=== PATIENT | female | born 1945 | race Hispanic/Latino ===

== ENCOUNTER 2017-08-18 10:19 | Inpatient (IN) | payer MEDICARE, OTHER ==
[2017-08-18 10:19] VITALS: BMI 29.6
[2017-08-18] MEDS ORDERED: Magnesium Sulfate 1 gm in D5W 1 GM/100 ML BAG IVPB ONE (10:27)
[2017-08-18] MEDS ORDERED: Sodium Chloride 0.9% 1,000 ML IV ONE (10:31)
--- NOTE | 2017-08-18 10:31 | C.PDOC ---
History Of Present Illness LIMITED DUE TO CLIN EXAM PER EMS, HO COPD SOB [employer]. S/P CPAP AND NEB. 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 Time Seen by Provider: 08/18/17 10:26 History Per: EMS History/Exam Limitations: clinical condition Current Symptoms Are (Timing): Still Present Associated Symptoms: denies: Fever, Bloody Cough, Productive Cough Past Medical History Reviewed: Historical Data, Nursing Documentation, Vital Signs Vital Signs: Last Vital Signs Temp 98.4 F 08/18/17 10:22 Pulse 127 H 08/18/17 11:51 Resp 26 H 08/18/17 11:51 BP 148/86 08/18/17 11:51 Pulse Ox 95 08/18/17 11:51 - Medical History PMH: Arthritis, Atrial Fibrillation, CHF, COPD, HTN Surgical History: Cholecystectomy - [facility] Procedures DILATION OF R EXT ILIAC ART WITH INTRALUM DEV, PERC APPROACH (11/06/15) MEASURE OF CARDIAC SAMPL & PRESSURE, L HEART, PERC APPROACH (11/06/15) PLAIN RADIOGRAPHY OF L LOW EXTREM ART USING OTH CONTRAST (11/06/15) PLAIN RADIOGRAPHY OF MULT COR ART USING OTH CONTRAST (11/06/15) PLAIN RADIOGRAPHY OF R LOW EXTREM ART USING OTH CONTRAST (11/06/15) Family History: States: Unknown Family Hx - Social History Hx Alcohol Use: No Hx Substance Use: No - Immunization History Hx Tetanus Toxoid Vaccination: No Hx Influenza Vaccination: No Hx Pneumococcal Vaccination: No Review Of Systems Review Of Systems: ROS cannot be obtained secondary to pt's inabilty to answer questions. Physical Exam - Physical Exam Appears: Other (BIPAP IN PROGRESS, MODERATE DISTRESS. TACHYPNEIC, RETRACTING, UNABLE TO SPEAK SENTENCES. AWAKE, ALERT, APPROPRIATE INTERACTION, ABLE TO RESPOND Y/N.) Skin: Warm, Dry, No Diaphoretic Head: Atraumatic, Normacephalic Oral Mucosa: Moist Chest: Symmetrical Cardiovascular: Rhythm Irregular (TACHY) Respiratory: Decreased Breath Sounds (W/ BRONCHIAL SOUNDS), Accessory Muscle Use , No Rales, No Rhonchi, Other (TACHYPNEIC) Gastrointestinal/Abdominal: Soft, No Tenderness, No Guarding, No Rebound Back: Normal Inspection Extremity: Normal ROM, No Pedal Edema, Capillary Refill (< 2 SEC. ) Neurological/Psych: Oriented x3 ED Course And Treatment - Laboratory Results Result Diagrams: 08/18/17 10:39 08/18/17 10:39 - Radiology CXR: Interpreted by Me, Viewed By Me CXR Interpretation: Yes: Other (POSSIBLE CHF vs. INFILTRATES) Progress - Re-Evaluation Re-evaluation Note: 08/18/17 10:36 IMPROVE FROM PRIOR 95% ON BIPAP. 08/18/17 10:43 PT VOMITING, NOT TOLERATING. NOW SPEAKING 2-3 WORD SENTENCES. 08/18/17 11:08 APPEARS COMFORTABLE ON VAPOTHERM. SPEAKING 4-5 WORD SENTENCES 08/18/17 11:19 [facility] PRIOR PMD MAJCHRZAK CALLBACK DR WERNER PENDING CARDIO DR MA 08/18/17 12:[address] WERNER PENDING DR BARNES WILL EVAL FOR ICU PENDING CALLBACK DR MA 08/18/17 12:22 D/W DR WERNER STATES UNAVAIL THIS WEEK, ADMIT TO HOSP D/W DR Ellyn MATAMOROS WILL ADMIT 08/18/17 12:28 REPEAT EKG RAPID AFIB 129 NCP 08/18/17 12:31 D/W DR MA HO CAD. WILL REACH DR NEWBERRY TO EVAL PT IN HOSP - Data Reviewed Data Reviewed: Lab, Diagnostic imaging, EKG, Old records - Critical Care Citical Care: Excluding Proc Time Critical Care Time: 90 minutes Disposition Counseled Patient/Family Regarding: Studies Performed, Diagnosis - Disposition Disposition: HOSPITALIZED Disposition Time: 12:26 Condition: STABLE - POA Present On Arrival: Poor Glycemic Control - Clinical Impression Clinical Impression: CHF exacerbation, COPD with exacerbation, Elevated troponin, Rapid atrial fibrillation - Scribe Statement The provider has reviewed the documentation as recorded by the Scribe SM All medical record entries made by the Scribe were at my direction and personally dictated by me. I have reviewed the chart and agree that the record accurately reflects my personal performance of the history, physical exam, medical decision making, and the department course for this patient. I have also personally directed, reviewed, and agree with the discharge instructions and disposition. Decision To Admit - Pt Status Changed To: Hospital Disposition Of: Inpatient - Admit Certification Admit to Inpatient:: After my assessment, the patient will require hospitalization for at least two midnights. This is because of the severity of symptoms shown, intensity of services needed, and/or the medical risk in this patient being treated as an outpatient. - InPatient: Physician Admission Certification: I certify that this patient requires 2 or more midnights of care for the following reason:: SEE NOTE - . Bed Request Type: ICU Admitting Physician: Edward Matamoros Patient Diagnosis: CHF exacerbation, COPD with exacerbation, Elevated troponin, Rapid atrial fibrillation
[2017-08-18 10:43] LABS: BASO # 0.1 K/uL (0.0-0.2); BASO % 0.8 % (0.0-2.0); EOS # 0.1 K/uL (0.0-0.7); EOS % 0.4 % (0.0-4.0); LYMPH # 1.7 K/uL (1.0-4.3); LYMPH % 11.4 % (20.0-40.0); MEAN PLATELET VOLUME 7.4 fL (7.2-11.7); MONO # 0.7 K/uL (0.0-0.8); MONO % 4.9 % (0.0-10.0); NRBC % 0.1 % (0.0-2.0); RED CELL DISTRIBUTION WIDTH 15.4 % (11.5-14.5); WHITE BLOOD COUNT 14.6 K/uL (4.8-10.8)
[2017-08-18 10:44] LABS: VENOUS BLOOD GAS BASE EXCESS -1.4 mmol/L (0.0-2.0); VENOUS BLOOD GAS PCO2 56 mmHg (40-60); VENOUS BLOOD PH 7.28 (7.32-7.43)
[2017-08-18 10:56] LABS: CHLORIDE 95 mmol/L (98-107); SODIUM 134 mmol/L (132-148)
[2017-08-18 10:58] LABS: AST/SGOT 30 U/L (14-36); BILIRUBIN,TOTAL 0.6 mg/dL (0.2-1.3); CARBON DIOXIDE 25 mmol/L (22-30); GFR AFRICAN-AMERICAN > 60
[2017-08-18 10:59] LABS: ALKALINE PHOSPHATASE 103 U/L (38-126); ALT/SGPT 38 U/L (9-52); BLOOD UREA NITROGEN 12 mg/dL (7-17); CALCIUM 9.2 mg/dl (8.6-10.4); GLUCOSE,RANDOM 294 mg/dL (65-105); MAGNESIUM 1.3 mg/dL (1.6-2.3); TOTAL PROTEIN 7.9 g/dL (6.3-8.3)
[2017-08-18 11:50] LABS: ABG ALLEN TEST PO; DRAW SITE RR
[2017-08-18 12:19] LABS: RBC URINE < 1 /hpf (0-3); URINE BACTERIA RARE (<OCC); URINE BILIRUBIN NEGATIVE (NEGATIVE); URINE BLOOD 1+ (NEGATIVE); URINE COLOR Straw (YELLOW); URINE GLUCOSE (UA) NORMAL (Normal); URINE KETONE NEGATIVE (NEGATIVE); URINE LEUKOCYTE ESTERASE NEG Leu/uL (Negative); URINE PROTEIN 2+ mg/dL (NEGATIVE); URINE UROBILINOGEN NORMAL mg/dL (0.2-1.0); WBC URINE 1 /hpf (0-5)
[2017-08-18] MEDS ORDERED: cefTRIAXone IV 1 gm in Dextros 50 ML IV ONE (12:26)
[2017-08-18] MEDS ORDERED: Azithromycin 500 MG in Sodium Chloride 0.9% 250 ML IV STA (12:27)
[2017-08-18] MEDS ORDERED: cefTRIAXone IV 1 gm in Dextros 50 ML IVPB ONE (12:32)
--- NOTE | 2017-08-18 13:19 | RAD ---
PROCEDURE: CHEST RADIOGRAPH, 1 VIEW HISTORY: SOB COMPARISON: Chest radiographs 11/07/2015. FINDINGS: LUNGS: Fibrotic changes again seen the mid and inferior lung zones bilaterally with borderline airspace disease appreciate the right base. None is appreciate the left grossly. PLEURA: No definite acute pleural effusions identified although fibrotic changes or chronic effusion blunts the left costophrenic sulcus once again. None is seen the right. No pneumothorax bilaterally. CARDIOVASCULAR: Cardiomegaly appears stable. Mild pulmonary venous congestion is questioned. OSSEOUS STRUCTURES: No significant abnormalities. VISUALIZED UPPER ABDOMEN: Normal. OTHER FINDINGS: None. IMPRESSION: Mild pulmonary venous congestion is questioned as well as limited airspace disease right base. Pulmonary fibrosis is again seen bilaterally, concentrated at the mid to inferior lung zones, left greater than right.
[2017-08-18] MEDS ORDERED: Azithromycin 500 MG in Sodium Chloride 0.9% 250 ML IVPB SCH (14:30)
--- NOTE | 2017-08-18 15:25 | CP.PCM.HP ---
<Mitchel Valentino - Last Filed: 08/18/17 18:38> History of Present Illness - History of Present Illness History of Present Illness: CC: Dyspnea HPI ( Limited due to patient's clinical status): Patient is a 72 year old female with past medical history of CHF, HTN, atrial fibrillation, arthritis, COPD, who presents to the ED with complaints of shortness of breath that has worsened since this morning. Patient reports that she is unable to lay flat and sitting up mildly alleviates her symptoms. Patient does report episodes of bilateral leg swelling. Patient denies productive or non-productive cough, fever , chills, nausea, vomiting, dizziness but reports fatigue. Patient was placed on Bipap in the ED but patient refused, therefore, she was placed on Vapotherm with 100% FIO2. Patient was noted to have decreasing oxygen saturation as she was talking, therefore, the encounter was shortened and patient was eventually placed on Bipap. As per chart review: PMD: Dr. Mosquera. PMHx: CHF, HTN, atrial fibrillation, arthritis, COPD. Surgical Hx: Cholecystectomy, foot surgery, left shoulder surgery and surgery for bladder incontinence. Family Hx: mother passed from [place] at age 72. Brother passed from [place] at age 28. Allergies: NKDA. Social Hx: Lives alone. Former smoker for 20 years. Admits to ETOH socially and denies illicit drug use Present on Admission - Present on Admission Any Indicators Present on Admission: No Review of Systems - Constitutional Constitutional: absent: Chills, Fever, Headache - EENT Eyes: absent: Blurred Vision, Change in Vision - Cardiovascular Cardiovascular: Dyspnea, Dyspnea on Exertion, Orthopnea. absent: Chest Pain, Chest Pain at Rest, Diaphoresis, Lightheadedness, Palpitations, Syncope - Respiratory Respiratory: Dyspnea, Dyspnea on Exertion, Wheezing, Chest Congestion - Gastrointestinal Gastrointestinal: absent: Abdominal Pain, Nausea, Vomiting - Neurological Neurological: Weakness. absent: Dizziness, Headaches, Syncope - Endocrine Endocrine: Fatigue. absent: Palpitations Past Patient History - Past Medical History & Family History Past Medical History?: Yes - Past Social History Smoking Status: Former Smoker - CARDIAC Hx Atrial Fibrillation: Yes Hx Congestive Heart Failure: Yes Hx Hypertension: Yes - PULMONARY Hx Chronic Obstructive Pulmonary Disease (COPD): Yes - NEUROLOGICAL Hx Paralysis: No - HEENT Hx HEENT Problems: No - RENAL Hx Chronic Kidney Disease: No - ENDOCRINE/METABOLIC Hx Endocrine Disorders: No - HEMATOLOGICAL/ONCOLOGICAL Hx Blood Transfusions: No - INTEGUMENTARY Hx Dermatological Problems: No - MUSCULOSKELETAL/RHEUMATOLOGICAL Hx Arthritis: Yes - GASTROINTESTINAL Hx Gastrointestinal Disorders: No - GENITOURINARY/GYNECOLOGICAL Hx Genitourinary Disorders: No - PSYCHIATRIC Hx Substance Use: No - SURGICAL HISTORY Hx Cholecystectomy: Yes - ANESTHESIA Hx Anesthesia: No Hx Malignant Hyperthermia: No Meds Allergies/Adverse Reactions: Allergies Allergy/AdvReac Type Severity Reaction Status Date / Time No Known Allergies Allergy Verified 11/06/15 14:25 Physical Exam - Head Exam Head Exam: ATRAUMATIC - Eye Exam Eye Exam: EOMI - ENT Exam ENT Exam: Mucous Membranes Moist - Respiratory Exam Respiratory Exam: Accessory Muscle Use, Decreased Breath Sounds, Wheezes, Respiratory Distress - Cardiovascular Exam Cardiovascular Exam: Tachycardia, REGULAR RHYTHM, +S1, +S2 - GI/Abdominal Exam GI & Abdominal Exam: Normal Bowel Sounds, Soft. absent: Tenderness - Extremities Exam Extremities exam: Negative for: pedal edema - Neurological Exam Neurological exam: Alert, Oriented x3 - Psychiatric Exam Psychiatric exam: Anxious - Skin Skin Exam: Normal Color Results - Vital Signs Recent Vital Signs: Last Vital Signs Temp 98.3 F 08/18/17 13:29 Pulse 103 H 08/18/17 14:38 Resp 24 08/18/17 13:29 BP 162/96 H 08/18/17 13:29 Pulse Ox 93 L 08/18/17 13:29 - Labs Result Diagrams: 08/18/17 10:39 08/18/17 10:39 Labs: Laboratory Results - last 24 hr 08/18/17 08/18/17 08/18/17 10:30 10:39 10:39 WBC 14.6 H D RBC 4.31 Hgb 12.5 Hct 38.0 MCV 88.0 D MCH 29.0 MCHC 33.0 RDW 15.4 H Plt Count 416 H D MPV 7.4 Neut % (Auto) 82.5 H Lymph % (Auto) 11.4 L Florence % (Auto) 4.9 Eos % (Auto) 0.4 Baso % (Auto) 0.8 Neut # 12.1 H Lymph # 1.7 Florence # 0.7 Eos # 0.1 Baso # 0.1 PT 11.3 INR 1.0 APTT 33 Puncture Site pCO2 pO2 45 HCO3 ABG pH ABG Total CO2 ABG O2 Saturation ABG Base Excess Tigre Test ABG Potassium VBG pH 7.28 L VBG pCO2 56 VBG HCO3 23.2 VBG Total CO2 28.0 VBG O2 Sat (Calc) 79.5 H VBG Base Excess -1.4 L VBG Potassium 4.0 A-a O2 Difference Respiratory Index Sodium 136.0 Chloride 99.0 Glucose 326 H Lactate 4.4 H* Liter Flow FiO2 Crit Value Called To Dr basilia stanley Crit Value Called By Gordon garcia [facility] Crit Value Read Back Y Blood Gas Notified Time 1045 Potassium Carbon Dioxide Anion Gap BUN Creatinine Est GFR ( Amer) Est GFR (Non-Af Amer) POC Glucose (mg/dL) Random Glucose Calcium Magnesium Total Bilirubin AST ALT Alkaline Phosphatase Troponin I NT-Pro-B Natriuret Pep Total Protein Albumin Globulin Albumin/Globulin Ratio Arterial Blood Potassium Venous Blood Potassium 4.0 Urine Color Urine Clarity Urine pH Ur Specific Anthony Urine Protein Urine Glucose (UA) Urine Ketones Urine Blood Urine Nitrate Urine Bilirubin Urine Urobilinogen Ur Leukocyte Esterase Urine WBC (Auto) Urine RBC (Auto) Ur Squamous Epith Cells Urine Bacteria Hyaline Casts Digoxin Influenza Typ A,B (EIA) 08/18/17 08/18/17 08/18/17 10:39 10:39 11:08 WBC RBC Hgb Hct MCV MCH MCHC RDW Plt Count MPV Neut % (Auto) Lymph % (Auto) Florence % (Auto) Eos % (Auto) Baso % (Auto) Neut # Lymph # [place] # Eos # Baso # PT INR APTT Puncture Site pCO2 pO2 HCO3 ABG pH ABG Total CO2 ABG O2 Saturation ABG Base Excess Tigre Test ABG Potassium VBG pH VBG pCO2 VBG HCO3 VBG Total CO2 VBG O2 Sat (Calc) VBG Base Excess VBG Potassium A-a O2 Difference Respiratory Index Sodium 134 Chloride 95 L Glucose Lactate Liter Flow FiO2 Crit Value Called To Crit Value Called By Crit Value Read Back Blood Gas Notified Time Potassium 4.0 Carbon Dioxide 25 Anion Gap 18 BUN 12 Creatinine 0.6 L Est GFR ( Amer) > 60 Est GFR (Non-Af Amer) > 60 POC Glucose (mg/dL) Random Glucose 294 H Calcium 9.2 Magnesium 1.3 L Total Bilirubin 0.6 AST 30 ALT 38 Alkaline Phosphatase 103 Troponin I 0.1440 H* NT-Pro-B Natriuret Pep 3370 H Total Protein 7.9 Albumin 3.9 Globulin 4.0 H Albumin/Globulin Ratio 1.0 Arterial Blood Potassium Venous Blood Potassium Urine Color Urine Clarity Urine pH Ur Specific Anthony Urine Protein Urine Glucose (UA) Urine Ketones Urine Blood Urine Nitrate Urine Bilirubin Urine Urobilinogen Ur Leukocyte Esterase Urine WBC (Auto) Urine RBC (Auto) Ur Squamous Epith Cells Urine Bacteria Hyaline Casts Digoxin 1.1 Influenza Typ A,B (EIA) Negative for flu a/b 08/18/17 08/18/17 08/18/17 11:47 12:05 14:00 WBC RBC Hgb Hct MCV MCH MCHC RDW Plt Count MPV Neut % (Auto) Lymph % (Auto) Florence % (Auto) Eos % (Auto) Baso % (Auto) Neut # Lymph # Florence # Eos # Baso # PT INR APTT Puncture Site Rr pCO2 41 pO2 79 L HCO3 21.7 ABG pH 7.33 L ABG Total CO2 22.9 ABG O2 Saturation 97.4 ABG Base Excess -4.1 L Tigre Test Po ABG Potassium 3.3 L VBG pH VBG pCO2 VBG HCO3 VBG Total CO2 VBG O2 Sat (Calc) VBG Base Excess VBG Potassium A-a O2 Difference 583.0 Respiratory Index 7.4 Sodium 138.0 Chloride 103.0 Glucose 251 H Lactate 5.0 H* Liter Flow 20.0 FiO2 100.0 Crit Value Called To Dr. stanley Crit Value Called By Babak nesbitt Crit Value Read Back Y Blood Gas Notified Time 1149 Potassium Carbon Dioxide Anion Gap BUN Creatinine Est GFR ( Amer) Est GFR (Non-Af Amer) POC Glucose (mg/dL) 291 H Random Glucose Calcium Magnesium Total Bilirubin AST ALT Alkaline Phosphatase Troponin I NT-Pro-B Natriuret Pep Total Protein Albumin Globulin Albumin/Globulin Ratio Arterial Blood Potassium 3.3 L Venous Blood Potassium Urine Color Straw Urine Clarity Clear Urine pH 5.0 Ur Specific Anthony 1.006 Urine Protein 2+ H Urine Glucose (UA) Normal Urine Ketones Negative Urine Blood 1+ H Urine Nitrate Negative Urine Bilirubin Negative Urine Urobilinogen Normal Ur Leukocyte Esterase Neg Urine WBC (Auto) 1 Urine RBC (Auto) < 1 Ur Squamous Epith Cells 2 Urine Bacteria Rare Hyaline Casts 3-5 H Digoxin Influenza Typ A,B (EIA) Assessment & Plan - Assessment and Plan (Free Text) Assessment: Patient is a 72 year old female with past medical history of A.fibrillation, CHF , COPD, HTN and arthritis, who presents to the ED with complaints of shortness of breath that has worsened since this morning. Patient was found to be respiratory distress and was placed on vapotherm and subsequently, placed on Bipap in the ICU. Plan: Neuro: Alert, awake and oriented Cardio: Hx of A. Fibrillation, HTN, CHF Perl Developer, Dr. Drake---> help appreciated * Management as per recommendation Medication/Management: * Cardizem drip 125mg at 5mg/hr * Lovenox 70mg SC Q12H * Aspirin 81mg PO daily Pulm: Respiratory distress secondary to possible acute CHF Chest X-ray: Mild pulmonary venous congestion is questioned as well as limited airspace disease right base. Pulmonary fibrosis is again seen bilaterally, concentrated at the mid to inferior lung zones, left greater than right. Bilateral infiltrates Medication/Management: * Solumedrol 60mg IV Q8H * Duoneb 3ml INH RQ6 prn * Azithromycin 500mg IV Q24H * Rocephin 1gm IV 24 Q24H * Lasix 40mg IVP Q12H Prophylaxis: DVT: Lovenox 70mg sc Q12 GI:Pepcid 20mg IVP q12h <Solis Shirley H - Last Filed: 08/19/17 07:17> Results - Vital Signs Recent Vital Signs: Last Vital Signs Temp 98.7 F 08/19/17 04:00 Pulse 79 08/18/17 21:58 Resp 30 H 08/18/17 16:48 BP 136/97 H 08/19/17 01:30 Pulse Ox 93 L 08/19/17 04:00 - Labs Result Diagrams: 08/19/17 06:14 08/19/17 06:14 Labs: Laboratory Results - last 24 hr 08/18/17 08/18/17 08/18/17 10:30 10:39 10:39 WBC 14.6 H D RBC 4.31 Hgb 12.5 Hct 38.0 MCV 88.0 D MCH 29.0 MCHC 33.0 RDW 15.4 H Plt Count 416 H D MPV 7.4 Neut % (Auto) 82.5 H Lymph % (Auto) 11.4 L Florence % (Auto) 4.9 Eos % (Auto) 0.4 Baso % (Auto) 0.8 Neut # 12.1 H Lymph # 1.7 Florence # 0.7 Eos # 0.1 Baso # 0.1 PT 11.3 INR 1.0 APTT 33 Puncture Site pCO2 pO2 45 HCO3 ABG pH ABG Total CO2 ABG O2 Saturation ABG Base Excess ABG Hemoglobin ABG Carboxyhemoglobin POC ABG HHb (Measured) ABG Methemoglobin Tigre Test ABG Potassium VBG pH 7.28 L VBG pCO2 56 VBG HCO3 23.2 VBG Total CO2 28.0 VBG O2 Sat (Calc) 79.5 H VBG Base Excess -1.4 L VBG Potassium 4.0 A-a O2 Difference Respiratory Index Hgb O2 Saturation Sodium 136.0 Chloride 99.0 Glucose 326 H Lactate 4.4 H* Liter Flow FiO2 Crit Value Called To Dr basilia stanley Crit Value Called By Gordon garcia insole rounder Crit Value Read Back Y Blood Gas Notified Time 1045 Potassium Carbon Dioxide Anion Gap BUN Creatinine Est GFR ( Amer) Est GFR (Non-Af Amer) POC Glucose (mg/dL) Random Glucose Calcium Phosphorus Magnesium Total Bilirubin AST ALT Alkaline Phosphatase Total Creatine Kinase CK-MB (Mass) Troponin I Troponin I, Quant NT-Pro-B Natriuret Pep Total Protein Albumin Globulin Albumin/Globulin Ratio Arterial Blood Potassium Venous Blood Potassium 4.0 Urine Color Urine Clarity Urine pH Ur Specific Anthony Urine Protein Urine Glucose (UA) Urine Ketones Urine Blood Urine Nitrate Urine Bilirubin Urine Urobilinogen Ur Leukocyte Esterase Urine WBC (Auto) Urine RBC (Auto) Ur Squamous Epith Cells Urine Bacteria Hyaline Casts Digoxin Influenza Typ A,B (EIA) 08/18/17 08/18/17 08/18/17 10:39 10:39 11:08 WBC RBC Hgb Hct MCV MCH MCHC RDW Plt Count MPV Neut % (Auto) Lymph % (Auto) Florence % (Auto) Eos % (Auto) Baso % (Auto) Neut # Lymph # [place] # Eos # Baso # PT INR APTT Puncture Site pCO2 pO2 HCO3 ABG pH ABG Total CO2 ABG O2 Saturation ABG Base Excess ABG Hemoglobin ABG Carboxyhemoglobin POC ABG HHb (Measured) ABG Methemoglobin Tigre Test ABG Potassium VBG pH VBG pCO2 VBG HCO3 VBG Total CO2 VBG O2 Sat (Calc) VBG Base Excess VBG Potassium A-a O2 Difference Respiratory Index Hgb O2 Saturation Sodium 134 Chloride 95 L Glucose Lactate Liter Flow FiO2 Crit Value Called To Crit Value Called By Crit Value Read Back Blood Gas Notified Time Potassium 4.0 Carbon Dioxide 25 Anion Gap 18 BUN 12 Creatinine 0.6 L Est GFR ( Amer) > 60 Est GFR (Non-Af Amer) > 60 POC Glucose (mg/dL) Random Glucose 294 H Calcium 9.2 Phosphorus Magnesium 1.3 L Total Bilirubin 0.6 AST 30 ALT 38 Alkaline Phosphatase 103 Total Creatine Kinase CK-MB (Mass) Troponin I 0.1440 H* Troponin I, Quant NT-Pro-B Natriuret Pep 3370 H Total Protein 7.9 Albumin 3.9 Globulin 4.0 H Albumin/Globulin Ratio 1.0 Arterial Blood Potassium Venous Blood Potassium Urine Color Urine Clarity Urine pH Ur Specific Anthony Urine Protein Urine Glucose (UA) Urine Ketones Urine Blood Urine Nitrate Urine Bilirubin Urine Urobilinogen Ur Leukocyte Esterase Urine WBC (Auto) Urine RBC (Auto) Ur Squamous Epith Cells Urine Bacteria Hyaline Casts Digoxin 1.1 Influenza Typ A,B (EIA) Negative for flu a/b 08/18/17 08/18/17 08/18/17 11:47 12:05 14:00 WBC RBC Hgb Hct MCV MCH MCHC RDW Plt Count MPV Neut % (Auto) Lymph % (Auto) Florence % (Auto) Eos % (Auto) Baso % (Auto) Neut # Lymph # [place] # Eos # Baso # PT INR APTT Puncture Site Rr pCO2 41 pO2 79 L HCO3 21.7 ABG pH 7.33 L ABG Total CO2 22.9 ABG O2 Saturation 97.4 ABG Base Excess -4.1 L ABG Hemoglobin ABG Carboxyhemoglobin POC ABG HHb (Measured) ABG Methemoglobin Tigre Test Po ABG Potassium 3.3 L VBG pH VBG pCO2 VBG HCO3 VBG Total CO2 VBG O2 Sat (Calc) VBG Base Excess VBG Potassium A-a O2 Difference 583.0 Respiratory Index 7.4 Hgb O2 Saturation Sodium 138.0 Chloride 103.0 Glucose 251 H Lactate 5.0 H* Liter Flow 20.0 FiO2 100.0 Crit Value Called To Dr. stanley Crit Value Called By Babak nesbitt Crit Value Read Back Y Blood Gas Notified Time 1149 Potassium Carbon Dioxide Anion Gap BUN Creatinine Est GFR ( Amer) Est GFR (Non-Af Amer) POC Glucose (mg/dL) 291 H Random Glucose Calcium Phosphorus Magnesium Total Bilirubin AST ALT Alkaline Phosphatase Total Creatine Kinase CK-MB (Mass) Troponin I Troponin I, Quant NT-Pro-B Natriuret Pep Total Protein Albumin Globulin Albumin/Globulin Ratio Arterial Blood Potassium 3.3 L Venous Blood Potassium Urine Color Straw Urine Clarity Clear Urine pH 5.0 Ur Specific Anthony 1.006 Urine Protein 2+ H Urine Glucose (UA) Normal Urine Ketones Negative Urine Blood 1+ H Urine Nitrate Negative Urine Bilirubin Negative Urine Urobilinogen Normal Ur Leukocyte Esterase Neg Urine WBC (Auto) 1 Urine RBC (Auto) < 1 Ur Squamous Epith Cells 2 Urine Bacteria Rare Hyaline Casts 3-5 H Digoxin Influenza Typ A,B (EIA) 08/18/17 08/18/17 08/19/17 18:46 22:03 04:22 WBC RBC Hgb Hct MCV MCH MCHC RDW Plt Count MPV Neut % (Auto) Lymph % (Auto) [place] % (Auto) Eos % (Auto) Baso % (Auto) Neut # Lymph # [place] # Eos # Baso # PT INR APTT Puncture Site Lba pCO2 38 pO2 81 HCO3 17.1 L ABG pH 7.25 L ABG Total CO2 17.9 L ABG O2 Saturation 96.2 ABG Base Excess -9.8 L ABG Hemoglobin 18.7 H ABG Carboxyhemoglobin 1.8 H POC ABG HHb (Measured) 3.7 ABG Methemoglobin 0.9 Tigre Test Na ABG Potassium VBG pH VBG pCO2 VBG HCO3 VBG Total CO2 VBG O2 Sat (Calc) VBG Base Excess VBG Potassium A-a O2 Difference 264.0 Respiratory Index 3.3 Hgb O2 Saturation 93.7 L Sodium Chloride Glucose Lactate Liter Flow FiO2 55.0 Crit Value Called To Crit Value Called By Crit Value Read Back Blood Gas Notified Time Potassium Carbon Dioxide Anion Gap BUN Creatinine Est GFR ( Amer) Est GFR (Non-Af Amer) POC Glucose (mg/dL) 237 H Random Glucose Calcium Phosphorus Magnesium Total Bilirubin AST ALT Alkaline Phosphatase Total Creatine Kinase 136 H CK-MB (Mass) 9.31 H Troponin I Troponin I, Quant 1.5900 H* NT-Pro-B Natriuret Pep Total Protein Albumin Globulin Albumin/Globulin Ratio Arterial Blood Potassium Venous Blood Potassium Urine Color Urine Clarity Urine pH Ur Specific Anthony Urine Protein Urine Glucose (UA) Urine Ketones Urine Blood Urine Nitrate Urine Bilirubin Urine Urobilinogen Ur Leukocyte Esterase Urine WBC (Auto) Urine RBC (Auto) Ur Squamous Epith Cells Urine Bacteria Hyaline Casts Digoxin Influenza Typ A,B (EIA) 08/19/17 08/19/17 08/19/17 05:37 06:14 06:14 WBC 12.5 H RBC 4.28 Hgb 12.4 Hct 38.2 MCV 89.3 MCH 29.0 MCHC 32.5 L RDW 15.1 H Plt Count 379 MPV 8.3 Neut % (Auto) 94.3 H Lymph % (Auto) 3.0 L [place] % (Auto) 2.6 Eos % (Auto) 0.0 Baso % (Auto) 0.1 Neut # 11.8 H Lymph # 0.4 L [place] # 0.3 Eos # 0.0 Baso # 0.0 PT INR APTT Puncture Site pCO2 pO2 HCO3 ABG pH ABG Total CO2 ABG O2 Saturation ABG Base Excess ABG Hemoglobin ABG Carboxyhemoglobin POC ABG HHb (Measured) ABG Methemoglobin Tigre Test ABG Potassium VBG pH VBG pCO2 VBG HCO3 VBG Total CO2 VBG O2 Sat (Calc) VBG Base Excess VBG Potassium A-a O2 Difference Respiratory Index Hgb O2 Saturation Sodium 133 Chloride 93 L Glucose Lactate Liter Flow FiO2 Crit Value Called To Crit Value Called By Crit Value Read Back Blood Gas Notified Time Potassium 4.0 Carbon Dioxide 20 L Anion Gap 24 H BUN 19 H Creatinine 0.8 Est GFR ( Amer) > 60 Est GFR (Non-Af Amer) > 60 POC Glucose (mg/dL) 176 H Random Glucose 200 H Calcium 8.3 L Phosphorus 4.0 Magnesium 1.4 L Total Bilirubin 0.6 AST 297 H D ALT 242 H D Alkaline Phosphatase 105 Total Creatine Kinase CK-MB (Mass) Troponin I Troponin I, Quant NT-Pro-B Natriuret Pep Total Protein 7.7 Albumin 3.9 Globulin 3.8 Albumin/Globulin Ratio 1.0 Arterial Blood Potassium Venous Blood Potassium Urine Color Urine Clarity Urine pH Ur Specific Anthony Urine Protein Urine Glucose (UA) Urine Ketones Urine Blood Urine Nitrate Urine Bilirubin Urine Urobilinogen Ur Leukocyte Esterase Urine WBC (Auto) Urine RBC (Auto) Ur Squamous Epith Cells Urine Bacteria Hyaline Casts Digoxin Influenza Typ A,B (EIA) Attending/Attestation - Attestation I have personally seen and examined this patient.: Yes I have fully participated in the care of the patient.: Yes I have reviewed all pertinent clinical information: Yes Notes (Text): 08/19/17 07:16 Medical attending: Patient was seen and examined by me, agrees the above note by certified medical assistant. The patient was seen in the ER bed #4. At that time she was on the Vapotherm, as she refused to have the BiPAP on. Review of systems by me was rather limited on this was mostly due to the lack of translation available. This being said she was talking however not in full sentences, she did appear to be in respiratory distress at that time. Review of her chest x-ray shows that she has what appears to be bilateral pulmonary congestion and probably pleural effusions as well. She does have a history of CHF and has been evaluated by cardiology here [facility] in the past. There is also a history of atrial fibrillation, for which she has been hospitalized in the past for. When she came to the ER today she initially had a much faster heart rate this has since come down with the help of IV Cardizem drip. She has been given Lovenox subcutaneous twice a day for anticoagulation. There is also a borderline positive troponin as well. As noted before the patient does have rather extensive cardiac history. This borderline troponin is probably also related rapid A. fib as well as CHF. Cardiology has been consult There is also history of COPD as well, she has are been given IV Solu-Medrol. Her regular car unloader is currently unavailable told so at this moment the patient is being admitted to hospitalist service for the time being thank you Solis Shirley
[2017-08-18] MEDS: MethylPREDNISolone 40 mg Vial IV SCH ×2 (17:50→21:52)
[2017-08-18] MEDS: Albuterol-Ipratrop 3 mg / 0.5 (3 ml) UD INH SCH (19:24)
[2017-08-18] MEDS: Enoxaparin 80 mg Syringe SC SCH (20:54)
--- NOTE | 2017-08-18 21:11 | CP.PCM.CON ---
History of Present Illness - History of Present Illness History of Present Illness: CC: Dyspnea HPI ( Limited due to patient's clinical status): Patient is a 72 year old female with past medical history of CHF, HTN, atrial fibrillation, arthritis, COPD, who presents to the ED with complaints of shortness of breath that has worsened since this morning. Patient reports that she is unable to lay flat and sitting up mildly alleviates her symptoms. Patient does report episodes of bilateral leg swelling. Patient denies productive or non-productive cough, fever , chills, nausea, vomiting, dizziness but reports fatigue. Patient was placed on Bipap in the ED but patient refused, therefore, she was placed on Vapotherm with 100% FIO2. Patient was noted to have decreasing oxygen saturation as she was talking, therefore, the encounter was shortened and patient was eventually placed on Bipap. As per chart review: PMD: Dr. Mosquera. Medical Supervisor: Dr. Munoz PMHx: CHF, HTN, atrial fibrillation, arthritis, COPD. Surgical Hx: Cholecystectomy, foot surgery, left shoulder surgery and surgery for bladder incontinence. Family Hx: mother passed from [place] at age 72. Brother passed from [place] at age 28. Allergies: NKDA. Social Hx: Lives alone. Former smoker for 20 years. Admits to ETOH socially and denies illicit drug use Review of Systems - Constitutional Constitutional: absent: Chills, Fever, Headache - EENT Eyes: absent: Blurred Vision, Change in Vision - Cardiovascular Cardiovascular: Dyspnea, Dyspnea on Exertion, Orthopnea. absent: Chest Pain, Chest Pain at Rest, Diaphoresis, Lightheadedness, Palpitations, Syncope - Respiratory Respiratory: Dyspnea, Dyspnea on Exertion, Wheezing, Chest Congestion - Gastrointestinal Gastrointestinal: absent: Abdominal Pain, Nausea, Vomiting - Neurological Neurological: Weakness. absent: Dizziness, Headaches, Syncope - Endocrine Endocrine: Fatigue. absent: Palpitations Physical Exam - Head Exam Head Exam: ATRAUMATIC - Eye Exam Eye Exam: EOMI - ENT Exam ENT Exam: Mucous Membranes Moist - Respiratory Exam Respiratory Exam: Accessory Muscle Use, Decreased Breath Sounds, Wheezes, Respiratory Distress - Cardiovascular Exam Cardiovascular Exam: Tachycardia, REGULAR RHYTHM, +S1, +S2 - GI/Abdominal Exam GI & Abdominal Exam: Normal Bowel Sounds, Soft. absent: Tenderness - Extremities Exam Extremities exam: Negative for: pedal edema - Neurological Exam Neurological exam: Alert, Oriented x3 - Psychiatric Exam Psychiatric exam: Anxious - Skin Skin Exam: Normal Color Past Patient History - Past Medical History & Family History Past Medical History?: Yes - Past Social History Smoking Status: Former Smoker - CARDIAC Hx Atrial Fibrillation: Yes Hx Congestive Heart Failure: Yes Hx Hypertension: Yes - PULMONARY Hx Chronic Obstructive Pulmonary Disease (COPD): Yes - NEUROLOGICAL Hx Paralysis: No - HEENT Hx HEENT Problems: No - RENAL Hx Chronic Kidney Disease: No - ENDOCRINE/METABOLIC Hx Endocrine Disorders: No - HEMATOLOGICAL/ONCOLOGICAL Hx Blood Transfusions: No - INTEGUMENTARY Hx Dermatological Problems: No - MUSCULOSKELETAL/RHEUMATOLOGICAL Hx Arthritis: Yes - GASTROINTESTINAL Hx Gastrointestinal Disorders: No - GENITOURINARY/GYNECOLOGICAL Hx Genitourinary Disorders: No - PSYCHIATRIC Hx Substance Use: No - SURGICAL HISTORY Hx Cholecystectomy: Yes - ANESTHESIA Hx Anesthesia: No Hx Malignant Hyperthermia: No Meds Allergies/Adverse Reactions: Allergies Allergy/AdvReac Type Severity Reaction Status Date / Time No Known Allergies Allergy Verified 11/06/15 14:25 - Medications Medications: Current Medications Albuterol/Ipratropium (Duoneb 3 Mg/0.5 Mg (3 Ml) Ud) 3 ml INH RQ6 [facility] Last Admin: 08/18/17 19:24 Dose: 3 ml Aspirin (Aspirin Chewable) 81 mg PO DAILY [facility] Enoxaparin Sodium (Lovenox) 70 mg SC Q12H [facility] Last Admin: 08/18/17 20:54 Dose: 70 mg Famotidine (Pepcid) 20 mg IVP Q12 [facility] Furosemide (Lasix) 40 mg IVP Q12H [facility] Last Admin: 08/18/17 17:51 Dose: 40 mg Diltiazem HCl 125 mg/ Sodium (Chloride) 125 mls @ 5 mls/hr IV .Q24H [facility]; 5 MG/ HR PRN Reason: Protocol Last Admin: 08/18/17 13:03 Dose: 5 mls/hr Ceftriaxone Sodium 1 gm/ (Sodium Chloride) 100 mls @ 100 mls/hr IVPB Q24H [facility] Last Admin: 08/18/17 19:55 Dose: 100 mls/hr Azithromycin 500 mg/ Sodium (Chloride) 250 mls @ 250 mls/hr IVPB Q24H [facility] Last Admin: 08/18/17 17:50 Dose: 250 mls/hr Methylprednisolone (Solu-Medrol) 60 mg IV Q8H [facility] Last Admin: 08/18/17 17:50 Dose: 60 mg Results - Vital Signs Recent Vital Signs: Last Vital Signs Temp 98.7 F 08/18/17 20:00 Pulse 74 08/18/17 19:27 Resp 30 H 08/18/17 16:48 BP 138/71 08/18/17 17:51 Pulse Ox 95 08/18/17 16:48 - Labs Result Diagrams: 08/18/17 10:39 08/18/17 10:39 Labs: Laboratory Results - last 24 hr 08/18/17 08/18/17 08/18/17 10:30 10:39 10:39 WBC 14.6 H D RBC 4.31 Hgb 12.5 Hct 38.0 MCV 88.0 D MCH 29.0 MCHC 33.0 RDW 15.4 H Plt Count 416 H D MPV 7.4 Neut % (Auto) 82.5 H Lymph % (Auto) 11.4 L Mobile % (Auto) 4.9 Eos % (Auto) 0.4 Baso % (Auto) 0.8 Neut # 12.1 H Lymph # 1.7 Mobile # 0.7 Eos # 0.1 Baso # 0.1 PT 11.3 INR 1.0 APTT 33 Puncture Site pCO2 pO2 45 HCO3 ABG pH ABG Total CO2 ABG O2 Saturation ABG Base Excess Tigre Test ABG Potassium VBG pH 7.28 L VBG pCO2 56 VBG HCO3 23.2 VBG Total CO2 28.0 VBG O2 Sat (Calc) 79.5 H VBG Base Excess -1.4 L VBG Potassium 4.0 A-a O2 Difference Respiratory Index Sodium 136.0 Chloride 99.0 Glucose 326 H Lactate 4.4 H* Liter Flow FiO2 Crit Value Called To Dr basilia stanley Crit Value Called By Gordon garcia [facility] Crit Value Read Back Y Blood Gas Notified Time 1045 Potassium Carbon Dioxide Anion Gap BUN Creatinine Est GFR ( Amer) Est GFR (Non-Af Amer) POC Glucose (mg/dL) Random Glucose Calcium Magnesium Total Bilirubin AST ALT Alkaline Phosphatase Total Creatine Kinase CK-MB (Mass) Troponin I Troponin I, Quant NT-Pro-B Natriuret Pep Total Protein Albumin Globulin Albumin/Globulin Ratio Arterial Blood Potassium Venous Blood Potassium 4.0 Urine Color Urine Clarity Urine pH Ur Specific Aiken Urine Protein Urine Glucose (UA) Urine Ketones Urine Blood Urine Nitrate Urine Bilirubin Urine Urobilinogen Ur Leukocyte Esterase Urine WBC (Auto) Urine RBC (Auto) Ur Squamous Epith Cells Urine Bacteria Hyaline Casts Digoxin Influenza Typ A,B (EIA) 08/18/17 08/18/17 08/18/17 10:39 10:39 11:08 WBC RBC Hgb Hct MCV MCH MCHC RDW Plt Count MPV Neut % (Auto) Lymph % (Auto) Mobile % (Auto) Eos % (Auto) Baso % (Auto) Neut # Lymph # Mobile # Eos # Baso # PT INR APTT Puncture Site pCO2 pO2 HCO3 ABG pH ABG Total CO2 ABG O2 Saturation ABG Base Excess Tigre Test ABG Potassium VBG pH VBG pCO2 VBG HCO3 VBG Total CO2 VBG O2 Sat (Calc) VBG Base Excess VBG Potassium A-a O2 Difference Respiratory Index Sodium 134 Chloride 95 L Glucose Lactate Liter Flow FiO2 Crit Value Called To Crit Value Called By Crit Value Read Back Blood Gas Notified Time Potassium 4.0 Carbon Dioxide 25 Anion Gap 18 BUN 12 Creatinine 0.6 L Est GFR ( Amer) > 60 Est GFR (Non-Af Amer) > 60 POC Glucose (mg/dL) Random Glucose 294 H Calcium 9.2 Magnesium 1.3 L Total Bilirubin 0.6 AST 30 ALT 38 Alkaline Phosphatase 103 Total Creatine Kinase CK-MB (Mass) Troponin I 0.1440 H* Troponin I, Quant NT-Pro-B Natriuret Pep 3370 H Total Protein 7.9 Albumin 3.9 Globulin 4.0 H Albumin/Globulin Ratio 1.0 Arterial Blood Potassium Venous Blood Potassium Urine Color Urine Clarity Urine pH Ur Specific Aiken Urine Protein Urine Glucose (UA) Urine Ketones Urine Blood Urine Nitrate Urine Bilirubin Urine Urobilinogen Ur Leukocyte Esterase Urine WBC (Auto) Urine RBC (Auto) Ur Squamous Epith Cells Urine Bacteria Hyaline Casts Digoxin 1.1 Influenza Typ A,B (EIA) Negative for flu a/b 08/18/17 08/18/17 08/18/17 11:47 12:05 14:00 WBC RBC Hgb Hct MCV MCH MCHC RDW Plt Count MPV Neut % (Auto) Lymph % (Auto) Mobile % (Auto) Eos % (Auto) Baso % (Auto) Neut # Lymph # Mobile # Eos # Baso # PT INR APTT Puncture Site Rr pCO2 41 pO2 79 L HCO3 21.7 ABG pH 7.33 L ABG Total CO2 22.9 ABG O2 Saturation 97.4 ABG Base Excess -4.1 L Tigre Test Po ABG Potassium 3.3 L VBG pH VBG pCO2 VBG HCO3 VBG Total CO2 VBG O2 Sat (Calc) VBG Base Excess VBG Potassium A-a O2 Difference 583.0 Respiratory Index 7.4 Sodium 138.0 Chloride 103.0 Glucose 251 H Lactate 5.0 H* Liter Flow 20.0 FiO2 100.0 Crit Value Called To Dr. stanley Crit Value Called By Babak nesbitt Crit Value Read Back Y Blood Gas Notified Time 1149 Potassium Carbon Dioxide Anion Gap BUN Creatinine Est GFR ( Amer) Est GFR (Non-Af Amer) POC Glucose (mg/dL) 291 H Random Glucose Calcium Magnesium Total Bilirubin AST ALT Alkaline Phosphatase Total Creatine Kinase CK-MB (Mass) Troponin I Troponin I, Quant NT-Pro-B Natriuret Pep Total Protein Albumin Globulin Albumin/Globulin Ratio Arterial Blood Potassium 3.3 L Venous Blood Potassium Urine Color Straw Urine Clarity Clear Urine pH 5.0 Ur Specific Aiken 1.006 Urine Protein 2+ H Urine Glucose (UA) Normal Urine Ketones Negative Urine Blood 1+ H Urine Nitrate Negative Urine Bilirubin Negative Urine Urobilinogen Normal Ur Leukocyte Esterase Neg Urine WBC (Auto) 1 Urine RBC (Auto) < 1 Ur Squamous Epith Cells 2 Urine Bacteria Rare Hyaline Casts 3-5 H Digoxin Influenza Typ A,B (EIA) 08/18/17 18:46 WBC RBC Hgb Hct MCV MCH MCHC RDW Plt Count MPV Neut % (Auto) Lymph % (Auto) Mobile % (Auto) Eos % (Auto) Baso % (Auto) Neut # Lymph # Mobile # Eos # Baso # PT INR APTT Puncture Site pCO2 pO2 HCO3 ABG pH ABG Total CO2 ABG O2 Saturation ABG Base Excess Tigre Test ABG Potassium VBG pH VBG pCO2 VBG HCO3 VBG Total CO2 VBG O2 Sat (Calc) VBG Base Excess VBG Potassium A-a O2 Difference Respiratory Index Sodium Chloride Glucose Lactate Liter Flow FiO2 Crit Value Called To Crit Value Called By Crit Value Read Back Blood Gas Notified Time Potassium Carbon Dioxide Anion Gap BUN Creatinine Est GFR ( Amer) Est GFR (Non-Af Amer) POC Glucose (mg/dL) Random Glucose Calcium Magnesium Total Bilirubin AST ALT Alkaline Phosphatase Total Creatine Kinase 136 H CK-MB (Mass) 9.31 H Troponin I Troponin I, Quant 1.5900 H* NT-Pro-B Natriuret Pep Total Protein Albumin Globulin Albumin/Globulin Ratio Arterial Blood Potassium Venous Blood Potassium Urine Color Urine Clarity Urine pH Ur Specific Aiken Urine Protein Urine Glucose (UA) Urine Ketones Urine Blood Urine Nitrate Urine Bilirubin Urine Urobilinogen Ur Leukocyte Esterase Urine WBC (Auto) Urine RBC (Auto) Ur Squamous Epith Cells Urine Bacteria Hyaline Casts Digoxin Influenza Typ A,B (EIA) Assessment & Plan - Assessment and Plan (Free Text) Assessment: Patient is a 72 year old female with past medical history of A.fibrillation, CHF , COPD, HTN and arthritis, who presents to the ED with complaints of shortness of breath that has worsened since this morning. Patient was found to be respiratory distress and was placed on vapotherm and subsequently, placed on Bipap in the ICU. Plan: Neuro: Alert, awake and oriented Cardio: Hx of A. Fibrillation, HTN, CHF * Management as per recommendation Medication/Management: * Cardizem drip 125mg at 5mg/hr * Lovenox 70mg SC Q12H * Aspirin 81mg PO daily * Check ECHO Pulm: Respiratory distress secondary to possible acute CHF Chest X-ray: Mild pulmonary venous congestion is questioned as well as limited airspace disease right base. Pulmonary fibrosis is again seen bilaterally, concentrated at the mid to inferior lung zones, left greater than right. Bilateral infiltrates Medication/Management: * Solumedrol 60mg IV Q8H * Duoneb 3ml INH RQ6 prn * Azithromycin 500mg IV Q24H * Rocephin 1gm IV 24 Q24H * Lasix 40mg IVP Q12H Prophylaxis: DVT: Lovenox 70mg sc Q12 GI:Pepcid 20mg IVP q12h
[2017-08-19] MEDS: Albuterol-Ipratrop 3 mg / 0.5 (3 ml) UD INH SCH ×4 (01:29→19:08)
[2017-08-19 04:26] LABS: ARTERIAL BLOOD HGB O2 SAT 93.7 % (95.0-98.0); CARBOXYHEMOGLOBIN 1.8 % (0.5-1.5); DRAW SITE LBA; HHB 3.7 % (0.0-5.0); METHEMOGLOBIN 0.9 % (0.0-3.0)
[2017-08-19] MEDS: Enoxaparin 80 mg Syringe SC SCH ×2 (05:54→18:28)
[2017-08-19] MEDS: MethylPREDNISolone 40 mg Vial IV SCH ×2 (05:54→18:28)
[2017-08-19 06:24] LABS: BASO % 0.1 % (0.0-2.0); HEMATOCRIT 38.2 % (34.0-47.0); LYMPH # 0.4 K/uL (1.0-4.3); MEAN CELL VOLUME 89.3 fL (81.0-99.0); MEAN CORPUSCULAR HGB CONC 32.5 g/dL (33.0-37.0); MEAN PLATELET VOLUME 8.3 fL (7.2-11.7); MONO # 0.3 K/uL (0.0-0.8); MONO % 2.6 % (0.0-10.0); PLATELET COUNT 379 K/uL (130-400); RED CELL DISTRIBUTION WIDTH 15.1 % (11.5-14.5); WHITE BLOOD COUNT 12.5 K/uL (4.8-10.8)
[2017-08-19 06:42] LABS: CHLORIDE 93 mmol/L (98-107); SODIUM 133 mmol/L (132-148)
[2017-08-19 06:44] LABS: AST/SGOT 297 U/L (14-36); BILIRUBIN,TOTAL 0.6 mg/dL (0.2-1.3); CARBON DIOXIDE 20 mmol/L (22-30); GFR AFRICAN-AMERICAN > 60
[2017-08-19 06:45] LABS: ALKALINE PHOSPHATASE 105 U/L (38-126); ALT/SGPT 242 U/L (9-52); BLOOD UREA NITROGEN 19 mg/dL (7-17); CALCIUM 8.3 mg/dl (8.6-10.4); GLUCOSE,RANDOM 200 mg/dL (65-105); TOTAL PROTEIN 7.7 g/dL (6.3-8.3)
[2017-08-19 06:46] LABS: MAGNESIUM 1.4 mg/dL (1.6-2.3)
[2017-08-19 08:30] LABS: NEUTROPHIL 86 % (50-75); TOTAL CELLS COUNTED 100
[2017-08-19 09:11] LABS: VENOUS BLOOD GAS BASE EXCESS -5.4 mmol/L (0.0-2.0); VENOUS BLOOD GAS PCO2 38 mmHg (40-60); VENOUS BLOOD PH 7.33 (7.32-7.43)
--- NOTE | 2017-08-19 10:45 | CP.PCM.PN ---
<Katia Rodriguez - Last Filed: 08/19/17 17:39> Subjective - Date & Time of Evaluation Date of Evaluation: 08/19/17 Time of Evaluation: 10:30 - Subjective Subjective: PGY 2 Medicine Note- Dr. Drake's service Pt seen and examined in no acute distress. Patient was transferred to a chair bedside. Patient denied any pressing complaints such as chest pain or shortness of breath at this time. Objective - Vital Signs/Intake and Output Vital Signs (last 24 hours): Temp Pulse Resp BP Pulse Ox 97.4 F L 105 H 25 H 143/92 H 90 L 08/19/17 08:00 08/19/17 09:00 08/19/17 09:00 08/19/17 09:00 08/19/17 09:00 Intake and Output: 08/19/17 08/19/17 06:59 18:59 Intake Total 320 130 Output Total 340 170 Balance -20 -40 - Medications Medications: Current Medications Albuterol/Ipratropium (Duoneb 3 Mg/0.5 Mg (3 Ml) Ud) 3 ml INH RQ6 [facility] Last Admin: 08/19/17 07:33 Dose: 3 ml Aspirin (Aspirin Chewable) 81 mg PO DAILY [facility] Digoxin (Lanoxin) 0.25 mg PO DAILY@1800 [facility] Diltiazem HCl (Cardizem) 30 mg PO QID [facility] Donepezil HCl (Aricept) 10 mg PO DAILY [facility] Enoxaparin Sodium (Lovenox) 70 mg SC Q12H [facility] Last Admin: 08/19/17 05:54 Dose: 70 mg Escitalopram Oxalate (Lexapro) 10 mg PO DAILY [facility] Famotidine (Pepcid) 20 mg PO DAILY [facility] Furosemide (Lasix) 40 mg IVP Q12H [facility] Last Admin: 08/19/17 01:30 Dose: 40 mg Diltiazem HCl 125 mg/ Sodium (Chloride) 125 mls @ 5 mls/hr IV .Q24H [facility]; 5 MG/ HR PRN Reason: Protocol Last Titration: 08/19/17 00:20 Dose: 5 mg/hr, 5 mls/hr Cefepime HCl (Maxipime Iv 1 Gm Premix) 1 gm in 50 mls @ 100 mls/hr IVPB Q12H [facility] Methylprednisolone (Solu-Medrol) 60 mg IV Q8H [facility] Last Admin: 08/19/17 05:54 Dose: 60 mg - Labs Labs: 08/19/17 06:14 08/19/17 06:14 PT 11.3 SECONDS (9.7-12.2) 08/18/17 10:39 INR 1.0 08/18/17 10:39 APTT 33 SECONDS (21-34) 08/18/17 10:39 - Constitutional Appears: Non-toxic, No Acute Distress - Head Exam Head Exam: ATRAUMATIC, NORMAL INSPECTION - Eye Exam Eye Exam: EOMI, PERRL - ENT Exam ENT Exam: Mucous Membranes Moist - Respiratory Exam Respiratory Exam: NORMAL BREATHING PATTERN. absent: Clear to Ausculation Bilateral, Wheezes - Cardiovascular Exam Cardiovascular Exam: +S1, +S2 - GI/Abdominal Exam GI & Abdominal Exam: Soft. absent: Guarding, Rigid, Tenderness - Extremities Exam Extremities Exam: Full ROM, Pedal Edema (Right LE with pitting edema) - Back Exam Back Exam: Full ROM - Neurological Exam Neurological Exam: Alert, Awake, Oriented x3 - Psychiatric Exam Psychiatric exam: Normal Affect, Normal Mood - Skin Skin Exam: Dry, Intact, Normal Color, Warm Assessment and Plan (1) A-fib Assessment & Plan: Cardizem Drip, Cardizem On Digoxin, ASA Continue to monitor- Keep rate controlled Status: Chronic (2) Elevated troponin Assessment & Plan: NSTEMI Elevated Troponins- SHEILA 3 trending down Therapeutic Lovenox 70mg SC Q12 EKGs show Atrial fibrillation; ST depressions ad T wave inversions noted in anterolateral leads Cath in [facility] 2016: Moderate coronary artery disease. Mod to severe pulm HTN. Iliac artery disease. recommendations at the time for fractional flow reserv for RCA outpatient. Will need to assess whether patient followed up. Cont to monitor Status: Acute (3) Pneumonia Assessment & Plan: CXR shows signs of infiltrates Was on Ceftriaxone and Azithromycin however discontinued due to transaminitis. On Cefepime. Start Florastor. Status: Acute (4) Chronic congestive heart failure Assessment & Plan: Elevated ProBNP 3370 Echo Pending Echo from 11/2015: LVEF 52%, Normal LV functionality at that time Lasix IV Q12 Intake and Output Measure Daily weights Status: Chronic (5) Transaminitis Assessment & Plan: Elevated likely secondarily to antibiotic administration. Changed to Cefepime. Status: Acute (6) Hypertension Assessment & Plan: Stable. Continue to monitor at this time. Will not treat acute rise in blood pressure. Status: Chronic (7) Prophylactic measure Assessment & Plan: Lovenox SCDs Pepcid 20mg PO daily Status: Acute - Assessment and Plan (Free Text) Assessment: Discussed with attending. Management and Planning per Dr. Drake. <Mack Drake - Last Filed: 08/19/17 20:17> Objective - Vital Signs/Intake and Output Vital Signs (last 24 hours): Temp Pulse Resp BP Pulse Ox 97.9 F 103 H 19 91/65 L 91 L 08/19/17 16:00 08/19/17 19:39 08/19/17 19:05 08/19/17 19:05 08/19/17 19:05 Intake and Output: 08/19/17 08/20/17 18:59 06:59 Intake Total 355 Output Total 650 70 Balance -295 -70 - Medications Medications: Current Medications Albuterol/Ipratropium (Duoneb 3 Mg/0.5 Mg (3 Ml) Ud) 3 ml INH RQ6 [facility] Last Admin: 08/19/17 19:08 Dose: 3 ml Aspirin (Aspirin Chewable) 81 mg PO DAILY [facility] Last Admin: 08/19/17 10:45 Dose: 81 mg Digoxin (Lanoxin) 0.25 mg PO DAILY@1800 [facility] Last Admin: 08/19/17 18:28 Dose: 0.25 mg Diltiazem HCl (Cardizem) 30 mg PO Q12H [facility] Last Admin: 08/19/17 12:57 Dose: 30 mg Donepezil HCl (Aricept) 10 mg PO HS [facility] Enoxaparin Sodium (Lovenox) 70 mg SC Q12H [facility] Last Admin: 08/19/17 18:28 Dose: 70 mg Escitalopram Oxalate (Lexapro) 10 mg PO DAILY [facility] Last Admin: 08/19/17 10:45 Dose: 10 mg Famotidine (Pepcid) 20 mg PO DAILY [facility] Last Admin: 08/19/17 10:45 Dose: 20 mg Furosemide (Lasix) 40 mg IVP Q12H [facility] Last Admin: 08/19/17 16:14 Dose: 40 mg Cefepime HCl (Maxipime Iv 1 Gm Premix) 1 gm in 50 mls @ 100 mls/hr IVPB Q12H [facility] Last Admin: 08/19/17 11:51 Dose: 100 mls/hr Insulin Human Regular (Novolin R) 0 unit SC ACHS [facility] PRN Reason: Protocol Last Admin: 08/19/17 16:51 Dose: 10 unit Methylprednisolone (Solu-Medrol) 40 mg IV Q8H [facility] Last Admin: 08/19/17 18:28 Dose: 40 mg Saccharomyces Boulardii (Florastor) 250 mg PO BID [facility] Last Admin: 08/19/17 18:28 Dose: 250 mg - Labs Labs: 08/19/17 06:14 08/19/17 06:14 PT 11.3 SECONDS (9.7-12.2) 08/18/17 10:39 INR 1.0 08/18/17 10:39 APTT 33 SECONDS (21-34) 08/18/17 10:39 Assessment and Plan - Assessment and Plan (Free Text) Assessment: Patient seen and evaluated with the medical office secretary Plan of care as documented. Possible cardiac cath prior to discharge
--- NOTE | 2017-08-19 11:21 | RAD ---
HISTORY: respiratory distress COMPARISON: Portable chest 08/18/2017. FINDINGS: LUNGS: Chronic fibrotic change again seen diffusely with diminished airspace disease identified in the right base. PLEURA: Trace right pleural effusion is not excluded. None is seen the left. No pneumothorax bilaterally. CARDIOVASCULAR: Cardiomegaly appears stable. Diminishing pulmonary venous congestion noted. OSSEOUS STRUCTURES: No significant abnormalities. VISUALIZED UPPER ABDOMEN: Normal. OTHER FINDINGS: None. IMPRESSION: Interval reduction and mild pulmonary venous congestion is suggested the cardiomegaly is again prominent. Diminished right basilar airspace disease with none identified at the left. Chronic fibrosis again seen bilaterally diffusely.
[2017-08-19] MEDS: Cefepime IV 1 gm in Dextrose 1 GM/50 ML BAG IVPB SCH ×2 (11:51→21:24)
[2017-08-19] MEDS: Saccharomyces Boulardi 250 mg Cap PO SCH ×2 (12:47→18:28)
[2017-08-19] MEDS: Magnesium Sulfate 1 gm in D5W 1 GM/100 ML BAG IVPB SCH ×2 (12:47→14:00)
--- NOTE | 2017-08-19 13:23 | CP.PCM.PN ---
Subjective - Date & Time of Evaluation Date of Evaluation: 08/19/17 Time of Evaluation: 13:00 - Subjective Subjective: Patient was seen and examined by me, When I came into the ICU she was in ICU bed 15, she was out of bed in a chair she was wearing a Ventimask for supplemental oxygen. Per my discussion with the medical staff the patient is still on a Cardizem drip at this moment, she is also receiving Lovenox for anticoagulation of atrial fibrillation. She is pending: For a 2-D echo at bedside today The cardiac troponins jose carlos to 1.5. She reported she was not having any chest pain but continued to have difficulty breathing. At the chest x-ray this morning unfortunately looks the same she has bilateral pulmonary edema and congestion. She is receiving Lasix. the 24hr I and Os not yet available. Objective - Vital Signs/Intake and Output Vital Signs (last 24 hours): Temp Pulse Resp BP Pulse Ox 97.4 F L 105 H 25 H 143/92 H 90 L 08/19/17 08:00 08/19/17 09:00 08/19/17 09:00 08/19/17 09:00 08/19/17 09:00 Intake and Output: 08/19/17 08/19/17 06:59 18:59 Intake Total 320 130 Output Total 340 170 Balance -20 -40 - Medications Medications: Current Medications Albuterol/Ipratropium (Duoneb 3 Mg/0.5 Mg (3 Ml) Ud) 3 ml INH RQ6 [facility] Last Admin: 08/19/17 07:33 Dose: 3 ml Aspirin (Aspirin Chewable) 81 mg PO DAILY [facility] Last Admin: 08/19/17 10:45 Dose: 81 mg Digoxin (Lanoxin) 0.25 mg PO DAILY@1800 [facility] Diltiazem HCl (Cardizem) 30 mg PO Q12H [facility] Last Admin: 08/19/17 12:57 Dose: 30 mg Donepezil HCl (Aricept) 10 mg PO HS [facility] Enoxaparin Sodium (Lovenox) 70 mg SC Q12H [facility] Last Admin: 08/19/17 05:54 Dose: 70 mg Escitalopram Oxalate (Lexapro) 10 mg PO DAILY [facility] Last Admin: 08/19/17 10:45 Dose: 10 mg Famotidine (Pepcid) 20 mg PO DAILY [facility] Last Admin: 08/19/17 10:45 Dose: 20 mg Furosemide (Lasix) 40 mg IVP Q12H [facility] Last Admin: 08/19/17 01:30 Dose: 40 mg Diltiazem HCl 125 mg/ Sodium (Chloride) 125 mls @ 5 mls/hr IV .Q24H [facility]; 5 MG/ HR PRN Reason: Protocol Last Titration: 08/19/17 00:20 Dose: 5 mg/hr, 5 mls/hr Cefepime HCl (Maxipime Iv 1 Gm Premix) 1 gm in 50 mls @ 100 mls/hr IVPB Q12H [facility] Last Admin: 08/19/17 11:51 Dose: 100 mls/hr Methylprednisolone (Solu-Medrol) 60 mg IV Q8H [facility] Last Admin: 08/19/17 05:54 Dose: 60 mg Saccharomyces Boulardii (Florastor) 250 mg PO BID [facility] Last Admin: 08/19/17 12:47 Dose: 250 mg - Labs Labs: 08/19/17 06:14 08/19/17 06:14 PT 11.3 SECONDS (9.7-12.2) 08/18/17 10:39 INR 1.0 08/18/17 10:39 APTT 33 SECONDS (21-34) 08/18/17 10:39 - Constitutional Appears: Chronically Ill - Eye Exam Eye Exam: EOMI, Normal appearance - ENT Exam ENT Exam: Mucous Membranes Moist - Respiratory Exam Respiratory Exam: Decreased Breath Sounds, NORMAL BREATHING PATTERN - Cardiovascular Exam Cardiovascular Exam: Irregular Rhythm - Neurological Exam Neurological Exam: Alert, Awake, Oriented x3 Neuro motor strength exam: Left Upper Extremity: 5, Right Upper Extremity: 5, Left Lower Extremity: 5, Right Lower Extremity: 5 - Psychiatric Exam Psychiatric exam: Normal Affect, Normal Mood - Skin Skin Exam: Pallor, Warm Assessment and Plan - Assessment and Plan (Free Text) Assessment: Assessment: This is a 72 year old female with a history of Atrial fibrillation, CHF, COPD, HTN and arthritis. Atrial Fibrillation: Patient currently is still on the Cardizem drip the heart rate is substantially improved from before it's now in the 90s on the telemetry remains irregularly irregular also now the patient is on Lovenox twice a day. The patient does have a relatively high CHADS score. I'm being told that the plan is to transition patient off the Cardizem drip over to PO medication CHF: The patient is pending a 2-D echo at this moment. The chest x-ray this morning shows that she still has a lot of bilateral congestion and pulmonary edema. At some point the patient should be started on SOO inhibitor or an ARB. Currently checking I's and O's HTN: Most recent ones pressure systolic of 140. Patient is on by mouth Cardizem , hopefully this will improve as the patient gets additional IV Lasix Pneumonia: Patient's abx were changed over to cefepime IV. There is a high bandemia this morning. The cultures at this time are pending. Hx of COPD and possible pulmonary fibrosis The patient remains on solumedrol IV Q8hrs Prophylaxis: Lovenox 70mg sc Q12 Pepcid 20mg IVP q12h
--- NOTE | 2017-08-19 13:39 | CP.CCUPN ---
<Mitchel Valentino E - Last Filed: 08/19/17 14:06> CCU Subjective - Physician Review Subjective (Free Text): Patient was seen and examined at bedside. Patient was sitting up in bed, eating breakfast. Patient states that she is doing well with improved breathing. Patient denies chest pain, fever, chills, nausea, vomiting and productive cough. During the encounter, patient was noted with decreased oxygen saturation on 5L NC and was placed back on ventrimask after breakfast. CCU Objective - Vital Signs / Intake & Output Intake and Output (Last 8hrs): Intake & Output 08/18/17 08/19/17 08/19/17 22:59 06:59 14:59 Intake Total 115 205 130 Output Total 110 230 170 Balance 5 -25 -40 Weight 160 lb Intake: IV 0 Intake, IV Amount 15 35 10 Right Antecubital 15 35 10 Oral 100 170 120 Output: Urine 110 230 170 Urethral (Sanchez) 110 230 170 Other: Voiding Method Indwelling Catheter # Bowel Movements 0 0 - Physical Exam Head: Positive for: Atraumatic Extroacular Muscles: Positive for: EOMI Mouth: Positive for: Moist Mucous Membranes Respiratory/Chest: Positive for: Respiratory Distress, Decreased Breath Sounds, Other (Alternating between BiPAP and Ventrimask ) Cardiovascular: Positive for: Regular Rate and Rhythm, Normal S1, S2 Abdomen: Positive for: Normal Bowel Sounds. Negative for: Tenderness, Distention, Peritoneal Signs Upper Extremity: Positive for: Normal Inspection. Negative for: Edema Lower Extremity: Positive for: Normal Inspection. Negative for: Edema Neurological: Positive for: GCS=15, Speech Normal Skin: Positive for: Normal Color Psychiatric: Positive for: Alert, Oriented x 3 - Medications Active Medications: Active Medications Generic Name Dose Route Start Last Admin Trade Name Freq PRN Reason Stop Dose Admin Albuterol/Ipratropium 3 ml 08/18/17 20:00 08/19/17 07:33 Duoneb 3 Mg/0.5 Mg (3 Ml) Ud INH 3 ml RQ6 APRIL Administration Aspirin 81 mg 08/19/17 10:00 08/19/17 10:45 Aspirin Chewable PO 81 mg DAILY APRIL Administration Digoxin 0.25 mg 08/19/17 18:00 Lanoxin PO DAILY@1800 [facility] Diltiazem HCl 30 mg 08/19/17 12:00 08/19/17 12:57 Cardizem PO 30 mg Q12H APRIL Administration Donepezil HCl 10 mg 08/19/17 22:00 Aricept PO HS APRIL Enoxaparin Sodium 70 mg 08/18/17 18:00 08/19/17 05:54 Lovenox SC 70 mg Q12H APRIL Administration Escitalopram Oxalate 10 mg 08/19/17 10:00 08/19/17 10:45 Lexapro PO 10 mg DAILY APRIL Administration Famotidine 20 mg 08/19/17 10:00 08/19/17 10:45 Pepcid PO 20 mg DAILY APRIL Administration Furosemide 40 mg 08/18/17 14:30 08/19/17 01:30 Lasix IVP 40 mg Q12H APRIL Administration Diltiazem HCl 125 mg/ Sodium 125 mls @ 5 mls/hr 08/18/17 12:30 08/19/17 00:20 Chloride IV 5 mg/hr .Q24H APRIL 5 mls/hr Protocol Titration 5 MG/HR Cefepime HCl 1 gm in 50 mls @ 100 mls/hr 08/19/17 10:00 08/19/17 11:51 Maxipime Iv 1 Gm Premix IVPB 100 mls/hr Q12H APRIL Administration Methylprednisolone 60 mg 08/18/17 14:30 08/19/17 05:54 Solu-Medrol IV 60 mg Q8H APRIL Administration Saccharomyces Boulardii 250 mg 08/19/17 11:15 08/19/17 12:47 Florastor PO 250 mg BID APRIL Administration - Patient Studies Lab Studies: Microbiology Studies 08/18/17 14:57 MRSA Culture (Admit) - Final Naris MRSA NOT DETECTED Lab Studies 08/19/17 08/19/17 08/19/17 Range/Units 11:31 09:07 07:59 WBC (4.8-10.8) K/uL RBC (3.80-5.20) Mil/uL Hgb (11.0-16.0) g/dL Hct (34.0-47.0) % MCV (81.0-99.0) fL MCH (27.0-31.0) pg MCHC (33.0-37.0) g/dL RDW (11.5-14.5) % Plt Count (130-400) K/uL MPV (7.2-11.7) fL Neut % (Auto) (50.0-75.0) % Lymph % (Auto) (20.0-40.0) % [place] % (Auto) (0.0-10.0) % Eos % (Auto) (0.0-4.0) % Baso % (Auto) (0.0-2.0) % Neut # (1.8-7.0) K/uL Lymph # (1.0-4.3) K/uL [place] # (0.0-0.8) K/uL Eos # (0.0-0.7) K/uL Baso # (0.0-0.2) K/uL Neutrophils % (Manual) (50-75) % Band Neutrophils % (0-2) % Lymphocytes % (Manual) (20-40) % Monocytes % (Manual) (0-10) % Platelet Estimate (NORMAL) Anisocytosis (manual) Puncture Site pCO2 (35-45) mm/Hg pO2 63 H (80-100) mm/Hg HCO3 (21-28) mmol/L ABG pH (7.35-7.45) ABG Total CO2 (22-28) mmol/L ABG O2 Saturation (95-98) % ABG Base Excess (-2.0-3.0) mmol/L ABG Hemoglobin (11.7-17.4) g/dL ABG Carboxyhemoglobin (0.5-1.5) % POC ABG HHb (Measured) (0.0-5.0) % ABG Methemoglobin (0.0-3.0) % Tigre Test VBG pH 7.33 (7.32-7.43) VBG pCO2 38 L (40-60) mmHg VBG HCO3 20.5 mmol/L VBG Total CO2 21.2 L (22-28) mmol/L VBG O2 Sat (Calc) 94.0 H (40-65) % VBG Base Excess -5.4 L (0.0-2.0) mmol/L VBG Potassium 3.9 (3.6-5.2) mmol/L A-a O2 Difference mm/Hg Respiratory Index Hgb O2 Saturation (95.0-98.0) % Glucose 263 H (65-105) mg/dl Lactate 5.6 H* (0.7-2.1) mmol/L FiO2 % Crit Value Called To Dr maggie fuller Crit Value 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 Crit Value Read Back Y Blood Gas Notified Time 912 Sodium 133.0 (132-148) mmol/L Potassium (3.6-5.2) mmol/L Chloride 96.0 L (98-107) mmol/L Carbon Dioxide (22-30) mmol/L Anion Gap (10-20) BUN (7-17) mg/dL Creatinine (0.7-1.2) mg/dL Est GFR ( Amer) Est GFR (Non-Af Amer) POC Glucose (mg/dL) 295 H 228 H (65-110) mg/dL Random Glucose (65-105) mg/dL Calcium (8.6-10.4) mg/dl Phosphorus (2.5-4.5) mg/dL Magnesium (1.6-2.3) mg/dL Total Bilirubin (0.2-1.3) mg/dL AST (14-36) U/L ALT (9-52) U/L Alkaline Phosphatase (38-126) U/L Total Creatine Kinase (30-135) U/L CK-MB (Mass) (0.0-3.38) ng/mL Troponin I, Quant (0.00-0.120) ng/mL Total Protein (6.3-8.3) g/dL Albumin (3.5-5.0) g/dL Globulin (2.2-3.9) gm/dL Albumin/Globulin Ratio (1.0-2.1) Venous Blood Potassium 3.9 (3.6-5.2) mmol/L 08/19/17 08/19/17 08/19/17 Range/Units 06:14 06:14 05:37 WBC 12.5 H (4.8-10.8) K/uL RBC 4.28 (3.80-5.20) Mil/uL Hgb 12.4 (11.0-16.0) g/dL Hct 38.2 (34.0-47.0) % MCV 89.3 (81.0-99.0) fL MCH 29.0 (27.0-31.0) pg MCHC 32.5 L (33.0-37.0) g/dL RDW 15.1 H (11.5-14.5) % Plt Count 379 (130-400) K/uL MPV 8.3 (7.2-11.7) fL Neut % (Auto) 94.3 H (50.0-75.0) % Lymph % (Auto) 3.0 L (20.0-40.0) % [place] % (Auto) 2.6 (0.0-10.0) % Eos % (Auto) 0.0 (0.0-4.0) % Baso % (Auto) 0.1 (0.0-2.0) % Neut # 11.8 H (1.8-7.0) K/uL Lymph # 0.4 L (1.0-4.3) K/uL [place] # 0.3 (0.0-0.8) K/uL Eos # 0.0 (0.0-0.7) K/uL Baso # 0.0 (0.0-0.2) K/uL Neutrophils % (Manual) 86 H (50-75) % Band Neutrophils % 11 H* (0-2) % Lymphocytes % (Manual) 1 L (20-40) % Monocytes % (Manual) 2 (0-10) % Platelet Estimate Normal (NORMAL) Anisocytosis (manual) Slight Puncture Site pCO2 (35-45) mm/Hg pO2 (80-100) mm/Hg HCO3 (21-28) mmol/L ABG pH (7.35-7.45) ABG Total CO2 (22-28) mmol/L ABG O2 Saturation (95-98) % ABG Base Excess (-2.0-3.0) mmol/L ABG Hemoglobin (11.7-17.4) g/dL ABG Carboxyhemoglobin (0.5-1.5) % POC ABG HHb (Measured) (0.0-5.0) % ABG Methemoglobin (0.0-3.0) % Tigre Test VBG pH (7.32-7.43) VBG pCO2 (40-60) mmHg VBG HCO3 mmol/L VBG Total CO2 (22-28) mmol/L VBG O2 Sat (Calc) (40-65) % VBG Base Excess (0.0-2.0) mmol/L VBG Potassium (3.6-5.2) mmol/L A-a O2 Difference mm/Hg Respiratory Index Hgb O2 Saturation (95.0-98.0) % Glucose (65-105) mg/dl Lactate (0.7-2.1) mmol/L FiO2 % Crit Value Called To Crit Value Called By Crit Value Read Back Blood Gas Notified Time Sodium 133 (132-148) mmol/L Potassium 4.0 (3.6-5.2) mmol/L Chloride 93 L (98-107) mmol/L Carbon Dioxide 20 L (22-30) mmol/L Anion Gap 24 H (10-20) BUN 19 H (7-17) mg/dL Creatinine 0.8 (0.7-1.2) mg/dL Est GFR ( Amer) > 60 Est GFR (Non-Af Amer) > 60 POC Glucose (mg/dL) 176 H (65-110) mg/dL Random Glucose 200 H (65-105) mg/dL Calcium 8.3 L (8.6-10.4) mg/dl Phosphorus 4.0 (2.5-4.5) mg/dL Magnesium 1.4 L (1.6-2.3) mg/dL Total Bilirubin 0.6 (0.2-1.3) mg/dL AST 297 H D (14-36) U/L ALT 242 H D (9-52) U/L Alkaline Phosphatase 105 (38-126) U/L Total Creatine Kinase 211 H (30-135) U/L CK-MB (Mass) 15.1 H (0.0-3.38) ng/mL Troponin I, Quant 1.1800 H* (0.00-0.120) ng/mL Total Protein 7.7 (6.3-8.3) g/dL Albumin 3.9 (3.5-5.0) g/dL Globulin 3.8 (2.2-3.9) gm/dL Albumin/Globulin Ratio 1.0 (1.0-2.1) Venous Blood Potassium (3.6-5.2) mmol/L 08/19/17 08/18/17 08/18/17 Range/Units 04:22 22:03 18:46 WBC (4.8-10.8) K/uL RBC (3.80-5.20) Mil/uL Hgb (11.0-16.0) g/dL Hct (34.0-47.0) % MCV (81.0-99.0) fL MCH (27.0-31.0) pg MCHC (33.0-37.0) g/dL RDW (11.5-14.5) % Plt Count (130-400) K/uL MPV (7.2-11.7) fL Neut % (Auto) (50.0-75.0) % Lymph % (Auto) (20.0-40.0) % [place] % (Auto) (0.0-10.0) % Eos % (Auto) (0.0-4.0) % Baso % (Auto) (0.0-2.0) % Neut # (1.8-7.0) K/uL Lymph # (1.0-4.3) K/uL [place] # (0.0-0.8) K/uL Eos # (0.0-0.7) K/uL Baso # (0.0-0.2) K/uL Neutrophils % (Manual) (50-75) % Band Neutrophils % (0-2) % Lymphocytes % (Manual) (20-40) % Monocytes % (Manual) (0-10) % Platelet Estimate (NORMAL) Anisocytosis (manual) Puncture Site Lba pCO2 38 (35-45) mm/Hg pO2 81 (80-100) mm/Hg HCO3 17.1 L (21-28) mmol/L ABG pH 7.25 L (7.35-7.45) ABG Total CO2 17.9 L (22-28) mmol/L ABG O2 Saturation 96.2 (95-98) % ABG Base Excess -9.8 L (-2.0-3.0) mmol/L ABG Hemoglobin 18.7 H (11.7-17.4) g/dL ABG Carboxyhemoglobin 1.8 H (0.5-1.5) % POC ABG HHb (Measured) 3.7 (0.0-5.0) % ABG Methemoglobin 0.9 (0.0-3.0) % Tigre Test Na VBG pH (7.32-7.43) VBG pCO2 (40-60) mmHg VBG HCO3 mmol/L VBG Total CO2 (22-28) mmol/L VBG O2 Sat (Calc) (40-65) % VBG Base Excess (0.0-2.0) mmol/L VBG Potassium (3.6-5.2) mmol/L A-a O2 Difference 264.0 mm/Hg Respiratory Index 3.3 Hgb O2 Saturation 93.7 L (95.0-98.0) % Glucose (65-105) mg/dl Lactate (0.7-2.1) mmol/L FiO2 55.0 % Crit Value Called To Crit Value Called By Crit Value Read Back Blood Gas Notified Time Sodium (132-148) mmol/L Potassium (3.6-5.2) mmol/L Chloride (98-107) mmol/L Carbon Dioxide (22-30) mmol/L Anion Gap (10-20) BUN (7-17) mg/dL Creatinine (0.7-1.2) mg/dL Est GFR ( Amer) Est GFR (Non-Af Amer) POC Glucose (mg/dL) 237 H (65-110) mg/dL Random Glucose (65-105) mg/dL Calcium (8.6-10.4) mg/dl Phosphorus (2.5-4.5) mg/dL Magnesium (1.6-2.3) mg/dL Total Bilirubin (0.2-1.3) mg/dL AST (14-36) U/L ALT (9-52) U/L Alkaline Phosphatase (38-126) U/L Total Creatine Kinase 136 H (30-135) U/L CK-MB (Mass) 9.31 H (0.0-3.38) ng/mL Troponin I, Quant 1.5900 H* (0.00-0.120) ng/mL Total Protein (6.3-8.3) g/dL Albumin (3.5-5.0) g/dL Globulin (2.2-3.9) gm/dL Albumin/Globulin Ratio (1.0-2.1) Venous Blood Potassium (3.6-5.2) mmol/L 08/18/17 Range/Units 14:00 WBC (4.8-10.8) K/uL RBC (3.80-5.20) Mil/uL Hgb (11.0-16.0) g/dL Hct (34.0-47.0) % MCV (81.0-99.0) fL MCH (27.0-31.0) pg MCHC (33.0-37.0) g/dL RDW (11.5-14.5) % Plt Count (130-400) K/uL MPV (7.2-11.7) fL Neut % (Auto) (50.0-75.0) % Lymph % (Auto) (20.0-40.0) % [place] % (Auto) (0.0-10.0) % Eos % (Auto) (0.0-4.0) % Baso % (Auto) (0.0-2.0) % Neut # (1.8-7.0) K/uL Lymph # (1.0-4.3) K/uL [place] # (0.0-0.8) K/uL Eos # (0.0-0.7) K/uL Baso # (0.0-0.2) K/uL Neutrophils % (Manual) (50-75) % Band Neutrophils % (0-2) % Lymphocytes % (Manual) (20-40) % Monocytes % (Manual) (0-10) % Platelet Estimate (NORMAL) Anisocytosis (manual) Puncture Site pCO2 (35-45) mm/Hg pO2 (80-100) mm/Hg HCO3 (21-28) mmol/L ABG pH (7.35-7.45) ABG Total CO2 (22-28) mmol/L ABG O2 Saturation (95-98) % ABG Base Excess (-2.0-3.0) mmol/L ABG Hemoglobin (11.7-17.4) g/dL ABG Carboxyhemoglobin (0.5-1.5) % POC ABG HHb (Measured) (0.0-5.0) % ABG Methemoglobin (0.0-3.0) % Tigre Test VBG pH (7.32-7.43) VBG pCO2 (40-60) mmHg VBG HCO3 mmol/L VBG Total CO2 (22-28) mmol/L VBG O2 Sat (Calc) (40-65) % VBG Base Excess (0.0-2.0) mmol/L VBG Potassium (3.6-5.2) mmol/L A-a O2 Difference mm/Hg Respiratory Index Hgb O2 Saturation (95.0-98.0) % Glucose (65-105) mg/dl Lactate (0.7-2.1) mmol/L FiO2 % Crit Value Called To Crit Value Called By Crit Value Read Back Blood Gas Notified Time Sodium (132-148) mmol/L Potassium (3.6-5.2) mmol/L Chloride (98-107) mmol/L Carbon Dioxide (22-30) mmol/L Anion Gap (10-20) BUN (7-17) mg/dL Creatinine (0.7-1.2) mg/dL Est GFR ( Amer) Est GFR (Non-Af Amer) POC Glucose (mg/dL) 291 H (65-110) mg/dL Random Glucose (65-105) mg/dL Calcium (8.6-10.4) mg/dl Phosphorus (2.5-4.5) mg/dL Magnesium (1.6-2.3) mg/dL Total Bilirubin (0.2-1.3) mg/dL AST (14-36) U/L ALT (9-52) U/L Alkaline Phosphatase (38-126) U/L Total Creatine Kinase (30-135) U/L CK-MB (Mass) (0.0-3.38) ng/mL Troponin I, Quant (0.00-0.120) ng/mL Total Protein (6.3-8.3) g/dL Albumin (3.5-5.0) g/dL Globulin (2.2-3.9) gm/dL Albumin/Globulin Ratio (1.0-2.1) Venous Blood Potassium (3.6-5.2) mmol/L Laboratory Results - last 24 hr 08/18/17 08/18/17 08/18/17 14:00 18:46 22:03 WBC RBC Hgb Hct MCV MCH MCHC RDW Plt Count MPV Neut % (Auto) Lymph % (Auto) [place] % (Auto) Eos % (Auto) Baso % (Auto) Neut # Lymph # [place] # Eos # Baso # Neutrophils % (Manual) Band Neutrophils % Lymphocytes % (Manual) Monocytes % (Manual) Platelet Estimate Anisocytosis (manual) Puncture Site pCO2 pO2 HCO3 ABG pH ABG Total CO2 ABG O2 Saturation ABG Base Excess ABG Hemoglobin ABG Carboxyhemoglobin POC ABG HHb (Measured) ABG Methemoglobin Tigre Test VBG pH VBG pCO2 VBG HCO3 VBG Total CO2 VBG O2 Sat (Calc) VBG Base Excess VBG Potassium A-a O2 Difference Respiratory Index Hgb O2 Saturation Glucose Lactate FiO2 Crit Value Called To Crit Value Called By Crit Value Read Back Blood Gas Notified Time Sodium Potassium Chloride Carbon Dioxide Anion Gap BUN Creatinine Est GFR ( Amer) Est GFR (Non-Af Amer) POC Glucose (mg/dL) 291 H 237 H Random Glucose Calcium Phosphorus Magnesium Total Bilirubin AST ALT Alkaline Phosphatase Total Creatine Kinase 136 H CK-MB (Mass) 9.31 H Troponin I, Quant 1.5900 H* Total Protein Albumin Globulin Albumin/Globulin Ratio Venous Blood Potassium 08/19/17 08/19/17 08/19/17 04:22 05:37 06:14 WBC 12.5 H RBC 4.28 Hgb 12.4 Hct 38.2 MCV 89.3 MCH 29.0 MCHC 32.5 L RDW 15.1 H Plt Count 379 MPV 8.3 Neut % (Auto) 94.3 H Lymph % (Auto) 3.0 L [place] % (Auto) 2.6 Eos % (Auto) 0.0 Baso % (Auto) 0.1 Neut # 11.8 H Lymph # 0.4 L [place] # 0.3 Eos # 0.0 Baso # 0.0 Neutrophils % (Manual) 86 H Band Neutrophils % 11 H* Lymphocytes % (Manual) 1 L Monocytes % (Manual) 2 Platelet Estimate Normal Anisocytosis (manual) Slight Puncture Site Lba pCO2 38 pO2 81 HCO3 17.1 L ABG pH 7.25 L ABG Total CO2 17.9 L ABG O2 Saturation 96.2 ABG Base Excess -9.8 L ABG Hemoglobin 18.7 H ABG Carboxyhemoglobin 1.8 H POC ABG HHb (Measured) 3.7 ABG Methemoglobin 0.9 Tigre Test Na VBG pH VBG pCO2 VBG HCO3 VBG Total CO2 VBG O2 Sat (Calc) VBG Base Excess VBG Potassium A-a O2 Difference 264.0 Respiratory Index 3.3 Hgb O2 Saturation 93.7 L Glucose Lactate FiO2 55.0 Crit Value Called To Crit Value Called By Crit Value Read Back Blood Gas Notified Time Sodium Potassium Chloride Carbon Dioxide Anion Gap BUN Creatinine Est GFR ( Amer) Est GFR (Non-Af Amer) POC Glucose (mg/dL) 176 H Random Glucose Calcium Phosphorus Magnesium Total Bilirubin AST ALT Alkaline Phosphatase Total Creatine Kinase CK-MB (Mass) Troponin I, Quant Total Protein Albumin Globulin Albumin/Globulin Ratio Venous Blood Potassium 08/19/17 08/19/17 08/19/17 06:14 07:59 09:07 WBC RBC Hgb Hct MCV MCH MCHC RDW Plt Count MPV Neut % (Auto) Lymph % (Auto) [place] % (Auto) Eos % (Auto) Baso % (Auto) Neut # Lymph # [place] # Eos # Baso # Neutrophils % (Manual) Band Neutrophils % Lymphocytes % (Manual) Monocytes % (Manual) Platelet Estimate Anisocytosis (manual) Puncture Site pCO2 pO2 63 H HCO3 ABG pH ABG Total CO2 ABG O2 Saturation ABG Base Excess ABG Hemoglobin ABG Carboxyhemoglobin POC ABG HHb (Measured) ABG Methemoglobin Tigre Test VBG pH 7.33 VBG pCO2 38 L VBG HCO3 20.5 VBG Total CO2 21.2 L VBG O2 Sat (Calc) 94.0 H VBG Base Excess -5.4 L VBG Potassium 3.9 A-a O2 Difference Respiratory Index Hgb O2 Saturation Glucose 263 H Lactate 5.6 H* FiO2 Crit Value Called To Dr maggie fuller Crit Value 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 Crit Value Read Back Y Blood Gas Notified Time 912 Sodium 133 133.0 Potassium 4.0 Chloride 93 L 96.0 L Carbon Dioxide 20 L Anion Gap 24 H BUN 19 H Creatinine 0.8 Est GFR ( Amer) > 60 Est GFR (Non-Af Amer) > 60 POC Glucose (mg/dL) 228 H Random Glucose 200 H Calcium 8.3 L Phosphorus 4.0 Magnesium 1.4 L Total Bilirubin 0.6 AST 297 H D ALT 242 H D Alkaline Phosphatase 105 Total Creatine Kinase 211 H CK-MB (Mass) 15.1 H Troponin I, Quant 1.1800 H* Total Protein 7.7 Albumin 3.9 Globulin 3.8 Albumin/Globulin Ratio 1.0 Venous Blood Potassium 3.9 08/19/17 11:31 WBC RBC Hgb Hct MCV MCH MCHC RDW Plt Count MPV Neut % (Auto) Lymph % (Auto) [place] % (Auto) Eos % (Auto) Baso % (Auto) Neut # Lymph # [place] # Eos # Baso # Neutrophils % (Manual) Band Neutrophils % Lymphocytes % (Manual) Monocytes % (Manual) Platelet Estimate Anisocytosis (manual) Puncture Site pCO2 pO2 HCO3 ABG pH ABG Total CO2 ABG O2 Saturation ABG Base Excess ABG Hemoglobin ABG Carboxyhemoglobin POC ABG HHb (Measured) ABG Methemoglobin Tigre Test VBG pH VBG pCO2 VBG HCO3 VBG Total CO2 VBG O2 Sat (Calc) VBG Base Excess VBG Potassium A-a O2 Difference Respiratory Index Hgb O2 Saturation Glucose Lactate FiO2 Crit Value Called To Crit Value Called By Crit Value Read Back Blood Gas Notified Time Sodium Potassium Chloride Carbon Dioxide Anion Gap BUN Creatinine Est GFR ( Amer) Est GFR (Non-Af Amer) POC Glucose (mg/dL) 295 H Random Glucose Calcium Phosphorus Magnesium Total Bilirubin AST ALT Alkaline Phosphatase Total Creatine Kinase CK-MB (Mass) Troponin I, Quant Total Protein Albumin Globulin Albumin/Globulin Ratio Venous Blood Potassium EKG/Cardiology Studies: Cardiology / EKG Studies 08/19/17 08:05 EKG [ELECTROCARDIOGRAM] Stat Comment: Mode Of Transportation: Reason For Exam: elevated troponin, rule out [place] Review of Systems - Constitutional Constitutional: Weakness. absent: Fever, Chills - EENT Eyes: absent: Blurred Vision, Change in Vision Ears: absent: Dizziness - Cardiovascular Cardiovascular: Dyspnea. absent: Chest Pain, Diaphoresis, Edema, Lightheadedness, Palpitations - Respiratory Respiratory: Dyspnea, Dyspnea on Exertion - Gastrointestinal Gastrointestinal: absent: Abdominal Pain, Cramping, Nausea, Vomiting - Neurological Neurological: Weakness. absent: Dizziness, Numbness, Headaches, Syncope, Tingling - Psychiatric Psychiatric: Anxiety - Endocrine Endocrine: Fatigue. absent: Palpitations Critical Care Progress Note - Ventilator Checklist Head of Bed 30 Degrees: No Daily Sedation Vacation: No Daily Assessment of Readiness to Wean: No Daily Spontaneous Breathing Trial: No PUD Prophalyxis: Yes DVT Prophylaxis: Yes - Nutrition Nutrition: Nutrition Category Date Time Status Heart Healthy Diet [DIET] Diets 08/18/17 Breakfast Active Assessment/Plan - Assessment and Plan (Free Text) Assessment: Patient is a 72 year old female with past medical history of A.fibrillation, CHF , COPD, HTN and arthritis, who presents to the ED with complaints of shortness of breath that has worsened since this morning. Patient was found to be respiratory distress and was placed on vapotherm and subsequently, placed on Bipap in the ICU. Today: Plan: Taper off Cardizem drip and starts on Cardizem PO * Discontinue Azithromycin and Rocephin due to elevated LFTs Plan: Neuro: Alert, awake and oriented Started home medication: * Aricept Cardio: Hx of A. Fibrillation, HTN, CHF Meat Puller, Dr. Drake---> help appreciated * Management as per recommendation Medication/Management: * Cardizem drip 125mg at 5mg/hr, Taper off and switch to cardizem 30mg PO Q12H * Digoxin 0.25mg PO daily * Lovenox 70mg SC Q12H * Aspirin 81mg PO daily Pulm: Respiratory distress secondary to possible acute CHF Chest X-ray (08/18/17): Mild pulmonary venous congestion is questioned as well as limited airspace disease right base. Pulmonary fibrosis is again seen bilaterally, concentrated at the mid to inferior lung zones, left greater than right. Bilateral infiltrates Medication/Management: * Solumedrol 60mg IV Q8H * Duoneb 3ml INH RQ6 prn * Azithromycin 500mg IV Q24H ( Discontinued 08/19/17) * Rocephin 1gm IV 24 Q24H ( Discontinued 08/19/17) * Cefepime 1gm IVPB Q12H ( Started 08/19/17) * Lasix 40mg IVP Q12H GI: Acute Elevated LFTs possible to antibiotics treatment for pneumonia Medication/Management: * Azithromycin 500mg IV Q24H ( Discontinued 08/19/17) * Rocephin 1gm IV 24 Q24H ( Discontinued 08/19/17) * Cefepime 1gm IVPB Q12H ( Started 08/19/17) * Continue to monitor with AM labs Endo: No acute issues Renal: no acute issues ID: Pneumonia Chest X-ray (08/18/17): Mild pulmonary venous congestion is questioned as well as limited airspace disease right base. Pulmonary fibrosis is again seen bilaterally, concentrated at the mid to inferior lung zones, left greater than right. Bilateral infiltrates Psych: Hx of Anxiety and depression Medication/Management: * Lexapro 10mg PO daily Prophylaxis: DVT: Lovenox 70mg SC Q12H GI:Pepcid 20mg PO daily Florastor 250mg PO BID <Marcell Fuller S - Last Filed: 08/19/17 16:16> CCU Objective - Vital Signs / Intake & Output Intake and Output (Last 8hrs): Intake & Output 08/19/17 08/19/17 08/19/17 06:59 14:59 22:59 Intake Total 205 130 Output Total 230 170 Balance -25 -40 Weight 160 lb Intake: IV 0 Intake, IV Amount 35 10 Right Antecubital 35 10 Oral 170 120 Output: Urine 230 170 Urethral (Sanchez) 230 170 Other: # Bowel Movements 0 - Medications Active Medications: Active Medications Generic Name Dose Route Start Last Admin Trade Name Freq PRN Reason Stop Dose Admin Albuterol/Ipratropium 3 ml 08/18/17 20:00 08/19/17 14:00 Duoneb 3 Mg/0.5 Mg (3 Ml) Ud INH 3 ml RQ6 APRIL Administration Aspirin 81 mg 08/19/17 10:00 08/19/17 10:45 Aspirin Chewable PO 81 mg DAILY APRIL Administration Digoxin 0.25 mg 08/19/17 18:00 Lanoxin PO DAILY@1800 APRIL Diltiazem HCl 30 mg 08/19/17 12:00 08/19/17 12:57 Cardizem PO 30 mg Q12H APRIL Administration Donepezil HCl 10 mg 08/19/17 22:00 Aricept PO HS APRIL Enoxaparin Sodium 70 mg 08/18/17 18:00 08/19/17 05:54 Lovenox SC 70 mg Q12H APRLI Administration Escitalopram Oxalate 10 mg 08/19/17 10:00 08/19/17 10:45 Lexapro PO 10 mg DAILY APRIL Administration Famotidine 20 mg 08/19/17 10:00 08/19/17 10:45 Pepcid PO 20 mg DAILY APRIL Administration Furosemide 40 mg 08/18/17 14:30 08/19/17 01:30 Lasix IVP 40 mg Q12H APRIL Administration Diltiazem HCl 125 mg/ Sodium 125 mls @ 5 mls/hr 08/18/17 12:30 08/19/17 00:20 Chloride IV 5 mg/hr .Q24H APRIL 5 mls/hr Protocol Titration 5 MG/HR Cefepime HCl 1 gm in 50 mls @ 100 mls/hr 08/19/17 10:00 08/19/17 11:51 Maxipime Iv 1 Gm Premix IVPB 100 mls/hr Q12H APRIL Administration Insulin Human Regular 0 unit 08/19/17 16:30 Novolin R SC ACHS APRIL Protocol Methylprednisolone 40 mg 08/19/17 16:14 Solu-Medrol IV Q8H APRIL Saccharomyces Boulardii 250 mg 08/19/17 11:15 08/19/17 12:47 Florastor PO 250 mg BID APRIL Administration - Patient Studies Lab Studies: Microbiology Studies 08/18/17 14:57 MRSA Culture (Admit) - Final Naris MRSA NOT DETECTED Lab Studies 08/19/17 08/19/17 08/19/17 Range/Units 16:06 11:31 09:07 WBC (4.8-10.8) K/uL RBC (3.80-5.20) Mil/uL Hgb (11.0-16.0) g/dL Hct (34.0-47.0) % MCV (81.0-99.0) fL MCH (27.0-31.0) pg MCHC (33.0-37.0) g/dL RDW (11.5-14.5) % Plt Count (130-400) K/uL MPV (7.2-11.7) fL Neut % (Auto) (50.0-75.0) % Lymph % (Auto) (20.0-40.0) % [place] % (Auto) (0.0-10.0) % Eos % (Auto) (0.0-4.0) % Baso % (Auto) (0.0-2.0) % Neut # (1.8-7.0) K/uL Lymph # (1.0-4.3) K/uL [place] # (0.0-0.8) K/uL Eos # (0.0-0.7) K/uL Baso # (0.0-0.2) K/uL Neutrophils % (Manual) (50-75) % Band Neutrophils % (0-2) % Lymphocytes % (Manual) (20-40) % Monocytes % (Manual) (0-10) % Platelet Estimate (NORMAL) Anisocytosis (manual) Puncture Site pCO2 (35-45) mm/Hg pO2 63 H (80-100) mm/Hg HCO3 (21-28) mmol/L ABG pH (7.35-7.45) ABG Total CO2 (22-28) mmol/L ABG O2 Saturation (95-98) % ABG Base Excess (-2.0-3.0) mmol/L ABG Hemoglobin (11.7-17.4) g/dL ABG Carboxyhemoglobin (0.5-1.5) % POC ABG HHb (Measured) (0.0-5.0) % ABG Methemoglobin (0.0-3.0) % Tigre Test VBG pH 7.33 (7.32-7.43) VBG pCO2 38 L (40-60) mmHg VBG HCO3 20.5 mmol/L VBG Total CO2 21.2 L (22-28) mmol/L VBG O2 Sat (Calc) 94.0 H (40-65) % VBG Base Excess -5.4 L (0.0-2.0) mmol/L VBG Potassium 3.9 (3.6-5.2) mmol/L A-a O2 Difference mm/Hg Respiratory Index Hgb O2 Saturation (95.0-98.0) % Glucose 263 H (65-105) mg/dl Lactate 5.6 H* (0.7-2.1) mmol/L FiO2 % Crit Value Called To Dr maggie fuller Crit Value 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 Crit Value Read Back Y Blood Gas Notified Time 912 Sodium 133.0 (132-148) mmol/L Potassium (3.6-5.2) mmol/L Chloride 96.0 L (98-107) mmol/L Carbon Dioxide (22-30) mmol/L Anion Gap (10-20) BUN (7-17) mg/dL Creatinine (0.7-1.2) mg/dL Est GFR ( Amer) Est GFR (Non-Af Amer) POC Glucose (mg/dL) 452 H* 295 H (65-110) mg/dL Random Glucose (65-105) mg/dL Calcium (8.6-10.4) mg/dl Phosphorus (2.5-4.5) mg/dL Magnesium (1.6-2.3) mg/dL Total Bilirubin (0.2-1.3) mg/dL AST (14-36) U/L ALT (9-52) U/L Alkaline Phosphatase (38-126) U/L Total Creatine Kinase (30-135) U/L CK-MB (Mass) (0.0-3.38) ng/mL Troponin I, Quant (0.00-0.120) ng/mL Total Protein (6.3-8.3) g/dL Albumin (3.5-5.0) g/dL Globulin (2.2-3.9) gm/dL Albumin/Globulin Ratio (1.0-2.1) Venous Blood Potassium 3.9 (3.6-5.2) mmol/L 08/19/17 08/19/17 08/19/17 Range/Units 07:59 06:14 06:14 WBC 12.5 H (4.8-10.8) K/uL RBC 4.28 (3.80-5.20) Mil/uL Hgb 12.4 (11.0-16.0) g/dL Hct 38.2 (34.0-47.0) % MCV 89.3 (81.0-99.0) fL MCH 29.0 (27.0-31.0) pg MCHC 32.5 L (33.0-37.0) g/dL RDW 15.1 H (11.5-14.5) % Plt Count 379 (130-400) K/uL MPV 8.3 (7.2-11.7) fL Neut % (Auto) 94.3 H (50.0-75.0) % Lymph % (Auto) 3.0 L (20.0-40.0) % [place] % (Auto) 2.6 (0.0-10.0) % Eos % (Auto) 0.0 (0.0-4.0) % Baso % (Auto) 0.1 (0.0-2.0) % Neut # 11.8 H (1.8-7.0) K/uL Lymph # 0.4 L (1.0-4.3) K/uL [place] # 0.3 (0.0-0.8) K/uL Eos # 0.0 (0.0-0.7) K/uL Baso # 0.0 (0.0-0.2) K/uL Neutrophils % (Manual) 86 H (50-75) % Band Neutrophils % 11 H* (0-2) % Lymphocytes % (Manual) 1 L (20-40) % Monocytes % (Manual) 2 (0-10) % Platelet Estimate Normal (NORMAL) Anisocytosis (manual) Slight Puncture Site pCO2 (35-45) mm/Hg pO2 (80-100) mm/Hg HCO3 (21-28) mmol/L ABG pH (7.35-7.45) ABG Total CO2 (22-28) mmol/L ABG O2 Saturation (95-98) % ABG Base Excess (-2.0-3.0) mmol/L ABG Hemoglobin (11.7-17.4) g/dL ABG Carboxyhemoglobin (0.5-1.5) % POC ABG HHb (Measured) (0.0-5.0) % ABG Methemoglobin (0.0-3.0) % Tigre Test VBG pH (7.32-7.43) VBG pCO2 (40-60) mmHg VBG HCO3 mmol/L VBG Total CO2 (22-28) mmol/L VBG O2 Sat (Calc) (40-65) % VBG Base Excess (0.0-2.0) mmol/L VBG Potassium (3.6-5.2) mmol/L A-a O2 Difference mm/Hg Respiratory Index Hgb O2 Saturation (95.0-98.0) % Glucose (65-105) mg/dl Lactate (0.7-2.1) mmol/L FiO2 % Crit Value Called To Crit Value Called By Crit Value Read Back Blood Gas Notified Time Sodium 133 (132-148) mmol/L Potassium 4.0 (3.6-5.2) mmol/L Chloride 93 L (98-107) mmol/L Carbon Dioxide 20 L (22-30) mmol/L Anion Gap 24 H (10-20) BUN 19 H (7-17) mg/dL Creatinine 0.8 (0.7-1.2) mg/dL Est GFR ( Amer) > 60 Est GFR (Non-Af Amer) > 60 POC Glucose (mg/dL) 228 H (65-110) mg/dL Random Glucose 200 H (65-105) mg/dL Calcium 8.3 L (8.6-10.4) mg/dl Phosphorus 4.0 (2.5-4.5) mg/dL Magnesium 1.4 L (1.6-2.3) mg/dL Total Bilirubin 0.6 (0.2-1.3) mg/dL AST 297 H D (14-36) U/L ALT 242 H D (9-52) U/L Alkaline Phosphatase 105 (38-126) U/L Total Creatine Kinase 211 H (30-135) U/L CK-MB (Mass) 15.1 H (0.0-3.38) ng/mL Troponin I, Quant 1.1800 H* (0.00-0.120) ng/mL Total Protein 7.7 (6.3-8.3) g/dL Albumin 3.9 (3.5-5.0) g/dL Globulin 3.8 (2.2-3.9) gm/dL Albumin/Globulin Ratio 1.0 (1.0-2.1) Venous Blood Potassium (3.6-5.2) mmol/L 08/19/17 08/19/17 08/18/17 Range/Units 05:37 04:22 22:03 WBC (4.8-10.8) K/uL RBC (3.80-5.20) Mil/uL Hgb (11.0-16.0) g/dL Hct (34.0-47.0) % MCV (81.0-99.0) fL MCH (27.0-31.0) pg MCHC (33.0-37.0) g/dL RDW (11.5-14.5) % Plt Count (130-400) K/uL MPV (7.2-11.7) fL Neut % (Auto) (50.0-75.0) % Lymph % (Auto) (20.0-40.0) % [place] % (Auto) (0.0-10.0) % Eos % (Auto) (0.0-4.0) % Baso % (Auto) (0.0-2.0) % Neut # (1.8-7.0) K/uL Lymph # (1.0-4.3) K/uL [place] # (0.0-0.8) K/uL Eos # (0.0-0.7) K/uL Baso # (0.0-0.2) K/uL Neutrophils % (Manual) (50-75) % Band Neutrophils % (0-2) % Lymphocytes % (Manual) (20-40) % Monocytes % (Manual) (0-10) % Platelet Estimate (NORMAL) Anisocytosis (manual) Puncture Site Lba pCO2 38 (35-45) mm/Hg pO2 81 (80-100) mm/Hg HCO3 17.1 L (21-28) mmol/L ABG pH 7.25 L (7.35-7.45) ABG Total CO2 17.9 L (22-28) mmol/L ABG O2 Saturation 96.2 (95-98) % ABG Base Excess -9.8 L (-2.0-3.0) mmol/L ABG Hemoglobin 18.7 H (11.7-17.4) g/dL ABG Carboxyhemoglobin 1.8 H (0.5-1.5) % POC ABG HHb (Measured) 3.7 (0.0-5.0) % ABG Methemoglobin 0.9 (0.0-3.0) % Tigre Test Na VBG pH (7.32-7.43) VBG pCO2 (40-60) mmHg VBG HCO3 mmol/L VBG Total CO2 (22-28) mmol/L VBG O2 Sat (Calc) (40-65) % VBG Base Excess (0.0-2.0) mmol/L VBG Potassium (3.6-5.2) mmol/L A-a O2 Difference 264.0 mm/Hg Respiratory Index 3.3 Hgb O2 Saturation 93.7 L (95.0-98.0) % Glucose (65-105) mg/dl Lactate (0.7-2.1) mmol/L FiO2 55.0 % Crit Value Called To Crit Value Called By Crit Value Read Back Blood Gas Notified Time Sodium (132-148) mmol/L Potassium (3.6-5.2) mmol/L Chloride (98-107) mmol/L Carbon Dioxide (22-30) mmol/L Anion Gap (10-20) BUN (7-17) mg/dL Creatinine (0.7-1.2) mg/dL Est GFR ( Amer) Est GFR (Non-Af Amer) POC Glucose (mg/dL) 176 H 237 H (65-110) mg/dL Random Glucose (65-105) mg/dL Calcium (8.6-10.4) mg/dl Phosphorus (2.5-4.5) mg/dL Magnesium (1.6-2.3) mg/dL Total Bilirubin (0.2-1.3) mg/dL AST (14-36) U/L ALT (9-52) U/L Alkaline Phosphatase (38-126) U/L Total Creatine Kinase (30-135) U/L CK-MB (Mass) (0.0-3.38) ng/mL Troponin I, Quant (0.00-0.120) ng/mL Total Protein (6.3-8.3) g/dL Albumin (3.5-5.0) g/dL Globulin (2.2-3.9) gm/dL Albumin/Globulin Ratio (1.0-2.1) Venous Blood Potassium (3.6-5.2) mmol/L 08/18/17 Range/Units 18:46 WBC (4.8-10.8) K/uL RBC (3.80-5.20) Mil/uL Hgb (11.0-16.0) g/dL Hct (34.0-47.0) % MCV (81.0-99.0) fL MCH (27.0-31.0) pg MCHC (33.0-37.0) g/dL RDW (11.5-14.5) % Plt Count (130-400) K/uL MPV (7.2-11.7) fL Neut % (Auto) (50.0-75.0) % Lymph % (Auto) (20.0-40.0) % [place] % (Auto) (0.0-10.0) % Eos % (Auto) (0.0-4.0) % Baso % (Auto) (0.0-2.0) % Neut # (1.8-7.0) K/uL Lymph # (1.0-4.3) K/uL [place] # (0.0-0.8) K/uL Eos # (0.0-0.7) K/uL Baso # (0.0-0.2) K/uL Neutrophils % (Manual) (50-75) % Band Neutrophils % (0-2) % Lymphocytes % (Manual) (20-40) % Monocytes % (Manual) (0-10) % Platelet Estimate (NORMAL) Anisocytosis (manual) Puncture Site pCO2 (35-45) mm/Hg pO2 (80-100) mm/Hg HCO3 (21-28) mmol/L ABG pH (7.35-7.45) ABG Total CO2 (22-28) mmol/L ABG O2 Saturation (95-98) % ABG Base Excess (-2.0-3.0) mmol/L ABG Hemoglobin (11.7-17.4) g/dL ABG Carboxyhemoglobin (0.5-1.5) % POC ABG HHb (Measured) (0.0-5.0) % ABG Methemoglobin (0.0-3.0) % Tigre Test VBG pH (7.32-7.43) VBG pCO2 (40-60) mmHg VBG HCO3 mmol/L VBG Total CO2 (22-28) mmol/L VBG O2 Sat (Calc) (40-65) % VBG Base Excess (0.0-2.0) mmol/L VBG Potassium (3.6-5.2) mmol/L A-a O2 Difference mm/Hg Respiratory Index Hgb O2 Saturation (95.0-98.0) % Glucose (65-105) mg/dl Lactate (0.7-2.1) mmol/L FiO2 % Crit Value Called To Crit Value Called By Crit Value Read Back Blood Gas Notified Time Sodium (132-148) mmol/L Potassium (3.6-5.2) mmol/L Chloride (98-107) mmol/L Carbon Dioxide (22-30) mmol/L Anion Gap (10-20) BUN (7-17) mg/dL Creatinine (0.7-1.2) mg/dL Est GFR ( Amer) Est GFR (Non-Af Amer) POC Glucose (mg/dL) (65-110) mg/dL Random Glucose (65-105) mg/dL Calcium (8.6-10.4) mg/dl Phosphorus (2.5-4.5) mg/dL Magnesium (1.6-2.3) mg/dL Total Bilirubin (0.2-1.3) mg/dL AST (14-36) U/L ALT (9-52) U/L Alkaline Phosphatase (38-126) U/L Total Creatine Kinase 136 H (30-135) U/L CK-MB (Mass) 9.31 H (0.0-3.38) ng/mL Troponin I, Quant 1.5900 H* (0.00-0.120) ng/mL Total Protein (6.3-8.3) g/dL Albumin (3.5-5.0) g/dL Globulin (2.2-3.9) gm/dL Albumin/Globulin Ratio (1.0-2.1) Venous Blood Potassium (3.6-5.2) mmol/L Laboratory Results - last 24 hr 08/18/17 08/18/17 08/19/17 18:46 22:03 04:22 WBC RBC Hgb Hct MCV MCH MCHC RDW Plt Count MPV Neut % (Auto) Lymph % (Auto) [place] % (Auto) Eos % (Auto) Baso % (Auto) Neut # Lymph # [place] # Eos # Baso # Neutrophils % (Manual) Band Neutrophils % Lymphocytes % (Manual) Monocytes % (Manual) Platelet Estimate Anisocytosis (manual) Puncture Site Lba pCO2 38 pO2 81 HCO3 17.1 L ABG pH 7.25 L ABG Total CO2 17.9 L ABG O2 Saturation 96.2 ABG Base Excess -9.8 L ABG Hemoglobin 18.7 H ABG Carboxyhemoglobin 1.8 H POC ABG HHb (Measured) 3.7 ABG Methemoglobin 0.9 Tigre Test Na VBG pH VBG pCO2 VBG HCO3 VBG Total CO2 VBG O2 Sat (Calc) VBG Base Excess VBG Potassium A-a O2 Difference 264.0 Respiratory Index 3.3 Hgb O2 Saturation 93.7 L Glucose Lactate FiO2 55.0 Crit Value Called To Crit Value Called By Crit Value Read Back Blood Gas Notified Time Sodium Potassium Chloride Carbon Dioxide Anion Gap BUN Creatinine Est GFR ( Amer) Est GFR (Non-Af Amer) POC Glucose (mg/dL) 237 H Random Glucose Calcium Phosphorus Magnesium Total Bilirubin AST ALT Alkaline Phosphatase Total Creatine Kinase 136 H CK-MB (Mass) 9.31 H Troponin I, Quant 1.5900 H* Total Protein Albumin Globulin Albumin/Globulin Ratio Venous Blood Potassium 08/19/17 08/19/17 08/19/17 05:37 06:14 06:14 WBC 12.5 H RBC 4.28 Hgb 12.4 Hct 38.2 MCV 89.3 MCH 29.0 MCHC 32.5 L RDW 15.1 H Plt Count 379 MPV 8.3 Neut % (Auto) 94.3 H Lymph % (Auto) 3.0 L [place] % (Auto) 2.6 Eos % (Auto) 0.0 Baso % (Auto) 0.1 Neut # 11.8 H Lymph # 0.4 L [place] # 0.3 Eos # 0.0 Baso # 0.0 Neutrophils % (Manual) 86 H Band Neutrophils % 11 H* Lymphocytes % (Manual) 1 L Monocytes % (Manual) 2 Platelet Estimate Normal Anisocytosis (manual) Slight Puncture Site pCO2 pO2 HCO3 ABG pH ABG Total CO2 ABG O2 Saturation ABG Base Excess ABG Hemoglobin ABG Carboxyhemoglobin POC ABG HHb (Measured) ABG Methemoglobin Tigre Test VBG pH VBG pCO2 VBG HCO3 VBG Total CO2 VBG O2 Sat (Calc) VBG Base Excess VBG Potassium A-a O2 Difference Respiratory Index Hgb O2 Saturation Glucose Lactate FiO2 Crit Value Called To Crit Value Called By Crit Value Read Back Blood Gas Notified Time Sodium 133 Potassium 4.0 Chloride 93 L Carbon Dioxide 20 L Anion Gap 24 H BUN 19 H Creatinine 0.8 Est GFR ( Amer) > 60 Est GFR (Non-Af Amer) > 60 POC Glucose (mg/dL) 176 H Random Glucose 200 H Calcium 8.3 L Phosphorus 4.0 Magnesium 1.4 L Total Bilirubin 0.6 AST 297 H D ALT 242 H D Alkaline Phosphatase 105 Total Creatine Kinase 211 H CK-MB (Mass) 15.1 H Troponin I, Quant 1.1800 H* Total Protein 7.7 Albumin 3.9 Globulin 3.8 Albumin/Globulin Ratio 1.0 Venous Blood Potassium 08/19/17 08/19/17 08/19/17 07:59 09:07 11:31 WBC RBC Hgb Hct MCV MCH MCHC RDW Plt Count MPV Neut % (Auto) Lymph % (Auto) [place] % (Auto) Eos % (Auto) Baso % (Auto) Neut # Lymph # [place] # Eos # Baso # Neutrophils % (Manual) Band Neutrophils % Lymphocytes % (Manual) Monocytes % (Manual) Platelet Estimate Anisocytosis (manual) Puncture Site pCO2 pO2 63 H HCO3 ABG pH ABG Total CO2 ABG O2 Saturation ABG Base Excess ABG Hemoglobin ABG Carboxyhemoglobin POC ABG HHb (Measured) ABG Methemoglobin Tigre Test VBG pH 7.33 VBG pCO2 38 L VBG HCO3 20.5 VBG Total CO2 21.2 L VBG O2 Sat (Calc) 94.0 H VBG Base Excess -5.4 L VBG Potassium 3.9 A-a O2 Difference Respiratory Index Hgb O2 Saturation Glucose 263 H Lactate 5.6 H* FiO2 Crit Value Called To Dr maggie fuller Crit Value 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 Crit Value Read Back Y Blood Gas Notified Time 912 Sodium 133.0 Potassium Chloride 96.0 L Carbon Dioxide Anion Gap BUN Creatinine Est GFR ( Amer) Est GFR (Non-Af Amer) POC Glucose (mg/dL) 228 H 295 H Random Glucose Calcium Phosphorus Magnesium Total Bilirubin AST ALT Alkaline Phosphatase Total Creatine Kinase CK-MB (Mass) Troponin I, Quant Total Protein Albumin Globulin Albumin/Globulin Ratio Venous Blood Potassium 3.9 08/19/17 16:06 WBC RBC Hgb Hct MCV MCH MCHC RDW Plt Count MPV Neut % (Auto) Lymph % (Auto) [place] % (Auto) Eos % (Auto) Baso % (Auto) Neut # Lymph # [place] # Eos # Baso # Neutrophils % (Manual) Band Neutrophils % Lymphocytes % (Manual) Monocytes % (Manual) Platelet Estimate Anisocytosis (manual) Puncture Site pCO2 pO2 HCO3 ABG pH ABG Total CO2 ABG O2 Saturation ABG Base Excess ABG Hemoglobin ABG Carboxyhemoglobin POC ABG HHb (Measured) ABG Methemoglobin Tigre Test VBG pH VBG pCO2 VBG HCO3 VBG Total CO2 VBG O2 Sat (Calc) VBG Base Excess VBG Potassium A-a O2 Difference Respiratory Index Hgb O2 Saturation Glucose Lactate FiO2 Crit Value Called To Crit Value Called By Crit Value Read Back Blood Gas Notified Time Sodium Potassium Chloride Carbon Dioxide Anion Gap BUN Creatinine Est GFR ( Amer) Est GFR (Non-Af Amer) POC Glucose (mg/dL) 452 H* Random Glucose Calcium Phosphorus Magnesium Total Bilirubin AST ALT Alkaline Phosphatase Total Creatine Kinase CK-MB (Mass) Troponin I, Quant Total Protein Albumin Globulin Albumin/Globulin Ratio Venous Blood Potassium EKG/Cardiology Studies: Cardiology / EKG Studies 08/19/17 08:05 EKG [ELECTROCARDIOGRAM] Stat Comment: Mode Of Transportation: Reason For Exam: elevated troponin, rule out [place] Critical Care Progress Note - Nutrition Nutrition: Nutrition Category Date Time Status Heart Healthy Diet [DIET] Diets 08/18/17 Breakfast Active Attending/Attestation - Attestation I have personally seen and examined this patient.: Yes I have fully participated in the care of the patient.: Yes I have reviewed all pertinent clinical information: Yes Notes (Text): 08/19/17 16:15 Patient seen and examined in the intensive care unit. Case discussed with the staff in the morning. Off BiPAP and breathing better Being treated for CHF and pneumonia/COPD exacerbation Continue antibiotics, diuretics Continue Lovenox, digoxin and Cardizem for A. fib taper off IV Cardizem Decrease IV Solu-Medrol Glycemic control BiPAP as needed
--- NOTE | 2017-08-19 13:42 | CARD ---
APPROVED REPORT EKG Measurement Heart [id number] <Conclusion> Atrial fibrillation with rapid ventricular response Rightward axis Septal infarct, age undetermined Abnormal ECG
--- NOTE | 2017-08-19 13:43 | CARD ---
APPROVED REPORT EKG Measurement Heart [id number] <Conclusion> Atrial fibrillation with rapid ventricular response Anteroseptal infarct, age undetermined Abnormal ECG
--- NOTE | 2017-08-19 14:35 | CARD ---
APPROVED REPORT EXAM: Two-dimensional and M-mode echocardiogram with Doppler and color Doppler. Other Information Quality : GoodRhythm : NSR INDICATION Dyspnea Atrial Fibrillation Congestive Heart Failure COPD M-Mode DIMENSIONS RVDd1.72 (2.1-3.2cm)Left Atrium (MM)5.47 (2.5-4.0cm) IVSd0.74 (0.7-1.1cm)Aortic Root2.82 (2.2-3.7cm) LVDd5.12 (4.0-5.6cm)Aortic Cusp Exc.1.69 (1.5-2.0cm) PWd1.05 (0.7-1.1cm)FS (%) 45 % LVDs2.81 (2.0-3.8cm)LVEF (%)76 (>50%) Mitral Valve MV E [id number]/sMV A Agiaszlz25.9cm/sE/A ratio4.0 TDI E/Lateral E'0.0E/Medial E'0.0 Tricuspid Valve TR Peak [id number]/sTR Peak [id number] LEFT VENTRICLE The left ventricle is normal size. There is normal left ventricular wall thickness. Left ventricle systolic function is moderately to severely impaired. The Ejection Fraction is <25%. Segmental wall motion abnormality. septum appears almost akinetic No left ventricle thrombus noted on this study. There is no ventricular septal defect visualized. There is no left ventricular aneurysm. There is no mass noted in the left ventricle. RIGHT VENTRICLE The right ventricle is normal size. There is normal right ventricular wall thickness. The right ventricular systolic function is normal. ATRIA The left atrium is moderately dilated. The right atrium size is normal. The interatrial septum is intact with no evidence for an atrial septal defect. AORTIC VALVE The aortic valve is normal in structure and function. No aortic regurgitation is present. There is no aortic valvular stenosis. There is no aortic valvular vegetation. MITRAL VALVE The mitral valve is normal in structure and function. There is no evidence of mitral valve prolapse. There is no mitral valve stenosis. Mitral regurgitation is mild. TRICUSPID VALVE The tricuspid valve is normal in structure and function. There is mild tricuspid regurgitation. Right ventricular systolic pressure is estimated at 40-50 mmHg. There is no tricuspid valve prolapse or vegetation. There is no tricuspid valve stenosis. PULMONIC VALVE The pulmonary valve is normal in structure and function. There is no pulmonic valvular regurgitation. There is no pulmonic valvular stenosis. GREAT VESSELS The aortic root is normal in size. The ascending aorta is normal in size. The pulmonary artery is normal. The IVC is dilated. PERICARDIAL EFFUSION The pericardium appears normal. There is no pleural effusion. <Conclusion> Left ventricle systolic function is moderately to severely impaired. The Ejection Fraction is <25%. The left atrium is moderately dilated. Mitral regurgitation is mild. There is mild tricuspid regurgitation. Right ventricular systolic pressure is estimated at 40-50 mmHg.
[2017-08-19] MEDS: (Novolin R) Insulin Human Regular 100 units/ml vial SC SCH ×2 (16:51→21:18)
[2017-08-19] MEDS: Digoxin 250 mcg (0.25 mg) Tab PO SCH (18:28)
[2017-08-20] MEDS: Albuterol-Ipratrop 3 mg / 0.5 (3 ml) UD INH SCH ×4 (01:43→19:02)
[2017-08-20] MEDS: MethylPREDNISolone 40 mg Vial IV SCH ×2 (02:05→09:16)
[2017-08-20] MEDS: Enoxaparin 80 mg Syringe SC SCH ×2 (05:32→17:42)
[2017-08-20 05:40] LABS: BASO % 0.1 % (0.0-2.0); EOS % 0.1 % (0.0-4.0); LYMPH # 0.4 K/uL (1.0-4.3); LYMPH % 4.2 % (20.0-40.0); MEAN CELL VOLUME 87.2 fL (81.0-99.0); MEAN CORPUSCULAR HEMOGLOBIN 29.5 pg (27.0-31.0); MEAN CORPUSCULAR HGB CONC 33.8 g/dL (33.0-37.0); MEAN PLATELET VOLUME 8.2 fL (7.2-11.7); MONO # 0.3 K/uL (0.0-0.8); MONO % 2.9 % (0.0-10.0); NRBC % 0.3 % (0.0-2.0); PLATELET COUNT 285 K/uL (130-400); RED CELL DISTRIBUTION WIDTH 15.1 % (11.5-14.5); WHITE BLOOD COUNT 9.7 K/uL (4.8-10.8)
[2017-08-20 05:40] LABS: ABG ALLEN TEST POS; ARTERIAL BLOOD GAS MODE BiPAP; CARBOXYHEMOGLOBIN 1.8 % (0.5-1.5); DRAW SITE R RAD; HHB 1.2 % (0.0-5.0)
[2017-08-20 05:50] LABS: CHLORIDE 91 mmol/L (98-107); SODIUM 129 mmol/L (132-148)
[2017-08-20 05:51] LABS: POTASSIUM 4.4 mmol/L (3.6-5.2)
[2017-08-20 05:52] LABS: GFR AFRICAN-AMERICAN > 60
[2017-08-20 05:53] LABS: ALKALINE PHOSPHATASE 98 U/L (38-126); ALT/SGPT 588 U/L (9-52); AST/SGOT 579 U/L (14-36); BILIRUBIN,TOTAL 0.8 mg/dL (0.2-1.3); BLOOD UREA NITROGEN 22 mg/dL (7-17); CARBON DIOXIDE 27 mmol/L (22-30); GLUCOSE,RANDOM 177 mg/dL (65-105); PHOSPHOROUS 3.8 mg/dL (2.5-4.5); TOTAL PROTEIN 7.4 g/dL (6.3-8.3)
[2017-08-20 05:54] LABS: MAGNESIUM 1.9 mg/dL (1.6-2.3)
[2017-08-20 06:29] LABS: NEUTROPHIL 94 % (50-75); TOTAL CELLS COUNTED 100
[2017-08-20] MEDS: (Novolin R) Insulin Human Regular 100 units/ml vial SC SCH ×4 (07:38→21:43)
[2017-08-20] MEDS: Saccharomyces Boulardi 250 mg Cap PO SCH ×2 (09:15→17:42)
--- NOTE | 2017-08-20 09:17 | CP.CCUPN ---
CCU Subjective - Physician Review Subjective (Free Text): Patient was seen and examined at bedside. Patient states that she is doing well with improved breathing. Patient denies chest pain, fever, chills, nausea, vomiting and productive cough. CCU Objective - Vital Signs / Intake & Output Vital Signs (Last 4 hours): Vital Signs Temp Pulse Resp BP Pulse Ox 08/20/17 08:00 97.6 F 103 H 26 H 87 L 08/20/17 07:48 92 H 25 H 145/107 H 08/20/17 07:08 97 H 27 H 152/103 H 93 L 08/20/17 07:00 92 H 21 97 08/20/17 06:08 92 H 19 137/69 96 08/20/17 06:03 87 08/20/17 06:00 86 21 97 Intake and Output (Last 8hrs): Intake & Output 08/19/17 08/20/17 08/20/17 22:59 06:59 14:59 Intake Total 150 250 150 Output Total 510 705 55 Balance -360 -455 95 Intake: Intake, IV Amount 50 Left Forearm 50 Oral 100 250 150 Output: Urine 510 705 55 Urethral (Sanchez) 510 705 55 Other: # Bowel Movements 0 0 - Physical Exam Head: Positive for: Atraumatic Extroacular Muscles: Positive for: EOMI Mouth: Positive for: Moist Mucous Membranes Respiratory/Chest: Positive for: Respiratory Distress, Decreased Breath Sounds, Other (Alternating between BiPAP and Ventrimask ) Cardiovascular: Positive for: Regular Rate and Rhythm, Normal S1, S2 Abdomen: Positive for: Normal Bowel Sounds. Negative for: Tenderness, Distention, Peritoneal Signs Upper Extremity: Positive for: Normal Inspection. Negative for: Edema Lower Extremity: Positive for: Normal Inspection. Negative for: Edema Neurological: Positive for: GCS=15, Speech Normal Skin: Positive for: Normal Color Psychiatric: Positive for: Alert, Oriented x 3 - Medications Active Medications: Active Medications Generic Name Dose Route Start Last Admin Trade Name Freq PRN Reason Stop Dose Admin Albuterol/Ipratropium 3 ml 08/18/17 20:00 08/20/17 08:26 Duoneb 3 Mg/0.5 Mg (3 Ml) Ud INH 3 ml RQ6 APRIL Administration Aspirin 81 mg 08/19/17 10:00 08/19/17 10:45 Aspirin Chewable PO 81 mg DAILY APRIL Administration Digoxin 0.25 mg 08/19/17 18:00 08/19/17 18:28 Lanoxin PO 0.25 mg DAILY@1800 APRIL Administration Diltiazem HCl 30 mg 08/19/17 12:00 08/20/17 00:39 Cardizem PO 30 mg Q12H APRIL Administration Donepezil HCl 10 mg 08/19/17 22:00 08/19/17 21:24 Aricept PO 10 mg HS APRIL Administration Enoxaparin Sodium 70 mg 08/18/17 18:00 08/20/17 05:32 Lovenox SC 70 mg Q12H APRIL Administration Escitalopram Oxalate 10 mg 08/19/17 10:00 08/19/17 10:45 Lexapro PO 10 mg DAILY APRIL Administration Famotidine 20 mg 08/19/17 10:00 08/19/17 10:45 Pepcid PO 20 mg DAILY APRIL Administration Furosemide 40 mg 08/18/17 14:30 08/20/17 03:04 Lasix IVP 40 mg Q12H APRIL Administration Cefepime HCl 1 gm in 50 mls @ 100 mls/hr 08/19/17 10:00 08/19/17 21:24 Maxipime Iv 1 Gm Premix IVPB 100 mls/hr Q12H APRIL Administration Insulin Human Regular 0 unit 08/19/17 16:30 08/20/17 07:38 Novolin R SC 3 unit ACHS APRIL Administration Protocol Methylprednisolone 40 mg 08/19/17 18:00 08/20/17 02:05 Solu-Medrol IV 40 mg Q8H APRIL Administration Saccharomyces Boulardii 250 mg 08/19/17 11:15 08/19/17 18:28 Florastor PO 250 mg BID APRIL Administration - Patient Studies Lab Studies: Microbiology Studies 08/18/17 10:30 Blood Culture - Preliminary Blood NO GROWTH AFTER 24 HOURS 08/18/17 11:25 Blood Culture - Preliminary Blood NO GROWTH AFTER 24 HOURS 08/18/17 14:57 MRSA Culture (Admit) - Final Naris MRSA NOT DETECTED Lab Studies 08/20/17 08/20/17 08/20/17 Range/Units 07:14 05:36 05:36 WBC (4.8-10.8) K/uL RBC (3.80-5.20) Mil/uL Hgb (11.0-16.0) g/dL Hct (34.0-47.0) % MCV (81.0-99.0) fL MCH (27.0-31.0) pg MCHC (33.0-37.0) g/dL RDW (11.5-14.5) % Plt Count (130-400) K/uL MPV (7.2-11.7) fL Neut % (Auto) (50.0-75.0) % Lymph % (Auto) (20.0-40.0) % [place] % (Auto) (0.0-10.0) % Eos % (Auto) (0.0-4.0) % Baso % (Auto) (0.0-2.0) % Neut # (1.8-7.0) K/uL Lymph # (1.0-4.3) K/uL [place] # (0.0-0.8) K/uL Eos # (0.0-0.7) K/uL Baso # (0.0-0.2) K/uL Neutrophils % (Manual) (50-75) % Band Neutrophils % (0-2) % Lymphocytes % (Manual) (20-40) % Monocytes % (Manual) (0-10) % Platelet Estimate (NORMAL) Puncture Site pCO2 (35-45) mm/Hg pO2 (80-100) mm/Hg HCO3 (21-28) mmol/L ABG pH (7.35-7.45) ABG Total CO2 (22-28) mmol/L ABG O2 Saturation (95-98) % ABG Base Excess (-2.0-3.0) mmol/L ABG Hemoglobin (11.7-17.4) g/dL ABG Carboxyhemoglobin (0.5-1.5) % POC ABG HHb (Measured) (0.0-5.0) % ABG Methemoglobin (0.0-3.0) % Tigre Test A-a O2 Difference mm/Hg Respiratory Index Hgb O2 Saturation (95.0-98.0) % Vent Mode FiO2 % Inspiratory BiPAP Expiratory BiPAP Sodium 129 L (132-148) mmol/L Potassium 4.4 (3.6-5.2) mmol/L Chloride 91 L (98-107) mmol/L Carbon Dioxide 27 (22-30) mmol/L Anion Gap 15 (10-20) BUN 22 H (7-17) mg/dL Creatinine 0.6 L (0.7-1.2) mg/dL Est GFR ( Amer) > 60 Est GFR (Non-Af Amer) > 60 POC Glucose (mg/dL) 209 H (65-110) mg/dL Random Glucose 177 H (65-105) mg/dL Lactic Acid 1.9 (0.7-2.1) mmol/L Calcium 8.0 L (8.6-10.4) mg/dl Phosphorus 3.8 (2.5-4.5) mg/dL Magnesium 1.9 (1.6-2.3) mg/dL Total Bilirubin 0.8 (0.2-1.3) mg/dL AST 579 H D (14-36) U/L ALT 588 H D (9-52) U/L Alkaline Phosphatase 98 (38-126) U/L Total Protein 7.4 (6.3-8.3) g/dL Albumin 3.6 (3.5-5.0) g/dL Globulin 3.8 (2.2-3.9) gm/dL Albumin/Globulin Ratio 1.0 (1.0-2.1) Procalcitonin (0.19-0.49) NG/ML 08/20/17 08/20/17 08/19/17 Range/Units 05:36 05:16 21:06 WBC 9.7 (4.8-10.8) K/uL RBC 3.90 (3.80-5.20) Mil/uL Hgb 11.5 (11.0-16.0) g/dL Hct 34.0 (34.0-47.0) % MCV 87.2 D (81.0-99.0) fL MCH 29.5 (27.0-31.0) pg MCHC 33.8 (33.0-37.0) g/dL RDW 15.1 H (11.5-14.5) % Plt Count 285 (130-400) K/uL MPV 8.2 (7.2-11.7) fL Neut % (Auto) 92.7 H (50.0-75.0) % Lymph % (Auto) 4.2 L (20.0-40.0) % [place] % (Auto) 2.9 (0.0-10.0) % Eos % (Auto) 0.1 (0.0-4.0) % Baso % (Auto) 0.1 (0.0-2.0) % Neut # 9.0 H (1.8-7.0) K/uL Lymph # 0.4 L (1.0-4.3) K/uL [place] # 0.3 (0.0-0.8) K/uL Eos # 0.0 (0.0-0.7) K/uL Baso # 0.0 (0.0-0.2) K/uL Neutrophils % (Manual) 94 H (50-75) % Band Neutrophils % 1 (0-2) % Lymphocytes % (Manual) 3 L (20-40) % Monocytes % (Manual) 2 (0-10) % Platelet Estimate Normal (NORMAL) Puncture Site R rad pCO2 46 H (35-45) mm/Hg pO2 97 (80-100) mm/Hg HCO3 29.0 H (21-28) mmol/L ABG pH 7.43 (7.35-7.45) ABG Total CO2 31.9 H (22-28) mmol/L ABG O2 Saturation 98.8 H (95-98) % ABG Base Excess 5.3 H (-2.0-3.0) mmol/L ABG Hemoglobin 12.5 (11.7-17.4) g/dL ABG Carboxyhemoglobin 1.8 H (0.5-1.5) % POC ABG HHb (Measured) 1.2 (0.0-5.0) % ABG Methemoglobin 1.0 (0.0-3.0) % Tigre Test Pos A-a O2 Difference 273.0 mm/Hg Respiratory Index 2.8 Hgb O2 Saturation 96.0 (95.0-98.0) % Vent Mode Bipap FiO2 60.0 % Inspiratory BiPAP 16 Expiratory BiPAP 8 Sodium (132-148) mmol/L Potassium (3.6-5.2) mmol/L Chloride (98-107) mmol/L Carbon Dioxide (22-30) mmol/L Anion Gap (10-20) BUN (7-17) mg/dL Creatinine (0.7-1.2) mg/dL Est GFR ( Amer) Est GFR (Non-Af Amer) POC Glucose (mg/dL) 188 H (65-110) mg/dL Random Glucose (65-105) mg/dL Lactic Acid (0.7-2.1) mmol/L Calcium (8.6-10.4) mg/dl Phosphorus (2.5-4.5) mg/dL Magnesium (1.6-2.3) mg/dL Total Bilirubin (0.2-1.3) mg/dL AST (14-36) U/L ALT (9-52) U/L Alkaline Phosphatase (38-126) U/L Total Protein (6.3-8.3) g/dL Albumin (3.5-5.0) g/dL Globulin (2.2-3.9) gm/dL Albumin/Globulin Ratio (1.0-2.1) Procalcitonin (0.19-0.49) NG/ML 08/19/17 08/19/17 08/19/17 Range/Units 16:06 12:46 11:31 WBC (4.8-10.8) K/uL RBC (3.80-5.20) Mil/uL Hgb (11.0-16.0) g/dL Hct (34.0-47.0) % MCV (81.0-99.0) fL MCH (27.0-31.0) pg MCHC (33.0-37.0) g/dL RDW (11.5-14.5) % Plt Count (130-400) K/uL MPV (7.2-11.7) fL Neut % (Auto) (50.0-75.0) % Lymph % (Auto) (20.0-40.0) % [place] % (Auto) (0.0-10.0) % Eos % (Auto) (0.0-4.0) % Baso % (Auto) (0.0-2.0) % Neut # (1.8-7.0) K/uL Lymph # (1.0-4.3) K/uL [place] # (0.0-0.8) K/uL Eos # (0.0-0.7) K/uL Baso # (0.0-0.2) K/uL Neutrophils % (Manual) (50-75) % Band Neutrophils % (0-2) % Lymphocytes % (Manual) (20-40) % Monocytes % (Manual) (0-10) % Platelet Estimate (NORMAL) Puncture Site pCO2 (35-45) mm/Hg pO2 (80-100) mm/Hg HCO3 (21-28) mmol/L ABG pH (7.35-7.45) ABG Total CO2 (22-28) mmol/L ABG O2 Saturation (95-98) % ABG Base Excess (-2.0-3.0) mmol/L ABG Hemoglobin (11.7-17.4) g/dL ABG Carboxyhemoglobin (0.5-1.5) % POC ABG HHb (Measured) (0.0-5.0) % ABG Methemoglobin (0.0-3.0) % Tigre Test A-a O2 Difference mm/Hg Respiratory Index Hgb O2 Saturation (95.0-98.0) % Vent Mode FiO2 % Inspiratory BiPAP Expiratory BiPAP Sodium (132-148) mmol/L Potassium (3.6-5.2) mmol/L Chloride (98-107) mmol/L Carbon Dioxide (22-30) mmol/L Anion Gap (10-20) BUN (7-17) mg/dL Creatinine (0.7-1.2) mg/dL Est GFR ( Amer) Est GFR (Non-Af Amer) POC Glucose (mg/dL) 452 H* 295 H (65-110) mg/dL Random Glucose (65-105) mg/dL Lactic Acid (0.7-2.1) mmol/L Calcium (8.6-10.4) mg/dl Phosphorus (2.5-4.5) mg/dL Magnesium (1.6-2.3) mg/dL Total Bilirubin (0.2-1.3) mg/dL AST (14-36) U/L ALT (9-52) U/L Alkaline Phosphatase (38-126) U/L Total Protein (6.3-8.3) g/dL Albumin (3.5-5.0) g/dL Globulin (2.2-3.9) gm/dL Albumin/Globulin Ratio (1.0-2.1) Procalcitonin 0.74 H (0.19-0.49) NG/ML 08/19/17 Range/Units 07:59 WBC (4.8-10.8) K/uL RBC (3.80-5.20) Mil/uL Hgb (11.0-16.0) g/dL Hct (34.0-47.0) % MCV (81.0-99.0) fL MCH (27.0-31.0) pg MCHC (33.0-37.0) g/dL RDW (11.5-14.5) % Plt Count (130-400) K/uL MPV (7.2-11.7) fL Neut % (Auto) (50.0-75.0) % Lymph % (Auto) (20.0-40.0) % [place] % (Auto) (0.0-10.0) % Eos % (Auto) (0.0-4.0) % Baso % (Auto) (0.0-2.0) % Neut # (1.8-7.0) K/uL Lymph # (1.0-4.3) K/uL [place] # (0.0-0.8) K/uL Eos # (0.0-0.7) K/uL Baso # (0.0-0.2) K/uL Neutrophils % (Manual) (50-75) % Band Neutrophils % (0-2) % Lymphocytes % (Manual) (20-40) % Monocytes % (Manual) (0-10) % Platelet Estimate (NORMAL) Puncture Site pCO2 (35-45) mm/Hg pO2 (80-100) mm/Hg HCO3 (21-28) mmol/L ABG pH (7.35-7.45) ABG Total CO2 (22-28) mmol/L ABG O2 Saturation (95-98) % ABG Base Excess (-2.0-3.0) mmol/L ABG Hemoglobin (11.7-17.4) g/dL ABG Carboxyhemoglobin (0.5-1.5) % POC ABG HHb (Measured) (0.0-5.0) % ABG Methemoglobin (0.0-3.0) % Tigre Test A-a O2 Difference mm/Hg Respiratory Index Hgb O2 Saturation (95.0-98.0) % Vent Mode FiO2 % Inspiratory BiPAP Expiratory BiPAP Sodium (132-148) mmol/L Potassium (3.6-5.2) mmol/L Chloride (98-107) mmol/L Carbon Dioxide (22-30) mmol/L Anion Gap (10-20) BUN (7-17) mg/dL Creatinine (0.7-1.2) mg/dL Est GFR ( Amer) Est GFR (Non-Af Amer) POC Glucose (mg/dL) 228 H (65-110) mg/dL Random Glucose (65-105) mg/dL Lactic Acid (0.7-2.1) mmol/L Calcium (8.6-10.4) mg/dl Phosphorus (2.5-4.5) mg/dL Magnesium (1.6-2.3) mg/dL Total Bilirubin (0.2-1.3) mg/dL AST (14-36) U/L ALT (9-52) U/L Alkaline Phosphatase (38-126) U/L Total Protein (6.3-8.3) g/dL Albumin (3.5-5.0) g/dL Globulin (2.2-3.9) gm/dL Albumin/Globulin Ratio (1.0-2.1) Procalcitonin (0.19-0.49) NG/ML Laboratory Results - last 24 hr 08/19/17 08/19/17 08/19/17 07:59 11:31 12:46 WBC RBC Hgb Hct MCV MCH MCHC RDW Plt Count MPV Neut % (Auto) Lymph % (Auto) [place] % (Auto) Eos % (Auto) Baso % (Auto) Neut # Lymph # [place] # Eos # Baso # Neutrophils % (Manual) Band Neutrophils % Lymphocytes % (Manual) Monocytes % (Manual) Platelet Estimate Puncture Site pCO2 pO2 HCO3 ABG pH ABG Total CO2 ABG O2 Saturation ABG Base Excess ABG Hemoglobin ABG Carboxyhemoglobin POC ABG HHb (Measured) ABG Methemoglobin Tigre Test A-a O2 Difference Respiratory Index Hgb O2 Saturation Vent Mode FiO2 Inspiratory BiPAP Expiratory BiPAP Sodium Potassium Chloride Carbon Dioxide Anion Gap BUN Creatinine Est GFR ( Amer) Est GFR (Non-Af Amer) POC Glucose (mg/dL) 228 H 295 H Random Glucose Lactic Acid Calcium Phosphorus Magnesium Total Bilirubin AST ALT Alkaline Phosphatase Total Protein Albumin Globulin Albumin/Globulin Ratio Procalcitonin 0.74 H 08/19/17 08/19/17 08/20/17 16:06 21:06 05:16 WBC RBC Hgb Hct MCV MCH MCHC RDW Plt Count MPV Neut % (Auto) Lymph % (Auto) [place] % (Auto) Eos % (Auto) Baso % (Auto) Neut # Lymph # [place] # Eos # Baso # Neutrophils % (Manual) Band Neutrophils % Lymphocytes % (Manual) Monocytes % (Manual) Platelet Estimate Puncture Site R rad pCO2 46 H pO2 97 HCO3 29.0 H ABG pH 7.43 ABG Total CO2 31.9 H ABG O2 Saturation 98.8 H ABG Base Excess 5.3 H ABG Hemoglobin 12.5 ABG Carboxyhemoglobin 1.8 H POC ABG HHb (Measured) 1.2 ABG Methemoglobin 1.0 Tigre Test Pos A-a O2 Difference 273.0 Respiratory Index 2.8 Hgb O2 Saturation 96.0 Vent Mode Bipap FiO2 60.0 Inspiratory BiPAP 16 Expiratory BiPAP 8 Sodium Potassium Chloride Carbon Dioxide Anion Gap BUN Creatinine Est GFR ( Amer) Est GFR (Non-Af Amer) POC Glucose (mg/dL) 452 H* 188 H Random Glucose Lactic Acid Calcium Phosphorus Magnesium Total Bilirubin AST ALT Alkaline Phosphatase Total Protein Albumin Globulin Albumin/Globulin Ratio Procalcitonin 08/20/17 08/20/17 08/20/17 05:36 05:36 05:36 WBC 9.7 RBC 3.90 Hgb 11.5 Hct 34.0 MCV 87.2 D MCH 29.5 MCHC 33.8 RDW 15.1 H Plt Count 285 MPV 8.2 Neut % (Auto) 92.7 H Lymph % (Auto) 4.2 L [place] % (Auto) 2.9 Eos % (Auto) 0.1 Baso % (Auto) 0.1 Neut # 9.0 H Lymph # 0.4 L [place] # 0.3 Eos # 0.0 Baso # 0.0 Neutrophils % (Manual) 94 H Band Neutrophils % 1 Lymphocytes % (Manual) 3 L Monocytes % (Manual) 2 Platelet Estimate Normal Puncture Site pCO2 pO2 HCO3 ABG pH ABG Total CO2 ABG O2 Saturation ABG Base Excess ABG Hemoglobin ABG Carboxyhemoglobin POC ABG HHb (Measured) ABG Methemoglobin Tigre Test A-a O2 Difference Respiratory Index Hgb O2 Saturation Vent Mode FiO2 Inspiratory BiPAP Expiratory BiPAP Sodium 129 L Potassium 4.4 Chloride 91 L Carbon Dioxide 27 Anion Gap 15 BUN 22 H Creatinine 0.6 L Est GFR ( Amer) > 60 Est GFR (Non-Af Amer) > 60 POC Glucose (mg/dL) Random Glucose 177 H Lactic Acid 1.9 Calcium 8.0 L Phosphorus 3.8 Magnesium 1.9 Total Bilirubin 0.8 AST 579 H D ALT 588 H D Alkaline Phosphatase 98 Total Protein 7.4 Albumin 3.6 Globulin 3.8 Albumin/Globulin Ratio 1.0 Procalcitonin 08/20/17 07:14 WBC RBC Hgb Hct MCV MCH MCHC RDW Plt Count MPV Neut % (Auto) Lymph % (Auto) [place] % (Auto) Eos % (Auto) Baso % (Auto) Neut # Lymph # [place] # Eos # Baso # Neutrophils % (Manual) Band Neutrophils % Lymphocytes % (Manual) Monocytes % (Manual) Platelet Estimate Puncture Site pCO2 pO2 HCO3 ABG pH ABG Total CO2 ABG O2 Saturation ABG Base Excess ABG Hemoglobin ABG Carboxyhemoglobin POC ABG HHb (Measured) ABG Methemoglobin Tigre Test A-a O2 Difference Respiratory Index Hgb O2 Saturation Vent Mode FiO2 Inspiratory BiPAP Expiratory BiPAP Sodium Potassium Chloride Carbon Dioxide Anion Gap BUN Creatinine Est GFR ( Amer) Est GFR (Non-Af Amer) POC Glucose (mg/dL) 209 H Random Glucose Lactic Acid Calcium Phosphorus Magnesium Total Bilirubin AST ALT Alkaline Phosphatase Total Protein Albumin Globulin Albumin/Globulin Ratio Procalcitonin Fingerstick Blood Sugar Results: 209 Review of Systems - Constitutional Constitutional: absent: Fever, Chills, Weakness - EENT Eyes: absent: Blurred Vision, Change in Vision Ears: absent: Dizziness - Cardiovascular Cardiovascular: Dyspnea. absent: Chest Pain, Diaphoresis, Lightheadedness, Palpitations - Respiratory Respiratory: Dyspnea. absent: Cough, Wheezing - Gastrointestinal Gastrointestinal: absent: Abdominal Pain, Nausea, Vomiting - Endocrine Endocrine: absent: Fatigue, Palpitations Critical Care Progress Note - Ventilator Checklist Head of Bed 30 Degrees: No Daily Sedation Vacation: No Daily Assessment of Readiness to Wean: No Daily Spontaneous Breathing Trial: No PUD Prophalyxis: No DVT Prophylaxis: No - Nutrition Nutrition: Nutrition Category Date Time Status Heart Healthy Diet [DIET] Diets 08/18/17 Breakfast Active Assessment/Plan - Assessment and Plan (Free Text) Assessment: Patient is a 72 year old female with past medical history of A.fibrillation, CHF , COPD, HTN and arthritis, who presents to the ED with complaints of shortness of breath that has worsened since this morning. Patient was found to be respiratory distress and was placed on vapotherm and subsequently, placed on Bipap in the ICU. Today: Plan: Transfer to telemetry Plan: Neuro: Alert, awake and oriented Started home medication: * Aricept Cardio: Hx of A. Fibrillation, HTN, CHF [employer]inder, Dr. Drake---> help appreciated * Management as per recommendation Medication/Management: * Cardizem 30mg PO Q12H * Digoxin 0.25mg PO daily * Lovenox 70mg SC Q12H * Aspirin 81mg PO daily Pulm: Respiratory distress secondary to possible acute CHF Chest X-ray (08/18/17): Mild pulmonary venous congestion is questioned as well as limited airspace disease right base. Pulmonary fibrosis is again seen bilaterally, concentrated at the mid to inferior lung zones, left greater than right. Bilateral infiltrates Medication/Management: * Solumedrol 40mg IV daily * Duoneb 3ml INH RQ6 prn * Azithromycin 500mg IV Q24H ( Discontinued 08/19/17) * Rocephin 1gm IV 24 Q24H ( Discontinued 08/19/17) * Cefepime 1gm IVPB Q12H ( Started 08/19/17) * Lasix 40mg IVP Q12H GI: Acute Elevated LFTs possible to antibiotics treatment for pneumonia GI consult, Dr. Maria---> Help appreciated Medication/Management: * Azithromycin 500mg IV Q24H ( Discontinued 08/19/17) * Rocephin 1gm IV 24 Q24H ( Discontinued 08/19/17) * Cefepime 1gm IVPB Q12H ( Started 08/19/17) * Continue to monitor with AM labs Endo: No acute issues Renal: no acute issues ID: Pneumonia Chest X-ray (08/18/17): Mild pulmonary venous congestion is questioned as well as limited airspace disease right base. Pulmonary fibrosis is again seen bilaterally, concentrated at the mid to inferior lung zones, left greater than right. Bilateral infiltrates Medication/Management: * Cefepime 1gm IVPB Q12H ( Started 08/19/17) Psych: Hx of Anxiety and depression Medication/Management: * Lexapro 10mg PO daily Prophylaxis: DVT: Lovenox 70mg SC Q12H GI:Pepcid 20mg PO daily Florastor 250mg PO BID
[2017-08-20] MEDS: Cefepime IV 1 gm in Dextrose 1 GM/50 ML BAG IVPB SCH ×2 (09:28→21:27)
--- NOTE | 2017-08-20 09:36 | CP.PCM.PN ---
Subjective - Date & Time of Evaluation Date of Evaluation: 08/20/17 Time of Evaluation: 09:30 - Subjective Subjective: Patient reported her breathing was improved to her, denied chest pain, denied abdominal pain, denied palpitations, she reports urination ok, this morning she had she described a normal BM. As mentioned previously the patient came with rapid atrial fibrillation, CHR exacerbation, as well as positive troponins. Overnight patient was off of the cardizem ggt and now on PO cardizem 30 BID and also is on digoxin. On review of telemetry the HR atrial fibrillation 90s to low 100s. The chest XRAY this morning still showing a lot of bilateral congestion. She remains on lasix at this time. Echo returned and the EF is reported as 25% and there is left ventricular systolic function that is moderate to severely impaired. Remains on IV abx, she had bandemia the previous days. Also the blood and urine cultures are negative at this time. The Outs recorded were 1600 ml and the Ins were 600 ml yesterday. Objective - Vital Signs/Intake and Output Vital Signs (last 24 hours): Temp Pulse Resp BP Pulse Ox 97.6 F 103 H 26 H 145/107 H 87 L 08/20/17 08:00 08/20/17 08:00 08/20/17 08:00 08/20/17 07:48 08/20/17 08:00 Intake and Output: 08/20/17 08/20/17 06:59 18:59 Intake Total 400 150 Output Total 950 55 Balance -550 95 - Medications Medications: Current Medications Albuterol/Ipratropium (Duoneb 3 Mg/0.5 Mg (3 Ml) Ud) 3 ml INH RQ6 [facility] Last Admin: 08/20/17 08:26 Dose: 3 ml Aspirin (Aspirin Chewable) 81 mg PO DAILY [facility] Last Admin: 08/20/17 09:15 Dose: 81 mg Digoxin (Lanoxin) 0.25 mg PO DAILY@1800 [facility] Last Admin: 08/19/17 18:28 Dose: 0.25 mg Diltiazem HCl (Cardizem) 30 mg PO Q12H [facility] Last Admin: 08/20/17 00:39 Dose: 30 mg Donepezil HCl (Aricept) 10 mg PO HS [facility] Last Admin: 08/19/17 21:24 Dose: 10 mg Enoxaparin Sodium (Lovenox) 70 mg SC Q12H [facility] Last Admin: 08/20/17 05:32 Dose: 70 mg Escitalopram Oxalate (Lexapro) 10 mg PO DAILY [facility] Last Admin: 08/20/17 09:16 Dose: 10 mg Famotidine (Pepcid) 20 mg PO DAILY [facility] Last Admin: 08/20/17 09:16 Dose: 20 mg Furosemide (Lasix) 40 mg IVP Q12H [facility] Last Admin: 08/20/17 03:04 Dose: 40 mg Cefepime HCl (Maxipime Iv 1 Gm Premix) 1 gm in 50 mls @ 100 mls/hr IVPB Q12H [facility] Last Admin: 08/20/17 09:28 Dose: 100 mls/hr Insulin Human Regular (Novolin R) 0 unit SC ACHS [facility] PRN Reason: Protocol Last Admin: 08/20/17 07:38 Dose: 3 unit Methylprednisolone (Solu-Medrol) 40 mg IV Q8H [facility] Last Admin: 08/20/17 09:16 Dose: 40 mg Saccharomyces Boulardii (Florastor) 250 mg PO BID [facility] Last Admin: 08/20/17 09:15 Dose: 250 mg - Labs Labs: 08/20/17 05:36 08/20/17 05:36 PT 11.3 SECONDS (9.7-12.2) 08/18/17 10:39 INR 1.0 08/18/17 10:39 APTT 33 SECONDS (21-34) 08/18/17 10:39 - Eye Exam Eye Exam: EOMI, Normal appearance - ENT Exam ENT Exam: Mucous Membranes Moist - Respiratory Exam Respiratory Exam: Decreased Breath Sounds, Rhonchi, NORMAL BREATHING PATTERN - Cardiovascular Exam Cardiovascular Exam: Irregular Rhythm. absent: Murmur - GI/Abdominal Exam GI & Abdominal Exam: Soft, Normal Bowel Sounds. absent: Distended, Firm, Guarding, Tenderness - Neurological Exam Neurological Exam: Alert, Awake, Oriented x3 - Psychiatric Exam Psychiatric exam: Normal Affect, Normal Mood - Skin Skin Exam: Pallor, Warm Assessment and Plan - Assessment and Plan (Free Text) Assessment: Assessment: This is a 72 year old female with a history of Atrial fibrillation, CHF, COPD, HTN and arthritis. Atrial Fibrillation: 08/20: Now off of the the cardizem ggt - on the PO cardizem and PO digoxin. Currently HR is 90s to low 100s on telemetry 08/19: Patient currently is still on the Cardizem drip the heart rate is substantially improved from before it's now in the 90s on the telemetry remains irregularly irregular also now the patient is on Lovenox twice a day. The patient does have a relatively high CHADS score. I'm being told that the plan is to transition patient off the Cardizem drip over to PO medication CHF: 08/20: Chest XRAY still looks pretty rough, the I's were 600 and the O's were 1600. Continue lasix. With the EF of 25% she may need further cardiology intervention including cardiac cath, life vest, or AICD. 08/19: The patient is pending a 2-D echo at this moment. The chest x-ray this morning shows that she still has a lot of bilateral congestion and pulmonary edema. At some point the patient should be started on SOO inhibitor or an ARB. Currently checking I's and O's HTN: 08/19: Most recent ones pressure systolic of 140. Patient is on by mouth Cardizem, hopefully this will improve as the patient gets additional IV Lasix Pneumonia: 08/20: Continue to monitor cultures, blood and urine negative at this moment. 08/19: Patient's abx were changed over to cefepime IV. There is a high bandemia this morning. The cultures at this time are pending. Hx of COPD and possible pulmonary fibrosis The patient remains on solumedrol IV Q8hrs Prophylaxis: Lovenox 70mg sc Q12 Pepcid 20mg IVP q12h
--- NOTE | 2017-08-20 10:46 | RAD ---
HISTORY: Shortness of breath COMPARISON: Comparison chest dated 08/19/2017 FINDINGS: LUNGS: Mild central pulmonary vascular congestive changes with bilateral lower lobe alveolar-type infiltrates and bilateral effusions PLEURA: No significant pleural effusion identified, no pneumothorax apparent. CARDIOVASCULAR: . Cardiomegaly. OSSEOUS STRUCTURES: Again noted is a metallic threaded fixation anchor overlying the left humeral head. Degenerative changes both acromioclavicular joints. VISUALIZED UPPER ABDOMEN: Normal. OTHER FINDINGS: None. IMPRESSION: Mild central pulmonary vascular congestive changes with bilateral lower lobe alveolar-type infiltrates and bilateral effusions
--- NOTE | 2017-08-20 15:59 | CP.PCM.CON ---
<Coni Tapia - Last Filed: 08/20/17 16:16> History of Present Illness - History of Present Illness History of Present Illness: Gastroenterology Fellow/PGY5 Consult Note 72 year old female with history of COPD, Hypertension, Hyperlipidemia, dCHF, EF 52% (11/2015) moderate-severe pulmonary hypertension, CAD, Atrial fibrillation, and PAD s/p stent/angioplasty (2015) on Aspirin/Plavix presenting with shortness of breath. Patient notes progressive shortness of breath for one week leading to dyspnea on exertion. She notes not being able to walk long distance. Associated productive cough, weakness, and dizziness. Denies nausea, vomiting, hematemesis, abdominal pain, diarrhea, constipation, melena, hematochezia, or unintentional weight loss. Prior EGD and colonoscopy seven years ago endorsed to be normal. Family- denies stomach cancer and colon cancer Social- prior heavy tobacco use, quit 30 years, social alcohol use on special occasions, denies illicit drug use Surgery- L&R heart cath with right iliac stent and angioplasty 11/2015, R SFA recanalization/atherectomy/angioplasty/proximal stent placement 09/2016 other interventions on shoulder, bladder, and foot; cholecystectomy Review of Systems - Review of Systems Review of Systems: 12-point review of systems negative except for as above Past Patient History - Past Medical History & Family History Past Medical History?: Yes - Past Social History Smoking Status: Former Smoker - CARDIAC Hx Atrial Fibrillation: Yes Hx Congestive Heart Failure: Yes Hx Hypertension: Yes - PULMONARY Hx Chronic Obstructive Pulmonary Disease (COPD): Yes - NEUROLOGICAL Hx Paralysis: No - HEENT Hx HEENT Problems: No - RENAL Hx Chronic Kidney Disease: No - ENDOCRINE/METABOLIC Hx Endocrine Disorders: No - HEMATOLOGICAL/ONCOLOGICAL Hx Blood Transfusions: No - INTEGUMENTARY Hx Dermatological Problems: No - MUSCULOSKELETAL/RHEUMATOLOGICAL Hx Arthritis: Yes - GASTROINTESTINAL Hx Gastrointestinal Disorders: No - GENITOURINARY/GYNECOLOGICAL Hx Genitourinary Disorders: No - PSYCHIATRIC Hx Substance Use: No - SURGICAL HISTORY Hx Cholecystectomy: Yes - ANESTHESIA Hx Anesthesia: No Hx Malignant Hyperthermia: No Meds Allergies/Adverse Reactions: Allergies Allergy/AdvReac Type Severity Reaction Status Date / Time No Known Allergies Allergy Verified 11/06/15 14:25 - Medications Medications: Current Medications Albuterol/Ipratropium (Duoneb 3 Mg/0.5 Mg (3 Ml) Ud) 3 ml INH RQ6 [facility] Last Admin: 08/20/17 14:16 Dose: 3 ml Aspirin (Aspirin Chewable) 81 mg PO DAILY [facility] Last Admin: 08/20/17 09:15 Dose: 81 mg Digoxin (Lanoxin) 0.25 mg PO DAILY@1800 [facility] Last Admin: 08/19/17 18:28 Dose: 0.25 mg Diltiazem HCl (Cardizem) 30 mg PO Q12H [facility] Last Admin: 08/20/17 11:45 Dose: 30 mg Donepezil HCl (Aricept) 10 mg PO HS [facility] Last Admin: 08/19/17 21:24 Dose: 10 mg Enoxaparin Sodium (Lovenox) 70 mg SC Q12H [facility] Last Admin: 08/20/17 05:32 Dose: 70 mg Escitalopram Oxalate (Lexapro) 10 mg PO DAILY [facility] Last Admin: 08/20/17 09:16 Dose: 10 mg Famotidine (Pepcid) 20 mg PO DAILY [facility] Last Admin: 08/20/17 09:16 Dose: 20 mg Furosemide (Lasix) 40 mg IVP Q12H [facility] Last Admin: 08/20/17 15:08 Dose: 40 mg Cefepime HCl (Maxipime Iv 1 Gm Premix) 1 gm in 50 mls @ 100 mls/hr IVPB Q12H [facility] Stop: 08/21/17 10:00 Last Admin: 08/20/17 09:28 Dose: 100 mls/hr Insulin Human Regular (Novolin R) 0 unit SC [facility] PRN Reason: Protocol Last Admin: 08/20/17 11:44 Dose: 3 unit Methylprednisolone (Solu-Medrol) 40 mg IV DAILY [facility] Saccharomyces Boulardii (Florastor) 250 mg PO BID [facility] Last Admin: 08/20/17 09:15 Dose: 250 mg Physical Exam - Constitutional Appears: Non-toxic, No Acute Distress - Head Exam Head Exam: ATRAUMATIC, NORMOCEPHALIC - Eye Exam Eye Exam: EOMI, PERRL Pupil Exam: PERRL. absent: Miosis, Mydriatic - ENT Exam ENT Exam: Mucous Membranes Moist, Normal Oropharynx - Neck Exam Neck exam: Positive for: Full Rom, Normal Inspection - Respiratory Exam Respiratory Exam: Accessory Muscle Use, Decreased Breath Sounds, Rhonchi. absent: Wheezes - Cardiovascular Exam Cardiovascular Exam: Tachycardia, +S1, +S2. absent: Gallop, Rubs - GI/Abdominal Exam GI & Abdominal Exam: Normal Bowel Sounds, Soft. absent: Diminished Bowel Sounds , Distended, Firm, Guarding, Organomegaly, Rebound, Rigid, Tenderness - Extremities Exam Extremities exam: Positive for: pedal edema - Neurological Exam Neurological exam: Alert - Psychiatric Exam Psychiatric exam: Normal Affect, Normal Mood - Skin Skin Exam: Dry, Intact, Normal Color, Warm Results - Vital Signs Recent Vital Signs: Last Vital Signs Temp 97.6 F 08/20/17 08:00 Pulse 102 H 08/20/17 10:09 Resp 24 08/20/17 10:09 BP 152/96 H 08/20/17 15:08 Pulse Ox 89 L 08/20/17 10:09 - Labs Result Diagrams: 08/20/17 05:36 08/20/17 05:36 Labs: Laboratory Results - last 24 hr 08/19/17 08/19/17 08/19/17 12:46 16:06 21:06 WBC RBC Hgb Hct MCV MCH MCHC RDW Plt Count MPV Neut % (Auto) Lymph % (Auto) [place] % (Auto) Eos % (Auto) Baso % (Auto) Neut # Lymph # [place] # Eos # Baso # Neutrophils % (Manual) Band Neutrophils % Lymphocytes % (Manual) Monocytes % (Manual) Platelet Estimate Puncture Site pCO2 pO2 HCO3 ABG pH ABG Total CO2 ABG O2 Saturation ABG Base Excess ABG Hemoglobin ABG Carboxyhemoglobin POC ABG HHb (Measured) ABG Methemoglobin [place] Test A-a O2 Difference Respiratory Index Hgb O2 Saturation Vent Mode FiO2 Inspiratory BiPAP Expiratory BiPAP Sodium Potassium Chloride Carbon Dioxide Anion Gap BUN Creatinine Est GFR ( Amer) Est GFR (Non-Af Amer) POC Glucose (mg/dL) 452 H* 188 H Random Glucose Lactic Acid Calcium Phosphorus Magnesium Total Bilirubin AST ALT Alkaline Phosphatase Total Protein Albumin Globulin Albumin/Globulin Ratio Procalcitonin 0.74 H 08/20/17 08/20/17 08/20/17 05:16 05:36 05:36 WBC 9.7 RBC 3.90 Hgb 11.5 Hct 34.0 MCV 87.2 D MCH 29.5 MCHC 33.8 RDW 15.1 H Plt Count 285 MPV 8.2 Neut % (Auto) 92.7 H Lymph % (Auto) 4.2 L [place] % (Auto) 2.9 Eos % (Auto) 0.1 Baso % (Auto) 0.1 Neut # 9.0 H Lymph # 0.4 L [place] # 0.3 Eos # 0.0 Baso # 0.0 Neutrophils % (Manual) 94 H Band Neutrophils % 1 Lymphocytes % (Manual) 3 L Monocytes % (Manual) 2 Platelet Estimate Normal Puncture Site R rad pCO2 46 H pO2 97 HCO3 29.0 H ABG pH 7.43 ABG Total CO2 31.9 H ABG O2 Saturation 98.8 H ABG Base Excess 5.3 H ABG Hemoglobin 12.5 ABG Carboxyhemoglobin 1.8 H POC ABG HHb (Measured) 1.2 ABG Methemoglobin 1.0 [place] Test Pos A-a O2 Difference 273.0 Respiratory Index 2.8 Hgb O2 Saturation 96.0 Vent Mode Bipap FiO2 60.0 Inspiratory BiPAP 16 Expiratory BiPAP 8 Sodium 129 L Potassium 4.4 Chloride 91 L Carbon Dioxide 27 Anion Gap 15 BUN 22 H Creatinine 0.6 L Est GFR ( Amer) > 60 Est GFR (Non-Af Amer) > 60 POC Glucose (mg/dL) Random Glucose 177 H Lactic Acid Calcium 8.0 L Phosphorus 3.8 Magnesium 1.9 Total Bilirubin 0.8 AST 579 H D ALT 588 H D Alkaline Phosphatase 98 Total Protein 7.4 Albumin 3.6 Globulin 3.8 Albumin/Globulin Ratio 1.0 Procalcitonin 08/20/17 08/20/17 08/20/17 05:36 07:14 11:34 WBC RBC Hgb Hct MCV MCH MCHC RDW Plt Count MPV Neut % (Auto) Lymph % (Auto) [place] % (Auto) Eos % (Auto) Baso % (Auto) Neut # Lymph # [place] # Eos # Baso # Neutrophils % (Manual) Band Neutrophils % Lymphocytes % (Manual) Monocytes % (Manual) Platelet Estimate Puncture Site pCO2 pO2 HCO3 ABG pH ABG Total CO2 ABG O2 Saturation ABG Base Excess ABG Hemoglobin ABG Carboxyhemoglobin POC ABG HHb (Measured) ABG Methemoglobin [place] Test A-a O2 Difference Respiratory Index Hgb O2 Saturation Vent Mode FiO2 Inspiratory BiPAP Expiratory BiPAP Sodium Potassium Chloride Carbon Dioxide Anion Gap BUN Creatinine Est GFR ( Amer) Est GFR (Non-Af Amer) POC Glucose (mg/dL) 209 H 205 H Random Glucose Lactic Acid 1.9 Calcium Phosphorus Magnesium Total Bilirubin AST ALT Alkaline Phosphatase Total Protein Albumin Globulin Albumin/Globulin Ratio Procalcitonin Assessment & Plan - Assessment and Plan (Free Text) Assessment: 72 year old female with history of COPD, Hypertension, Hyperlipidemia, dCHF, EF 52% (11/2015) moderate-severe pulmonary hypertension, CAD, Atrial fibrillation, and PAD s/p stent/angioplasty (2015) on Aspirin/Plavix presenting with shortness of breath. Active treatment of sepsis 2/2 CAP complicated by Afib RVR , CHF decompensation, elevated troponins, and flash pulmonary edema. GI consultation for transaminitis. Prior EGD and colonoscopy seven years ago endorsed to be normal. Plan: >multifactorial- congestive hepatopathy, ischemia, toxin >likely transient insult from CHF decompensation, sepsis, hypotension, and antibiotics >rule out acute hepatic insult or pathology >ordered abdominal ultrasound >ordered hepatitis panel, APAP, ASA >daily LFTs >will follow clinical course <Lukas Maria - Last Filed: 08/20/17 16:45> Meds - Medications Medications: Current Medications Albuterol/Ipratropium (Duoneb 3 Mg/0.5 Mg (3 Ml) Ud) 3 ml INH RQ6 [facility] Last Admin: 08/20/17 14:16 Dose: 3 ml Aspirin (Aspirin Chewable) 81 mg PO DAILY [facility] Last Admin: 08/20/17 09:15 Dose: 81 mg Digoxin (Lanoxin) 0.25 mg PO DAILY@1800 [facility] Last Admin: 08/19/17 18:28 Dose: 0.25 mg Diltiazem HCl (Cardizem) 30 mg PO Q12H [facility] Last Admin: 08/20/17 11:45 Dose: 30 mg Donepezil HCl (Aricept) 10 mg PO HS [facility] Last Admin: 08/19/17 21:24 Dose: 10 mg Enoxaparin Sodium (Lovenox) 70 mg SC Q12H [facility] Last Admin: 08/20/17 05:32 Dose: 70 mg Escitalopram Oxalate (Lexapro) 10 mg PO DAILY [facility] Last Admin: 08/20/17 09:16 Dose: 10 mg Famotidine (Pepcid) 20 mg PO DAILY [facility] Last Admin: 08/20/17 09:16 Dose: 20 mg Furosemide (Lasix) 40 mg IVP Q12H [facility] Last Admin: 08/20/17 15:08 Dose: 40 mg Cefepime HCl (Maxipime Iv 1 Gm Premix) 1 gm in 50 mls @ 100 mls/hr IVPB Q12H [facility] Stop: 08/21/17 10:00 Last Admin: 08/20/17 09:28 Dose: 100 mls/hr Insulin Human Regular (Novolin R) 0 unit SC ACHS [facility] PRN Reason: Protocol Last Admin: 08/20/17 16:24 Dose: 3 unit Methylprednisolone (Solu-Medrol) 40 mg IV DAILY [facility] Saccharomyces Boulardii (Florastor) 250 mg PO BID [facility] Last Admin: 08/20/17 09:15 Dose: 250 mg Results - Vital Signs Recent Vital Signs: Last Vital Signs Temp 97.5 F L 08/20/17 12:00 Pulse 101 H 08/20/17 16:08 Resp 23 08/20/17 16:08 BP 149/89 08/20/17 16:08 Pulse Ox 87 L 08/20/17 16:08 - Labs Result Diagrams: 08/20/17 05:36 08/20/17 05:36 Labs: Laboratory Results - last 24 hr 08/19/17 08/20/17 08/20/17 21:06 05:16 05:36 WBC 9.7 RBC 3.90 Hgb 11.5 Hct 34.0 MCV 87.2 D MCH 29.5 MCHC 33.8 RDW 15.1 H Plt Count 285 MPV 8.2 Neut % (Auto) 92.7 H Lymph % (Auto) 4.2 L [place] % (Auto) 2.9 Eos % (Auto) 0.1 Baso % (Auto) 0.1 Neut # 9.0 H Lymph # 0.4 L [place] # 0.3 Eos # 0.0 Baso # 0.0 Neutrophils % (Manual) 94 H Band Neutrophils % 1 Lymphocytes % (Manual) 3 L Monocytes % (Manual) 2 Platelet Estimate Normal Puncture Site R rad pCO2 46 H pO2 97 HCO3 29.0 H ABG pH 7.43 ABG Total CO2 31.9 H ABG O2 Saturation 98.8 H ABG Base Excess 5.3 H ABG Hemoglobin 12.5 ABG Carboxyhemoglobin 1.8 H POC ABG HHb (Measured) 1.2 ABG Methemoglobin 1.0 [place] Test Pos A-a O2 Difference 273.0 Respiratory Index 2.8 Hgb O2 Saturation 96.0 Vent Mode Bipap FiO2 60.0 Inspiratory BiPAP 16 Expiratory BiPAP 8 Sodium Potassium Chloride Carbon Dioxide Anion Gap BUN Creatinine Est GFR ( Amer) Est GFR (Non-Af Amer) POC Glucose (mg/dL) 188 H Random Glucose Lactic Acid Calcium Phosphorus Magnesium Total Bilirubin AST ALT Alkaline Phosphatase Total Protein Albumin Globulin Albumin/Globulin Ratio 08/20/17 08/20/17 08/20/17 05:36 05:36 07:14 WBC RBC Hgb Hct MCV MCH MCHC RDW Plt Count MPV Neut % (Auto) Lymph % (Auto) [place] % (Auto) Eos % (Auto) Baso % (Auto) Neut # Lymph # [place] # Eos # Baso # Neutrophils % (Manual) Band Neutrophils % Lymphocytes % (Manual) Monocytes % (Manual) Platelet Estimate Puncture Site pCO2 pO2 HCO3 ABG pH ABG Total CO2 ABG O2 Saturation ABG Base Excess ABG Hemoglobin ABG Carboxyhemoglobin POC ABG HHb (Measured) ABG Methemoglobin [place] Test A-a O2 Difference Respiratory Index Hgb O2 Saturation Vent Mode FiO2 Inspiratory BiPAP Expiratory BiPAP Sodium 129 L Potassium 4.4 Chloride 91 L Carbon Dioxide 27 Anion Gap 15 BUN 22 H Creatinine 0.6 L Est GFR ( Amer) > 60 Est GFR (Non-Af Amer) > 60 POC Glucose (mg/dL) 209 H Random Glucose 177 H Lactic Acid 1.9 Calcium 8.0 L Phosphorus 3.8 Magnesium 1.9 Total Bilirubin 0.8 AST 579 H D ALT 588 H D Alkaline Phosphatase 98 Total Protein 7.4 Albumin 3.6 Globulin 3.8 Albumin/Globulin Ratio 1.0 08/20/17 08/20/17 11:34 16:13 WBC RBC Hgb Hct MCV MCH MCHC RDW Plt Count MPV Neut % (Auto) Lymph % (Auto) [place] % (Auto) Eos % (Auto) Baso % (Auto) Neut # Lymph # [place] # Eos # Baso # Neutrophils % (Manual) Band Neutrophils % Lymphocytes % (Manual) Monocytes % (Manual) Platelet Estimate Puncture Site pCO2 pO2 HCO3 ABG pH ABG Total CO2 ABG O2 Saturation ABG Base Excess ABG Hemoglobin ABG Carboxyhemoglobin POC ABG HHb (Measured) ABG Methemoglobin [place] Test A-a O2 Difference Respiratory Index Hgb O2 Saturation Vent Mode FiO2 Inspiratory BiPAP Expiratory BiPAP Sodium Potassium Chloride Carbon Dioxide Anion Gap BUN Creatinine Est GFR ( Amer) Est GFR (Non-Af Amer) POC Glucose (mg/dL) 205 H 211 H Random Glucose Lactic Acid Calcium Phosphorus Magnesium Total Bilirubin AST ALT Alkaline Phosphatase Total Protein Albumin Globulin Albumin/Globulin Ratio Attending/Attestation - Attestation I have personally seen and examined this patient.: Yes I have fully participated in the care of the patient.: Yes I have reviewed all pertinent clinical information: Yes Notes (Text): 08/20/17 16:38 I have seen and examined patient with GI fellow. Agree with above documentation with the following additions. In brief, this is a 72 year old female with history of HTN, COPD, hyperlipidemia, CAD, CHF, PVD on plavix, atrial fibrillation who initially presented to hospital with complaint of sudden onset profound dyspnea on exertion along with palpitations. Symptoms started one week ago, prior to this was in usual state of health. She describes suddenly not being able to walk long distances. Upon admission to hospital she was noted to have pneumonia with rapid atrial fibrillation. GI called for evaluation of elevated LFTs. She denies abdominal pain, nausea, vomiting, fever/chills, weight loss, rectal bleeding, jaundice, pruritis, excessive tylenol or ETOH use. No prior history of liver disease according to patient. She had an EGD/colonoscopy 7 years ago which were normal as per patient. HTN COPD CAD CHF PVD on plavix Atrial fibrillation Dyspnea, sudden onset - pneumonia, CHF exacerbation Transaminitis - likely multifactorial in setting of sepsis, CHF exacerbation, initial hypotension - Low sodium diet as tolerated - Obtain abdominal US - Obtain viral hepatitis and autoimmune panels - Optimize cardiac and pulmonary status - Continue to monitor LFTs and avoid hepatotoxic therapy - Continue with antibiotic therapy - Will continue to monitor patient clinical course
--- NOTE | 2017-08-20 17:12 | CP.PCM.CON ---
Past Patient History - Past Medical History & Family History Past Medical History?: Yes - Past Social History Smoking Status: Former Smoker - CARDIAC Hx Atrial Fibrillation: Yes Hx Congestive Heart Failure: Yes Hx Hypertension: Yes - PULMONARY Hx Chronic Obstructive Pulmonary Disease (COPD): Yes - NEUROLOGICAL Hx Paralysis: No - HEENT Hx HEENT Problems: No - RENAL Hx Chronic Kidney Disease: No - ENDOCRINE/METABOLIC Hx Endocrine Disorders: No - HEMATOLOGICAL/ONCOLOGICAL Hx Blood Transfusions: No - INTEGUMENTARY Hx Dermatological Problems: No - MUSCULOSKELETAL/RHEUMATOLOGICAL Hx Arthritis: Yes - GASTROINTESTINAL Hx Gastrointestinal Disorders: No - GENITOURINARY/GYNECOLOGICAL Hx Genitourinary Disorders: No - PSYCHIATRIC Hx Substance Use: No - SURGICAL HISTORY Hx Cholecystectomy: Yes - ANESTHESIA Hx Anesthesia: No Hx Malignant Hyperthermia: No Meds Allergies/Adverse Reactions: Allergies Allergy/AdvReac Type Severity Reaction Status Date / Time No Known Allergies Allergy Verified 11/06/15 14:25 - Medications Medications: Current Medications Albuterol/Ipratropium (Duoneb 3 Mg/0.5 Mg (3 Ml) Ud) 3 ml INH RQ6 [facility] Last Admin: 08/20/17 14:16 Dose: 3 ml Aspirin (Aspirin Chewable) 81 mg PO DAILY [facility] Last Admin: 08/20/17 09:15 Dose: 81 mg Digoxin (Lanoxin) 0.25 mg PO DAILY@1800 [facility] Last Admin: 08/19/17 18:28 Dose: 0.25 mg Diltiazem HCl (Cardizem) 30 mg PO Q12H [facility] Last Admin: 08/20/17 11:45 Dose: 30 mg Donepezil HCl (Aricept) 10 mg PO HS [facility] Last Admin: 08/19/17 21:24 Dose: 10 mg Enoxaparin Sodium (Lovenox) 70 mg SC Q12H [facility] Last Admin: 08/20/17 05:32 Dose: 70 mg Escitalopram Oxalate (Lexapro) 10 mg PO DAILY [facility] Last Admin: 08/20/17 09:16 Dose: 10 mg Famotidine (Pepcid) 20 mg PO DAILY [facility] Last Admin: 08/20/17 09:16 Dose: 20 mg Furosemide (Lasix) 40 mg IVP Q12H [facility] Last Admin: 08/20/17 15:08 Dose: 40 mg Cefepime HCl (Maxipime Iv 1 Gm Premix) 1 gm in 50 mls @ 100 mls/hr IVPB Q12H [facility] Stop: 08/21/17 10:00 Last Admin: 08/20/17 09:28 Dose: 100 mls/hr Insulin Human Regular (Novolin R) 0 unit SC ACHS [facility] PRN Reason: Protocol Last Admin: 08/20/17 16:24 Dose: 3 unit Methylprednisolone (Solu-Medrol) 40 mg IV DAILY [facility] Saccharomyces Boulardii (Florastor) 250 mg PO BID [facility] Last Admin: 08/20/17 09:15 Dose: 250 mg Results - Vital Signs Recent Vital Signs: Last Vital Signs Temp 98.1 F 08/20/17 16:00 Pulse 101 H 08/20/17 16:08 Resp 23 08/20/17 16:08 BP 149/89 08/20/17 16:08 Pulse Ox 87 L 08/20/17 16:08 - Labs Result Diagrams: 08/20/17 05:36 08/20/17 05:36 Labs: Laboratory Results - last 24 hr 08/19/17 08/20/17 08/20/17 21:06 05:16 05:36 WBC 9.7 RBC 3.90 Hgb 11.5 Hct 34.0 MCV 87.2 D MCH 29.5 MCHC 33.8 RDW 15.1 H Plt Count 285 MPV 8.2 Neut % (Auto) 92.7 H Lymph % (Auto) 4.2 L [place] % (Auto) 2.9 Eos % (Auto) 0.1 Baso % (Auto) 0.1 Neut # 9.0 H Lymph # 0.4 L [place] # 0.3 Eos # 0.0 Baso # 0.0 Neutrophils % (Manual) 94 H Band Neutrophils % 1 Lymphocytes % (Manual) 3 L Monocytes % (Manual) 2 Platelet Estimate Normal Puncture Site R rad pCO2 46 H pO2 97 HCO3 29.0 H ABG pH 7.43 ABG Total CO2 31.9 H ABG O2 Saturation 98.8 H ABG Base Excess 5.3 H ABG Hemoglobin 12.5 ABG Carboxyhemoglobin 1.8 H POC ABG HHb (Measured) 1.2 ABG Methemoglobin 1.0 [place] Test Pos A-a O2 Difference 273.0 Respiratory Index 2.8 Hgb O2 Saturation 96.0 Vent Mode Bipap FiO2 60.0 Inspiratory BiPAP 16 Expiratory BiPAP 8 Sodium Potassium Chloride Carbon Dioxide Anion Gap BUN Creatinine Est GFR ( Amer) Est GFR (Non-Af Amer) POC Glucose (mg/dL) 188 H Random Glucose Lactic Acid Calcium Phosphorus Magnesium Total Bilirubin AST ALT Alkaline Phosphatase Total Protein Albumin Globulin Albumin/Globulin Ratio 08/20/17 08/20/17 08/20/17 05:36 05:36 07:14 WBC RBC Hgb Hct MCV MCH MCHC RDW Plt Count MPV Neut % (Auto) Lymph % (Auto) [place] % (Auto) Eos % (Auto) Baso % (Auto) Neut # Lymph # [place] # Eos # Baso # Neutrophils % (Manual) Band Neutrophils % Lymphocytes % (Manual) Monocytes % (Manual) Platelet Estimate Puncture Site pCO2 pO2 HCO3 ABG pH ABG Total CO2 ABG O2 Saturation ABG Base Excess ABG Hemoglobin ABG Carboxyhemoglobin POC ABG HHb (Measured) ABG Methemoglobin [place] Test A-a O2 Difference Respiratory Index Hgb O2 Saturation Vent Mode FiO2 Inspiratory BiPAP Expiratory BiPAP Sodium 129 L Potassium 4.4 Chloride 91 L Carbon Dioxide 27 Anion Gap 15 BUN 22 H Creatinine 0.6 L Est GFR ( Amer) > 60 Est GFR (Non-Af Amer) > 60 POC Glucose (mg/dL) 209 H Random Glucose 177 H Lactic Acid 1.9 Calcium 8.0 L Phosphorus 3.8 Magnesium 1.9 Total Bilirubin 0.8 AST 579 H D ALT 588 H D Alkaline Phosphatase 98 Total Protein 7.4 Albumin 3.6 Globulin 3.8 Albumin/Globulin Ratio 1.0 08/20/17 08/20/17 11:34 16:13 WBC RBC Hgb Hct MCV MCH MCHC RDW Plt Count MPV Neut % (Auto) Lymph % (Auto) [place] % (Auto) Eos % (Auto) Baso % (Auto) Neut # Lymph # [place] # Eos # Baso # Neutrophils % (Manual) Band Neutrophils % Lymphocytes % (Manual) Monocytes % (Manual) Platelet Estimate Puncture Site pCO2 pO2 HCO3 ABG pH ABG Total CO2 ABG O2 Saturation ABG Base Excess ABG Hemoglobin ABG Carboxyhemoglobin POC ABG HHb (Measured) ABG Methemoglobin [place] Test A-a O2 Difference Respiratory Index Hgb O2 Saturation Vent Mode FiO2 Inspiratory BiPAP Expiratory BiPAP Sodium Potassium Chloride Carbon Dioxide Anion Gap BUN Creatinine Est GFR ( Amer) Est GFR (Non-Af Amer) POC Glucose (mg/dL) 205 H 211 H Random Glucose Lactic Acid Calcium Phosphorus Magnesium Total Bilirubin AST ALT Alkaline Phosphatase Total Protein Albumin Globulin Albumin/Globulin Ratio
[2017-08-20] MEDS: Digoxin 250 mcg (0.25 mg) Tab PO SCH (17:42)
--- NOTE | 2017-08-20 21:16 | US ---
EXAM: US Abdomen Complete EXAM DATE/TIME: 08/20/2017 4:27 PM CLINICAL HISTORY: 72 years old, female; Signs and symptoms; Other: Transaminitis; Prior surgery; Surgery date: 6+ months; Surgery type: Gb removed TECHNIQUE: Real-time ultrasound of the abdomen (complete) with image documentation, portable in the ICU COMPARISON: There are no prior studies for comparison. FINDINGS: Liver: There is mild increased echogenicity of the liver. There is hepatopedal flow in the main portal vein. Gallbladder: Gallbladder is surgically absent. Common bile duct: Common bile duct measures 4 mm in diameter Pancreas: Pancreas is partially obscured by bowel gas. Visualized portion is echogenic. Kidneys: Right kidney is atrophic. Left kidney measures approximately 14 cm in length There is no pelvocaliectasis. There may be a 1.4 cm left lower pole cyst. Spleen: Spleen is unremarkable. Aorta: Visualized portions of the aorta and inferior vena cava are unremarkable. Distal portions arteriogram bowel gas. Inferior vena cava: See above. Pleural space: There is a small right pleural effusion. IMPRESSION: Fatty liver; cholecystectomy, no ductal dilatation; right renal atrophy with probable compensatory hypertrophy the left kidney, no pelvocaliectasis; possible left lower pole renal cyst; limited evaluation of midline structures due to bowel gas; small right pleural effusion
--- NOTE | 2017-08-20 22:26 | CP.PCM.PN ---
Subjective - Date & Time of Evaluation Date of Evaluation: 08/20/17 Time of Evaluation: 08:10 - Subjective Subjective: Patient seen and evaluated Still has dyspnea Positive Troponins Hx of CAD For cath in am The cardiac troponins jose carlos to 1.5. She reported she was not having any chest pain but continued to have difficulty breathing. At the chest x-ray this morning unfortunately looks the same she has bilateral pulmonary edema and congestion. She is receiving Lasix. the 24hr I and Os not yet available. Physical Examination - Constitutional Appears: Chronically Ill - Eye Exam Eye Exam: EOMI, Normal appearance - ENT Exam ENT Exam: Mucous Membranes Moist - Respiratory Exam Respiratory Exam: Decreased Breath Sounds, NORMAL BREATHING PATTERN - Cardiovascular Exam Cardiovascular Exam: Irregular Rhythm - Neurological Exam Neurological Exam: Alert, Awake, Oriented x3 Neuro motor strength exam: Left Upper Extremity: 5, Right Upper Extremity: 5, Left Lower Extremity: 5, Right Lower Extremity: 5 - Psychiatric Exam Psychiatric exam: Normal Affect, Normal Mood - Skin Skin Exam: Pallor, Warm Objective - Vital Signs/Intake and Output Vital Signs (last 24 hours): Temp Pulse Resp BP Pulse Ox 97.8 F 103 H 24 133/88 94 L 08/20/17 20:00 08/20/17 20:00 08/20/17 20:00 08/20/17 20:00 08/20/17 20:00 Intake and Output: 08/20/17 08/21/17 18:59 06:59 Intake Total 870 500 Output Total 930 285 Balance -60 215 - Medications Medications: Current Medications Albuterol/Ipratropium (Duoneb 3 Mg/0.5 Mg (3 Ml) Ud) 3 ml INH RQ6 [facility] Last Admin: 08/20/17 19:02 Dose: 3 ml Aspirin (Aspirin Chewable) 81 mg PO DAILY [facility] Last Admin: 08/20/17 09:15 Dose: 81 mg Digoxin (Lanoxin) 0.25 mg PO DAILY@1800 [facility] Last Admin: 08/20/17 17:42 Dose: 0.25 mg Diltiazem HCl (Cardizem) 30 mg PO Q12H [facility] Last Admin: 08/20/17 11:45 Dose: 30 mg Donepezil HCl (Aricept) 10 mg PO HS [facility] Last Admin: 08/20/17 21:27 Dose: 10 mg Enoxaparin Sodium (Lovenox) 70 mg SC Q12H [facility] Last Admin: 08/20/17 17:42 Dose: 70 mg Escitalopram Oxalate (Lexapro) 10 mg PO DAILY [facility] Last Admin: 08/20/17 09:16 Dose: 10 mg Famotidine (Pepcid) 20 mg PO DAILY [facility] Last Admin: 08/20/17 09:16 Dose: 20 mg Furosemide (Lasix) 40 mg IVP Q12H [facility] Last Admin: 08/20/17 15:08 Dose: 40 mg Cefepime HCl (Maxipime Iv 1 Gm Premix) 1 gm in 50 mls @ 100 mls/hr IVPB Q12H [facility] Stop: 08/21/17 10:00 Last Admin: 08/20/17 21:27 Dose: 100 mls/hr Insulin Human Regular (Novolin R) 0 unit SC ACHS [facility] PRN Reason: Protocol Last Admin: 08/20/17 21:43 Dose: Not Given Methylprednisolone (Solu-Medrol) 40 mg IV DAILY [facility] Saccharomyces Boulardii (Florastor) 250 mg PO BID [facility] Last Admin: 08/20/17 17:42 Dose: 250 mg - Labs Labs: 08/20/17 05:36 08/20/17 05:36 PT 11.3 SECONDS (9.7-12.2) 08/18/17 10:39 INR 1.0 08/18/17 10:39 APTT 33 SECONDS (21-34) 08/18/17 10:39 Assessment and Plan - Assessment and Plan (Free Text) Assessment: (1) A-fib Assessment & Plan: Cardizem On Digoxin, ASA Continue to monitor- Keep rate controlled Status: Chronic (2) Elevated troponin Assessment & Plan: NSTEMI Elevated Troponins- SHEILA 3 trending down Therapeutic Lovenox 70mg SC Q12 EKGs show Atrial fibrillation; ST depressions ad T wave inversions noted in anterolateral leads Cath when patient stable Status: Acute (3) Pneumonia Assessment & Plan: CXR shows signs of infiltrates Was on Ceftriaxone and Azithromycin however discontinued due to transaminitis. On Cefepime. Start Florastor. Status: Acute (4) Chronic congestive heart failure Assessment & Plan: Elevated ProBNP 3370 Echo Pending Echo from 11/2015: LVEF 52%, Normal LV functionality at that time Lasix IV Q12 Intake and Output Measure Daily weights Status: Chronic (5) Transaminitis Assessment & Plan: Elevated likely secondarily to antibiotic administration. Changed to Cefepime. Status: Acute (6) Hypertension Assessment & Plan: Stable. Continue to monitor at this time. Will not treat acute rise in blood pressure. Status: Chronic (7) Prophylactic measure Assessment & Plan: Lovenox SCDs Pepcid 20mg PO daily Status: Acute
[2017-08-21] MEDS: Albuterol-Ipratrop 3 mg / 0.5 (3 ml) UD INH SCH ×4 (01:21→19:17)
[2017-08-21 06:46] LABS: HEMATOCRIT 36.7 % (34.0-47.0); MEAN CELL VOLUME 88.2 fL (81.0-99.0); MEAN CORPUSCULAR HEMOGLOBIN 29.9 pg (27.0-31.0); MEAN CORPUSCULAR HGB CONC 33.9 g/dL (33.0-37.0); MEAN PLATELET VOLUME 8.6 fL (7.2-11.7); RED CELL DISTRIBUTION WIDTH 15.5 % (11.5-14.5); WHITE BLOOD COUNT 11.8 K/uL (4.8-10.8)
[2017-08-21 06:55] LABS: INR 1.2
[2017-08-21 06:59] LABS: CHLORIDE 86 mmol/L (98-107); SODIUM 133 mmol/L (132-148)
[2017-08-21 07:02] LABS: BLOOD UREA NITROGEN 27 mg/dL (7-17); CARBON DIOXIDE 34 mmol/L (22-30); GFR AFRICAN-AMERICAN > 60; GLUCOSE,RANDOM 176 mg/dL (65-105)
[2017-08-21 07:03] LABS: CALCIUM 8.5 mg/dl (8.6-10.4)
[2017-08-21 07:16] LABS: ALB/GLOB RATIO 1.1 (1.0-2.1); BILIRUBIN,DIRECT 0.4 mg/dL (0.0-0.4); BILIRUBIN,TOTAL 0.6 mg/dL (0.2-1.3); TOTAL PROTEIN 7.1 g/dL (6.3-8.3)
[2017-08-21] MEDS: (Novolin R) Insulin Human Regular 100 units/ml vial SC SCH ×4 (07:34→21:35)
--- NOTE | 2017-08-21 07:37 | CP.PCM.PN ---
<Coni Tapia - Last Filed: 08/21/17 11:11> Subjective - Date & Time of Evaluation Date of Evaluation: 08/21/17 Time of Evaluation: 07:34 - Subjective Subjective: Gastroenterology Fellow/PGY5 Progress Note Patient continues to be short of breath. Tolerated diet yesterday. One bowel movement yesterday. Nursing notes noncompliant to BiPAP therapy overnight. A 12- point review of systems negative except for as above. Objective - Vital Signs/Intake and Output Vital Signs (last 24 hours): Temp Pulse Resp BP Pulse Ox 98.1 F 100 H 20 153/100 H 96 08/20/17 23:35 08/21/17 05:09 08/20/17 23:35 08/21/17 02:13 08/20/17 23:35 Intake and Output: 08/21/17 08/21/17 06:59 18:59 Intake Total 520 Output Total 1485 Balance -965 - Medications Medications: Current Medications Albuterol/Ipratropium (Duoneb 3 Mg/0.5 Mg (3 Ml) Ud) 3 ml INH RQ6 [facility] Last Admin: 08/21/17 07:17 Dose: 3 ml Aspirin (Aspirin Chewable) 81 mg PO DAILY [facility] Last Admin: 08/20/17 09:15 Dose: 81 mg Digoxin (Lanoxin) 0.25 mg PO DAILY@1800 [facility] Last Admin: 08/20/17 17:42 Dose: 0.25 mg Diltiazem HCl (Cardizem) 30 mg PO Q12H [facility] Last Admin: 08/21/17 00:11 Dose: 30 mg Donepezil HCl (Aricept) 10 mg PO HS [facility] Last Admin: 08/20/17 21:27 Dose: 10 mg Enoxaparin Sodium (Lovenox) 70 mg SC Q12H [facility] Last Admin: 08/20/17 17:42 Dose: 70 mg Escitalopram Oxalate (Lexapro) 10 mg PO DAILY [facility] Last Admin: 08/20/17 09:16 Dose: 10 mg Famotidine (Pepcid) 20 mg PO DAILY [facility] Last Admin: 08/20/17 09:16 Dose: 20 mg Furosemide (Lasix) 40 mg IVP Q12H [facility] Last Admin: 08/21/17 02:13 Dose: 40 mg Cefepime HCl (Maxipime Iv 1 Gm Premix) 1 gm in 50 mls @ 100 mls/hr IVPB Q12H [facility] Stop: 08/21/17 10:00 Last Admin: 08/20/17 21:27 Dose: 100 mls/hr Insulin Human Regular (Novolin R) 0 unit SC ACHS [facility] PRN Reason: Protocol Last Admin: 08/20/17 21:43 Dose: Not Given Methylprednisolone (Solu-Medrol) 40 mg IV DAILY [facility] Saccharomyces Boulardii (Florastor) 250 mg PO BID [facility] Last Admin: 08/20/17 17:42 Dose: 250 mg - Labs Labs: 08/21/17 06:37 08/21/17 06:37 PT 13.7 SECONDS (9.7-12.2) H 08/21/17 06:37 INR 1.2 08/21/17 06:37 APTT 33 SECONDS (21-34) 08/18/17 10:39 - Constitutional Appears: Non-toxic, No Acute Distress - Head Exam Head Exam: ATRAUMATIC, NORMOCEPHALIC - Eye Exam Eye Exam: EOMI, PERRL Pupil Exam: PERRL. absent: Miosis, Mydriatic - ENT Exam ENT Exam: Mucous Membranes Moist, Normal Oropharynx - Neck Exam Neck Exam: Full ROM, Normal Inspection - Respiratory Exam Respiratory Exam: Accessory Muscle Use, Decreased Breath Sounds, Rhonchi. absent: Rales, Wheezes - Cardiovascular Exam Cardiovascular Exam: Tachycardia, +S1, +S2. absent: Gallop, Rubs - GI/Abdominal Exam GI & Abdominal Exam: Soft, Normal Bowel Sounds. absent: Distended, Firm, Guarding, Rigid, Tenderness, Organomegaly, Rebound - Extremities Exam Extremities Exam: Pedal Edema - Neurological Exam Neurological Exam: Alert, Awake - Psychiatric Exam Psychiatric exam: Normal Affect, Normal Mood - Skin Skin Exam: Dry, Intact, Normal Color, Warm Assessment and Plan - Assessment and Plan (Free Text) Assessment: 72 year old female with history of COPD, Hypertension, Hyperlipidemia, dCHF, EF 52% (11/2015) moderate-severe pulmonary hypertension, CAD, Atrial fibrillation, and PAD s/p stent/angioplasty (2015) on Aspirin/Plavix presenting with shortness of breath. Active treatment of CAP complicated by Afib RVR, CHF decompensation, elevated troponins, and flash pulmonary edema. GI consultation for transaminitis. Prior EGD and colonoscopy seven years ago endorsed to be normal. Plan: >multifactorial- likely acute insult from ischemia 2/2 hypotension >additional considerations: congestive hepatopathy 2/2 CHF decompensation, cholestasis 2/2 antibiotics >abdominal ultrasound- no acute pathology, CBD 4mm >negative hepatitis panel, APAP, ASA >ordered autoimmune workup >possible component of [place]- chronic >daily LFTs >cardiology managing- catheterization thursday >will follow clinical course <Song Brown - Last Filed: 08/21/17 14:04> Objective - Vital Signs/Intake and Output Vital Signs (last 24 hours): Temp Pulse Resp BP Pulse Ox 98.1 F 98 H 20 157/98 H 94 L 08/21/17 07:00 08/21/17 10:00 08/21/17 07:00 08/21/17 07:00 08/21/17 07:00 Intake and Output: 08/21/17 08/21/17 06:59 18:59 Intake Total 520 Output Total 1485 Balance -965 - Medications Medications: Current Medications Albuterol/Ipratropium (Duoneb 3 Mg/0.5 Mg (3 Ml) Ud) 3 ml INH RQ6 [facility] Last Admin: 08/21/17 13:21 Dose: 3 ml Aspirin (Aspirin Chewable) 81 mg PO DAILY [facility] Last Admin: 08/21/17 10:31 Dose: 81 mg Digoxin (Lanoxin) 0.25 mg PO DAILY@1800 [facility] Last Admin: 08/20/17 17:42 Dose: 0.25 mg Diltiazem HCl (Cardizem) 30 mg PO Q12H [facility] Last Admin: 08/21/17 13:02 Dose: 30 mg Donepezil HCl (Aricept) 10 mg PO HS [facility] Last Admin: 08/20/17 21:27 Dose: 10 mg Enoxaparin Sodium (Lovenox) 70 mg SC Q12H [facility] Last Admin: 08/20/17 17:42 Dose: 70 mg Escitalopram Oxalate (Lexapro) 10 mg PO DAILY [facility] Last Admin: 08/21/17 10:32 Dose: 10 mg Famotidine (Pepcid) 20 mg PO DAILY [facility] Last Admin: 08/21/17 10:31 Dose: 20 mg Furosemide (Lasix) 40 mg IVP Q12H [facility] Last Admin: 08/21/17 02:13 Dose: 40 mg Cefepime HCl (Maxipime Iv 1 Gm Premix) 1 gm in 50 mls @ 100 mls/hr IVPB Q12H [facility] Last Admin: 08/21/17 11:05 Dose: 100 mls/hr Insulin Human Regular (Novolin R) 0 unit SC ACHS [facility] PRN Reason: Protocol Last Admin: 08/21/17 12:09 Dose: 3 unit Methylprednisolone (Solu-Medrol) 40 mg IV DAILY [facility] Last Admin: 08/21/17 10:32 Dose: 40 mg Promethazine HCl (Phenergan Syrup) 12.5 mg PO Q6 PRN PRN Reason: Cough and congestion Last Admin: 08/21/17 11:04 Dose: 12.5 mg Saccharomyces Boulardii (Florastor) 250 mg PO BID [facility] Last Admin: 08/21/17 10:31 Dose: 250 mg - Labs Labs: 08/21/17 06:37 08/21/17 06:37 PT 13.7 SECONDS (9.7-12.2) H 08/21/17 06:37 INR 1.2 08/21/17 06:37 APTT 33 SECONDS (21-34) 08/18/17 10:39 Attending/Attestation - Attestation I have personally seen and examined this patient.: Yes I have fully participated in the care of the patient.: Yes I have reviewed all pertinent clinical information, including history, physical exam and plan: Yes Notes (Text): 08/21/17 14:00 72 year old female with history of COPD, Hypertension, Hyperlipidemia, dCHF, CAD , Atrial fibrillation, and PAD s/p stent/angioplasty a/w SOB, also with elevated LFTs. 1. Elevated LFTs 2. Fatty liver Plan: -abrupt rise in transaminases after admission associated with hypotension suggestive of mild shock liver -lfts improving -fatty liver noted on abdominal US -viral hepatitis serologies negative -autoimmune pending -continue supportive care and treatment of underlying cardiac condition -will follow
[2017-08-21 08:48] LABS: TROPONIN I 0.412 ng/mL (0.00-0.120)
[2017-08-21 09:40] LABS: IRON 39 ug/dL (37-170)
[2017-08-21 09:47] LABS: IMMUNOGLOBULIN G 751.7 mg/dL (700.0-1600.0); IMMUNOGLOBULIN M 71.7 mg/dL (40.0-230.0)
[2017-08-21 09:48] LABS: IMMUNOGLOBULIN A 363.9 mg/dL (70.0-400.0)
[2017-08-21] MEDS: Saccharomyces Boulardi 250 mg Cap PO SCH ×2 (10:31→17:34)
[2017-08-21] MEDS: MethylPREDNISolone 40 mg Vial IV SCH (10:32)
[2017-08-21] MEDS: Promethazine 12.5 mg/10 ml Syrup PO PRN (11:04)
[2017-08-21] MEDS: Cefepime IV 1 gm in Dextrose 1 GM/50 ML BAG IVPB SCH ×3 (11:05→22:28)
[2017-08-21] MEDS ORDERED: Iodixanol 320 MG/ML 100 ML BOTTLE IV ONE (11:45)
--- NOTE | 2017-08-21 13:20 | CP.PCM.PN ---
Subjective - Date & Time of Evaluation Date of Evaluation: 08/21/17 Time of Evaluation: 08:50 - Subjective Subjective: patient seen and examined. Sitting comfortably in mild respiratory distr Still complaining of cough and shortness of breath Afebrile On BiPAP at night and as needed Cardiac catheter canceled Objective - Vital Signs/Intake and Output Vital Signs (last 24 hours): Temp Pulse Resp BP Pulse Ox 98.1 F 110 H 20 157/98 H 94 L 08/21/17 07:00 08/21/17 07:00 08/21/17 07:00 08/21/17 07:00 08/21/17 07:00 Intake and Output: 08/21/17 08/21/17 06:59 18:59 Intake Total 520 Output Total 1485 Balance -965 - Medications Medications: Current Medications Albuterol/Ipratropium (Duoneb 3 Mg/0.5 Mg (3 Ml) Ud) 3 ml INH RQ6 [facility] Last Admin: 08/21/17 07:17 Dose: 3 ml Aspirin (Aspirin Chewable) 81 mg PO DAILY [facility] Last Admin: 08/21/17 10:31 Dose: 81 mg Digoxin (Lanoxin) 0.25 mg PO DAILY@1800 [facility] Last Admin: 08/20/17 17:42 Dose: 0.25 mg Diltiazem HCl (Cardizem) 30 mg PO Q12H [facility] Last Admin: 08/21/17 13:02 Dose: 30 mg Donepezil HCl (Aricept) 10 mg PO HS [facility] Last Admin: 08/20/17 21:27 Dose: 10 mg Enoxaparin Sodium (Lovenox) 70 mg SC Q12H [facility] Last Admin: 08/20/17 17:42 Dose: 70 mg Escitalopram Oxalate (Lexapro) 10 mg PO DAILY [facility] Last Admin: 08/21/17 10:32 Dose: 10 mg Famotidine (Pepcid) 20 mg PO DAILY [facility] Last Admin: 08/21/17 10:31 Dose: 20 mg Furosemide (Lasix) 40 mg IVP Q12H [facility] Last Admin: 08/21/17 02:13 Dose: 40 mg Cefepime HCl (Maxipime Iv 1 Gm Premix) 1 gm in 50 mls @ 100 mls/hr IVPB Q12H [facility] Last Admin: 08/21/17 11:05 Dose: 100 mls/hr Insulin Human Regular (Novolin R) 0 unit SC ACHS [facility] PRN Reason: Protocol Last Admin: 08/21/17 12:09 Dose: 3 unit Methylprednisolone (Solu-Medrol) 40 mg IV DAILY [facility] Last Admin: 08/21/17 10:32 Dose: 40 mg Promethazine HCl (Phenergan Syrup) 12.5 mg PO Q6 [facility] PRN Reason: Cough and congestion Last Admin: 08/21/17 11:04 Dose: 12.5 mg Saccharomyces Boulardii (Florastor) 250 mg PO BID [facility] Last Admin: 08/21/17 10:31 Dose: 250 mg - Labs Labs: 08/21/17 06:37 08/21/17 06:37 PT 13.7 SECONDS (9.7-12.2) H 08/21/17 06:37 INR 1.2 08/21/17 06:37 APTT 33 SECONDS (21-34) 08/18/17 10:39 - Head Exam Head Exam: ATRAUMATIC, NORMOCEPHALIC - ENT Exam ENT Exam: Mucous Membranes Moist - Neck Exam Neck Exam: Normal Inspection - Respiratory Exam Respiratory Exam: Decreased Breath Sounds - Cardiovascular Exam Cardiovascular Exam: Irregular Rhythm - GI/Abdominal Exam GI & Abdominal Exam: Soft, Normal Bowel Sounds - Extremities Exam Extremities Exam: Pedal Edema Assessment and Plan (1) COPD with exacerbation Assessment & Plan: continue nebulizer treatment and IV steroids BiPAP Continue Lasix Followup ABG and chest x-ray Continue antibiotics for pneumonia Status: Acute (2) CHF exacerbation Status: Acute (3) Elevated troponin Status: Acute (4) Rapid atrial fibrillation Status: Acute
--- NOTE | 2017-08-21 14:04 | CP.PCM.PN ---
<Mercy Joy - Last Filed: 08/21/17 13:52> Subjective - Date & Time of Evaluation Date of Evaluation: 08/21/17 Time of Evaluation: 09:00 - Subjective Subjective: Medicine Note for Dr. Shirley Patient was seen and examined at bedside. Patient reports breathing has not improved since yesterday. Denied fever, chills, headache, SOB, chest pain, abdominal pain, n/v/d/c, or urinary symptoms. Objective - Vital Signs/Intake and Output Vital Signs (last 24 hours): Temp Pulse Resp BP Pulse Ox 98.1 F 98 H 20 157/98 H 94 L 08/21/17 07:00 08/21/17 10:00 08/21/17 07:00 08/21/17 07:00 08/21/17 07:00 Intake and Output: 08/21/17 08/21/17 06:59 18:59 Intake Total 520 Output Total 1485 Balance -965 - Medications Medications: Current Medications Albuterol/Ipratropium (Duoneb 3 Mg/0.5 Mg (3 Ml) Ud) 3 ml INH RQ6 [facility] Last Admin: 08/21/17 13:21 Dose: 3 ml Aspirin (Aspirin Chewable) 81 mg PO DAILY [facility] Last Admin: 08/21/17 10:31 Dose: 81 mg Digoxin (Lanoxin) 0.25 mg PO DAILY@1800 [facility] Last Admin: 08/20/17 17:42 Dose: 0.25 mg Diltiazem HCl (Cardizem) 30 mg PO Q12H [facility] Last Admin: 08/21/17 13:02 Dose: 30 mg Donepezil HCl (Aricept) 10 mg PO HS [facility] Last Admin: 08/20/17 21:27 Dose: 10 mg Enoxaparin Sodium (Lovenox) 70 mg SC Q12H [facility] Last Admin: 08/20/17 17:42 Dose: 70 mg Escitalopram Oxalate (Lexapro) 10 mg PO DAILY [facility] Last Admin: 08/21/17 10:32 Dose: 10 mg Famotidine (Pepcid) 20 mg PO DAILY [facility] Last Admin: 08/21/17 10:31 Dose: 20 mg Furosemide (Lasix) 40 mg IVP Q12H [facility] Last Admin: 08/21/17 02:13 Dose: 40 mg Cefepime HCl (Maxipime Iv 1 Gm Premix) 1 gm in 50 mls @ 100 mls/hr IVPB Q12H [facility] Last Admin: 08/21/17 11:05 Dose: 100 mls/hr Insulin Human Regular (Novolin R) 0 unit SC ACHS [facility] PRN Reason: Protocol Last Admin: 08/21/17 12:09 Dose: 3 unit Methylprednisolone (Solu-Medrol) 40 mg IV DAILY [facility] Last Admin: 08/21/17 10:32 Dose: 40 mg Promethazine HCl (Phenergan Syrup) 12.5 mg PO Q6 PRN PRN Reason: Cough and congestion Last Admin: 08/21/17 11:04 Dose: 12.5 mg Saccharomyces Boulardii (Florastor) 250 mg PO BID [facility] Last Admin: 08/21/17 10:31 Dose: 250 mg - Labs Labs: 08/21/17 06:37 08/21/17 06:37 PT 13.7 SECONDS (9.7-12.2) H 08/21/17 06:37 INR 1.2 08/21/17 06:37 APTT 33 SECONDS (21-34) 08/18/17 10:39 - Additional Findings Additional findings: - Eye Exam Eye Exam: EOMI, Normal appearance - ENT Exam ENT Exam: Mucous Membranes Moist - Respiratory Exam Respiratory Exam: Decreased Breath Sounds, Rhonchi, NORMAL BREATHING PATTERN - Cardiovascular Exam Cardiovascular Exam: Irregular Rhythm. absent: Murmur - GI/Abdominal Exam GI & Abdominal Exam: Soft, Normal Bowel Sounds. absent: Distended, Firm, Guarding, Tenderness - Neurological Exam Neurological Exam: Alert, Awake, Oriented x3 - Psychiatric Exam Psychiatric exam: Normal Affect, Normal Mood - Skin Skin Exam: Pallor, Warm Assessment and Plan - Assessment and Plan (Free Text) Plan: CHF: Cardiology consulted - Dr. Drake- help appreciated 08/20: Chest XRAY still looks pretty rough, the I's were 600 and the O's were 1600. Continue lasix. With the EF of 25% she may need further cardiology intervention including cardiac cath, life vest, or AICD. 08/19: The patient is pending a 2-D echo at this moment. The chest x-ray this morning shows that she still has a lot of bilateral congestion and pulmonary edema. At some point the patient should be started on SOO inhibitor or an ARB. Currently checking I's and O's Patient initially scheduled for cardiac catherization today- cancelled due to patient's inability to lay down flat Lasix 40mg IVP Q12 Elevated Troponin: Patient initially scheduled for cardiac catherization today- cancelled due to patient's inability to lay down flat Atrial Fibrillation: 08/20: Now off of the the cardizem ggt - on the PO cardizem and PO digoxin. Currently HR is 90s to low 100s on telemetry 08/19: Patient currently is still on the Cardizem drip the heart rate is substantially improved from before it's now in the 90s on the telemetry remains irregularly irregular also now the patient is on Lovenox twice a day. The patient does have a relatively high CHADS score. I'm being told that the plan is to transition patient off the Cardizem drip over to PO medication Digoxin 0.25mg PO daily, Carizem 30mg PO Q12H COPD Exacerbation: Possible pulmonary fibrosis Continue Nebulizer BiPAP ABG, CXR Solumedrol 40mg IVP daily Continue ABX - Cefepime 1 gram Q12H Pneumonia: 08/20: Continue to monitor cultures, blood and urine negative at this moment. 08/19: Patient's abx were changed over to cefepime IV. There is a high bandemia this morning. CT CHEST: f/U Solumedrol 40mg IVP daily Continue ABX - Cefepime 1 gram Q12H Transaminitis GI consulted- Dr. Maria -help appreciated multifactorial- likely acute insult from ischemia 2/2 hypotension. additional considerations: congestive hepatopathy 2/2 CHF decompensation, cholestasis 2/2 antibiotics abdominal ultrasound- no acute pathology, CBD 4mm negative hepatitis panel, APAP, ASA F/u ordered autoimmune workup HTN: 08/19: Most recent ones pressure systolic of 140. Patient is on by mouth Cardizem, hopefully this will improve as the patient gets additional IV Lasix Prophylaxis: Lovenox 70mg sc Q12 Pepcid 20mg IVP q12h [facility] Rufino Velez DO, PGY-1 <Solis Shirley H - Last Filed: 08/21/17 16:23> Objective - Vital Signs/Intake and Output Vital Signs (last 24 hours): Temp Pulse Resp BP Pulse Ox 98.1 F 98 H 20 132/69 94 L 08/21/17 07:00 08/21/17 10:00 08/21/17 07:00 08/21/17 15:06 08/21/17 07:00 Intake and Output: 08/21/17 08/21/17 06:59 18:59 Intake Total 520 Output Total 1485 Balance -965 - Medications Medications: Current Medications Albuterol/Ipratropium (Duoneb 3 Mg/0.5 Mg (3 Ml) Ud) 3 ml INH RQ6 [facility] Last Admin: 08/21/17 13:21 Dose: 3 ml Aspirin (Aspirin Chewable) 81 mg PO DAILY [facility] Last Admin: 08/21/17 10:31 Dose: 81 mg Digoxin (Lanoxin) 0.25 mg PO DAILY@1800 [facility] Last Admin: 08/20/17 17:42 Dose: 0.25 mg Diltiazem HCl (Cardizem) 30 mg PO Q12H [facility] Last Admin: 08/21/17 13:02 Dose: 30 mg Donepezil HCl (Aricept) 10 mg PO HS [facility] Last Admin: 08/20/17 21:27 Dose: 10 mg Enoxaparin Sodium (Lovenox) 70 mg SC Q12H [facility] Last Admin: 08/20/17 17:42 Dose: 70 mg Escitalopram Oxalate (Lexapro) 10 mg PO DAILY [facility] Last Admin: 08/21/17 10:32 Dose: 10 mg Famotidine (Pepcid) 20 mg PO DAILY [facility] Last Admin: 08/21/17 10:31 Dose: 20 mg Furosemide (Lasix) 40 mg IVP Q12H [facility] Last Admin: 08/21/17 15:06 Dose: 40 mg Cefepime HCl (Maxipime Iv 1 Gm Premix) 1 gm in 50 mls @ 100 mls/hr IVPB Q12H [facility] Last Admin: 08/21/17 11:05 Dose: 100 mls/hr Insulin Human Regular (Novolin R) 0 unit SC ACHS [facility] PRN Reason: Protocol Last Admin: 08/21/17 12:09 Dose: 3 unit Methylprednisolone (Solu-Medrol) 40 mg IV DAILY [facility] Last Admin: 08/21/17 10:32 Dose: 40 mg Promethazine HCl (Phenergan Syrup) 12.5 mg PO Q6 PRN PRN Reason: Cough and congestion Last Admin: 08/21/17 11:04 Dose: 12.5 mg Saccharomyces Boulardii (Florastor) 250 mg PO BID [facility] Last Admin: 08/21/17 10:31 Dose: 250 mg - Labs Labs: 08/21/17 06:37 08/21/17 06:37 PT 13.7 SECONDS (9.7-12.2) H 08/21/17 06:37 INR 1.2 08/21/17 06:37 APTT 33 SECONDS (21-34) 08/18/17 10:39 Attending/Attestation - Attestation I have personally seen and examined this patient.: Yes I have fully participated in the care of the patient.: Yes I have reviewed all pertinent clinical information, including history, physical exam and plan: Yes Notes (Text): 08/21/17 16:23 Medical attending: Patient was seen and examined by me, agrees the above note by medical policy specialist. When we saw the patient today she had just returned from he attempted a cardiac cath however this had to be postponed because the patient was not able to lay on the table for prolonged period of time without becoming short of breath. She is still getting IV Lasix at this time When we saw the patient she just come back from this attempted cath. She seemed to explain that she was doing okay when sitting up in bed however laying down flat was very problematic for her. We had the patient undergo a CT scan of the chest without contrast and it shows that she's developed a large right side pleural effusion. I asked the residence to reach out to pulmonology to make them aware of. It appears that the patient would probably benefit from a thoracentesis. Thank you very much Solis Shirley
--- NOTE | 2017-08-21 14:19 | CT ---
PROCEDURE: CT scan of the chest dated 08/21/2017 HISTORY: Rule out pleural effusion. COMPARISON: No prior study available for comparison however correlation made with chest radiograph earlier same day. TECHNIQUE: Contiguous axial images were obtained through the chest with intravenous contrast enhancement. Sagittal and coronal reconstructions were performed. IV contrast: 100 cc Visipaque 320 Radiation dose (DLP): 803.6 mGy-cm. This CT exam was performed using one or more of the following dose reduction techniques: Automated exposure control, adjustment of the mA and/or kV according to patient size, and/or use of iterative reconstruction technique. FINDINGS: LUNGS: Mild diffuse pulmonary vascular congestive changes. As mentioned above, there is a small to medium size right-sided effusion and mild right basilar atelectasis. Additional mild atelectatic changes seen in both lung bases including the lingular and middle lobe regions. MEDIASTINUM: Heart remains markedly enlarged a with panchamber enlargement. . There is mild age dilatation of the ascending thoracic aorta measures approximately 3.74 cm in transverse dimension. Ascending thoracic aorta measures approximately 2.5 cm. 2 vessel arch. . Pulmonary trunk measures approximately 3.28 cm. The the examination was not dedicated to evaluate for pulmonary embolus, no large filling defects seen within pulmonary trunk, right and left main or lobar branches. Distal branches are poorly delineated. Central airways are midline and patent. No tracheal or central endobronchial lesions identified. There are multiple small to medium-sized mediastinal and hilar lymph nodes. Again PLEURA: Small to medium size right-sided effusion and minor right basilar atelectasis. Trace left-sided effusion. BONES: Multilevel degenerative spondylosis of the thoracic spine. No acute compression fractures however minor chronic anterior wedge deformities of several upper/mid thoracic segments. UPPER ABDOMEN: There is a small amount of perihepatic ascites. Status post cholecystectomy with metallic clips in the gallbladder fossa. Small amount of central on intrahepatic biliary air seen in the left and to a lesser degree right lobe liver. Mild diffuse fatty hepatic infiltration OTHER FINDINGS: None. IMPRESSION: Marked cardiomegaly with panchamber enlargement. Mild dilatation of the ascending thoracic aorta. Prominent pulmonary trunk. Medium size right-sided effusion and mild right basilar atelectasis. Trace left effusion. Pulmonary vascular congestive changes. Multiple small to medium sized mediastinal and hilar lymph nodes. Small amount of perihepatic ascites. Status post cholecystectomy with small amount of intra biliary air. Mild diffuse fatty hepatic infiltration.
[2017-08-21] MEDS: Digoxin 250 mcg (0.25 mg) Tab PO SCH (17:34)
[2017-08-21 17:35] LABS: BASO % 0.1 % (0.0-2.0); HEMATOCRIT 37.4 % (34.0-47.0); LYMPH % 5.9 % (20.0-40.0); MEAN CELL VOLUME 87.9 fL (81.0-99.0); MEAN CORPUSCULAR HEMOGLOBIN 29.2 pg (27.0-31.0); MEAN CORPUSCULAR HGB CONC 33.2 g/dL (33.0-37.0); MEAN PLATELET VOLUME 8.5 fL (7.2-11.7); MONO # 0.7 K/uL (0.0-0.8); MONO % 3.8 % (0.0-10.0); PLATELET COUNT 314 K/uL (130-400); RED CELL DISTRIBUTION WIDTH 15.9 % (11.5-14.5); WHITE BLOOD COUNT 17.4 K/uL (4.8-10.8)
[2017-08-21 17:53] LABS: CHLORIDE 83 mmol/L (98-107); SODIUM 127 mmol/L (132-148)
[2017-08-21 17:54] LABS: POTASSIUM 4.4 mmol/L (3.6-5.2)
[2017-08-21 17:56] LABS: ALB/GLOB RATIO 1.5 (1.0-2.1); ALKALINE PHOSPHATASE 116 U/L (38-126); AST/SGOT 366 U/L (14-36); BILIRUBIN,TOTAL 0.8 mg/dL (0.2-1.3); BLOOD UREA NITROGEN 29 mg/dL (7-17); CARBON DIOXIDE 32 mmol/L (22-30); GFR AFRICAN-AMERICAN > 60; TOTAL PROTEIN 6.7 g/dL (6.3-8.3)
[2017-08-21 17:57] LABS: ALT/SGPT 653 U/L (9-52); CALCIUM 8.3 mg/dl (8.6-10.4); GLUCOSE,RANDOM 151 mg/dL (65-105)
[2017-08-21 20:02] LABS: NEUTROPHIL 95 % (50-75); NUCLEATED RED BLOOD CELL 3 % (0-0); TOTAL CELLS COUNTED 100
[2017-08-21 20:04] LABS: LARGE PLATELETS PRESENT
[2017-08-21] MEDS: Enoxaparin 80 mg Syringe SC SCH (21:35)
--- NOTE | 2017-08-22 00:11 | CP.PCM.PN ---
Subjective - Date & Time of Evaluation Date of Evaluation: 08/21/17 Time of Evaluation: 11:10 - Subjective Subjective: Patient still has significant dyspnea Cath postponed to Thursday Physical Examination - Constitutional Appears: Chronically Ill - Eye Exam Eye Exam: EOMI, Normal appearance - ENT Exam ENT Exam: Mucous Membranes Moist - Respiratory Exam Respiratory Exam: Decreased Breath Sounds, NORMAL BREATHING PATTERN - Cardiovascular Exam Cardiovascular Exam: Irregular Rhythm - Neurological Exam Neurological Exam: Alert, Awake, Oriented x3 Neuro motor strength exam: Left Upper Extremity: 5, Right Upper Extremity: 5, Left Lower Extremity: 5, Right Lower Extremity: 5 - Psychiatric Exam Psychiatric exam: Normal Affect, Normal Mood - Skin Skin Exam: Pallor, Warm Objective - Vital Signs/Intake and Output Vital Signs (last 24 hours): Temp Pulse Resp BP Pulse Ox 97.4 F L 100 H 22 127/90 94 L 08/21/17 16:00 08/21/17 16:00 08/21/17 16:00 08/21/17 16:00 08/21/17 16:00 Intake and Output: 08/21/17 08/22/17 18:59 06:59 Intake Total 200 Output Total 2950 Balance -2750 - Medications Medications: Current Medications Albuterol/Ipratropium (Duoneb 3 Mg/0.5 Mg (3 Ml) Ud) 3 ml INH RQ6 [facility] Last Admin: 08/21/17 19:17 Dose: 3 ml Aspirin (Aspirin Chewable) 81 mg PO DAILY [facility] Last Admin: 08/21/17 10:31 Dose: 81 mg Digoxin (Lanoxin) 0.25 mg PO DAILY@1800 [facility] Last Admin: 08/21/17 17:34 Dose: 0.25 mg Diltiazem HCl (Cardizem) 30 mg PO Q12H [facility] Last Admin: 08/21/17 23:55 Dose: 30 mg Donepezil HCl (Aricept) 10 mg PO HS [facility] Last Admin: 08/21/17 21:35 Dose: 10 mg Enoxaparin Sodium (Lovenox) 70 mg SC Q12 [facility] Last Admin: 08/21/17 21:35 Dose: 70 mg Escitalopram Oxalate (Lexapro) 10 mg PO DAILY [facility] Last Admin: 08/21/17 10:32 Dose: 10 mg Famotidine (Pepcid) 20 mg PO DAILY [facility] Last Admin: 08/21/17 10:31 Dose: 20 mg Furosemide (Lasix) 40 mg IVP Q12H [facility] Last Admin: 08/21/17 15:06 Dose: 40 mg Cefepime HCl (Maxipime Iv 1 Gm Premix) 1 gm in 50 mls @ 100 mls/hr IVPB Q12H [facility] Last Admin: 08/21/17 22:28 Dose: 100 mls/hr Insulin Human Regular (Novolin R) 0 unit SC ACHS [facility] PRN Reason: Protocol Last Admin: 08/21/17 21:35 Dose: Not Given Methylprednisolone (Solu-Medrol) 40 mg IV DAILY [facility] Last Admin: 08/21/17 10:32 Dose: 40 mg Promethazine HCl (Phenergan Syrup) 12.5 mg PO Q6 PRN PRN Reason: Cough and congestion Last Admin: 08/21/17 11:04 Dose: 12.5 mg Saccharomyces Boulardii (Florastor) 250 mg PO BID [facility] Last Admin: 08/21/17 17:34 Dose: 250 mg - Labs Labs: 08/21/17 17:23 08/21/17 17:23 PT 13.7 SECONDS (9.7-12.2) H 08/21/17 06:37 INR 1.2 08/21/17 06:37 APTT 33 SECONDS (21-34) 08/18/17 10:39 Assessment and Plan - Assessment and Plan (Free Text) Assessment: (1) A-fib Assessment & Plan: Cardizem On Digoxin, ASA Continue to monitor- Keep rate controlled Status: Chronic (2) Elevated troponin Assessment & Plan: NSTEMI Elevated Troponins- SHEILA 3 trending down Therapeutic Lovenox 70mg SC Q12 EKGs show Atrial fibrillation; ST depressions ad T wave inversions noted in anterolateral leads Cath when patient stable Status: Acute (3) Pneumonia Assessment & Plan: CXR shows signs of infiltrates Was on Ceftriaxone and Azithromycin however discontinued due to transaminitis. On Cefepime. Start Florastor. Status: Acute (4) Chronic congestive heart failure Assessment & Plan: Elevated ProBNP 3370 Echo Pending Echo from 11/2015: LVEF 52%, Normal LV functionality at that time Lasix IV Q12 Intake and Output Measure Daily weights Status: Chronic (5) Transaminitis Assessment & Plan: Elevated likely secondarily to antibiotic administration. Changed to Cefepime. Status: Acute (6) Hypertension Assessment & Plan: Stable. Continue to monitor at this time. Will not treat acute rise in blood pressure. Status: Chronic (7) Prophylactic measure Assessment & Plan: Lovenox SCDs Pepcid 20mg PO daily Status: Acute
[2017-08-22] MEDS: Albuterol-Ipratrop 3 mg / 0.5 (3 ml) UD INH SCH ×3 (01:54→19:30)
[2017-08-22 06:52] LABS: BASO % 0.2 % (0.0-2.0); HEMATOCRIT 36.9 % (34.0-47.0); LYMPH # 0.9 K/uL (1.0-4.3); LYMPH % 9.3 % (20.0-40.0); MEAN CELL VOLUME 88.2 fL (81.0-99.0); MEAN CORPUSCULAR HEMOGLOBIN 29.5 pg (27.0-31.0); MEAN CORPUSCULAR HGB CONC 33.5 g/dL (33.0-37.0); MEAN PLATELET VOLUME 8.4 fL (7.2-11.7); MONO # 0.6 K/uL (0.0-0.8); MONO % 5.9 % (0.0-10.0); PLATELET COUNT 273 K/uL (130-400); RED CELL DISTRIBUTION WIDTH 15.8 % (11.5-14.5); WHITE BLOOD COUNT 9.9 K/uL (4.8-10.8)
[2017-08-22 07:45] LABS: CHLORIDE 82 mmol/L (98-107)
[2017-08-22 07:46] LABS: POTASSIUM 4.1 mmol/L (3.6-5.2); SODIUM 129 mmol/L (132-148)
[2017-08-22 07:47] LABS: GFR AFRICAN-AMERICAN > 60
[2017-08-22 07:48] LABS: ALB/GLOB RATIO 1.6 (1.0-2.1); ALKALINE PHOSPHATASE 110 U/L (38-126); ALT/SGPT 542 U/L (9-52); AST/SGOT 203 U/L (14-36); BILIRUBIN,TOTAL 0.8 mg/dL (0.2-1.3); BLOOD UREA NITROGEN 28 mg/dL (7-17); CALCIUM 8.1 mg/dl (8.6-10.4); CARBON DIOXIDE 38 mmol/L (22-30); GLUCOSE,RANDOM 159 mg/dL (65-105)
[2017-08-22 07:49] LABS: MAGNESIUM 1.7 mg/dL (1.6-2.3)
[2017-08-22] MEDS: (Novolin R) Insulin Human Regular 100 units/ml vial SC SCH ×4 (07:59→21:31)
--- NOTE | 2017-08-22 09:12 | CP.PCM.PN ---
<Sheree Donald - Last Filed: 08/22/17 09:16> Subjective - Date & Time of Evaluation Date of Evaluation: 08/22/17 Time of Evaluation: 08:30 - Subjective Subjective: GI Fellow PGY4 Progress Note Pt sen and evaluated at bedside, no acute events over night. Pt reports that she tolerated her BIPAP overnight and received breathing treatments. Pt reports she is scheduled for cardiac catheterization on Thursday. Discussed with patient that her liver enzymes are improving. ROS: A 12pt ROS was obtained and was negative except as above. Objective - Vital Signs/Intake and Output Vital Signs (last 24 hours): Temp Pulse Resp BP Pulse Ox 97.3 F L 100 H 20 150/92 H 95 08/22/17 07:00 08/22/17 07:00 08/22/17 07:00 08/22/17 07:00 08/22/17 07:00 Intake and Output: 08/22/17 08/22/17 06:59 18:59 Intake Total 200 Output Total 3951 Balance -3751 - Medications Medications: Current Medications Albuterol/Ipratropium (Duoneb 3 Mg/0.5 Mg (3 Ml) Ud) 3 ml INH RQ6 [facility] Last Admin: 08/22/17 07:18 Dose: 3 ml Aspirin (Aspirin Chewable) 81 mg PO DAILY [facility] Last Admin: 08/21/17 10:31 Dose: 81 mg Digoxin (Lanoxin) 0.25 mg PO DAILY@1800 [facility] Last Admin: 08/21/17 17:34 Dose: 0.25 mg Diltiazem HCl (Cardizem) 30 mg PO Q12H [facility] Last Admin: 08/21/17 23:55 Dose: 30 mg Donepezil HCl (Aricept) 10 mg PO HS [facility] Last Admin: 08/21/17 21:35 Dose: 10 mg Enoxaparin Sodium (Lovenox) 70 mg SC Q12 [facility] Last Admin: 08/21/17 21:35 Dose: 70 mg Escitalopram Oxalate (Lexapro) 10 mg PO DAILY [facility] Last Admin: 08/21/17 10:32 Dose: 10 mg Famotidine (Pepcid) 20 mg PO DAILY [facility] Last Admin: 08/21/17 10:31 Dose: 20 mg Furosemide (Lasix) 40 mg IVP Q12H [facility] Last Admin: 08/22/17 02:13 Dose: 40 mg Cefepime HCl (Maxipime Iv 1 Gm Premix) 1 gm in 50 mls @ 100 mls/hr IVPB Q12H [facility] Last Admin: 08/21/17 22:28 Dose: 100 mls/hr Insulin Human Regular (Novolin R) 0 unit SC ACHS [facility] PRN Reason: Protocol Last Admin: 08/22/17 07:59 Dose: 2 unit Methylprednisolone (Solu-Medrol) 40 mg IV DAILY [facility] Last Admin: 08/21/17 10:32 Dose: 40 mg Promethazine HCl (Phenergan Syrup) 12.5 mg PO Q6 PRN PRN Reason: Cough and congestion Last Admin: 08/21/17 11:04 Dose: 12.5 mg Saccharomyces Boulardii (Florastor) 250 mg PO BID [facility] Last Admin: 08/21/17 17:34 Dose: 250 mg - Labs Labs: 08/22/17 06:44 08/22/17 06:44 PT 13.7 SECONDS (9.7-12.2) H 08/21/17 06:37 INR 1.2 08/21/17 06:37 APTT 33 SECONDS (21-34) 08/18/17 10:39 - Constitutional Appears: Non-toxic, No Acute Distress - Head Exam Head Exam: ATRAUMATIC, NORMAL INSPECTION, NORMOCEPHALIC - Eye Exam Eye Exam: EOMI, Normal appearance, PERRL - ENT Exam ENT Exam: Mucous Membranes Moist, Normal Exam - Neck Exam Neck Exam: Full ROM, Normal Inspection - Respiratory Exam Additional comments: Conversational Dyspnea - Cardiovascular Exam Cardiovascular Exam: Tachycardia, +S1, +S2 - GI/Abdominal Exam GI & Abdominal Exam: Soft, Normal Bowel Sounds. absent: Tenderness - Rectal Exam Rectal Exam: Deferred - Extremities Exam Extremities Exam: Normal Inspection - Back Exam Back Exam: NORMAL INSPECTION - Neurological Exam Neurological Exam: Alert, Awake, Oriented x3 - Psychiatric Exam Psychiatric exam: Normal Affect, Normal Mood - Skin Skin Exam: Dry, Intact, Normal Color, Warm Assessment and Plan - Assessment and Plan (Free Text) Assessment: This is a 72 year old female with history of COPD, Hypertension, Hyperlipidemia , dCHF, EF 52% (11/2015) moderate-severe pulmonary hypertension, CAD, Atrial fibrillation, and PAD s/p stent/angioplasty (2015) on Aspirin/Plavix presenting with shortness of breath. 1. Transaminitis 2. Fatty Liver 3. CAD 4. CAP Plan: -Elevated LFTs improving and trending down -Likely from hypotension on admission leading to acute ischemic insult -Abdominal ultrasound- fatty liver -Hepatitis panel negative -Autoimmune workup pending, IgG negative -Continue IV abx for CAP per primary team -Cardiology planing for catheterization Thursday -Please call with any questions or concerns <Song Brown - Last Filed: 08/22/17 11:29> Objective - Vital Signs/Intake and Output Vital Signs (last 24 hours): Temp Pulse Resp BP Pulse Ox 97.3 F L 100 H 20 150/92 H 95 08/22/17 07:00 08/22/17 07:00 08/22/17 07:00 08/22/17 07:00 08/22/17 07:00 Intake and Output: 08/22/17 08/22/17 06:59 18:59 Intake Total 200 Output Total 3951 Balance -3751 - Medications Medications: Current Medications Albuterol/Ipratropium (Duoneb 3 Mg/0.5 Mg (3 Ml) Ud) 3 ml INH RQ6 [facility] Last Admin: 08/22/17 07:18 Dose: 3 ml Aspirin (Aspirin Chewable) 81 mg PO DAILY [facility] Last Admin: 08/22/17 10:08 Dose: 81 mg Digoxin (Lanoxin) 0.25 mg PO DAILY@1800 [facility] Last Admin: 08/21/17 17:34 Dose: 0.25 mg Diltiazem HCl (Cardizem) 30 mg PO Q12H [facility] Last Admin: 08/21/17 23:55 Dose: 30 mg Donepezil HCl (Aricept) 10 mg PO HS [facility] Last Admin: 08/21/17 21:35 Dose: 10 mg Enoxaparin Sodium (Lovenox) 70 mg SC Q12 [facility] Last Admin: 08/22/17 10:08 Dose: 70 mg Escitalopram Oxalate (Lexapro) 10 mg PO DAILY [facility] Last Admin: 08/22/17 10:08 Dose: 10 mg Famotidine (Pepcid) 20 mg PO DAILY [facility] Last Admin: 08/22/17 10:08 Dose: 20 mg Furosemide (Lasix) 40 mg IVP Q12H [facility] Last Admin: 08/22/17 02:13 Dose: 40 mg Cefepime HCl (Maxipime Iv 1 Gm Premix) 1 gm in 50 mls @ 100 mls/hr IVPB Q12H [facility] Last Admin: 08/22/17 10:09 Dose: 100 mls/hr Insulin Human Regular (Novolin R) 0 unit SC ACHS [facility] PRN Reason: Protocol Last Admin: 08/22/17 07:59 Dose: 2 unit Methylprednisolone (Solu-Medrol) 40 mg IV DAILY [facility] Last Admin: 08/22/17 10:08 Dose: 40 mg Promethazine HCl (Phenergan Syrup) 12.5 mg PO Q6 PRN PRN Reason: Cough and congestion Last Admin: 08/21/17 11:04 Dose: 12.5 mg Saccharomyces Boulardii (Florastor) 250 mg PO BID [facility] Last Admin: 08/22/17 10:08 Dose: 250 mg - Labs Labs: 08/22/17 06:44 08/22/17 06:44 PT 13.7 SECONDS (9.7-12.2) H 08/21/17 06:37 INR 1.2 08/21/17 06:37 APTT 33 SECONDS (21-34) 08/18/17 10:39 Attending/Attestation - Attestation I have personally seen and examined this patient.: Yes I have fully participated in the care of the patient.: Yes I have reviewed all pertinent clinical information, including history, physical exam and plan: Yes Notes (Text): 08/22/17 11:29 72 year old female with history of COPD, Hypertension, Hyperlipidemia, dCHF, CAD , Atrial fibrillation, and PAD s/p stent/angioplasty a/w SOB, also with elevated LFTs. 1. Elevated LFTs 2. Fatty liver Plan: -abrupt rise in transaminases after admission associated with hypotension suggestive of mild shock liver -lfts improving -fatty liver noted on abdominal US -viral hepatitis serologies negative -autoimmune pending -continue supportive care and treatment of underlying cardiac condition -will sign off
[2017-08-22 09:21] LABS: NEUTROPHIL 79 % (50-75); NUCLEATED RED BLOOD CELL 4 % (0-0); TOTAL CELLS COUNTED 100
[2017-08-22 09:22] LABS: LARGE PLATELETS PRESENT
[2017-08-22] MEDS: Enoxaparin 80 mg Syringe SC SCH (10:08)
[2017-08-22] MEDS: MethylPREDNISolone 40 mg Vial IV SCH (10:08)
[2017-08-22] MEDS: Saccharomyces Boulardi 250 mg Cap PO SCH ×2 (10:08→18:26)
[2017-08-22] MEDS: Cefepime IV 1 gm in Dextrose 1 GM/50 ML BAG IVPB SCH ×2 (10:09→22:14)
--- NOTE | 2017-08-22 10:40 | CP.PCM.PN ---
Subjective - Date & Time of Evaluation Date of Evaluation: 08/22/17 Time of Evaluation: 10:20 - Subjective Subjective: Patient was seen and examined by me. She was out of bed and if I understood her correctly she thought she was breathing easier. When I asked how far she could walk she explained only to the bathroom before becoming short of breath. Denied chest pain. Denied abdominal pain. Denied palpitations On telemetry HR is 80s to 110s atrial fibrillation. Yesterday had an attempted cardiac cath but she did not tolerate laying flat on her back for long time and I'm told was short of breath, coughing and so the cardiac cath was held. When she came back we got a CT scan of the chest and she has a moderate right pleural effusion. I spoke with pulmonary and per discussion we need to get a thoracentsis before attempting another cardiac catherization. Will hold tonights lovenox so that they can try thoracentis Thursday. Her LFTs are decreasing, likely elevated from anoxia from the very fast atrial fib when she came to the hospital. Objective - Vital Signs/Intake and Output Vital Signs (last 24 hours): Temp Pulse Resp BP Pulse Ox 97.3 F L 100 H 20 150/92 H 95 08/22/17 07:00 08/22/17 07:00 08/22/17 07:00 08/22/17 07:00 08/22/17 07:00 Intake and Output: 08/22/17 08/22/17 06:59 18:59 Intake Total 200 Output Total 3951 Balance -3751 - Medications Medications: Current Medications Albuterol/Ipratropium (Duoneb 3 Mg/0.5 Mg (3 Ml) Ud) 3 ml INH RQ6 [facility] Last Admin: 08/22/17 07:18 Dose: 3 ml Aspirin (Aspirin Chewable) 81 mg PO DAILY [facility] Last Admin: 08/22/17 10:08 Dose: 81 mg Digoxin (Lanoxin) 0.25 mg PO DAILY@1800 [facility] Last Admin: 08/21/17 17:34 Dose: 0.25 mg Diltiazem HCl (Cardizem) 30 mg PO Q12H [facility] Last Admin: 08/21/17 23:55 Dose: 30 mg Donepezil HCl (Aricept) 10 mg PO HS [facility] Last Admin: 08/21/17 21:35 Dose: 10 mg Enoxaparin Sodium (Lovenox) 70 mg SC Q12 [facility] Last Admin: 08/22/17 10:08 Dose: 70 mg Escitalopram Oxalate (Lexapro) 10 mg PO DAILY [facility] Last Admin: 08/22/17 10:08 Dose: 10 mg Famotidine (Pepcid) 20 mg PO DAILY [facility] Last Admin: 08/22/17 10:08 Dose: 20 mg Furosemide (Lasix) 40 mg IVP Q12H [facility] Last Admin: 08/22/17 02:13 Dose: 40 mg Cefepime HCl (Maxipime Iv 1 Gm Premix) 1 gm in 50 mls @ 100 mls/hr IVPB Q12H [facility] Last Admin: 08/22/17 10:09 Dose: 100 mls/hr Insulin Human Regular (Novolin R) 0 unit SC ACHS [facility] PRN Reason: Protocol Last Admin: 08/22/17 07:59 Dose: 2 unit Methylprednisolone (Solu-Medrol) 40 mg IV DAILY [facility] Last Admin: 08/22/17 10:08 Dose: 40 mg Promethazine HCl (Phenergan Syrup) 12.5 mg PO Q6 PRN PRN Reason: Cough and congestion Last Admin: 08/21/17 11:04 Dose: 12.5 mg Saccharomyces Boulardii (Florastor) 250 mg PO BID [facility] Last Admin: 08/22/17 10:08 Dose: 250 mg - Labs Labs: 08/22/17 06:44 08/22/17 06:44 PT 13.7 SECONDS (9.7-12.2) H 08/21/17 06:37 INR 1.2 08/21/17 06:37 APTT 33 SECONDS (21-34) 08/18/17 10:39 - Constitutional Appears: Well, Non-toxic - Head Exam Head Exam: NORMAL INSPECTION, NORMOCEPHALIC - Eye Exam Eye Exam: EOMI, Normal appearance - ENT Exam ENT Exam: Mucous Membranes Moist - Respiratory Exam Respiratory Exam: Decreased Breath Sounds, Rales, Rhonchi Additional comments: Right side decreased sounds, rales, rhonchi - Cardiovascular Exam Cardiovascular Exam: Irregular Rhythm - GI/Abdominal Exam GI & Abdominal Exam: Soft, Normal Bowel Sounds - Neurological Exam Neurological Exam: Alert, Awake, Oriented x3 Neuro motor strength exam: Left Upper Extremity: 5, Right Upper Extremity: 5, Left Lower Extremity: 5, Right Lower Extremity: 5 - Psychiatric Exam Psychiatric exam: Normal Affect, Normal Mood - Skin Skin Exam: Pallor, Warm Assessment and Plan - Assessment and Plan (Free Text) Assessment: CHF: 08/22: continue with the IV lasix. Her cardiac cath was canceled yesterday due to shortness of breath and we got a CT scan and it shows she has a R moderate pleural effusion. Per discussion with pulmonology will need thoracentesis before we can attempt another cardiac catherization. Holding the lovenox this afternoon. Cardiology consulted - Dr. Drake- help appreciated 08/20: Chest XRAY still looks pretty rough, the I's were 600 and the O's were 1600. Continue lasix. With the EF of 25% she may need further cardiology intervention including cardiac cath, life vest, or AICD. 08/19: The patient is pending a 2-D echo at this moment. The chest x-ray this morning shows that she still has a lot of bilateral congestion and pulmonary edema. At some point the patient should be started on SOO inhibitor or an ARB. Currently checking I's and O's Patient initially scheduled for cardiac catherization today- cancelled due to patient's inability to lay down flat Lasix 40mg IVP Q12 Elevated Troponin: Patient initially scheduled for cardiac catherization today- cancelled due to patient's inability to lay down flat Atrial Fibrillation: 08/22: HR is mostly in the 90s to 110s. Continue medications as before 08/20: Now off of the the cardizem ggt - on the PO cardizem and PO digoxin. Currently HR is 90s to low 100s on telemetry 08/19: Patient currently is still on the Cardizem drip the heart rate is substantially improved from before it's now in the 90s on the telemetry remains irregularly irregular also now the patient is on Lovenox twice a day. The patient does have a relatively high CHADS score. I'm being told that the plan is to transition patient off the Cardizem drip over to PO medication Digoxin 0.25mg PO daily, Carizem 30mg PO Q12H COPD Exacerbation: Possible pulmonary fibrosis Continue Nebulizer BiPAP ABG, CXR Solumedrol 40mg IVP daily Continue ABX - Cefepime 1 gram Q12H Pneumonia: 08/22: Blood and cultures negative. Non febrile. On IV abx. The WBC are lower today. 08/20: Continue to monitor cultures, blood and urine negative at this moment. 08/19: Patient's abx were changed over to cefepime IV. There is a high bandemia this morning. CT CHEST: f/U Solumedrol 40mg IVP daily Continue ABX - Cefepime 1 gram Q12H Transaminitis 08/22: LFTs are down trending GI consulted- Dr. Maria -help appreciated multifactorial- likely acute insult from ischemia 2/2 hypotension. additional considerations: congestive hepatopathy 2/2 CHF decompensation, cholestasis 2/2 antibiotics abdominal ultrasound- no acute pathology, CBD 4mm negative hepatitis panel, APAP, ASA F/u ordered autoimmune workup HTN: 08/19: Most recent ones pressure systolic of 140. Patient is on by mouth Cardizem, hopefully this will improve as the patient gets additional IV Lasix Prophylaxis: Lovenox 70mg sc Q12 Pepcid 20mg IVP q12h
--- NOTE | 2017-08-22 16:51 | CP.PCM.PN ---
Subjective - Date & Time of Evaluation Date of Evaluation: 08/22/17 Time of Evaluation: 14:00 - Subjective Subjective: patient seen and examined still complaining of cough and shortness of breath Pleural effusion and . for thoracentesis Cardiac catheter after thoracentesis On BiPAP as needed Afebrile Objective - Vital Signs/Intake and Output Vital Signs (last 24 hours): Temp Pulse Resp BP Pulse Ox 98.0 F 93 H 20 141/91 H 94 L 08/22/17 15:16 08/22/17 15:16 08/22/17 15:16 08/22/17 15:16 08/22/17 15:16 Intake and Output: 08/22/17 08/22/17 06:59 18:59 Intake Total 200 Output Total 3951 400 Balance -3751 -400 - Medications Medications: Current Medications Albuterol/Ipratropium (Duoneb 3 Mg/0.5 Mg (3 Ml) Ud) 3 ml INH RQ6 [facility] Last Admin: 08/22/17 07:18 Dose: 3 ml Aspirin (Aspirin Chewable) 81 mg PO DAILY [facility] Last Admin: 08/22/17 10:08 Dose: 81 mg Digoxin (Lanoxin) 0.25 mg PO DAILY@1800 [facility] Last Admin: 08/21/17 17:34 Dose: 0.25 mg Diltiazem HCl (Cardizem) 30 mg PO Q12H [facility] Last Admin: 08/22/17 11:29 Dose: 30 mg Donepezil HCl (Aricept) 10 mg PO HS [facility] Last Admin: 08/21/17 21:35 Dose: 10 mg Enoxaparin Sodium (Lovenox) 70 mg SC Q12 [facility] Last Admin: 08/22/17 10:08 Dose: 70 mg Escitalopram Oxalate (Lexapro) 10 mg PO DAILY [facility] Last Admin: 08/22/17 10:08 Dose: 10 mg Famotidine (Pepcid) 20 mg PO DAILY [facility] Last Admin: 08/22/17 10:08 Dose: 20 mg Furosemide (Lasix) 40 mg IVP Q12H [facility] Last Admin: 08/22/17 14:27 Dose: 40 mg Cefepime HCl (Maxipime Iv 1 Gm Premix) 1 gm in 50 mls @ 100 mls/hr IVPB Q12H [facility] Last Admin: 08/22/17 10:09 Dose: 100 mls/hr Insulin Human Regular (Novolin R) 0 unit SC ACHS [facility] PRN Reason: Protocol Last Admin: 08/22/17 12:37 Dose: 2 unit Methylprednisolone (Solu-Medrol) 40 mg IV DAILY [facility] Last Admin: 08/22/17 10:08 Dose: 40 mg Promethazine HCl (Phenergan Syrup) 12.5 mg PO Q6 PRN PRN Reason: Cough and congestion Last Admin: 08/21/17 11:04 Dose: 12.5 mg Saccharomyces Boulardii (Florastor) 250 mg PO BID [facility] Last Admin: 08/22/17 10:08 Dose: 250 mg - Labs Labs: 08/22/17 06:44 08/22/17 06:44 PT 13.7 SECONDS (9.7-12.2) H 08/21/17 06:37 INR 1.2 08/21/17 06:37 APTT 33 SECONDS (21-34) 08/18/17 10:39 - Head Exam Head Exam: ATRAUMATIC, NORMOCEPHALIC - Eye Exam Eye Exam: Normal appearance - ENT Exam ENT Exam: Mucous Membranes Moist - Neck Exam Neck Exam: Normal Inspection - Respiratory Exam Respiratory Exam: Rhonchi, Wheezes - Cardiovascular Exam Cardiovascular Exam: Irregular Rhythm - GI/Abdominal Exam GI & Abdominal Exam: Soft, Normal Bowel Sounds - Extremities Exam Extremities Exam: Pedal Edema - Neurological Exam Neurological Exam: Alert, Normal Gait Assessment and Plan (1) COPD with exacerbation Assessment & Plan: Continue nebulizer treatments Continue IV steroids Continue IV Lasix BiPAP as needed IV antibiotics for pneumonia Antitussive Thoracentesis on Thursday Status: Acute (2) CHF exacerbation Status: Acute (3) Elevated troponin Status: Acute (4) Rapid atrial fibrillation Status: Acute
[2017-08-22] MEDS: Digoxin 250 mcg (0.25 mg) Tab PO SCH (18:26)
--- NOTE | 2017-08-22 22:48 | CP.PCM.PN ---
Subjective - Date & Time of Evaluation Date of Evaluation: 08/22/17 Time of Evaluation: 15:10 - Subjective Subjective: Patient seen and evaluated still has dyspnea despite maximal treatment Physical Examination - Constitutional Appears: Chronically Ill - Eye Exam Eye Exam: EOMI, Normal appearance - ENT Exam ENT Exam: Mucous Membranes Moist - Respiratory Exam Respiratory Exam: Decreased Breath Sounds, NORMAL BREATHING PATTERN - Cardiovascular Exam Cardiovascular Exam: Irregular Rhythm - Neurological Exam Neurological Exam: Alert, Awake, Oriented x3 Neuro motor strength exam: Left Upper Extremity: 5, Right Upper Extremity: 5, Left Lower Extremity: 5, Right Lower Extremity: 5 - Psychiatric Exam Psychiatric exam: Normal Affect, Normal Mood - Skin Skin Exam: Pallor, Warm Objective - Vital Signs/Intake and Output Vital Signs (last 24 hours): Temp Pulse Resp BP Pulse Ox 98.0 F 97 H 20 141/91 H 94 L 08/22/17 15:16 08/22/17 19:30 08/22/17 15:16 08/22/17 15:16 08/22/17 15:16 Intake and Output: 08/22/17 08/23/17 18:59 06:59 Intake Total 150 Output Total 400 1200 Balance -400 -1050 - Medications Medications: Current Medications Albuterol/Ipratropium (Duoneb 3 Mg/0.5 Mg (3 Ml) Ud) 3 ml INH RQ6 [facility] Last Admin: 08/22/17 19:30 Dose: 3 ml Aspirin (Aspirin Chewable) 81 mg PO DAILY [facility] Last Admin: 08/22/17 10:08 Dose: 81 mg Digoxin (Lanoxin) 0.25 mg PO DAILY@1800 [facility] Last Admin: 08/22/17 18:26 Dose: 0.25 mg Diltiazem HCl (Cardizem) 30 mg PO Q12H [facility] Last Admin: 08/22/17 11:29 Dose: 30 mg Donepezil HCl (Aricept) 10 mg PO HS [facility] Last Admin: 08/22/17 22:14 Dose: 10 mg Enoxaparin Sodium (Lovenox) 70 mg SC Q12 [facility] Last Admin: 08/22/17 10:08 Dose: 70 mg Escitalopram Oxalate (Lexapro) 10 mg PO DAILY [facility] Last Admin: 08/22/17 10:08 Dose: 10 mg Famotidine (Pepcid) 20 mg PO DAILY [facility] Last Admin: 08/22/17 10:08 Dose: 20 mg Furosemide (Lasix) 40 mg IVP Q12H [facility] Last Admin: 08/22/17 14:27 Dose: 40 mg Cefepime HCl (Maxipime Iv 1 Gm Premix) 1 gm in 50 mls @ 100 mls/hr IVPB Q12H [facility] Last Admin: 08/22/17 22:14 Dose: 100 mls/hr Insulin Human Regular (Novolin R) 0 unit SC ACHS [facility] PRN Reason: Protocol Last Admin: 08/22/17 21:31 Dose: Not Given Methylprednisolone (Solu-Medrol) 40 mg IV DAILY [facility] Last Admin: 08/22/17 10:08 Dose: 40 mg Promethazine HCl (Phenergan Syrup) 12.5 mg PO Q6 PRN PRN Reason: Cough and congestion Last Admin: 08/21/17 11:04 Dose: 12.5 mg Saccharomyces Boulardii (Florastor) 250 mg PO BID [facility] Last Admin: 08/22/17 18:26 Dose: 250 mg - Labs Labs: 08/22/17 06:44 08/22/17 06:44 PT 13.7 SECONDS (9.7-12.2) H 08/21/17 06:37 INR 1.2 08/21/17 06:37 APTT 33 SECONDS (21-34) 08/18/17 10:39 Assessment and Plan - Assessment and Plan (Free Text) Assessment: (1) A-fib Assessment & Plan: Cardizem On Digoxin, ASA Continue to monitor- Keep rate controlled Status: Chronic (2) Elevated troponin Assessment & Plan: NSTEMI Elevated Troponins- SHEILA 3 trending down Therapeutic Lovenox 70mg SC Q12 EKGs show Atrial fibrillation; ST depressions ad T wave inversions noted in anterolateral leads Cath when patient stable Status: Acute (3) Pneumonia Assessment & Plan: CXR shows signs of infiltrates Was on Ceftriaxone and Azithromycin however discontinued due to transaminitis. On Cefepime. Start Florastor. Status: Acute (4) Chronic congestive heart failure Assessment & Plan: Elevated ProBNP 3370 Echo Pending Echo from 11/2015: LVEF 52%, Normal LV functionality at that time Lasix IV Q12 Intake and Output Measure Daily weights Status: Chronic (5) Transaminitis Assessment & Plan: Elevated likely secondarily to antibiotic administration. Changed to Cefepime. Status: Acute (6) Hypertension Assessment & Plan: Stable. Continue to monitor at this time. Will not treat acute rise in blood pressure. Status: Chronic (7) Prophylactic measure Assessment & Plan: Lovenox SCDs Pepcid 20mg PO daily Status: Acute
[2017-08-23] MEDS: Albuterol-Ipratrop 3 mg / 0.5 (3 ml) UD INH SCH ×4 (01:13→19:21)
[2017-08-23] MEDS: (Novolin R) Insulin Human Regular 100 units/ml vial SC SCH ×4 (07:51→21:24)
[2017-08-23 08:39] LABS: BASO % 0.1 % (0.0-2.0); HEMATOCRIT 38.5 % (34.0-47.0); LYMPH # 0.9 K/uL (1.0-4.3); LYMPH % 8.9 % (20.0-40.0); MEAN CELL VOLUME 88.8 fL (81.0-99.0); MEAN CORPUSCULAR HEMOGLOBIN 28.9 pg (27.0-31.0); MEAN CORPUSCULAR HGB CONC 32.5 g/dL (33.0-37.0); MEAN PLATELET VOLUME 8.6 fL (7.2-11.7); MONO # 0.8 K/uL (0.0-0.8); NRBC % 2.2 % (0.0-2.0); PLATELET COUNT 273 K/uL (130-400); RED CELL DISTRIBUTION WIDTH 15.5 % (11.5-14.5); WHITE BLOOD COUNT 10.4 K/uL (4.8-10.8)
--- NOTE | 2017-08-23 08:42 | CP.PCM.PN ---
Subjective - Date & Time of Evaluation Date of Evaluation: 08/23/17 Time of Evaluation: 08:30 - Subjective Subjective: Patient was seen and examined by me She was sitting up out of bed, eating breakfast. She was not in any acute distress. She finally appears comfortable. Speaking full sentences. She DID NOT use the Bipap last night and used nasal cannula. Said she did ok Yesterday I spoke with cardiology and pulmonology, will try to get a thoracentesis before another cardiac cath. Please note I held her lovenox last night. She does not report chest pain today. On telemetry she remains in atrial fibrillation and HR is mostly 90s Objective - Vital Signs/Intake and Output Vital Signs (last 24 hours): Temp Pulse Resp BP Pulse Ox 97.4 F L 93 H 20 154/94 H 97 08/22/17 23:30 08/23/17 03:45 08/22/17 23:30 08/23/17 02:31 08/22/17 23:30 Intake and Output: 08/23/17 08/23/17 06:59 18:59 Intake Total 150 Output Total 2600 Balance -2450 - Medications Medications: Current Medications Albuterol/Ipratropium (Duoneb 3 Mg/0.5 Mg (3 Ml) Ud) 3 ml INH RQ6 [facility] Last Admin: 08/23/17 01:13 Dose: Not Given Aspirin (Aspirin Chewable) 81 mg PO DAILY [facility] Last Admin: 08/22/17 10:08 Dose: 81 mg Digoxin (Lanoxin) 0.25 mg PO DAILY@1800 [facility] Last Admin: 08/22/17 18:26 Dose: 0.25 mg Diltiazem HCl (Cardizem) 30 mg PO Q12H [facility] Last Admin: 08/23/17 00:22 Dose: 30 mg Donepezil HCl (Aricept) 10 mg PO HS [facility] Last Admin: 08/22/17 22:14 Dose: 10 mg Enoxaparin Sodium (Lovenox) 70 mg SC Q12 [facility] Last Admin: 08/22/17 10:08 Dose: 70 mg Escitalopram Oxalate (Lexapro) 10 mg PO DAILY [facility] Last Admin: 08/22/17 10:08 Dose: 10 mg Famotidine (Pepcid) 20 mg PO DAILY [facility] Last Admin: 08/22/17 10:08 Dose: 20 mg Furosemide (Lasix) 40 mg IVP Q12H [facility] Last Admin: 08/23/17 02:31 Dose: 40 mg Cefepime HCl (Maxipime Iv 1 Gm Premix) 1 gm in 50 mls @ 100 mls/hr IVPB Q12H [facility] Last Admin: 08/22/17 22:14 Dose: 100 mls/hr Insulin Human Regular (Novolin R) 0 unit SC ACHS [facility] PRN Reason: Protocol Last Admin: 08/23/17 07:51 Dose: 2 unit Methylprednisolone (Solu-Medrol) 40 mg IV DAILY [facility] Last Admin: 08/22/17 10:08 Dose: 40 mg Promethazine HCl (Phenergan Syrup) 12.5 mg PO Q6 PRN PRN Reason: Cough and congestion Last Admin: 08/21/17 11:04 Dose: 12.5 mg Saccharomyces Boulardii (Florastor) 250 mg PO BID [facility] Last Admin: 08/22/17 18:26 Dose: 250 mg - Labs Labs: 08/22/17 06:44 08/22/17 06:44 PT 13.7 SECONDS (9.7-12.2) H 08/21/17 06:37 INR 1.2 08/21/17 06:37 APTT 33 SECONDS (21-34) 08/18/17 10:39 - Constitutional Appears: Well, Non-toxic - Head Exam Head Exam: NORMAL INSPECTION, NORMOCEPHALIC - Eye Exam Eye Exam: EOMI, Normal appearance - ENT Exam ENT Exam: Mucous Membranes Moist, Normal Exam - Respiratory Exam Respiratory Exam: Decreased Breath Sounds, Rales, NORMAL BREATHING PATTERN Additional comments: Decreased sounds on right side, some rales and rhonchi. Percussion did not produce different sounds affects - Cardiovascular Exam Cardiovascular Exam: Irregular Rhythm - GI/Abdominal Exam GI & Abdominal Exam: Soft, Normal Bowel Sounds. absent: Distended, Firm, Guarding, Rigid, Tenderness, Diminished Bowel Sounds - Neurological Exam Neurological Exam: Alert, Awake, CN II-XII Intact Neuro motor strength exam: Left Upper Extremity: 5, Right Upper Extremity: 5, Left Lower Extremity: 5, Right Lower Extremity: 5 - Skin Skin Exam: Dry, Normal Color, Warm Assessment and Plan - Assessment and Plan (Free Text) Assessment: CHF and Right side pleural effusions 08/23: Pending thoracentesis before aother cardiac catherization attempt. 08/22: continue with the IV lasix. Her cardiac cath was canceled yesterday due to shortness of breath and we got a CT scan and it shows she has a R moderate pleural effusion. Per discussion with pulmonology will need thoracentesis before we can attempt another cardiac catherization. Holding the lovenox this afternoon. Cardiology consulted - Dr. Drake- help appreciated 08/20: Chest XRAY still looks pretty rough, the I's were 600 and the O's were 1600. Continue lasix. With the EF of 25% she may need further cardiology intervention including cardiac cath, life vest, or AICD. 08/19: The patient is pending a 2-D echo at this moment. The chest x-ray this morning shows that she still has a lot of bilateral congestion and pulmonary edema. At some point the patient should be started on SOO inhibitor or an ARB. Patient initially scheduled for cardiac catherization today- cancelled due to patient's inability to lay down flat Lasix 40mg IVP Q12 NSTEMI/ Elevated Troponin: 08/23: Patient initially for cardiac catherization on Thursday but was cancelled due to patient's inability to lay down flat. Atrial Fibrillation: 08/23: HR controlled with PO cardizem and digoxin. Lovenox on hold today 08/22: HR is mostly in the 90s to 110s. Continue medications as before 08/20: Now off of the the cardizem ggt - on the PO cardizem and PO digoxin. Currently HR is 90s to low 100s on telemetry 08/19: Patient currently is still on the Cardizem drip the heart rate is substantially improved from before it's now in the 90s on the telemetry remains irregularly irregular also now the patient is on Lovenox twice a day. The patient does have a relatively high CHADS score. I'm being told that the plan is to transition patient off the Cardizem drip over to PO medication Digoxin 0.25mg PO daily, Carizem 30mg PO Q12H COPD Exacerbation: 08/23: Her shortness of breath probably more from the pleural effusions. Possible pulmonary fibrosis Continue Nebulizer BiPAP ABG, CXR Solumedrol 40mg IVP daily Continue ABX - Cefepime 1 gram Q12H Pneumonia: 08/23: 08/22: Blood and cultures negative. Non febrile. On IV abx. The WBC are lower today. 08/20: Continue to monitor cultures, blood and urine negative at this moment. 08/19: Patient's abx were changed over to cefepime IV. There is a high bandemia this morning. CT CHEST: f/U Solumedrol 40mg IVP daily Continue ABX - Cefepime 1 gram Q12H Transaminitis 08/22: LFTs are down trending GI consulted- Dr. Maria -help appreciated multifactorial- likely acute insult from ischemia 2/2 hypotension. additional considerations: congestive hepatopathy 2/2 CHF decompensation, cholestasis 2/2 antibiotics abdominal ultrasound- no acute pathology, CBD 4mm negative hepatitis panel, APAP, ASA F/u ordered autoimmune workup HTN: 08/19: Most recent ones pressure systolic of 140. Patient is on by mouth Cardizem, hopefully this will improve as the patient gets additional IV Lasix Prophylaxis: Lovenox 70mg sc Q12 Pepcid 20mg IVP q12h
[2017-08-23 09:03] LABS: CHLORIDE 79 mmol/L (98-107); SODIUM 127 mmol/L (132-148)
[2017-08-23] MEDS: Saccharomyces Boulardi 250 mg Cap PO SCH ×2 (09:03→17:38)
[2017-08-23] MEDS: MethylPREDNISolone 40 mg Vial IV SCH (09:03)
[2017-08-23 09:04] LABS: POTASSIUM 3.1 mmol/L (3.6-5.2)
[2017-08-23 09:05] LABS: BILIRUBIN,TOTAL 0.9 mg/dL (0.2-1.3); GFR AFRICAN-AMERICAN > 60
[2017-08-23 09:06] LABS: ALB/GLOB RATIO 1.5 (1.0-2.1); ALKALINE PHOSPHATASE 108 U/L (38-126); ALT/SGPT 429 U/L (9-52); AST/SGOT 115 U/L (14-36); BLOOD UREA NITROGEN 26 mg/dL (7-17); CARBON DIOXIDE 38 mmol/L (22-30); GLUCOSE,RANDOM 161 mg/dL (65-105); PHOSPHOROUS 3.1 mg/dL (2.5-4.5)
[2017-08-23 09:08] LABS: CALCIUM 7.9 mg/dl (8.6-10.4); MAGNESIUM 1.5 mg/dL (1.6-2.3)
[2017-08-23] MEDS: Potassium Chloride 20 mEq ER Tab PO SCH (10:21)
[2017-08-23] MEDS: Cefepime IV 1 gm in Dextrose 1 GM/50 ML BAG IVPB SCH ×2 (10:21→22:19)
[2017-08-23 11:31] LABS: EOSINOPHIL 1 % (0-4); NEUTROPHIL 80 % (50-75); NUCLEATED RED BLOOD CELL 1 % (0-0); TOTAL CELLS COUNTED 100
[2017-08-23] MEDS ORDERED: Potassium Chloride 10 mEq ER Tab PO ONE (14:00)
[2017-08-23] MEDS: Digoxin 250 mcg (0.25 mg) Tab PO SCH (17:38)
--- NOTE | 2017-08-23 22:10 | CP.PCM.PN ---
Subjective - Date & Time of Evaluation Date of Evaluation: 08/23/17 Time of Evaluation: 13:10 - Subjective Subjective: Patient seen and evaluated Improved breathing For thoracentasis tomorrow Cath Thursday Physical Examination - Constitutional Appears: Chronically Ill - Eye Exam Eye Exam: EOMI, Normal appearance - ENT Exam ENT Exam: Mucous Membranes Moist - Respiratory Exam Respiratory Exam: Decreased Breath Sounds, NORMAL BREATHING PATTERN - Cardiovascular Exam Cardiovascular Exam: Irregular Rhythm - Neurological Exam Neurological Exam: Alert, Awake, Oriented x3 Neuro motor strength exam: Left Upper Extremity: 5, Right Upper Extremity: 5, Left Lower Extremity: 5, Right Lower Extremity: 5 - Psychiatric Exam Psychiatric exam: Normal Affect, Normal Mood - Skin Skin Exam: Pallor, Warm Objective - Vital Signs/Intake and Output Vital Signs (last 24 hours): Temp Pulse Resp BP Pulse Ox 97.4 F L 75 20 148/91 H 95 08/23/17 15:17 08/23/17 15:17 08/23/17 15:17 08/23/17 15:17 08/23/17 15:17 Intake and Output: 08/23/17 08/24/17 18:59 06:59 Output Total 925 Balance -925 - Medications Medications: Current Medications Aspirin (Aspirin Chewable) 81 mg PO DAILY [facility] Last Admin: 08/23/17 09:03 Dose: 81 mg Digoxin (Lanoxin) 0.25 mg PO DAILY@1800 [facility] Last Admin: 08/23/17 17:38 Dose: 0.25 mg Diltiazem HCl (Cardizem) 30 mg PO Q12H [facility] Last Admin: 08/23/17 11:19 Dose: 30 mg Donepezil HCl (Aricept) 10 mg PO HS [facility] Last Admin: 08/23/17 21:22 Dose: 10 mg Enoxaparin Sodium (Lovenox) 70 mg SC Q12 [facility] Last Admin: 08/22/17 10:08 Dose: 70 mg Escitalopram Oxalate (Lexapro) 10 mg PO DAILY [facility] Last Admin: 08/23/17 09:03 Dose: 10 mg Famotidine (Pepcid) 20 mg PO DAILY [facility] Last Admin: 08/23/17 09:03 Dose: 20 mg Furosemide (Lasix) 40 mg IVP Q12H [facility] Last Admin: 08/23/17 13:59 Dose: 40 mg Cefepime HCl (Maxipime Iv 1 Gm Premix) 1 gm in 50 mls @ 100 mls/hr IVPB Q12H [facility] Last Admin: 08/23/17 10:21 Dose: 100 mls/hr Insulin Human Regular (Novolin R) 0 unit SC ACHS [facility] PRN Reason: Protocol Last Admin: 08/23/17 21:24 Dose: Not Given Methylprednisolone (Solu-Medrol) 40 mg IV DAILY [facility] Last Admin: 08/23/17 09:03 Dose: 40 mg Potassium Chloride (K-Dur 20 Meq Er Tab) 40 meq PO BRK [facility] Last Admin: 08/23/17 10:21 Dose: 40 meq Promethazine HCl (Phenergan Syrup) 12.5 mg PO Q6 PRN PRN Reason: Cough and congestion Last Admin: 08/21/17 11:04 Dose: 12.5 mg Saccharomyces Boulardii (Florastor) 250 mg PO BID [facility] Last Admin: 08/23/17 17:38 Dose: 250 mg - Labs Labs: 08/23/17 08:20 08/23/17 08:20 PT 13.7 SECONDS (9.7-12.2) H 08/21/17 06:37 INR 1.2 08/21/17 06:37 APTT 33 SECONDS (21-34) 08/18/17 10:39 Assessment and Plan - Assessment and Plan (Free Text) Assessment: (1) A-fib Assessment & Plan: Cardizem On Digoxin, ASA Continue to monitor- Keep rate controlled Status: Chronic (2) Elevated troponin Assessment & Plan: NSTEMI Elevated Troponins- SHEILA 3 trending down Therapeutic Lovenox 70mg SC Q12 EKGs show Atrial fibrillation; ST depressions ad T wave inversions noted in anterolateral leads Cath when patient stable Status: Acute (3) Pneumonia Assessment & Plan: CXR shows signs of infiltrates Was on Ceftriaxone and Azithromycin however discontinued due to transaminitis. On Cefepime. Start Florastor. Status: Acute (4) Chronic congestive heart failure Assessment & Plan: Elevated ProBNP 3370 Echo Pending Echo from 11/2015: LVEF 52%, Normal LV functionality at that time Lasix IV Q12 Intake and Output Measure Daily weights Status: Chronic (5) Transaminitis Assessment & Plan: Elevated likely secondarily to antibiotic administration. Changed to Cefepime. Status: Acute (6) Hypertension Assessment & Plan: Stable. Continue to monitor at this time. Will not treat acute rise in blood pressure. Status: Chronic (7) Prophylactic measure Assessment & Plan: Lovenox SCDs Pepcid 20mg PO daily Status: Acute
[2017-08-24 07:33] LABS: BASO % 0.1 % (0.0-2.0); HEMATOCRIT 42.2 % (34.0-47.0); LYMPH % 8.4 % (20.0-40.0); MEAN CELL VOLUME 89.4 fL (81.0-99.0); MEAN CORPUSCULAR HEMOGLOBIN 29.2 pg (27.0-31.0); MEAN CORPUSCULAR HGB CONC 32.6 g/dL (33.0-37.0); MEAN PLATELET VOLUME 8.8 fL (7.2-11.7); MONO # 1.1 K/uL (0.0-0.8); MONO % 8.7 % (0.0-10.0); NRBC % 0.7 % (0.0-2.0); PLATELET COUNT 284 K/uL (130-400); RED CELL DISTRIBUTION WIDTH 15.6 % (11.5-14.5); WHITE BLOOD COUNT 12.2 K/uL (4.8-10.8)
[2017-08-24 08:03] LABS: CHLORIDE 75 mmol/L (98-107); POTASSIUM 3.5 mmol/L (3.6-5.2); SODIUM 129 mmol/L (132-148)
[2017-08-24 08:05] LABS: ALB/GLOB RATIO 1.5 (1.0-2.1); AST/SGOT 83 U/L (14-36); GFR AFRICAN-AMERICAN > 60; TOTAL PROTEIN 6.6 g/dL (6.3-8.3)
[2017-08-24 08:06] LABS: ALKALINE PHOSPHATASE 104 U/L (38-126); ALT/SGPT 361 U/L (9-52); BLOOD UREA NITROGEN 26 mg/dL (7-17); CALCIUM 8.3 mg/dl (8.6-10.4); GLUCOSE,RANDOM 151 mg/dL (65-105); MAGNESIUM 1.7 mg/dL (1.6-2.3); PHOSPHOROUS 3.3 mg/dL (2.5-4.5)
[2017-08-24 08:24] LABS: CARBON DIOXIDE 41 mmol/L (22-30)
[2017-08-24] MEDS: (Novolin R) Insulin Human Regular 100 units/ml vial SC SCH ×4 (08:27→21:26)
[2017-08-24] MEDS: Potassium Chloride 20 mEq ER Tab PO SCH (08:27)
[2017-08-24 08:33] LABS: NEUTROPHIL 82 % (50-75); TOTAL CELLS COUNTED 100
--- NOTE | 2017-08-24 09:31 | CP.PCM.PN ---
<Mumtaz Carmen R - Last Filed: 08/24/17 15:49> Subjective - Date & Time of Evaluation Date of Evaluation: 08/24/17 Time of Evaluation: 09:15 - Subjective Subjective: Patient was seen and examined this AM. She was resting comfortably in bed on nasal cannula 4L. She complained of a cough, non-productive. She was aware that she was getting a thoracentesis today. She denies chest pain, abdominal pain, headache, diarrhea, vomiting, fever, chills. Objective - Vital Signs/Intake and Output Vital Signs (last 24 hours): Temp Pulse Resp BP Pulse Ox 98.0 F 91 H 20 160/99 H 97 08/24/17 09:07 08/24/17 09:07 08/24/17 09:07 08/24/17 09:07 08/24/17 09:07 Intake and Output: 08/24/17 08/24/17 06:59 18:59 Intake Total 328 Output Total 2000 Balance -1672 - Medications Medications: Current Medications Aspirin (Aspirin Chewable) 81 mg PO DAILY [facility] Last Admin: 08/23/17 09:03 Dose: 81 mg Digoxin (Lanoxin) 0.25 mg PO DAILY@1800 [facility] Last Admin: 08/23/17 17:38 Dose: 0.25 mg Diltiazem HCl (Cardizem) 30 mg PO Q12H [facility] Last Admin: 08/24/17 00:07 Dose: 30 mg Donepezil HCl (Aricept) 10 mg PO HS [facility] Last Admin: 08/23/17 21:22 Dose: 10 mg Enoxaparin Sodium (Lovenox) 70 mg SC Q12 [facility] Last Admin: 08/22/17 10:08 Dose: 70 mg Escitalopram Oxalate (Lexapro) 10 mg PO DAILY [facility] Last Admin: 08/23/17 09:03 Dose: 10 mg Famotidine (Pepcid) 20 mg PO DAILY [facility] Last Admin: 08/23/17 09:03 Dose: 20 mg Furosemide (Lasix) 40 mg IVP Q12H [facility] Last Admin: 08/24/17 02:46 Dose: 40 mg Cefepime HCl (Maxipime Iv 1 Gm Premix) 1 gm in 50 mls @ 100 mls/hr IVPB Q12H [facility] Last Admin: 08/23/17 22:19 Dose: 100 mls/hr Insulin Human Regular (Novolin R) 0 unit SC ACHS [facility] PRN Reason: Protocol Last Admin: 08/24/17 08:27 Dose: 2 unit Methylprednisolone (Solu-Medrol) 40 mg IV DAILY [facility] Last Admin: 08/23/17 09:03 Dose: 40 mg Potassium Chloride (K-Dur 20 Meq Er Tab) 40 meq PO BRK [facility] Last Admin: 08/24/17 08:27 Dose: 40 meq Promethazine HCl (Phenergan Syrup) 12.5 mg PO Q6 PRN PRN Reason: Cough and congestion Last Admin: 08/21/17 11:04 Dose: 12.5 mg Saccharomyces Boulardii (Florastor) 250 mg PO BID [facility] Last Admin: 08/23/17 17:38 Dose: 250 mg - Labs Labs: 08/24/17 07:16 08/24/17 07:16 PT 13.7 SECONDS (9.7-12.2) H 08/21/17 06:37 INR 1.2 08/21/17 06:37 APTT 33 SECONDS (21-34) 08/18/17 10:39 - Constitutional Appears: Well, No Acute Distress - Head Exam Head Exam: ATRAUMATIC, NORMAL INSPECTION - Eye Exam Eye Exam: EOMI - ENT Exam ENT Exam: Mucous Membranes Moist - Neck Exam Neck Exam: Normal Inspection - Respiratory Exam Respiratory Exam: Decreased Breath Sounds, NORMAL BREATHING PATTERN. absent: Wheezes - Cardiovascular Exam Cardiovascular Exam: Irregular Rhythm. absent: Bradycardia, Tachycardia, Murmur - GI/Abdominal Exam GI & Abdominal Exam: Soft, Normal Bowel Sounds. absent: Distended, Firm, Guarding, Rigid, Tenderness - Extremities Exam Extremities Exam: Normal Capillary Refill, Normal Inspection. absent: Pedal Edema - Neurological Exam Neurological Exam: Alert, Awake, Oriented x3 - Psychiatric Exam Psychiatric exam: Normal Affect, Normal Mood - Skin Skin Exam: Dry, Intact, Normal Color, Warm Assessment and Plan - Assessment and Plan (Free Text) Assessment: CHF and Right side pleural effusions Cardiology consulted - Dr. Drake s/p thoracentesis 08/24/17 - 200 cc slight serosanguinous fluid removed. f/u fluid analysis and cytology CT chest 08/21/17 shows she has a R moderate pleural effusion ECHO 08/19/17, EF 25%. May need further cardiology intervention including cardiac cath, life vest, or AICD. Daily In/Outs Lasix 40mg IVP Q12 NSTEMI/ Elevated Troponin: Cardiology consulted - Dr. Drake Cardiac cath planned for 08/25/17 Cardiac cath planned for 08/18/17 was cancelled due to patient's inability to lay down flat Atrial Fibrillation: Cardiology consulted - Dr. Drake 08/23: HR controlled with PO cardizem and digoxin. Lovenox on hold today 08/22: HR is mostly in the 90s to 110s. Continue medications as before 08/20: Now off of the the cardizem ggt - on the PO cardizem and PO digoxin. Currently HR is 90s to low 100s on telemetry 08/19: Patient currently is still on the Cardizem drip the heart rate is substantially improved from before it's now in the 90s on the telemetry remains irregularly irregular also now the patient is on Lovenox twice a day. The patient does have a relatively high CHADS score. I'm being told that the plan is to transition patient off the Cardizem drip over to PO medication Digoxin 0.25mg PO daily Cardizem 30mg PO Q12H COPD Exacerbation: Possible pulmonary fibrosis, Her shortness of breath probably more from the pleural effusions. BiPAP Solumedrol 40mg IVP daily Duonebs Q6 [facility] Cefepime 1 gram iv Q12H started 08/21/17 Florastor 250mg po bid started 08/19/17 Pneumonia: CXR 08/19/17 suggestive of bilateral alveolar infiltrates Blood culture 08/18 negative up to date CT CHEST 08/21/17: small to medium size right-sided effusion and mild right basilar atelectasis. Additional mild atelectatic changes seen in both lung bases. Solumedrol 40mg IVP daily Cefepime 1 gram iv Q12H 08/21/17 Florastor 250mg po bid 08/19/17 Promethazine 12.5 mg po bid for cough Transaminitis LFTs elevated, trending down multifactorial - likely acute insult from ischemia 2/2 hypotension. Additional considerations: congestive hepatopathy 2/2 CHF decompensation, cholestasis 2/2 antibiotics GI consulted- Dr. Maria abdominal ultrasound 08/20/17 - no acute pathology, CBD 4mm negative hepatitis panel, APAP, ASA IgG, IgA, IgM all within normal range HTN BP well controlled Digoxin 0.25mg PO daily Cardizem 30mg PO Q12H Prophylaxis Lovenox 70mg sc Q12 Pepcid 20mg IVP q12h Heart Healthy Diet Donepezil 10mg po hs Lexapro 10mg po qd <Emeka Rodriguezjilliancarlos - Last Filed: 08/24/17 18:12> Objective - Vital Signs/Intake and Output Vital Signs (last 24 hours): Temp Pulse Resp BP Pulse Ox 97.8 F 104 H 20 156/83 H 94 L 08/24/17 15:09 08/24/17 15:09 08/24/17 15:09 08/24/17 15:16 08/24/17 15:09 Intake and Output: 08/24/17 08/24/17 06:59 18:59 Intake Total 328 Output Total 1999 Balance -1672 - Medications Medications: Current Medications Aspirin (Aspirin Chewable) 81 mg PO DAILY [facility] Last Admin: 08/24/17 11:21 Dose: 81 mg Digoxin (Lanoxin) 0.25 mg PO DAILY@1800 [facility] Last Admin: 08/23/17 17:38 Dose: 0.25 mg Diltiazem HCl (Cardizem) 30 mg PO Q12H [facility] Last Admin: 08/24/17 12:55 Dose: 30 mg Donepezil HCl (Aricept) 10 mg PO HS [facility] Last Admin: 08/23/17 21:22 Dose: 10 mg Enoxaparin Sodium (Lovenox) 70 mg SC Q12 [facility] Last Admin: 08/22/17 10:08 Dose: 70 mg Escitalopram Oxalate (Lexapro) 10 mg PO DAILY [facility] Last Admin: 08/24/17 10:00 Dose: Not Given Famotidine (Pepcid) 20 mg PO DAILY [facility] Last Admin: 08/24/17 11:21 Dose: 20 mg Furosemide (Lasix) 40 mg IVP Q12H [facility] Last Admin: 08/24/17 15:16 Dose: 40 mg Cefepime HCl (Maxipime Iv 1 Gm Premix) 1 gm in 50 mls @ 100 mls/hr IVPB Q12H [facility] Last Admin: 08/24/17 11:19 Dose: 100 mls/hr Insulin Human Regular (Novolin R) 0 unit SC [facility] PRN Reason: Protocol Last Admin: 08/24/17 12:16 Dose: 2 unit Potassium Chloride (K-Dur 20 Meq Er Tab) 40 meq PO BRK [facility] Last Admin: 08/24/17 08:27 Dose: 40 meq Prednisone (Prednisone Tab) 40 mg PO DAILY [facility] Promethazine HCl (Phenergan Syrup) 12.5 mg PO Q6 PRN PRN Reason: Cough and congestion Last Admin: 08/21/17 11:04 Dose: 12.5 mg Saccharomyces Boulardii (Florastor) 250 mg PO BID [facility] Last Admin: 08/24/17 11:26 Dose: 250 mg - Labs Labs: 08/24/17 07:16 08/24/17 07:16 PT 13.7 SECONDS (9.7-12.2) H 08/21/17 06:37 INR 1.2 08/21/17 06:37 APTT 33 SECONDS (21-34) 08/18/17 10:39 Attending/Attestation - Attestation I have personally seen and examined this patient.: Yes I have fully participated in the care of the patient.: Yes I have reviewed all pertinent clinical information, including history, physical exam and plan: Yes Notes (Text): This is a pleasant 72years old female with history of hypertension,CHF,atrial fibrillation came with Afib with rapid Ventricular rate and acute on chronic CHF.She had elevated troponin and admitted in the ICU .Echo showed EF 25%.She was not able to lay flat for cardiac cath.She 1.NSTEMI going for cardiac cath echo EF 25% 2.Acute on chronic CHF continue lasix follow cardiac cath 3 Right side Pleural effusion s/p thoracentesis 08/24/17 - 200 cc slight serosanguinous fluid removed. f/u fluid analysis and cytology CT chest 08/21/17 shows she has a R moderate pleural effusion 4.Afib on the PO cardizem and PO digoxin.Lovenox on hold Currently HR is 90s to low 100s on telemetry High Chads score 5.COPD exacerbation continue solumedrol,duoneb and cefepime 6.Bilateral Pneumonia CXR 08/19/17 suggestive of bilateral alveolar infiltrates.continue antibiotics 7. LFTs elevated, trending down multifactorial - s/p hypotension. congestive hepatopathy GI consulted- Dr. Maria abdominal ultrasound 08/20/17 - no acute pathology, CBD 4mm negative hepatitis panel, APAP, ASA IgG, IgA, IgM all within normal range 8.THN 9.Prophylaxis Lovenox 70mg sc Q12 on hold for procedure Pepcid 20mg IVP q12h Heart Healthy Diet Donepezil 10mg po hs Lexapro 10mg po qd patient was seen and examined. Agrees with residents documentation and assessment 08/24/17 18:11
[2017-08-24] MEDS: MethylPREDNISolone 40 mg Vial IV SCH ×2 (10:00→11:27)
[2017-08-24] MEDS: Saccharomyces Boulardi 250 mg Cap PO SCH ×3 (10:00→18:23)
--- NOTE | 2017-08-24 10:16 | PCM.SURG1 ---
Surgeon's Initial Post Op Note - Surgeon's Notes Surgeon: Emmett Guo MD [employer] Professional: NONE Type of Anesthesia: Local Pre-Operative Diagnosis: Right pleural effusion Operative Findings: US showed a small right effusion Post-Operative Diagnosis: Right pleural effusion Operation Performed: US guided right thoracentesis. Specimen/Specimens Removed: 100 cc of slight serosanguinous fluid Estimated Blood Loss: EBL {In ML}: 0 Blood Products Given: N/A Drains Used: No Drains Post-Op Condition: Fair Date of Surgery/Procedure: 08/24/17 Time of Surgery/Procedure: 10:10
--- NOTE | 2017-08-24 10:28 | CP.PCM.PN ---
<Didi Guevara - Last Filed: 08/24/17 11:45> Subjective - Date & Time of Evaluation Date of Evaluation: 08/24/17 Time of Evaluation: 08:00 - Subjective Subjective: Pulm progress note for Dr. Carlton: Patient seen and examined at bedside this morning. She was resting in bed comfortably but stating her nonproductive cough is still bothering her. No improvement. She is on NC a 4L/min. She denies SOB but states that she is comfortable as long as she is on the NC. She states she is using bipap on and off but less now. Denies fever/chills. She will be getting a thoracentesis today. Objective - Vital Signs/Intake and Output Vital Signs (last 24 hours): Temp Pulse Resp BP Pulse Ox 98.0 F 91 H 20 160/99 H 97 08/24/17 09:07 08/24/17 09:07 08/24/17 09:07 08/24/17 09:07 08/24/17 09:07 Intake and Output: 08/24/17 08/24/17 06:59 18:59 Intake Total 328 Output Total 1999 Balance -1672 - Medications Medications: Current Medications Aspirin (Aspirin Chewable) 81 mg PO DAILY [facility] Last Admin: 08/23/17 09:03 Dose: 81 mg Digoxin (Lanoxin) 0.25 mg PO DAILY@1800 [facility] Last Admin: 08/23/17 17:38 Dose: 0.25 mg Diltiazem HCl (Cardizem) 30 mg PO Q12H [facility] Last Admin: 08/24/17 00:07 Dose: 30 mg Donepezil HCl (Aricept) 10 mg PO HS [facility] Last Admin: 08/23/17 21:22 Dose: 10 mg Enoxaparin Sodium (Lovenox) 70 mg SC Q12 [facility] Last Admin: 08/22/17 10:08 Dose: 70 mg Escitalopram Oxalate (Lexapro) 10 mg PO DAILY [facility] Last Admin: 08/23/17 09:03 Dose: 10 mg Famotidine (Pepcid) 20 mg PO DAILY [facility] Last Admin: 08/23/17 09:03 Dose: 20 mg Furosemide (Lasix) 40 mg IVP Q12H [facility] Last Admin: 08/24/17 02:46 Dose: 40 mg Cefepime HCl (Maxipime Iv 1 Gm Premix) 1 gm in 50 mls @ 100 mls/hr IVPB Q12H [facility] Last Admin: 08/23/17 22:19 Dose: 100 mls/hr Insulin Human Regular (Novolin R) 0 unit SC ACHS [facility] PRN Reason: Protocol Last Admin: 08/24/17 08:27 Dose: 2 unit Methylprednisolone (Solu-Medrol) 40 mg IV DAILY [facility] Last Admin: 08/23/17 09:03 Dose: 40 mg Potassium Chloride (K-Dur 20 Meq Er Tab) 40 meq PO BRK [facility] Last Admin: 08/24/17 08:27 Dose: 40 meq Promethazine HCl (Phenergan Syrup) 12.5 mg PO Q6 PRN PRN Reason: Cough and congestion Last Admin: 08/21/17 11:04 Dose: 12.5 mg Saccharomyces Boulardii (Florastor) 250 mg PO BID [facility] Last Admin: 08/23/17 17:38 Dose: 250 mg - Labs Labs: 08/24/17 07:16 08/24/17 07:16 PT 13.7 SECONDS (9.7-12.2) H 08/21/17 06:37 INR 1.2 08/21/17 06:37 APTT 33 SECONDS (21-34) 08/18/17 10:39 - Constitutional Appears: Non-toxic, No Acute Distress - Respiratory Exam Respiratory Exam: Decreased Breath Sounds, NORMAL BREATHING PATTERN. absent: Accessory Muscle Use, Rales, Wheezes - Cardiovascular Exam Cardiovascular Exam: Irregular Rhythm, +S1, +S2 - GI/Abdominal Exam GI & Abdominal Exam: Soft, Normal Bowel Sounds. absent: Distended, Firm, Guarding, Tenderness - Extremities Exam Extremities Exam: Normal Inspection - Neurological Exam Neurological Exam: Alert, Oriented x3 - Psychiatric Exam Psychiatric exam: Normal Affect, Normal Mood Assessment and Plan (1) COPD with exacerbation Assessment & Plan: Duonebs Q6 [facility] Solu Medrol 40mg IV daily - will change to prednisone 40mg PO for tomorrow BIPAP as needed NC at 4 L/min continuous Status: Acute (2) Pleural effusion Assessment & Plan: s/p thoracentesis this morning - 200 cc slight serosanguinous fluid removed f/u fluid analysis and cytology Chest CT - right sided effusion and atelectasis Status: Acute (3) Cough Assessment & Plan: Phenergan 12.5mg PO Q6 prn Cefepime [address] - right sided effusion and atelectasis Status: Acute (4) CHF exacerbation Status: Acute (5) Elevated troponin Status: Acute (6) Rapid atrial fibrillation Status: Acute <Marcell Carlton S - Last Filed: 08/24/17 13:16> Objective - Vital Signs/Intake and Output Vital Signs (last 24 hours): Temp Pulse Resp BP Pulse Ox 98.0 F 91 H 20 160/99 H 97 08/24/17 09:07 08/24/17 09:07 08/24/17 09:07 08/24/17 09:07 08/24/17 09:07 Intake and Output: 08/24/17 08/24/17 06:59 18:59 Intake Total 328 Output Total 1999 Balance -1672 - Medications Medications: Current Medications Aspirin (Aspirin Chewable) 81 mg PO DAILY [facility] Last Admin: 08/24/17 11:21 Dose: 81 mg Digoxin (Lanoxin) 0.25 mg PO DAILY@1800 [facility] Last Admin: 08/23/17 17:38 Dose: 0.25 mg Diltiazem HCl (Cardizem) 30 mg PO Q12H [facility] Last Admin: 08/24/17 00:07 Dose: 30 mg Donepezil HCl (Aricept) 10 mg PO HS [facility] Last Admin: 08/23/17 21:22 Dose: 10 mg Enoxaparin Sodium (Lovenox) 70 mg SC Q12 [facility] Last Admin: 08/22/17 10:08 Dose: 70 mg Escitalopram Oxalate (Lexapro) 10 mg PO DAILY [facility] Last Admin: 08/24/17 10:00 Dose: Not Given Famotidine (Pepcid) 20 mg PO DAILY [facility] Last Admin: 08/24/17 11:21 Dose: 20 mg Furosemide (Lasix) 40 mg IVP Q12H [facility] Last Admin: 08/24/17 02:46 Dose: 40 mg Cefepime HCl (Maxipime Iv 1 Gm Premix) 1 gm in 50 mls @ 100 mls/hr IVPB Q12H [facility] Last Admin: 08/24/17 11:19 Dose: 100 mls/hr Insulin Human Regular (Novolin R) 0 unit SC ACHS [facility] PRN Reason: Protocol Last Admin: 08/24/17 08:27 Dose: 2 unit Potassium Chloride (K-Dur 20 Meq Er Tab) 40 meq PO BRK [facility] Last Admin: 08/24/17 08:27 Dose: 40 meq Prednisone (Prednisone Tab) 40 mg PO DAILY [facility] Promethazine HCl (Phenergan Syrup) 12.5 mg PO Q6 PRN PRN Reason: Cough and congestion Last Admin: 08/21/17 11:04 Dose: 12.5 mg Saccharomyces Boulardii (Florastor) 250 mg PO BID [facility] Last Admin: 08/24/17 11:26 Dose: 250 mg - Labs Labs: 08/24/17 07:16 08/24/17 07:16 PT 13.7 SECONDS (9.7-12.2) H 08/21/17 06:37 INR 1.2 08/21/17 06:37 APTT 33 SECONDS (21-34) 08/18/17 10:39 Assessment and Plan (1) COPD with exacerbation Status: Acute (2) CHF exacerbation Status: Acute (3) Elevated troponin Status: Acute (4) Rapid atrial fibrillation Status: Acute Attending/Attestation - Attestation I have personally seen and examined this patient.: Yes I have fully participated in the care of the patient.: Yes I have reviewed all pertinent clinical information, including history, physical exam and plan: Yes Notes (Text): 08/24/17 13:15 patient seen and examined. Case discussed with resident in the morning rounds Status post thoracentesis with 200 cc off serosanguineous fluid removed Patient still complaining of cough and shortness of breath Afebrile Possible cardiac catheter tomorrow BiPAP as needed Prednisone 40 mg once daily Nebulizer treatment Continue antibiotics for pneumoni
[2017-08-24] MEDS: Cefepime IV 1 gm in Dextrose 1 GM/50 ML BAG IVPB SCH ×2 (11:19→22:07)
--- NOTE | 2017-08-24 13:26 | CARD ---
APPROVED REPORT EKG Measurement Heart [id number] <Conclusion> Atrial fibrillation ST & T wave abnormality, consider inferior ischemia ST & T wave abnormality, consider anterolateral ischemia Prolonged QT Abnormal ECG
[2017-08-24] MEDS: Digoxin 250 mcg (0.25 mg) Tab PO SCH (18:19)
--- NOTE | 2017-08-24 22:35 | CP.PCM.PN ---
Subjective - Date & Time of Evaluation Date of Evaluation: 08/24/17 Time of Evaluation: 16:50 - Subjective Subjective: Patient seen and evaluated S/P Thoracentacis For cath tomorrow Physical Examination - Constitutional Appears: Chronically Ill - Eye Exam Eye Exam: EOMI, Normal appearance - ENT Exam ENT Exam: Mucous Membranes Moist - Respiratory Exam Respiratory Exam: Decreased Breath Sounds, NORMAL BREATHING PATTERN - Cardiovascular Exam Cardiovascular Exam: Irregular Rhythm - Neurological Exam Neurological Exam: Alert, Awake, Oriented x3 Neuro motor strength exam: Left Upper Extremity: 5, Right Upper Extremity: 5, Left Lower Extremity: 5, Right Lower Extremity: 5 - Psychiatric Exam Psychiatric exam: Normal Affect, Normal Mood - Skin Skin Exam: Pallor, Warm Objective - Vital Signs/Intake and Output Vital Signs (last 24 hours): Temp Pulse Resp BP Pulse Ox 97.8 F 104 H 20 156/83 H 94 L 08/24/17 15:09 08/24/17 15:09 08/24/17 15:09 08/24/17 15:16 08/24/17 15:09 Intake and Output: 08/24/17 08/25/17 18:59 06:59 Intake Total 210 Output Total 1500 Balance -1290 - Medications Medications: Current Medications Aspirin (Aspirin Chewable) 81 mg PO DAILY [facility] Last Admin: 08/24/17 11:21 Dose: 81 mg Digoxin (Lanoxin) 0.25 mg PO DAILY@1800 [facility] Last Admin: 08/24/17 18:19 Dose: 0.25 mg Diltiazem HCl (Cardizem) 30 mg PO Q12H [facility] Last Admin: 08/24/17 12:55 Dose: 30 mg Donepezil HCl (Aricept) 10 mg PO HS [facility] Last Admin: 08/24/17 21:21 Dose: 10 mg Enoxaparin Sodium (Lovenox) 70 mg SC Q12 [facility] Last Admin: 08/22/17 10:08 Dose: 70 mg Escitalopram Oxalate (Lexapro) 10 mg PO DAILY [facility] Last Admin: 08/24/17 10:00 Dose: Not Given Famotidine (Pepcid) 20 mg PO DAILY [facility] Last Admin: 08/24/17 11:21 Dose: 20 mg Furosemide (Lasix) 40 mg IVP Q12H [facility] Last Admin: 08/24/17 15:16 Dose: 40 mg Cefepime HCl (Maxipime Iv 1 Gm Premix) 1 gm in 50 mls @ 100 mls/hr IVPB Q12H [facility] Last Admin: 08/24/17 22:07 Dose: 100 mls/hr Insulin Human Regular (Novolin R) 0 unit SC ACHS [facility] PRN Reason: Protocol Last Admin: 08/24/17 21:26 Dose: Not Given Potassium Chloride (K-Dur 20 Meq Er Tab) 40 meq PO BRK [facility] Last Admin: 08/24/17 08:27 Dose: 40 meq Prednisone (Prednisone Tab) 40 mg PO DAILY [facility] Promethazine HCl (Phenergan Syrup) 12.5 mg PO Q6 PRN PRN Reason: Cough and congestion Last Admin: 08/21/17 11:04 Dose: 12.5 mg Saccharomyces Boulardii (Florastor) 250 mg PO BID [facility] Last Admin: 08/24/17 18:23 Dose: 250 mg - Labs Labs: 08/24/17 07:16 08/24/17 07:16 PT 13.7 SECONDS (9.7-12.2) H 08/21/17 06:37 INR 1.2 08/21/17 06:37 APTT 33 SECONDS (21-34) 08/18/17 10:39 Assessment and Plan - Assessment and Plan (Free Text) Assessment: (1) A-fib Assessment & Plan: Cardizem On Digoxin, ASA Continue to monitor- Keep rate controlled Status: Chronic (2) Elevated troponin Assessment & Plan: NSTEMI Elevated Troponins- SHEILA 3 trending down Therapeutic Lovenox 70mg SC Q12 EKGs show Atrial fibrillation; ST depressions ad T wave inversions noted in anterolateral leads Cath when patient stable Status: Acute (3) Pneumonia Assessment & Plan: CXR shows signs of infiltrates Was on Ceftriaxone and Azithromycin however discontinued due to transaminitis. On Cefepime. Start Florastor. Status: Acute (4) Chronic congestive heart failure Assessment & Plan: Elevated ProBNP 3370 Echo Pending Echo from 11/2015: LVEF 52%, Normal LV functionality at that time Lasix IV Q12 Intake and Output Measure Daily weights Status: Chronic (5) Transaminitis Assessment & Plan: Elevated likely secondarily to antibiotic administration. Changed to Cefepime. Status: Acute (6) Hypertension Assessment & Plan: Stable. Continue to monitor at this time. Will not treat acute rise in blood pressure. Status: Chronic (7) Prophylactic measure Assessment & Plan: Lovenox SCDs Pepcid 20mg PO daily Status: Acute
[2017-08-25 07:22] LABS: HEMATOCRIT 41.9 % (34.0-47.0); MEAN CELL VOLUME 88.1 fL (81.0-99.0); MEAN CORPUSCULAR HEMOGLOBIN 29.3 pg (27.0-31.0); MEAN CORPUSCULAR HGB CONC 33.3 g/dL (33.0-37.0); MEAN PLATELET VOLUME 8.9 fL (7.2-11.7); RED CELL DISTRIBUTION WIDTH 15.8 % (11.5-14.5)
--- NOTE | 2017-08-25 07:35 | CP.PCM.PN ---
<KermitMumtaz R - Last Filed: 08/25/17 14:54> Subjective - Date & Time of Evaluation Date of Evaluation: 08/25/17 Time of Evaluation: 07:33 - Subjective Subjective: PGY-1 note for medicine, Dr Rodriguez. Patient seen and examined this AM. She was sitting upright and watching television. She complained of a nonproductive cough and of feeling tired. She's on nasal cannula. Able to ambulate to the bathroom without assistance. She was npo and will have a cardiac cath today with Dr Drake. She denied pain, shortness of breath, chest pain, nausea, vomiting, fever, diarrhea, chills, abdominal pain , constipation. Objective - Vital Signs/Intake and Output Vital Signs (last 24 hours): Temp Pulse Resp BP Pulse Ox 98.9 F 99 H 20 157/84 H 94 L 08/25/17 07:12 08/25/17 07:12 08/25/17 07:12 08/25/17 07:12 08/25/17 07:12 Intake and Output: 08/25/17 08/25/17 06:59 18:59 Intake Total 210 Output Total 2800 Balance -2590 - Medications Medications: Current Medications Aspirin (Aspirin Chewable) 81 mg PO DAILY [facility] Last Admin: 08/24/17 11:21 Dose: 81 mg Digoxin (Lanoxin) 0.25 mg PO DAILY@1800 [facility] Last Admin: 08/24/17 18:19 Dose: 0.25 mg Diltiazem HCl (Cardizem) 30 mg PO Q12H [facility] Last Admin: 08/25/17 00:06 Dose: 30 mg Donepezil HCl (Aricept) 10 mg PO HS [facility] Last Admin: 08/24/17 21:21 Dose: 10 mg Enoxaparin Sodium (Lovenox) 70 mg SC Q12 [facility] Last Admin: 08/22/17 10:08 Dose: 70 mg Escitalopram Oxalate (Lexapro) 10 mg PO DAILY [facility] Last Admin: 08/24/17 10:00 Dose: Not Given Famotidine (Pepcid) 20 mg PO DAILY [facility] Last Admin: 08/24/17 11:21 Dose: 20 mg Furosemide (Lasix) 40 mg IVP Q12H [facility] Last Admin: 08/25/17 02:20 Dose: 40 mg Cefepime HCl (Maxipime Iv 1 Gm Premix) 1 gm in 50 mls @ 100 mls/hr IVPB Q12H [facility] Last Admin: 08/24/17 22:07 Dose: 100 mls/hr Insulin Human Regular (Novolin R) 0 unit SC ACHS APRIL PRN Reason: Protocol Last Admin: 08/24/17 21:26 Dose: Not Given Potassium Chloride (K-Dur 20 Meq Er Tab) 40 meq PO BRK [facility] Last Admin: 08/24/17 08:27 Dose: 40 meq Prednisone (Prednisone Tab) 40 mg PO DAILY [facility] Promethazine HCl (Phenergan Syrup) 12.5 mg PO Q6 PRN PRN Reason: Cough and congestion Last Admin: 08/21/17 11:04 Dose: 12.5 mg Saccharomyces Boulardii (Florastor) 250 mg PO BID [facility] Last Admin: 08/24/17 18:23 Dose: 250 mg - Labs Labs: 08/25/17 06:57 08/24/17 07:16 PT 13.7 SECONDS (9.7-12.2) H 08/21/17 06:37 INR 1.2 08/21/17 06:37 APTT 33 SECONDS (21-34) 08/18/17 10:39 - Constitutional Appears: Well, No Acute Distress - Head Exam Head Exam: ATRAUMATIC, NORMAL INSPECTION - Eye Exam Eye Exam: EOMI - ENT Exam ENT Exam: Mucous Membranes Moist - Neck Exam Neck Exam: Normal Inspection - Respiratory Exam Respiratory Exam: Decreased Breath Sounds, NORMAL BREATHING PATTERN. absent: Rales, Rhonchi, Wheezes - Cardiovascular Exam Cardiovascular Exam: Tachycardia, Irregular Rhythm, RRR, +S1, +S2. absent: Murmur - GI/Abdominal Exam GI & Abdominal Exam: Soft, Normal Bowel Sounds. absent: Distended, Firm, Guarding, Rigid, Tenderness - Extremities Exam Extremities Exam: Normal Capillary Refill, Pedal Edema Additional comments: 1+ pitting edema up to shins bilaterally - Neurological Exam Neurological Exam: Alert, Awake, Oriented x3 - Psychiatric Exam Psychiatric exam: Normal Affect, Normal Mood - Skin Skin Exam: Dry, Intact, Normal Color, Warm Assessment and Plan - Assessment and Plan (Free Text) Assessment: CHF and Right side pleural effusions Cardiology consulted - Dr. Drake s/p cardiac cath 08/25/17, will f/u cardiac cath report s/p thoracentesis 08/24/17 - 100 cc slight serosanguinous fluid removed. f/u fluid analysis and cytology CT chest 08/21/17 shows she has a R moderate pleural effusion ECHO 08/19/17, EF 25%. May need further cardiology intervention including cardiac cath, life vest, or AICD. Daily In/Outs Lasix 40mg IVP Q12 NSTEMI/ Elevated Troponin: Cardiology consulted - Dr. Drake Cardiac cath planned for 08/25/17 Cardiac cath planned for 08/18/17 was cancelled due to patient's inability to lay down flat Atrial Fibrillation: Rate controlled Cardiology consulted - Dr. Drake Digoxin 0.25mg PO daily Cardizem 30mg PO Q12H Lovenox 70mg sc Q12 COPD Exacerbation: Possible pulmonary fibrosis, Her shortness of breath probably more from the pleural effusions. NC at 4 L/min continuous BiPAP as needed Prednisone 40mg po daily Duonebs Q6 APRIL Cefepime 1 gram iv Q12H started 08/21/17 Florastor 250mg po bid started 08/19/17 Pneumonia: CXR 08/19/17 suggestive of bilateral alveolar infiltrates Blood culture 08/18 negative up to date CT CHEST 08/21/17: small to medium size right-sided effusion and mild right basilar atelectasis. Additional mild atelectatic changes seen in both lung bases. Solumedrol 40mg IVP daily Cefepime 1 gram iv Q12H 08/21/17 Florastor 250mg po bid 08/19/17 Promethazine 12.5 mg po bid for cough Transaminitis LFTs elevated, trending down multifactorial - likely acute insult from ischemia 2/2 hypotension. Additional considerations: congestive hepatopathy 2/2 CHF decompensation, cholestasis 2/2 antibiotics GI consulted- Dr. Maria abdominal ultrasound 08/20/17 - no acute pathology, CBD 4mm negative hepatitis panel, APAP, ASA IgG, IgA, IgM all within normal range PATRICK, Anti-Mitochondrial Ab, Anti-smooth muscle Ab, all negative HTN BP well controlled Digoxin 0.25mg PO daily Cardizem 30mg PO Q12H Prophylaxis Lovenox 70mg sc Q12 Pepcid 20mg IVP q12h Heart Healthy Diet Donepezil 10mg po hs Lexapro 10mg po qd <Huey Rodriguez - Last Filed: 08/26/17 13:32> Objective - Vital Signs/Intake and Output Vital Signs (last 24 hours): Temp Pulse Resp BP Pulse Ox 97.5 F L 101 H 20 149/85 95 08/26/17 07:10 08/26/17 08:00 08/26/17 07:10 08/26/17 07:10 08/26/17 07:10 Intake and Output: 08/26/17 08/26/17 06:59 18:59 Intake Total 800 Output Total 3700 Balance -2900 - Medications Medications: Current Medications Albuterol/Ipratropium (Duoneb 3 Mg/0.5 Mg (3 Ml) Ud) 3 ml INH RQ6 [facility] Last Admin: 08/26/17 07:29 Dose: 3 ml Aspirin (Aspirin Chewable) 81 mg PO DAILY [facility] Last Admin: 08/26/17 10:45 Dose: 81 mg Clopidogrel Bisulfate (Plavix) 75 mg PO DAILY [facility] Stop: 08/28/17 23:59 Last Admin: 08/26/17 10:42 Dose: 75 mg Digoxin (Lanoxin) 0.25 mg PO DAILY@1800 [facility] Last Admin: 08/25/17 17:52 Dose: 0.25 mg Diltiazem HCl (Cardizem) 30 mg PO Q12H [facility] Last Admin: 08/26/17 12:30 Dose: 30 mg Donepezil HCl (Aricept) 10 mg PO HS [facility] Last Admin: 08/25/17 21:29 Dose: 10 mg Enoxaparin Sodium (Lovenox) 70 mg SC Q12 [facility] Last Admin: 08/26/17 10:52 Dose: 70 mg Escitalopram Oxalate (Lexapro) 10 mg PO DAILY [facility] Last Admin: 08/26/17 10:50 Dose: 10 mg Famotidine (Pepcid) 20 mg PO DAILY [facility] Last Admin: 08/26/17 10:42 Dose: 20 mg Furosemide (Lasix) 40 mg IVP Q12H [facility] Last Admin: 08/26/17 02:11 Dose: 40 mg Magnesium Sulfate/Dextrose (Magnesium Sulfate 1 Gm/100 Ml D5w) 1 gm in 100 mls @ 300 mls/hr IVPB Q30M [facility] Stop: 08/26/17 13:34 Last Admin: 08/26/17 12:30 Dose: 300 mls/hr Potassium Chloride (Potassium Chloride 10 Meq/100 Ml) 10 meq in 100 mls @ 100 mls/hr IVPB Q1H [facility] Stop: 08/26/17 14:59 Last Admin: 08/26/17 13:15 Dose: 100 mls/hr Insulin Human Regular (Novolin R) 0 unit SC ACHS APRIL PRN Reason: Protocol Last Admin: 08/26/17 12:05 Dose: Not Given Potassium Chloride (K-Dur 20 Meq Er Tab) 40 meq PO BRK [facility] Last Admin: 08/26/17 09:00 Dose: 40 meq Potassium Chloride (K-Dur 20 Meq Er Tab) 20 meq PO ONCE ONE Stop: 08/27/17 12:01 Prednisone (Prednisone Tab) 40 mg PO DAILY [facility] Last Admin: 08/26/17 10:44 Dose: 40 mg Promethazine HCl (Phenergan Syrup) 12.5 mg PO Q6 PRN PRN Reason: Cough and congestion Last Admin: 08/21/17 11:04 Dose: 12.5 mg Saccharomyces Boulardii (Florastor) 250 mg PO BID [facility] Last Admin: 08/26/17 10:42 Dose: 250 mg - Labs Labs: 08/26/17 08:22 08/26/17 08:22 PT 12.2 SECONDS (9.7-12.2) 08/25/17 06:57 INR 1.1 08/25/17 06:57 APTT 33 SECONDS (21-34) 08/18/17 10:39 Attending/Attestation - Attestation I have personally seen and examined this patient.: Yes I have fully participated in the care of the patient.: Yes I have reviewed all pertinent clinical information, including history, physical exam and plan: Yes Notes (Text): 08/26/17 13:30 Patient was seen and examined after cardiac cath.No complain,no SOB Plan discussed with resident.Agree with assessment and plan of care of the resident. we will follow cath report
[2017-08-25 07:43] LABS: INR 1.1
[2017-08-25] MEDS ORDERED: Albuterol-Ipratrop 3 mg / 0.5 (3 ml) UD INH STA (08:10)
[2017-08-25 08:17] LABS: CHLORIDE 74 mmol/L (98-107); POTASSIUM 3.5 mmol/L (3.6-5.2); SODIUM 125 mmol/L (132-148)
[2017-08-25 08:19] LABS: ALB/GLOB RATIO 1.1 (1.0-2.1); ALKALINE PHOSPHATASE 115 U/L (38-126); AST/SGOT 59 U/L (14-36); BILIRUBIN,TOTAL 1.2 mg/dL (0.2-1.3); GFR AFRICAN-AMERICAN > 60; TOTAL PROTEIN 7.1 g/dL (6.3-8.3)
[2017-08-25 08:20] LABS: ALT/SGPT 275 U/L (9-52); BLOOD UREA NITROGEN 28 mg/dL (7-17); CALCIUM 8.4 mg/dl (8.6-10.4); GLUCOSE,RANDOM 158 mg/dL (65-105); MAGNESIUM 1.6 mg/dL (1.6-2.3); PHOSPHOROUS 3.4 mg/dL (2.5-4.5)
[2017-08-25] MEDS: Potassium Chloride 20 mEq ER Tab PO SCH ×2 (08:27→16:15)
[2017-08-25] MEDS: (Novolin R) Insulin Human Regular 100 units/ml vial SC SCH ×4 (08:28→21:43)
[2017-08-25 08:44] LABS: CARBON DIOXIDE 39 mmol/L (22-30)
[2017-08-25] MEDS ORDERED: Midazolam 2 MG/2 ML VIAL ONE (08:56)
[2017-08-25] MEDS ORDERED: Iodixanol 320 MG/ML 100 ML BOTTLE IV ONE ×2 (08:57→09:34)
[2017-08-25] MEDS ORDERED: Nitroglycerin 50mg in D5W 50 MG/250 ML BOTTLE IV ONE (09:04)
[2017-08-25] MEDS: Saccharomyces Boulardi 250 mg Cap PO SCH ×2 (10:36→17:53)
[2017-08-25] MEDS: Enoxaparin 80 mg Syringe SC SCH ×2 (10:36→21:30)
[2017-08-25] MEDS: Cefepime IV 1 gm in Dextrose 1 GM/50 ML BAG IVPB SCH ×2 (11:30→22:03)
--- NOTE | 2017-08-25 13:22 | US ---
PROCEDURE: Date of procedure: 08/24/2017 Procedure: 1. Ultrasound-guided right thoracentesis, CPT 12730 Medications: 6cc 1% Lidocaine HISTORY: Right pleural effusion, shortness of breath TECHNIQUE: Following informed consent ,the Patients' right chest was marked. Procedure time-out was called, and the patient was placed in the sitting position and limited ultrasound showed a very small right effusion. The patient's right back was prepped and draped in the usual sterile fashion. After the skin was anesthetized with lidocaine, a drainage catheter was advanced under ultrasound guidance into the pleural space. Ultrasound-guided thoracentesis was performed. A total of 100 cubic centimeters of slight serosanguineous fluid removed without complication. A Xeroform dressing was applied. IMPRESSION: Ultrasound showed a very small right pleural effusion. Ultrasound-guided right thoracentesis performed.
[2017-08-25] MEDS: Albuterol-Ipratrop 3 mg / 0.5 (3 ml) UD INH SCH ×2 (14:00→19:07)
--- NOTE | 2017-08-25 14:32 | CP.PCM.PN ---
<Didi Guevara - Last Filed: 08/25/17 14:28> Subjective - Date & Time of Evaluation Date of Evaluation: 08/25/17 Time of Evaluation: 08:00 - Subjective Subjective: Pulm progress note for Dr. Carlton: Patient seen and examined at bedside this morning. She was resting in bed comfortably but stating her nonproductive cough is still bothering her. No improvement. She is on NC a 4L/min.Denies fever/chills. Patient had cardiac cath today. Objective - Vital Signs/Intake and Output Vital Signs (last 24 hours): Temp Pulse Resp BP Pulse Ox 98.9 F 99 H 20 162/103 H 94 L 08/25/17 06:55 08/25/17 06:55 08/25/17 06:55 08/25/17 13:30 08/25/17 06:55 Intake and Output: 08/25/17 08/25/17 06:59 18:59 Intake Total 210 Output Total 2800 Balance -2590 - Medications Medications: Current Medications Albuterol/Ipratropium (Duoneb 3 Mg/0.5 Mg (3 Ml) Ud) 3 ml INH RQ6 [facility] Last Admin: 08/25/17 14:00 Dose: 3 ml Aspirin (Aspirin Chewable) 81 mg PO DAILY [facility] Last Admin: 08/25/17 13:24 Dose: 81 mg Clopidogrel Bisulfate (Plavix) 75 mg PO DAILY [facility] Stop: 08/28/17 23:59 Digoxin (Lanoxin) 0.25 mg PO DAILY@1800 [facility] Last Admin: 08/24/17 18:19 Dose: 0.25 mg Diltiazem HCl (Cardizem) 30 mg PO Q12H [facility] Last Admin: 08/25/17 13:23 Dose: 30 mg Donepezil HCl (Aricept) 10 mg PO HS [facility] Last Admin: 08/24/17 21:21 Dose: 10 mg Enoxaparin Sodium (Lovenox) 70 mg SC Q12 [facility] Last Admin: 08/25/17 10:36 Dose: Not Given Escitalopram Oxalate (Lexapro) 10 mg PO DAILY [facility] Last Admin: 08/25/17 13:23 Dose: 10 mg Famotidine (Pepcid) 20 mg PO DAILY [facility] Last Admin: 08/25/17 13:23 Dose: 20 mg Furosemide (Lasix) 40 mg IVP Q12H [facility] Last Admin: 08/25/17 13:30 Dose: 40 mg Cefepime HCl (Maxipime Iv 1 Gm Premix) 1 gm in 50 mls @ 100 mls/hr IVPB Q12H [facility] Last Admin: 08/25/17 11:30 Dose: Not Given Insulin Human Regular (Novolin R) 0 unit SC ACHS APRIL PRN Reason: Protocol Last Admin: 08/25/17 11:50 Dose: Not Given Potassium Chloride (K-Dur 20 Meq Er Tab) 40 meq PO BRK [facility] Last Admin: 08/25/17 08:27 Dose: Not Given Prednisone (Prednisone Tab) 40 mg PO DAILY [facility] Last Admin: 08/25/17 13:23 Dose: 40 mg Promethazine HCl (Phenergan Syrup) 12.5 mg PO Q6 PRN PRN Reason: Cough and congestion Last Admin: 08/21/17 11:04 Dose: 12.5 mg Saccharomyces Boulardii (Florastor) 250 mg PO BID [facility] Last Admin: 08/25/17 10:36 Dose: Not Given - Labs Labs: 08/25/17 06:57 08/25/17 07:10 PT 12.2 SECONDS (9.7-12.2) 08/25/17 06:57 INR 1.1 08/25/17 06:57 APTT 33 SECONDS (21-34) 08/18/17 10:39 - Constitutional Appears: Non-toxic, No Acute Distress - Head Exam Head Exam: ATRAUMATIC, NORMAL INSPECTION - Respiratory Exam Respiratory Exam: Decreased Breath Sounds, NORMAL BREATHING PATTERN. absent: Accessory Muscle Use, Clear to Ausculation Bilateral, Rales, Rhonchi, Wheezes, Respiratory Distress - Cardiovascular Exam Cardiovascular Exam: REGULAR RHYTHM, +S1, +S2 - GI/Abdominal Exam GI & Abdominal Exam: Soft, Normal Bowel Sounds. absent: Distended, Firm, Guarding, Tenderness - Extremities Exam Extremities Exam: Normal Inspection - Neurological Exam Neurological Exam: Alert, Awake, Oriented x3 - Psychiatric Exam Psychiatric exam: Normal Affect, Normal Mood Assessment and Plan (1) COPD with exacerbation Assessment & Plan: Duonebs Q6 [facility] Prednisone 40mg PO daily BIPAP as needed NC at 4 L/min continuous will f/u cardic cath report Status: Acute (2) Pleural effusion Assessment & Plan: s/p thoracentesis on 08/24 - 100 cc slight serosanguinous fluid removed No enough fluid for analysis Chest CT - right sided effusion and atelectasis Status: Acute (3) Cough Assessment & Plan: Phenergan 12.5mg PO Q6 prn Cefepime 1 gram IVPB Q12 - started 08/[address] - right sided effusion and atelectasis Status: Acute (4) CHF exacerbation Status: Acute (5) Elevated troponin Assessment & Plan: Cardiac cath today Status: Acute (6) Rapid atrial fibrillation Status: Acute <Marcell Carlton S - Last Filed: 08/25/17 16:13> Objective - Vital Signs/Intake and Output Vital Signs (last 24 hours): Temp Pulse Resp BP Pulse Ox 98.9 F 99 H 20 162/103 H 94 L 08/25/17 06:55 08/25/17 06:55 08/25/17 06:55 08/25/17 13:30 08/25/17 06:55 Intake and Output: 08/25/17 08/25/17 06:59 18:59 Intake Total 210 Output Total 2800 Balance -2590 - Medications Medications: Current Medications Albuterol/Ipratropium (Duoneb 3 Mg/0.5 Mg (3 Ml) Ud) 3 ml INH RQ6 [facility] Last Admin: 08/25/17 14:00 Dose: 3 ml Aspirin (Aspirin Chewable) 81 mg PO DAILY [facility] Last Admin: 08/25/17 13:24 Dose: 81 mg Clopidogrel Bisulfate (Plavix) 75 mg PO DAILY [facility] Stop: 08/28/17 23:59 Digoxin (Lanoxin) 0.25 mg PO DAILY@1800 [facility] Last Admin: 08/24/17 18:19 Dose: 0.25 mg Diltiazem HCl (Cardizem) 30 mg PO Q12H [facility] Last Admin: 08/25/17 13:23 Dose: 30 mg Donepezil HCl (Aricept) 10 mg PO HS [facility] Last Admin: 08/24/17 21:21 Dose: 10 mg Enoxaparin Sodium (Lovenox) 70 mg SC Q12 [facility] Last Admin: 08/25/17 10:36 Dose: Not Given Escitalopram Oxalate (Lexapro) 10 mg PO DAILY [facility] Last Admin: 08/25/17 13:23 Dose: 10 mg Famotidine (Pepcid) 20 mg PO DAILY [facility] Last Admin: 08/25/17 13:23 Dose: 20 mg Furosemide (Lasix) 40 mg IVP Q12H [facility] Last Admin: 08/25/17 13:30 Dose: 40 mg Cefepime HCl (Maxipime Iv 1 Gm Premix) 1 gm in 50 mls @ 100 mls/hr IVPB Q12H [facility] Last Admin: 08/25/17 11:30 Dose: Not Given Insulin Human Regular (Novolin R) 0 unit SC ACHS APRIL PRN Reason: Protocol Last Admin: 08/25/17 11:50 Dose: Not Given Potassium Chloride (K-Dur 20 Meq Er Tab) 40 meq PO BRK [facility] Last Admin: 08/25/17 08:27 Dose: Not Given Prednisone (Prednisone Tab) 40 mg PO DAILY [facility] Last Admin: 08/25/17 13:23 Dose: 40 mg Promethazine HCl (Phenergan Syrup) 12.5 mg PO Q6 PRN PRN Reason: Cough and congestion Last Admin: 08/21/17 11:04 Dose: 12.5 mg Saccharomyces Boulardii (Florastor) 250 mg PO BID [facility] Last Admin: 08/25/17 10:36 Dose: Not Given - Labs Labs: 08/25/17 06:57 08/25/17 07:10 PT 12.2 SECONDS (9.7-12.2) 08/25/17 06:57 INR 1.1 08/25/17 06:57 APTT 33 SECONDS (21-34) 08/18/17 10:39 Assessment and Plan (1) COPD with exacerbation Status: Acute (2) CHF exacerbation Status: Acute (3) Elevated troponin Status: Acute (4) Rapid atrial fibrillation Status: Acute Attending/Attestation - Attestation I have personally seen and examined this patient.: Yes I have fully participated in the care of the patient.: Yes I have reviewed all pertinent clinical information, including history, physical exam and plan: Yes Notes (Text): 08/25/17 16:11 Patient seen and examined. Case discussed with house staff Status post cardiac Status post thoracentesis and awaiting fluid analysis Continue nebulizer treatment, IV antibiotics and steroids BiPAP as needed
[2017-08-25] MEDS: Digoxin 250 mcg (0.25 mg) Tab PO SCH (17:52)
[2017-08-25 19:08] LABS: LKM-1 Ab (IgG) <=20.0 U (<=20.0)
--- NOTE | 2017-08-25 23:37 | CP.PCM.PN ---
Subjective - Date & Time of Evaluation Date of Evaluation: 08/25/17 Time of Evaluation: 14:00 - Subjective Subjective: Patient s/p cath Two vessel disease (RCA and L cx) PCI when patient more stable Objective - Vital Signs/Intake and Output Vital Signs (last 24 hours): Temp Pulse Resp BP Pulse Ox 98.3 F 93 H 20 131/77 94 L 08/25/17 15:08 08/25/17 18:00 08/25/17 15:08 08/25/17 15:08 08/25/17 15:08 Intake and Output: 08/25/17 08/26/17 18:59 06:59 Intake Total 910 800 Output Total 420 1100 Balance 490 -300 - Medications Medications: Current Medications Albuterol/Ipratropium (Duoneb 3 Mg/0.5 Mg (3 Ml) Ud) 3 ml INH RQ6 [facility] Last Admin: 08/25/17 19:07 Dose: 3 ml Aspirin (Aspirin Chewable) 81 mg PO DAILY [facility] Last Admin: 08/25/17 13:24 Dose: 81 mg Clopidogrel Bisulfate (Plavix) 75 mg PO DAILY [facility] Stop: 08/28/17 23:59 Digoxin (Lanoxin) 0.25 mg PO DAILY@1800 [facility] Last Admin: 08/25/17 17:52 Dose: 0.25 mg Diltiazem HCl (Cardizem) 30 mg PO Q12H [facility] Last Admin: 08/25/17 13:23 Dose: 30 mg Donepezil HCl (Aricept) 10 mg PO HS [facility] Last Admin: 08/25/17 21:29 Dose: 10 mg Enoxaparin Sodium (Lovenox) 70 mg SC Q12 [facility] Last Admin: 08/25/17 21:30 Dose: 70 mg Escitalopram Oxalate (Lexapro) 10 mg PO DAILY [facility] Last Admin: 08/25/17 13:23 Dose: 10 mg Famotidine (Pepcid) 20 mg PO DAILY [facility] Last Admin: 08/25/17 13:23 Dose: 20 mg Furosemide (Lasix) 40 mg IVP Q12H [facility] Last Admin: 08/25/17 13:30 Dose: 40 mg Cefepime HCl (Maxipime Iv 1 Gm Premix) 1 gm in 50 mls @ 100 mls/hr IVPB Q12H [facility] Last Admin: 08/25/17 22:03 Dose: 100 mls/hr Insulin Human Regular (Novolin R) 0 unit SC ACHS APRIL PRN Reason: Protocol Last Admin: 08/25/17 21:43 Dose: Not Given Potassium Chloride (K-Dur 20 Meq Er Tab) 40 meq PO BRK [facility] Last Admin: 08/25/17 16:15 Dose: 40 meq Prednisone (Prednisone Tab) 40 mg PO DAILY [facility] Last Admin: 08/25/17 13:23 Dose: 40 mg Promethazine HCl (Phenergan Syrup) 12.5 mg PO Q6 PRN PRN Reason: Cough and congestion Last Admin: 08/21/17 11:04 Dose: 12.5 mg Saccharomyces Boulardii (Florastor) 250 mg PO BID [facility] Last Admin: 08/25/17 17:53 Dose: 250 mg - Labs Labs: 08/25/17 06:57 08/25/17 07:10 PT 12.2 SECONDS (9.7-12.2) 08/25/17 06:57 INR 1.1 08/25/17 06:57 APTT 33 SECONDS (21-34) 08/18/17 10:39
[2017-08-26] MEDS: Albuterol-Ipratrop 3 mg / 0.5 (3 ml) UD INH SCH ×4 (01:39→20:15)
--- NOTE | 2017-08-26 07:18 | CP.PCM.PN ---
<Mumtaz Carmen R - Last Filed: 08/26/17 07:40> Subjective - Date & Time of Evaluation Date of Evaluation: 08/26/17 Time of Evaluation: 07:15 - Subjective Subjective: PGY-1 note for medicine, Dr Rodriguez. Patient was seen and examined at bedside this AM. She was sleeping comfortably with the head of the bed elevated when I walked in. Beside feeling tired, she did not have any complaints this morning. She denied pain at the cardiac cath insertion site, the right radial dressing was dry and intact. She denied chest pain, shortness of breath, fever, chills, nausea, vomiting, diarrhea, abdominal pain. Objective - Vital Signs/Intake and Output Vital Signs (last 24 hours): Temp Pulse Resp BP Pulse Ox 97.3 F L 65 20 139/70 97 08/26/17 04:08 08/26/17 04:08 08/26/17 04:08 08/26/17 04:08 08/26/17 04:08 Intake and Output: 08/26/17 08/26/17 06:59 18:59 Intake Total 800 Output Total 3700 Balance -2900 - Medications Medications: Current Medications Albuterol/Ipratropium (Duoneb 3 Mg/0.5 Mg (3 Ml) Ud) 3 ml INH RQ6 [facility] Last Admin: 08/26/17 01:39 Dose: 3 ml Aspirin (Aspirin Chewable) 81 mg PO DAILY [facility] Last Admin: 08/25/17 13:24 Dose: 81 mg Clopidogrel Bisulfate (Plavix) 75 mg PO DAILY [facility] Stop: 08/28/17 23:59 Digoxin (Lanoxin) 0.25 mg PO DAILY@1800 [facility] Last Admin: 08/25/17 17:52 Dose: 0.25 mg Diltiazem HCl (Cardizem) 30 mg PO Q12H [facility] Last Admin: 08/26/17 00:14 Dose: 30 mg Donepezil HCl (Aricept) 10 mg PO HS [facility] Last Admin: 08/25/17 21:29 Dose: 10 mg Enoxaparin Sodium (Lovenox) 70 mg SC Q12 [facility] Last Admin: 08/25/17 21:30 Dose: 70 mg Escitalopram Oxalate (Lexapro) 10 mg PO DAILY [facility] Last Admin: 08/25/17 13:23 Dose: 10 mg Famotidine (Pepcid) 20 mg PO DAILY [facility] Last Admin: 08/25/17 13:23 Dose: 20 mg Furosemide (Lasix) 40 mg IVP Q12H [facility] Last Admin: 08/26/17 02:11 Dose: 40 mg Cefepime HCl (Maxipime Iv 1 Gm Premix) 1 gm in 50 mls @ 100 mls/hr IVPB Q12H [facility] Last Admin: 08/25/17 22:03 Dose: 100 mls/hr Insulin Human Regular (Novolin R) 0 unit SC ACHS [facility] PRN Reason: Protocol Last Admin: 08/25/17 21:43 Dose: Not Given Potassium Chloride (K-Dur 20 Meq Er Tab) 40 meq PO BRK [facility] Last Admin: 08/25/17 16:15 Dose: 40 meq Prednisone (Prednisone Tab) 40 mg PO DAILY [facility] Last Admin: 08/25/17 13:23 Dose: 40 mg Promethazine HCl (Phenergan Syrup) 12.5 mg PO Q6 PRN PRN Reason: Cough and congestion Last Admin: 08/21/17 11:04 Dose: 12.5 mg Saccharomyces Boulardii (Florastor) 250 mg PO BID [facility] Last Admin: 08/25/17 17:53 Dose: 250 mg - Labs Labs: 08/25/17 06:57 08/25/17 07:10 PT 12.2 SECONDS (9.7-12.2) 08/25/17 06:57 INR 1.1 08/25/17 06:57 APTT 33 SECONDS (21-34) 08/18/17 10:39 - Additional Findings Additional findings: - Constitutional Appears: Well, No Acute Distress - Head Exam Head Exam: ATRAUMATIC, NORMAL INSPECTION - Eye Exam Eye Exam: EOMI - ENT Exam ENT Exam: Mucous Membranes Moist - Neck Exam Neck Exam: Normal Inspection - Respiratory Exam Respiratory Exam: Decreased Breath Sounds, NORMAL BREATHING PATTERN. absent: Rales, Rhonchi, Wheezes - Cardiovascular Exam Cardiovascular Exam: Tachycardia, Irregular Rhythm, RRR, +S1, +S2. absent: Murmur - GI/Abdominal Exam GI & Abdominal Exam: Soft, Normal Bowel Sounds. absent: Distended, Firm, Guarding, Rigid, Tenderness - Extremities Exam Extremities Exam: Normal Capillary Refill, Pedal Edema Additional comments: 1+ pitting edema up to shins bilaterally right radial dressing was clean/dry/intact - Neurological Exam Neurological Exam: Alert, Awake, Oriented x3 - Psychiatric Exam Psychiatric exam: Normal Affect, Normal Mood - Skin Skin Exam: Dry, Intact, Normal Color, Warm Assessment and Plan - Assessment and Plan (Free Text) Assessment: CHF and Right side pleural effusions Cardiology consulted - Dr. Drake s/p cardiac cath 08/25/17 - Two vessel disease (RCA and LCX) - Patient will need PCI when more stable s/p thoracentesis 08/24/17 - 100 cc slight serosanguinous fluid removed. f/u fluid analysis and cytology CT chest 08/21/17 shows she has a R moderate pleural effusion ECHO 08/19/17, EF 25%. May need further cardiology intervention including cardiac cath, life vest, or AICD. Daily In/Outs Lasix 40mg IVP Q12 NSTEMI/ Elevated Troponin: Cardiology consulted - Dr. Drake Cardiac cath planned for 08/25/17 Cardiac cath planned for 08/18/17 was cancelled due to patient's inability to lay down flat Atrial Fibrillation: Rate controlled Cardiology consulted - Dr. Drake Digoxin 0.25mg PO daily Cardizem 30mg PO Q12H Lovenox 70mg sc Q12 COPD Exacerbation: Possible pulmonary fibrosis, Her shortness of breath probably more from the pleural effusions. NC at 4 L/min continuous BiPAP as needed Prednisone 40mg po daily Duonebs Q6 [facility] Cefepime 1 gram iv Q12H started 08/21/17 Florastor 250mg po bid started 08/19/17 Pneumonia: CXR 08/19/17 suggestive of bilateral alveolar infiltrates Blood culture 08/18 negative up to date CT CHEST 08/21/17: small to medium size right-sided effusion and mild right basilar atelectasis. Additional mild atelectatic changes seen in both lung bases. Solumedrol 40mg IVP daily Cefepime 1 gram iv Q12H 08/21/17 Florastor 250mg po bid 08/19/17 Promethazine 12.5 mg po bid for cough Transaminitis LFTs elevated, trending down multifactorial - likely acute insult from ischemia 2/2 hypotension. Additional considerations: congestive hepatopathy 2/2 CHF decompensation, cholestasis 2/2 antibiotics GI consulted- Dr. Maria abdominal ultrasound 08/20/17 - no acute pathology, CBD 4mm negative hepatitis panel, APAP, ASA IgG, IgA, IgM all within normal range PATRICK, Anti-Mitochondrial Ab, Anti-smooth muscle Ab, Liver/Kid Microsomes Ab all negative HTN BP well controlled Digoxin 0.25mg PO daily Cardizem 30mg PO Q12H Prophylaxis Lovenox 70mg sc Q12 Pepcid 20mg IVP q12h Heart Healthy Diet Donepezil 10mg po hs Lexapro 10mg po qd <Huey Rodriguez - Last Filed: 08/26/17 17:27> Objective - Vital Signs/Intake and Output Vital Signs (last 24 hours): Temp Pulse Resp BP Pulse Ox 97.5 F L 101 H 20 132/68 95 08/26/17 07:10 08/26/17 08:00 08/26/17 07:10 08/26/17 13:31 08/26/17 07:10 Intake and Output: 08/26/17 08/26/17 06:59 18:59 Intake Total 800 Output Total 3700 Balance -2900 - Medications Medications: Current Medications Albuterol/Ipratropium (Duoneb 3 Mg/0.5 Mg (3 Ml) Ud) 3 ml INH RQ6 [facility] Last Admin: 08/26/17 13:47 Dose: 3 ml Aspirin (Aspirin Chewable) 81 mg PO DAILY [facility] Last Admin: 08/26/17 10:45 Dose: 81 mg Clopidogrel Bisulfate (Plavix) 75 mg PO DAILY [facility] Stop: 08/28/17 23:59 Last Admin: 08/26/17 10:42 Dose: 75 mg Digoxin (Lanoxin) 0.25 mg PO DAILY@1800 [facility] Last Admin: 08/25/17 17:52 Dose: 0.25 mg Diltiazem HCl (Cardizem) 30 mg PO Q12H [facility] Last Admin: 08/26/17 12:30 Dose: 30 mg Donepezil HCl (Aricept) 10 mg PO HS [facility] Last Admin: 08/25/17 21:29 Dose: 10 mg Enoxaparin Sodium (Lovenox) 70 mg SC Q12 [facility] Last Admin: 08/26/17 10:52 Dose: 70 mg Escitalopram Oxalate (Lexapro) 10 mg PO DAILY [facility] Last Admin: 08/26/17 10:50 Dose: 10 mg Famotidine (Pepcid) 20 mg PO DAILY [facility] Last Admin: 08/26/17 10:42 Dose: 20 mg Furosemide (Lasix) 40 mg IVP Q12H [facility] Last Admin: 08/26/17 13:31 Dose: 40 mg Insulin Human Regular (Novolin R) 0 unit SC ACHS [facility] PRN Reason: Protocol Last Admin: 08/26/17 12:05 Dose: Not Given Magnesium Oxide (Mag-Ox) 400 mg PO BID [facility] Potassium Chloride (K-Dur 20 Meq Er Tab) 40 meq PO BRK [facility] Last Admin: 08/26/17 09:00 Dose: 40 meq Potassium Chloride (K-Dur 20 Meq Er Tab) 20 meq PO ONCE ONE Stop: 08/27/17 12:01 Prednisone (Prednisone Tab) 40 mg PO DAILY [facility] Last Admin: 08/26/17 10:44 Dose: 40 mg Promethazine HCl (Phenergan Syrup) 12.5 mg PO Q6 PRN PRN Reason: Cough and congestion Last Admin: 08/21/17 11:04 Dose: 12.5 mg Saccharomyces Boulardii (Florastor) 250 mg PO BID [facility] Last Admin: 08/26/17 10:42 Dose: 250 mg - Labs Labs: 08/26/17 08:22 08/26/17 08:22 PT 12.2 SECONDS (9.7-12.2) 08/25/17 06:57 INR 1.1 08/25/17 06:57 APTT 33 SECONDS (21-34) 08/18/17 10:39 Attending/Attestation - Attestation I have personally seen and examined this patient.: Yes I have fully participated in the care of the patient.: Yes I have reviewed all pertinent clinical information, including history, physical exam and plan: Yes Notes (Text): This is a pleasant 72years old female with history of hypertension,CHF,atrial fibrillation came with Afib with rapid Ventricular rate and acute on chronic CHF.She had elevated troponin and admitted in the ICU .Echo showed EF 25%.s/p Thoracentesis and not enough fluid taken for fluid analysis.s/p Cardiac cath shows two vessel disease RCA and LCx.PCI as an out patient.Her sodium is going down.This morning has low mg,kcl and sodium. 1.NSTEMI cath shows two vessel disease,need PCI As per stave grader she will have out pt PCI echo EF 25% 2.Acute on chronic CHF continue lasix 3 Right side Pleural effusion s/p thoracentesis 08/24/17 - 200 cc slight serosanguinous fluid removed. Not enough fluid for analysis CT chest 08/21/17 shows she has a R moderate pleural effusion 4.Afib on the PO cardizem and PO digoxin. She is on 5.COPD exacerbation continue solumedrol,duoneb and cefepime 6.Bilateral Pneumonia CXR 08/19/17 suggestive of bilateral alveolar infiltrates.continue antibiotics 7.Severe hyponatremia,hypokalemia,hypomagnesium Mag,kcl ordered.Nephrology consult appreciated 8. LFTs elevated, trending down multifactorial - s/p hypotension. congestive hepatopathy GI consulted- Dr. Maria abdominal ultrasound 08/20/17 - no acute pathology, CBD 4mm negative hepatitis panel, APAP, ASA IgG, IgA, IgM all within normal range 9.Prophylaxis Lovenox 70mg sc Q12 Pepcid 20mg IVP q12h Heart Healthy Diet Donepezil 10mg po hs Lexapro 10mg po qd
[2017-08-26] MEDS: (Novolin R) Insulin Human Regular 100 units/ml vial SC SCH ×4 (08:32→21:34)
[2017-08-26 08:36] LABS: BASO % 0.1 % (0.0-2.0); HEMATOCRIT 38.6 % (34.0-47.0); LYMPH # 1.6 K/uL (1.0-4.3); LYMPH % 10.9 % (20.0-40.0); MEAN CORPUSCULAR HGB CONC 33.4 g/dL (33.0-37.0); MEAN PLATELET VOLUME 8.6 fL (7.2-11.7); MONO # 1.1 K/uL (0.0-0.8); MONO % 7.7 % (0.0-10.0); NRBC % 0.1 % (0.0-2.0); RED CELL DISTRIBUTION WIDTH 16.2 % (11.5-14.5); WHITE BLOOD COUNT 14.4 K/uL (4.8-10.8)
[2017-08-26 09:00] LABS: CHLORIDE 70 mmol/L (98-107); POTASSIUM 2.7 mmol/L (3.6-5.2); SODIUM 121 mmol/L (132-148)
[2017-08-26] MEDS: Potassium Chloride 20 mEq ER Tab PO SCH (09:00)
[2017-08-26 09:02] LABS: AST/SGOT 40 U/L (14-36); BILIRUBIN,TOTAL 1.3 mg/dL (0.2-1.3); GFR AFRICAN-AMERICAN > 60
[2017-08-26 09:03] LABS: ALKALINE PHOSPHATASE 105 U/L (38-126); ALT/SGPT 193 U/L (9-52); BLOOD UREA NITROGEN 25 mg/dL (7-17); CALCIUM 8.2 mg/dl (8.6-10.4); GLUCOSE,RANDOM 113 mg/dL (65-105); TOTAL PROTEIN 6.7 g/dL (6.3-8.3)
[2017-08-26 09:15] LABS: CARBON DIOXIDE 39 mmol/L (22-30)
[2017-08-26] MEDS: Cefepime IV 1 gm in Dextrose 1 GM/50 ML BAG IVPB SCH (10:15)
[2017-08-26] MEDS: Saccharomyces Boulardi 250 mg Cap PO SCH ×2 (10:42→18:06)
[2017-08-26] MEDS: Enoxaparin 80 mg Syringe SC SCH ×2 (10:52→21:33)
[2017-08-26 11:07] LABS: MAGNESIUM 1.3 mg/dL (1.6-2.3)
--- NOTE | 2017-08-26 11:44 | CP.PCM.PN ---
<Karoline Guzman DO - Last Filed: 08/26/17 17:59> Subjective - Date & Time of Evaluation Date of Evaluation: 08/26/17 Time of Evaluation: 11:37 - Subjective Subjective: Cardiology progress note for Dr. Drake Patient seen and examined. Patient states she feels better than yesterday. Patient denies dyspnea and chest pain. Objective - Vital Signs/Intake and Output Vital Signs (last 24 hours): Temp Pulse Resp BP Pulse Ox 97.5 F L 101 H 20 149/85 95 08/26/17 07:10 08/26/17 08:00 08/26/17 07:10 08/26/17 07:10 08/26/17 07:10 Intake and Output: 08/26/17 08/26/17 06:59 18:59 Intake Total 800 Output Total 3700 Balance -2900 - Medications Medications: Current Medications Albuterol/Ipratropium (Duoneb 3 Mg/0.5 Mg (3 Ml) Ud) 3 ml INH RQ6 [facility] Last Admin: 08/26/17 07:29 Dose: 3 ml Aspirin (Aspirin Chewable) 81 mg PO DAILY [facility] Last Admin: 08/26/17 10:45 Dose: 81 mg Clopidogrel Bisulfate (Plavix) 75 mg PO DAILY [facility] Stop: 08/28/17 23:59 Last Admin: 08/26/17 10:42 Dose: 75 mg Digoxin (Lanoxin) 0.25 mg PO DAILY@1800 [facility] Last Admin: 08/25/17 17:52 Dose: 0.25 mg Diltiazem HCl (Cardizem) 30 mg PO Q12H [facility] Last Admin: 08/26/17 00:14 Dose: 30 mg Donepezil HCl (Aricept) 10 mg PO HS [facility] Last Admin: 08/25/17 21:29 Dose: 10 mg Enoxaparin Sodium (Lovenox) 70 mg SC Q12 [facility] Last Admin: 08/26/17 10:52 Dose: 70 mg Escitalopram Oxalate (Lexapro) 10 mg PO DAILY [facility] Last Admin: 08/26/17 10:50 Dose: 10 mg Famotidine (Pepcid) 20 mg PO DAILY [facility] Last Admin: 08/26/17 10:42 Dose: 20 mg Furosemide (Lasix) 40 mg IVP Q12H [facility] Last Admin: 08/26/17 02:11 Dose: 40 mg Insulin Human Regular (Novolin R) 0 unit SC ACHS [facility] PRN Reason: Protocol Last Admin: 08/26/17 08:32 Dose: Not Given Potassium Chloride (K-Dur 20 Meq Er Tab) 40 meq PO BRK [facility] Last Admin: 08/26/17 09:00 Dose: 40 meq Prednisone (Prednisone Tab) 40 mg PO DAILY [facility] Last Admin: 08/26/17 10:44 Dose: 40 mg Promethazine HCl (Phenergan Syrup) 12.5 mg PO Q6 PRN PRN Reason: Cough and congestion Last Admin: 08/21/17 11:04 Dose: 12.5 mg Saccharomyces Boulardii (Florastor) 250 mg PO BID [facility] Last Admin: 08/26/17 10:42 Dose: 250 mg - Labs Labs: 08/26/17 08:22 08/26/17 08:22 PT 12.2 SECONDS (9.7-12.2) 08/25/17 06:57 INR 1.1 08/25/17 06:57 APTT 33 SECONDS (21-34) 08/18/17 10:39 - Constitutional Appears: Non-toxic, No Acute Distress - Eye Exam Eye Exam: EOMI - ENT Exam ENT Exam: Mucous Membranes Moist - Respiratory Exam Respiratory Exam: Decreased Breath Sounds. absent: Respiratory Distress - Cardiovascular Exam Cardiovascular Exam: Tachycardia, +S1, +S2 - GI/Abdominal Exam GI & Abdominal Exam: Soft, Normal Bowel Sounds. absent: Tenderness - Extremities Exam Additional comments: multiple areas of ecchymosis right radial cath site dress dry and intact following mild pitting b/l LE - Neurological Exam Neurological Exam: Alert, Awake - Psychiatric Exam Psychiatric exam: Normal Affect - Skin Skin Exam: Warm Assessment and Plan - Assessment and Plan (Free Text) Assessment: 72 year old female with Hx HTN, CHF, afib, who presented with dyspnea and respiratory distresss, and NSTEMI with elevated troponins. NSTEMI s/p cardiac cath 08/25/17 - Two vessel disease (RCA and LCX) -patient can be discharged and follow up as outpatient with Dr. Drake in 1-2 and eval for PCI when more stable ECHO 08/19/17, EF 25% Atrial Fibrillation Rate controlled continue medical management Digoxin 0.25mg PO daily Cardizem 30mg PO Q12H Lovenox 70mg sc Q12 CHF continue medical management Daily In/Outs Lasix 40mg IVP Q[address] Drake <Mack Drake - Last Filed: 08/26/17 23:46> Objective - Vital Signs/Intake and Output Vital Signs (last 24 hours): Temp Pulse Resp BP Pulse Ox 98.0 F 88 20 157/87 H 95 08/26/17 16:00 08/26/17 22:03 08/26/17 22:03 08/26/17 22:03 08/26/17 22:03 - Medications Medications: Current Medications Albuterol/Ipratropium (Duoneb 3 Mg/0.5 Mg (3 Ml) Ud) 3 ml INH RQ6 [facility] Last Admin: 08/26/17 20:15 Dose: 3 ml Aspirin (Aspirin Chewable) 81 mg PO DAILY [facility] Last Admin: 08/26/17 10:45 Dose: 81 mg Clopidogrel Bisulfate (Plavix) 75 mg PO DAILY [facility] Stop: 08/28/17 23:59 Last Admin: 08/26/17 10:42 Dose: 75 mg Digoxin (Lanoxin) 0.25 mg PO DAILY@1800 [facility] Last Admin: 08/26/17 18:06 Dose: 0.25 mg Diltiazem HCl (Cardizem) 30 mg PO Q12H [facility] Last Admin: 08/26/17 12:30 Dose: 30 mg Donepezil HCl (Aricept) 10 mg PO HS [facility] Last Admin: 08/26/17 21:23 Dose: 10 mg Enoxaparin Sodium (Lovenox) 70 mg SC Q12 [facility] Last Admin: 08/26/17 21:33 Dose: 70 mg Escitalopram Oxalate (Lexapro) 10 mg PO DAILY [facility] Last Admin: 08/26/17 10:50 Dose: 10 mg Famotidine (Pepcid) 20 mg PO DAILY [facility] Last Admin: 08/26/17 10:42 Dose: 20 mg Furosemide (Lasix) 40 mg IVP Q12H [facility] Last Admin: 08/26/17 13:31 Dose: 40 mg Sodium Chloride (Sodium Chloride 0.9%) 1,000 mls @ 75 mls/hr IV .[id number] [facility] Last Admin: 08/26/17 20:00 Dose: 75 mls/hr Insulin Human Regular (Novolin R) 0 unit SC ACHS [facility] PRN Reason: Protocol Last Admin: 08/26/17 21:34 Dose: Not Given Magnesium Oxide (Mag-Ox) 400 mg PO BID [facility] Last Admin: 08/26/17 18:06 Dose: 400 mg Potassium Chloride (K-Dur 20 Meq Er Tab) 40 meq PO BRK [facility] Last Admin: 08/26/17 09:00 Dose: 40 meq Potassium Chloride (K-Dur 20 Meq Er Tab) 20 meq PO ONCE ONE Stop: 08/27/17 12:01 Prednisone (Prednisone Tab) 40 mg PO DAILY [facility] Last Admin: 08/26/17 10:44 Dose: 40 mg Promethazine HCl (Phenergan Syrup) 12.5 mg PO Q6 PRN PRN Reason: Cough and congestion Last Admin: 08/21/17 11:04 Dose: 12.5 mg Saccharomyces Boulardii (Florastor) 250 mg PO BID [facility] Last Admin: 08/26/17 18:06 Dose: 250 mg - Labs Labs: 08/26/17 08:22 08/26/17 21:57 PT 12.2 SECONDS (9.7-12.2) 08/25/17 06:57 INR 1.1 08/25/17 06:57 APTT 33 SECONDS (21-34) 08/18/17 10:39 Assessment and Plan - Assessment and Plan (Free Text) Assessment: Patient seen and evaluated with the associate medical director Plan of care as documented
[2017-08-26] MEDS: Magnesium Sulfate 1 gm in D5W 1 GM/100 ML BAG IVPB SCH ×2 (12:30→13:29)
--- NOTE | 2017-08-26 14:17 | CP.PCM.PN ---
<Didi Guevara - Last Filed: 08/26/17 14:15> Subjective - Date & Time of Evaluation Date of Evaluation: 08/26/17 Time of Evaluation: 08:00 - Subjective Subjective: Pulm progress note for Dr. Carlton: Patient seen and examined at bedside this morning. She was resting in bed comfortably but stating her nonproductive cough is still bothering her. No improvement. She is on NC a 4L/min.Denies fever/chills. Patient had cardiac cath with right coronary artey dx. Will need PCI intervention. Objective - Vital Signs/Intake and Output Vital Signs (last 24 hours): Temp Pulse Resp BP Pulse Ox 97.5 F L 101 H 20 132/68 95 08/26/17 07:10 08/26/17 08:00 08/26/17 07:10 08/26/17 13:31 08/26/17 07:10 Intake and Output: 08/26/17 08/26/17 06:59 18:59 Intake Total 800 Output Total 3700 Balance -2900 - Medications Medications: Current Medications Albuterol/Ipratropium (Duoneb 3 Mg/0.5 Mg (3 Ml) Ud) 3 ml INH RQ6 [facility] Last Admin: 08/26/17 13:47 Dose: 3 ml Aspirin (Aspirin Chewable) 81 mg PO DAILY [facility] Last Admin: 08/26/17 10:45 Dose: 81 mg Clopidogrel Bisulfate (Plavix) 75 mg PO DAILY [facility] Stop: 08/28/17 23:59 Last Admin: 08/26/17 10:42 Dose: 75 mg Digoxin (Lanoxin) 0.25 mg PO DAILY@1800 [facility] Last Admin: 08/25/17 17:52 Dose: 0.25 mg Diltiazem HCl (Cardizem) 30 mg PO Q12H [facility] Last Admin: 08/26/17 12:30 Dose: 30 mg Donepezil HCl (Aricept) 10 mg PO HS [facility] Last Admin: 08/25/17 21:29 Dose: 10 mg Enoxaparin Sodium (Lovenox) 70 mg SC Q12 [facility] Last Admin: 08/26/17 10:52 Dose: 70 mg Escitalopram Oxalate (Lexapro) 10 mg PO DAILY [facility] Last Admin: 08/26/17 10:50 Dose: 10 mg Famotidine (Pepcid) 20 mg PO DAILY [facility] Last Admin: 08/26/17 10:42 Dose: 20 mg Furosemide (Lasix) 40 mg IVP Q12H [facility] Last Admin: 08/26/17 13:31 Dose: 40 mg Potassium Chloride (Potassium Chloride 10 Meq/100 Ml) 10 meq in 100 mls @ 100 mls/hr IVPB Q1H [facility] Stop: 08/26/17 14:59 Last Admin: 08/26/17 13:30 Dose: 100 mls/hr Insulin Human Regular (Novolin R) 0 unit SC ACHS [facility] PRN Reason: Protocol Last Admin: 08/26/17 12:05 Dose: Not Given Potassium Chloride (K-Dur 20 Meq Er Tab) 40 meq PO BRK [facility] Last Admin: 08/26/17 09:00 Dose: 40 meq Potassium Chloride (K-Dur 20 Meq Er Tab) 20 meq PO ONCE ONE Stop: 08/27/17 12:01 Prednisone (Prednisone Tab) 40 mg PO DAILY [facility] Last Admin: 08/26/17 10:44 Dose: 40 mg Promethazine HCl (Phenergan Syrup) 12.5 mg PO Q6 PRN PRN Reason: Cough and congestion Last Admin: 08/21/17 11:04 Dose: 12.5 mg Saccharomyces Boulardii (Florastor) 250 mg PO BID [facility] Last Admin: 08/26/17 10:42 Dose: 250 mg - Labs Labs: 08/26/17 08:22 08/26/17 08:22 PT 12.2 SECONDS (9.7-12.2) 08/25/17 06:57 INR 1.1 08/25/17 06:57 APTT 33 SECONDS (21-34) 08/18/17 10:39 - Constitutional Appears: Non-toxic, No Acute Distress, Chronically Ill - Respiratory Exam Respiratory Exam: Decreased Breath Sounds, NORMAL BREATHING PATTERN. absent: Accessory Muscle Use, Clear to Ausculation Bilateral, Rales, Rhonchi, Wheezes, Respiratory Distress - Cardiovascular Exam Cardiovascular Exam: REGULAR RHYTHM, +S1, +S2 - GI/Abdominal Exam GI & Abdominal Exam: Soft, Normal Bowel Sounds. absent: Distended, Firm, Guarding, Tenderness - Neurological Exam Neurological Exam: Alert, Awake, Oriented x3 - Psychiatric Exam Psychiatric exam: Normal Affect, Normal Mood - Skin Skin Exam: Dry, Intact, Normal Color, Warm Assessment and Plan (1) COPD with exacerbation Assessment & Plan: Duonebs Q6 [facility] Prednisone 40mg PO daily BIPAP as needed NC at 4 L/min continuous RCA dx. will need PCI Status: Acute (2) Pleural effusion Assessment & Plan: s/p thoracentesis on 08/24 - 100 cc slight serosanguinous fluid removed No enough fluid for analysis Chest CT - right sided effusion and atelectasis Status: Acute (3) Cough Assessment & Plan: Phenergan 12.5mg PO Q6 prn Cefepime 1 gram IVPB Q12 - started 08/[address] - right sided effusion and atelectasis Status: Acute (4) CHF exacerbation Status: Acute (5) Elevated troponin Assessment & Plan: RCA disease. Will need PCI Status: Acute (6) Rapid atrial fibrillation Status: Acute <Marcell Carlton S - Last Filed: 08/26/17 14:55> Objective - Vital Signs/Intake and Output Vital Signs (last 24 hours): Temp Pulse Resp BP Pulse Ox 97.5 F L 101 H 20 132/68 95 08/26/17 07:10 08/26/17 08:00 08/26/17 07:10 08/26/17 13:31 08/26/17 07:10 Intake and Output: 08/26/17 08/26/17 06:59 18:59 Intake Total 800 Output Total 3700 Balance -2900 - Medications Medications: Current Medications Albuterol/Ipratropium (Duoneb 3 Mg/0.5 Mg (3 Ml) Ud) 3 ml INH RQ6 [facility] Last Admin: 08/26/17 13:47 Dose: 3 ml Aspirin (Aspirin Chewable) 81 mg PO DAILY [facility] Last Admin: 08/26/17 10:45 Dose: 81 mg Clopidogrel Bisulfate (Plavix) 75 mg PO DAILY [facility] Stop: 08/28/17 23:59 Last Admin: 08/26/17 10:42 Dose: 75 mg Digoxin (Lanoxin) 0.25 mg PO DAILY@1800 [facility] Last Admin: 08/25/17 17:52 Dose: 0.25 mg Diltiazem HCl (Cardizem) 30 mg PO Q12H [facility] Last Admin: 08/26/17 12:30 Dose: 30 mg Donepezil HCl (Aricept) 10 mg PO HS [facility] Last Admin: 08/25/17 21:29 Dose: 10 mg Enoxaparin Sodium (Lovenox) 70 mg SC Q12 [facility] Last Admin: 08/26/17 10:52 Dose: 70 mg Escitalopram Oxalate (Lexapro) 10 mg PO DAILY [facility] Last Admin: 08/26/17 10:50 Dose: 10 mg Famotidine (Pepcid) 20 mg PO DAILY [facility] Last Admin: 08/26/17 10:42 Dose: 20 mg Furosemide (Lasix) 40 mg IVP Q12H [facility] Last Admin: 08/26/17 13:31 Dose: 40 mg Potassium Chloride (Potassium Chloride 10 Meq/100 Ml) 10 meq in 100 mls @ 100 mls/hr IVPB Q1H [facility] Stop: 08/26/17 14:59 Last Admin: 08/26/17 13:30 Dose: 100 mls/hr Insulin Human Regular (Novolin R) 0 unit SC ACHS [facility] PRN Reason: Protocol Last Admin: 08/26/17 12:05 Dose: Not Given Potassium Chloride (K-Dur 20 Meq Er Tab) 40 meq PO BRK [facility] Last Admin: 08/26/17 09:00 Dose: 40 meq Potassium Chloride (K-Dur 20 Meq Er Tab) 20 meq PO ONCE ONE Stop: 08/27/17 12:01 Prednisone (Prednisone Tab) 40 mg PO DAILY [facility] Last Admin: 08/26/17 10:44 Dose: 40 mg Promethazine HCl (Phenergan Syrup) 12.5 mg PO Q6 PRN PRN Reason: Cough and congestion Last Admin: 08/21/17 11:04 Dose: 12.5 mg Saccharomyces Boulardii (Florastor) 250 mg PO BID [facility] Last Admin: 08/26/17 10:42 Dose: 250 mg - Labs Labs: 08/26/17 08:22 08/26/17 08:22 PT 12.2 SECONDS (9.7-12.2) 08/25/17 06:57 INR 1.1 08/25/17 06:57 APTT 33 SECONDS (21-34) 08/18/17 10:39 Assessment and Plan (1) COPD with exacerbation Status: Acute (2) CHF exacerbation Status: Acute (3) Elevated troponin Status: Acute (4) Rapid atrial fibrillation Status: Acute Attending/Attestation - Attestation I have personally seen and examined this patient.: Yes I have fully participated in the care of the patient.: Yes I have reviewed all pertinent clinical information, including history, physical exam and plan: Yes Notes (Text): 08/26/17 14:53 Patient seen and examined. Case discussed with residents Breathing better Continue steroids, nebulizer treatment Continue antibiotics For PCI as outpatient
[2017-08-26] MEDS ORDERED: Potassium Chloride 20 mEq ER Tab PO ONE (15:53)
[2017-08-26] MEDS ORDERED: Magnesium Sulfate 1 gm in D5W 1 GM/100 ML BAG IVPB ONE (15:53)
[2017-08-26] MEDS: Digoxin 250 mcg (0.25 mg) Tab PO SCH (18:06)
[2017-08-26] MEDS: Magnesium Oxide 400 mg Tab UD PO SCH (18:06)
[2017-08-26] MEDS ORDERED: Sodium Chloride 0.9% 1,000 ML IV SCH (19:45)
[2017-08-26 19:51] LABS: DRAW SITE VENOUS; VENOUS BLOOD GAS BASE EXCESS 16.9 mmol/L (0.0-2.0); VENOUS BLOOD GAS PCO2 55 mmHg (40-60)
[2017-08-26 22:12] LABS: CHLORIDE 72 mmol/L (98-107); POTASSIUM 4.2 mmol/L (3.6-5.2)
[2017-08-26 22:13] LABS: SODIUM 119 mmol/L (132-148)
[2017-08-26 22:14] LABS: GFR AFRICAN-AMERICAN > 60
[2017-08-26 22:15] LABS: BLOOD UREA NITROGEN 25 mg/dL (7-17); CALCIUM 8.7 mg/dl (8.6-10.4); CARBON DIOXIDE 39 mmol/L (22-30); GLUCOSE,RANDOM 144 mg/dL (65-105)
[2017-08-26 22:19] LABS: RBC URINE 1 /hpf (0-3); URINE BILIRUBIN NEGATIVE (NEGATIVE); URINE BLOOD 1+ (NEGATIVE); URINE COLOR Yellow (YELLOW); URINE GLUCOSE (UA) 1+ mg/dL (Normal); URINE KETONE NEGATIVE (NEGATIVE); URINE LEUKOCYTE ESTERASE NEG Leu/uL (Negative); URINE PROTEIN 3+ mg/dL (NEGATIVE); URINE UROBILINOGEN NORMAL mg/dL (0.2-1.0); WBC URINE 1 /hpf (0-5)
--- NOTE | 2017-08-26 22:49 | CP.PCM.PN ---
Subjective - Date & Time of Evaluation Date of Evaluation: 08/27/17 Time of Evaluation: 22:30 - Subjective Subjective: Patient was seen and examined at bedside. Patient was sleeping comfortably in bed. Patient was woken up and denies chest pain, shortness of breath, headache , dry mouth. Patient stated she would like to go back to sleep. Objective - Vital Signs/Intake and Output Vital Signs (last 24 hours): Temp Pulse Resp BP Pulse Ox 98.0 F 88 20 157/87 H 95 08/26/17 16:00 08/26/17 22:03 08/26/17 22:03 08/26/17 22:03 08/26/17 22:03 - Medications Medications: Current Medications Albuterol/Ipratropium (Duoneb 3 Mg/0.5 Mg (3 Ml) Ud) 3 ml INH RQ6 [facility] Last Admin: 08/26/17 20:15 Dose: 3 ml Aspirin (Aspirin Chewable) 81 mg PO DAILY [facility] Last Admin: 08/26/17 10:45 Dose: 81 mg Clopidogrel Bisulfate (Plavix) 75 mg PO DAILY [facility] Stop: 08/28/17 23:59 Last Admin: 08/26/17 10:42 Dose: 75 mg Digoxin (Lanoxin) 0.25 mg PO DAILY@1800 [facility] Last Admin: 08/26/17 18:06 Dose: 0.25 mg Diltiazem HCl (Cardizem) 30 mg PO Q12H [facility] Last Admin: 08/26/17 12:30 Dose: 30 mg Donepezil HCl (Aricept) 10 mg PO HS [facility] Last Admin: 08/26/17 21:23 Dose: 10 mg Enoxaparin Sodium (Lovenox) 70 mg SC Q12 [facility] Last Admin: 08/26/17 21:33 Dose: 70 mg Escitalopram Oxalate (Lexapro) 10 mg PO DAILY [facility] Last Admin: 08/26/17 10:50 Dose: 10 mg Famotidine (Pepcid) 20 mg PO DAILY [facility] Last Admin: 08/26/17 10:42 Dose: 20 mg Furosemide (Lasix) 40 mg IVP Q12H [facility] Last Admin: 08/26/17 13:31 Dose: 40 mg Sodium Chloride (Sodium Chloride 0.9%) 1,000 mls @ 75 mls/hr IV .[id number] [facility] Last Admin: 08/26/17 20:00 Dose: 75 mls/hr Insulin Human Regular (Novolin R) 0 unit SC ACHS [facility] PRN Reason: Protocol Last Admin: 08/26/17 21:34 Dose: Not Given Magnesium Oxide (Mag-Ox) 400 mg PO BID [facility] Last Admin: 08/26/17 18:06 Dose: 400 mg Potassium Chloride (K-Dur 20 Meq Er Tab) 40 meq PO BRK [facility] Last Admin: 08/26/17 09:00 Dose: 40 meq Potassium Chloride (K-Dur 20 Meq Er Tab) 20 meq PO ONCE ONE Stop: 08/27/17 12:01 Prednisone (Prednisone Tab) 40 mg PO DAILY [facility] Last Admin: 08/26/17 10:44 Dose: 40 mg Promethazine HCl (Phenergan Syrup) 12.5 mg PO Q6 PRN PRN Reason: Cough and congestion Last Admin: 08/21/17 11:04 Dose: 12.5 mg Saccharomyces Boulardii (Florastor) 250 mg PO BID [facility] Last Admin: 08/26/17 18:06 Dose: 250 mg - Labs Labs: 08/26/17 08:22 08/26/17 21:57 PT 12.2 SECONDS (9.7-12.2) 08/25/17 06:57 INR 1.1 08/25/17 06:57 APTT 33 SECONDS (21-34) 08/18/17 10:39 - Constitutional Appears: No Acute Distress - Eye Exam Eye Exam: EOMI, Normal appearance - Cardiovascular Exam Cardiovascular Exam: REGULAR RHYTHM, +S1, +S2 - Extremities Exam Extremities Exam: Normal Inspection. absent: Pedal Edema, Tenderness Assessment and Plan - Assessment and Plan (Free Text) Assessment: 1.) Hyponatremia - Corrected Sodium (08/26): 120 - NS IV were placed on hold - f/u Urine Cl, Na, K - f/u with with Dr. Mallory - Monitor for seizure activities Case discussed with Dr. Funmi Macias, PGY-1
[2017-08-27] MEDS: Albuterol-Ipratrop 3 mg / 0.5 (3 ml) UD INH SCH ×4 (01:18→19:43)
--- NOTE | 2017-08-27 05:29 | CP.PCM.PN ---
Subjective - Date & Time of Evaluation Date of Evaluation: 08/27/17 Time of Evaluation: 05:00 - Subjective Subjective: Code Star at 5am. Patient was seen and examined at bedside in the AM. Patient stated she was sitting on the edge of the bed and she went to reach for the call talley to ask the nurse for assistance to go to the restroom when she slid off her bed. She denies dizziness, lightheadedness, back pain or back tenderness. She denies hitting her head and denies any complaints. Objective - Vital Signs/Intake and Output Vital Signs (last 24 hours): Temp Pulse Resp BP Pulse Ox 97.3 F L 80 20 142/91 H 92 L 08/27/17 04:36 08/27/17 04:36 08/27/17 04:36 08/27/17 04:36 08/26/17 23:30 - Medications Medications: Current Medications Albuterol/Ipratropium (Duoneb 3 Mg/0.5 Mg (3 Ml) Ud) 3 ml INH RQ6 [facility] Last Admin: 08/27/17 01:18 Dose: Not Given Aspirin (Aspirin Chewable) 81 mg PO DAILY [facility] Last Admin: 08/26/17 10:45 Dose: 81 mg Clopidogrel Bisulfate (Plavix) 75 mg PO DAILY [facility] Stop: 08/28/17 23:59 Last Admin: 08/26/17 10:42 Dose: 75 mg Digoxin (Lanoxin) 0.25 mg PO DAILY@1800 [facility] Last Admin: 08/26/17 18:06 Dose: 0.25 mg Diltiazem HCl (Cardizem) 30 mg PO Q12H [facility] Last Admin: 08/27/17 00:26 Dose: 30 mg Donepezil HCl (Aricept) 10 mg PO HS [facility] Last Admin: 08/26/17 21:23 Dose: 10 mg Enoxaparin Sodium (Lovenox) 70 mg SC Q12 [facility] Last Admin: 08/26/17 21:33 Dose: 70 mg Escitalopram Oxalate (Lexapro) 10 mg PO DAILY [facility] Last Admin: 08/26/17 10:50 Dose: 10 mg Famotidine (Pepcid) 20 mg PO DAILY [facility] Last Admin: 08/26/17 10:42 Dose: 20 mg Furosemide (Lasix) 40 mg IVP Q12H [facility] Last Admin: 08/26/17 13:31 Dose: 40 mg Sodium Chloride (Sodium Chloride 0.9%) 1,000 mls @ 75 mls/hr IV .[id number] [facility] Last Admin: 08/26/17 20:00 Dose: 75 mls/hr Insulin Human Regular (Novolin R) 0 unit SC ACHS [facility] PRN Reason: Protocol Last Admin: 08/26/17 21:34 Dose: Not Given Magnesium Oxide (Mag-Ox) 400 mg PO BID [facility] Last Admin: 08/26/17 18:06 Dose: 400 mg Potassium Chloride (K-Dur 20 Meq Er Tab) 40 meq PO BRK [facility] Last Admin: 08/26/17 09:00 Dose: 40 meq Potassium Chloride (K-Dur 20 Meq Er Tab) 20 meq PO ONCE ONE Stop: 08/27/17 12:01 Prednisone (Prednisone Tab) 40 mg PO DAILY [facility] Last Admin: 08/26/17 10:44 Dose: 40 mg Promethazine HCl (Phenergan Syrup) 12.5 mg PO Q6 PRN PRN Reason: Cough and congestion Last Admin: 08/21/17 11:04 Dose: 12.5 mg Saccharomyces Boulardii (Florastor) 250 mg PO BID [facility] Last Admin: 08/26/17 18:06 Dose: 250 mg - Labs Labs: 08/26/17 08:22 08/26/17 21:57 PT 12.2 SECONDS (9.7-12.2) 08/25/17 06:57 INR 1.1 08/25/17 06:57 APTT 33 SECONDS (21-34) 08/18/17 10:39 - Constitutional Appears: No Acute Distress - Head Exam Head Exam: ATRAUMATIC, NORMAL INSPECTION, NORMOCEPHALIC - Eye Exam Eye Exam: EOMI, Normal appearance - ENT Exam ENT Exam: Mucous Membranes Moist - Respiratory Exam Respiratory Exam: Clear to Ausculation Bilateral, NORMAL BREATHING PATTERN - Cardiovascular Exam Cardiovascular Exam: REGULAR RHYTHM, +S1, +S2 - Back Exam Back Exam: NORMAL INSPECTION. absent: paraspinal tenderness, tenderness, vertebral tenderness - Neurological Exam Neurological Exam: Alert, Awake, Oriented x3 - Psychiatric Exam Psychiatric exam: Normal Affect, Normal Mood
--- NOTE | 2017-08-27 05:34 | CON ---
NEPHROLOGY CONSULTATION DATE: HISTORY OF PRESENT ILLNESS: A 72-year-old female with past medical history of CHF with systolic dysfunction, hypertension, atrial fibrillation, COPD and arthritis, presented to the ED with complaint of shortness of breath. The patient was admitted as a case of CHF exacerbation. Nephrology now being consulted for progressive hyponatremia. The patient reports her breathing has improved during this admission; the patient was started on IV Lasix 40 mg q. 12 hours since admission and has continued with a current dose until today; the patient is also found to have medium sized right pleural effusion on chest CT and subsequently underwent ultrasound-guided thoracentesis, which yielded only 200 mL of serosanguineous fluid. Fluid analysis was unable to be done due to inadequate sample size; the patient also underwent cardiac cath yesterday which revealed 2 vessel disease involving RCA and left circumflex, recommendation was made by automated manufacturing instructor for PCI once the patient is more stable. The patient reports feeling weak. She is able to ambulate to bathroom. Reports not having much of an appetite, only eating about half of her food portion. Reports drinking about 3 glasses of water daily, the patient otherwise denies any nausea, vomiting or diarrhea since she is having normal bowel movements. PAST MEDICAL HISTORY: As above. PAST SURGICAL HISTORY: Reported cholecystectomy, foot surgery, left shoulder surgery and surgery for bladder incontinence. FAMILY HISTORY: Mother from NH at age 72, brother from NH at age 28. SOCIAL HISTORY: Former smoker. REVIEW OF SYSTEMS: CONSTITUTIONAL: Decreased appetite, feeling of weakness. HEENT: Denies any change in her vision. Denies any sore throat or nasal discharge. RESPIRATORY: Reporting cough with sputum production. CARDIOVASCULAR: Denies any chest pain or palpitations, although the patient did present with rapid ventricular rate. The patient denies any leg swelling and does report inability to lie flat due to her cough. GI: As per HPI. : Sanchez in place. Report some discomfort with urination. MUSCULOSKELETAL: Denies any aches or pain. PSYCHIATRIC: Denies any difficulty sleeping. NEUROLOGIC: Denies any dizziness or headaches. PHYSICAL EXAMINATION: GENERAL: In no distress. Sitting up in chair comfortably. Conversing in full sentences. VITAL SIGNS: This afternoon blood pressure 171/93, heart rate 93, respirations 22, temperature 98.0, and O2 sat 96% on nasal cannula oxygen. HEENT: Moist mucous membranes. Nonicteric. NECK: No cervical lymphadenopathy. RESPIRATORY: Bilateral rales present diffusely. Decreased breath sounds at right base. No respiratory distress. CARDIOVASCULAR: S1 and S2 normal. No murmurs. No gallops. No rubs. GI: Abdomen soft, nontender, and nondistended. : No bladder distention. SKIN: Warm. No cyanosis. PSYCHIATRIC: Normal mood. Normal affect. LABORATORY DATA: From this morning, CBC; WBC 14,4, hemoglobin 12.9, hematocrit 38.6, platelets 237. Chemistry panel, sodium 121, potassium 2.7, chloride 70, bicarb 39, BUN 25, creatinine 0.7, glucose 113, calcium 8.2, magnesium 1.3. Albumin 3.4. ASSESSMENT AND PLAN: 1. Hyponatremia likely secondary to intravascular volume contraction in the setting of being on extensive dose of loop diuretics despite what appears to be elevated blood pressure; supporting findings of intravascular volume contractions or findings of metabolic alkalosis is presently involving. Also BUN is significantly increased out of proportion to serum creatinine. The patient is also likely drinking more fluid than she is admitting to. There may also be an element of inadequate solid intake as patient reports not having much of an appetite. We will hold IV Lasix for 1 day. We will start gentle IV fluid with NS at 75 mL/hour. Awaiting urine studies (UA, urine sodium, urine chloride and urine osmolality). 2. Metabolic alkalosis secondary to volume contraction from loop diuretic use. Need blood gas to assess whether this is a true primary disorder or compensation for respiratory acidosis. If the patient is truly having significant metabolic alkalosis then this needs to be corrected with normal saline as above. We will await result of venous gas. 3. Hypertension. Blood pressure elevated with the patient only on diltiazem 30 mg q. 12 hours and Lasix. Should consider beta lupe, particularly carvedilol in patient with systolic dysfunction. 4. Congestive heart failure exacerbation. The patient reports being symptomatically improved with severe systolic dysfunction, EF of 25% on echo. While the patient needs to be maintained on adequate diuretic regimen, I would recommend significantly lower dose especially if the patient has normal renal function. The patient was currently only on 40 mg daily, can start 20 mg p.o. b.i.d. and if higher doses are needed. The patient will also benefit from RAAS blockade with SOO inhibitor/ARB and spironolactone at some point (need to wait until urine sodium close to normal before starting Aldactone as this will worsen the hyponatremia). 5. Electrolyte imbalances. The patient with hypokalemia and hypomagnesemia in the setting of extensive loop diuretic administration. Continue to replenish potassium with goal of level greater than 4 especially with the patient who is on digoxin (hypokalemia causes digoxin toxicity); also hypomagnesemia needs to be corrected without raising serum magnesium levels abruptly as this will result in renal magnesium wasting, should run magnesium at no greater than 1 g per hour. We will start p.o. magnesium oxide as well 400 mg b.i.d. Thank you for this interesting consult. We will continue to follow closely. Petr Mallory MD
[2017-08-27] MEDS ORDERED: Sodium Chloride 0.9% 1,000 ML IV SCH ×2 (06:30→15:15)
[2017-08-27 06:35] LABS: BASO # 0.1 K/uL (0.0-0.2); BASO % 0.5 % (0.0-2.0); EOS % 0.3 % (0.0-4.0); HEMATOCRIT 40.2 % (34.0-47.0); LYMPH # 1.7 K/uL (1.0-4.3); LYMPH % 15.5 % (20.0-40.0); MEAN CELL VOLUME 86.9 fL (81.0-99.0); MEAN CORPUSCULAR HEMOGLOBIN 29.3 pg (27.0-31.0); MEAN CORPUSCULAR HGB CONC 33.8 g/dL (33.0-37.0); MEAN PLATELET VOLUME 8.4 fL (7.2-11.7); MONO # 1.1 K/uL (0.0-0.8); MONO % 9.6 % (0.0-10.0); RED CELL DISTRIBUTION WIDTH 16.2 % (11.5-14.5); WHITE BLOOD COUNT 11.2 K/uL (4.8-10.8)
[2017-08-27 06:43] LABS: CHLORIDE 74 mmol/L (98-107); POTASSIUM 4.3 mmol/L (3.6-5.2); SODIUM 121 mmol/L (132-148)
[2017-08-27 06:45] LABS: ALB/GLOB RATIO 1.1 (1.0-2.1); AST/SGOT 40 U/L (14-36); BILIRUBIN,TOTAL 1.3 mg/dL (0.2-1.3); GFR AFRICAN-AMERICAN > 60; TOTAL PROTEIN 6.8 g/dL (6.3-8.3)
[2017-08-27 06:46] LABS: ALKALINE PHOSPHATASE 105 U/L (38-126); ALT/SGPT 159 U/L (9-52); BLOOD UREA NITROGEN 22 mg/dL (7-17); CALCIUM 8.9 mg/dl (8.6-10.4); GLUCOSE,RANDOM 129 mg/dL (65-105)
[2017-08-27 06:51] LABS: CARBON DIOXIDE 40 mmol/L (22-30)
[2017-08-27 07:17] LABS: THYROID STIMULATING HORMONE 4.36 mIU/L (0.46-4.68)
[2017-08-27] MEDS: (Novolin R) Insulin Human Regular 100 units/ml vial SC SCH ×4 (08:25→23:05)
[2017-08-27] MEDS: Potassium Chloride 20 mEq ER Tab PO SCH (08:43)
--- NOTE | 2017-08-27 09:01 | RAD ---
Chest x-ray single frontal view History: Congestive heart failure. Comparison: None available. Findings: Prominent diffuse increased interstitial lung markings throughout both lungs suggestive for moderate to severe venous congestion. More confluent consolidative changes in the right mid and lower lung zones as well as the left lower lung zone. Few scattered nodular densities throughout both lung gerardo. Cardiomegaly. Enlarged ectatic aorta with calcification at the aortic knob. Degenerative changes the spine and shoulders. Postsurgical changes of left shoulder. Impression: Prominent diffuse increased interstitial lung markings throughout both lungs suggestive for moderate to severe venous congestion. More confluent consolidative changes in the right mid and lower lung zones as well as the left lower lung zone. Few scattered nodular densities throughout both lung gerardo. Cardiomegaly. Enlarged ectatic aorta with calcification at the aortic knob.
[2017-08-27 09:20] LABS: MAGNESIUM 1.9 mg/dL (1.6-2.3); PHOSPHOROUS 3.2 mg/dL (2.5-4.5)
--- NOTE | 2017-08-27 09:43 | CP.PCM.PN ---
<Mercy Joy - Last Filed: 08/27/17 09:41> Subjective - Date & Time of Evaluation Date of Evaluation: 08/27/17 Time of Evaluation: 09:00 - Subjective Subjective: Pulmonology Note for Dr. Carlton's Service Patient seen and examined at bedside this morning. She was resting in bed comfortably but stating her nonproductive cough is still bothering her. No improvement. She is on NC a 4L/min. Denied fever, chills, headache, chest pain, SOB, cough abdominal pain, n/v/d/c, or urinary symptoms. Objective - Vital Signs/Intake and Output Vital Signs (last 24 hours): Temp Pulse Resp BP Pulse Ox 97.3 F L 80 20 142/91 H 92 L 08/27/17 04:36 08/27/17 04:36 08/27/17 04:36 08/27/17 04:36 08/26/17 23:30 Intake and Output: 08/27/17 08/27/17 06:59 18:59 Output Total 300 Balance -300 - Medications Medications: Current Medications Albuterol/Ipratropium (Duoneb 3 Mg/0.5 Mg (3 Ml) Ud) 3 ml INH RQ6 [facility] Last Admin: 08/27/17 07:29 Dose: 3 ml Aspirin (Aspirin Chewable) 81 mg PO DAILY [facility] Last Admin: 08/26/17 10:45 Dose: 81 mg Clopidogrel Bisulfate (Plavix) 75 mg PO DAILY [facility] Stop: 08/28/17 23:59 Last Admin: 08/26/17 10:42 Dose: 75 mg Digoxin (Lanoxin) 0.25 mg PO DAILY@1800 [facility] Last Admin: 08/26/17 18:06 Dose: 0.25 mg Diltiazem HCl (Cardizem) 30 mg PO Q12H [facility] Last Admin: 08/27/17 00:26 Dose: 30 mg Donepezil HCl (Aricept) 10 mg PO HS [facility] Last Admin: 08/26/17 21:23 Dose: 10 mg Enoxaparin Sodium (Lovenox) 70 mg SC Q12 [facility] Last Admin: 08/26/17 21:33 Dose: 70 mg Escitalopram Oxalate (Lexapro) 10 mg PO DAILY [facility] Last Admin: 08/26/17 10:50 Dose: 10 mg Famotidine (Pepcid) 20 mg PO DAILY [facility] Last Admin: 08/26/17 10:42 Dose: 20 mg Furosemide (Lasix) 40 mg IVP Q12H [facility] Last Admin: 08/26/17 13:31 Dose: 40 mg Sodium Chloride (Sodium Chloride 0.9%) 1,000 mls @ 75 mls/hr IV .[id number] [facility] Last Admin: 08/26/17 20:00 Dose: 75 mls/hr Insulin Human Regular (Novolin R) 0 unit SC ACHS [facility] PRN Reason: Protocol Last Admin: 08/27/17 08:25 Dose: Not Given Magnesium Oxide (Mag-Ox) 400 mg PO BID [facility] Last Admin: 08/26/17 18:06 Dose: 400 mg Potassium Chloride (K-Dur 20 Meq Er Tab) 40 meq PO BRK [facility] Last Admin: 08/27/17 08:43 Dose: 40 meq Potassium Chloride (K-Dur 20 Meq Er Tab) 20 meq PO ONCE ONE Stop: 08/27/17 12:01 Prednisone (Prednisone Tab) 40 mg PO DAILY [facility] Last Admin: 08/26/17 10:44 Dose: 40 mg Promethazine HCl (Phenergan Syrup) 12.5 mg PO Q6 PRN PRN Reason: Cough and congestion Last Admin: 08/21/17 11:04 Dose: 12.5 mg Saccharomyces Boulardii (Florastor) 250 mg PO BID [facility] Last Admin: 08/26/17 18:06 Dose: 250 mg - Labs Labs: 08/27/17 06:19 08/27/17 06:19 PT 12.2 SECONDS (9.7-12.2) 08/25/17 06:57 INR 1.1 08/25/17 06:57 APTT 33 SECONDS (21-34) 08/18/17 10:39 - Additional Findings Additional findings: - Constitutional Appears: Non-toxic, No Acute Distress, Chronically Ill - Respiratory Exam Respiratory Exam: Decreased Breath Sounds, NORMAL BREATHING PATTERN. absent: Accessory Muscle Use, Clear to Ausculation Bilateral, Rales, Rhonchi, Wheezes, Respiratory Distress - Cardiovascular Exam Cardiovascular Exam: REGULAR RHYTHM, +S1, +S2 - GI/Abdominal Exam GI & Abdominal Exam: Soft, Normal Bowel Sounds. absent: Distended, Firm, Guarding, Tenderness - Neurological Exam Neurological Exam: Alert, Awake, Oriented x3 - Psychiatric Exam Psychiatric exam: Normal Affect, Normal Mood - Skin Skin Exam: Dry, Intact, Normal Color, Warm Assessment and Plan - Assessment and Plan (Free Text) Assessment: 72 year old female with Hx HTN, CHF, afib, who presented with dyspnea and respiratory distresss, and NSTEMI with elevated troponins. Plan: (1) COPD with exacerbation Assessment & Plan: Duonebs Q6 [facility] Prednisone 40mg PO daily BIPAP as needed NC at 4 L/min continuous Recommendations: Continue with prednisone taper after discharge 30mg PO x 3 days , 20mg PO x 3 days, 10mg PO x 3 days Status: Acute (2) Pleural effusion Assessment & Plan: s/p thoracentesis on 08/24 - 100 cc slight serosanguinous fluid removed No enough fluid for analysis Chest CT - right sided effusion and atelectasis Status: Acute (3) Cough Assessment & Plan: Phenergan 12.5mg PO Q6 prn Cefepime 1 gram IVPB Q12 - started 08/21 stopped last dose 08/[address] - right sided effusion and atelectasis Status: Acute (4) CHF exacerbation Status: Acute (5) Elevated troponin Assessment & Plan: s/p cardiac cath 08/25/17 - As per Cardio: Two vessel disease (RCA and LCX) - patient can be discharged and follow up as outpatient with Dr. Drake in 1-2 and eval for PCI when more stable Status: Acute (6) Rapid atrial fibrillation Status: Acute Pulmonology will be signing off - Thank you for the interesting consult. Please re-consult if necessary. DW Rufino Babcock DO, PGY-1 <Marcell Carlton S - Last Filed: 08/27/17 15:16> Subjective - Date & Time of Evaluation Time of Evaluation: 10:20 Objective - Vital Signs/Intake and Output Vital Signs (last 24 hours): Temp Pulse Resp BP Pulse Ox 97.3 F L 80 20 142/91 H 92 L 08/27/17 04:36 08/27/17 04:36 08/27/17 04:36 08/27/17 04:36 08/26/17 23:30 Intake and Output: 08/27/17 08/27/17 06:59 18:59 Output Total 300 Balance -300 - Medications Medications: Current Medications Albuterol/Ipratropium (Duoneb 3 Mg/0.5 Mg (3 Ml) Ud) 3 ml INH RQ6 [facility] Last Admin: 08/27/17 13:27 Dose: Not Given Aspirin (Aspirin Chewable) 81 mg PO DAILY [facility] Last Admin: 08/27/17 11:05 Dose: 81 mg Clopidogrel Bisulfate (Plavix) 75 mg PO DAILY [facility] Stop: 08/28/17 23:59 Last Admin: 08/27/17 11:05 Dose: 75 mg Digoxin (Lanoxin) 0.25 mg PO DAILY@1800 [facility] Last Admin: 08/26/17 18:06 Dose: 0.25 mg Diltiazem HCl (Cardizem) 30 mg PO Q12H [facility] Last Admin: 08/27/17 11:21 Dose: 30 mg Donepezil HCl (Aricept) 10 mg PO HS [facility] Last Admin: 08/26/17 21:23 Dose: 10 mg Enoxaparin Sodium (Lovenox) 70 mg SC Q12 [facility] Last Admin: 08/27/17 11:05 Dose: 70 mg Escitalopram Oxalate (Lexapro) 10 mg PO DAILY [facility] Last Admin: 08/27/17 11:05 Dose: 10 mg Famotidine (Pepcid) 20 mg PO DAILY [facility] Last Admin: 08/27/17 11:05 Dose: 20 mg Furosemide (Lasix) 40 mg IVP Q12H [facility] Last Admin: 08/26/17 13:31 Dose: 40 mg Sodium Chloride (Sodium Chloride 0.9%) 1,000 mls @ 75 mls/hr IV .[id number] [facility] Last Admin: 08/26/17 20:00 Dose: 75 mls/hr Sodium Chloride (Sodium Chloride 0.9%) 1,000 mls @ 250 mls/hr IV .Q4H [facility] Stop: 08/27/17 17:16 Insulin Human Regular (Novolin R) 0 unit SC ACHS [facility] PRN Reason: Protocol Last Admin: 08/27/17 08:25 Dose: Not Given Magnesium Oxide (Mag-Ox) 400 mg PO BID [facility] Last Admin: 08/27/17 11:05 Dose: 400 mg Potassium Chloride (K-Dur 20 Meq Er Tab) 40 meq PO BRK [facility] Last Admin: 08/27/17 08:43 Dose: 40 meq Prednisone (Prednisone Tab) 40 mg PO DAILY [facility] Last Admin: 08/27/17 11:05 Dose: 40 mg Promethazine HCl (Phenergan Syrup) 12.5 mg PO Q6 PRN PRN Reason: Cough and congestion Last Admin: 08/21/17 11:04 Dose: 12.5 mg Saccharomyces Boulardii (Florastor) 250 mg PO BID [facility] Last Admin: 08/27/17 11:05 Dose: 250 mg - Labs Labs: 08/27/17 06:19 08/27/17 11:44 PT 12.2 SECONDS (9.7-12.2) 08/25/17 06:57 INR 1.1 08/25/17 06:57 APTT 33 SECONDS (21-34) 08/18/17 10:39 Assessment and Plan (1) COPD with exacerbation Status: Acute (2) CHF exacerbation Status: Acute (3) Elevated troponin Status: Acute (4) Rapid atrial fibrillation Status: Acute Attending/Attestation - Attestation I have personally seen and examined this patient.: Yes I have fully participated in the care of the patient.: Yes I have reviewed all pertinent clinical information, including history, physical exam and plan: Yes Notes (Text): 08/27/17 15:14 patient seen and examined. Breathing and cough much improved Status post cardiac catheter Continue nebulizer treatment, tapering dose of steroids Followup with PMD and pulmonary
--- NOTE | 2017-08-27 10:16 | CP.PCM.PN ---
<Karoline Guzman DO - Last Filed: 08/27/17 11:39> Subjective - Date & Time of Evaluation Date of Evaluation: 08/27/17 Time of Evaluation: 10:09 - Subjective Subjective: Cardiology progress note for Dr. Drake Patient seen and examined. Patient denies dizziness, chest pain, or dyspnea. Patient was [place] overnight, fell out of bed. Patient denies pain or LOC, head trauma. Patient noted to be hyponatremic but no change in mentation observed. Objective - Vital Signs/Intake and Output Vital Signs (last 24 hours): Temp Pulse Resp BP Pulse Ox 97.3 F L 80 20 142/91 H 92 L 08/27/17 04:36 08/27/17 04:36 08/27/17 04:36 08/27/17 04:36 08/26/17 23:30 Intake and Output: 08/27/17 08/27/17 06:59 18:59 Output Total 300 Balance -300 - Medications Medications: Current Medications Albuterol/Ipratropium (Duoneb 3 Mg/0.5 Mg (3 Ml) Ud) 3 ml INH RQ6 [facility] Last Admin: 08/27/17 07:29 Dose: 3 ml Aspirin (Aspirin Chewable) 81 mg PO DAILY [facility] Last Admin: 08/26/17 10:45 Dose: 81 mg Clopidogrel Bisulfate (Plavix) 75 mg PO DAILY [facility] Stop: 08/28/17 23:59 Last Admin: 08/26/17 10:42 Dose: 75 mg Digoxin (Lanoxin) 0.25 mg PO DAILY@1800 [facility] Last Admin: 08/26/17 18:06 Dose: 0.25 mg Diltiazem HCl (Cardizem) 30 mg PO Q12H [facility] Last Admin: 08/27/17 00:26 Dose: 30 mg Donepezil HCl (Aricept) 10 mg PO HS [facility] Last Admin: 08/26/17 21:23 Dose: 10 mg Enoxaparin Sodium (Lovenox) 70 mg SC Q12 [facility] Last Admin: 08/26/17 21:33 Dose: 70 mg Escitalopram Oxalate (Lexapro) 10 mg PO DAILY [facility] Last Admin: 08/26/17 10:50 Dose: 10 mg Famotidine (Pepcid) 20 mg PO DAILY [facility] Last Admin: 08/26/17 10:42 Dose: 20 mg Furosemide (Lasix) 40 mg IVP Q12H [facility] Last Admin: 08/26/17 13:31 Dose: 40 mg Sodium Chloride (Sodium Chloride 0.9%) 1,000 mls @ 75 mls/hr IV .[id number] [facility] Last Admin: 08/26/17 20:00 Dose: 75 mls/hr Insulin Human Regular (Novolin R) 0 unit SC ACHS [facility] PRN Reason: Protocol Last Admin: 08/27/17 08:25 Dose: Not Given Magnesium Oxide (Mag-Ox) 400 mg PO BID [facility] Last Admin: 08/26/17 18:06 Dose: 400 mg Potassium Chloride (K-Dur 20 Meq Er Tab) 40 meq PO BRK [facility] Last Admin: 08/27/17 08:43 Dose: 40 meq Potassium Chloride (K-Dur 20 Meq Er Tab) 20 meq PO ONCE ONE Stop: 08/27/17 12:01 Prednisone (Prednisone Tab) 40 mg PO DAILY [facility] Last Admin: 08/26/17 10:44 Dose: 40 mg Promethazine HCl (Phenergan Syrup) 12.5 mg PO Q6 PRN PRN Reason: Cough and congestion Last Admin: 08/21/17 11:04 Dose: 12.5 mg Saccharomyces Boulardii (Florastor) 250 mg PO BID [facility] Last Admin: 08/26/17 18:06 Dose: 250 mg - Labs Labs: 08/27/17 06:19 08/27/17 06:19 PT 12.2 SECONDS (9.7-12.2) 08/25/17 06:57 INR 1.1 08/25/17 06:57 APTT 33 SECONDS (21-34) 08/18/17 10:39 - Constitutional Appears: Non-toxic, No Acute Distress - Head Exam Head Exam: ATRAUMATIC, NORMOCEPHALIC - Eye Exam Eye Exam: EOMI - ENT Exam ENT Exam: Mucous Membranes Moist - Respiratory Exam Respiratory Exam: Decreased Breath Sounds (decreased inspiratory effort), Wheezes, NORMAL BREATHING PATTERN. absent: Respiratory Distress - Cardiovascular Exam Cardiovascular Exam: +S1, +S2 - GI/Abdominal Exam GI & Abdominal Exam: Soft, Normal Bowel Sounds. absent: Tenderness - Extremities Exam Additional comments: minimal pitting edema b/l - Neurological Exam Neurological Exam: Alert, Awake - Psychiatric Exam Psychiatric exam: Normal Affect - Skin Skin Exam: Warm Assessment and Plan - Assessment and Plan (Free Text) Assessment: 72 year old female with Hx HTN, CHF, afib, who presented with dyspnea and respiratory distresss, and NSTEMI with elevated troponins. NSTEMI s/p cardiac cath 08/25/17 - Two vessel disease (RCA and LCX) -patient can be discharged and follow up as outpatient with Dr. Drake in 1-2 and eval for PCI when more stable Patient will need to be medically optimized prior to PCI ECHO 08/19/17, EF 25% Atrial Fibrillation Rate controlled continue medical management Digoxin 0.25mg PO daily Cardizem 30mg PO Q12H Lovenox 70mg sc Q12 Chronic CHF with exacerbation continue medical management Daily In/Outs Lasix 40mg IVP Q12 Electrolyte imbalance hyponatremia elevated CO2 noted VBG 08/26 with pH 7.50 patient may require further pulm optimization Plan as per Dr. Drake <Mack Drake - Last Filed: 08/27/17 23:29> Objective - Vital Signs/Intake and Output Vital Signs (last 24 hours): Temp Pulse Resp BP Pulse Ox 97.4 F L 82 18 168/96 H 96 08/27/17 16:00 08/27/17 16:23 08/27/17 16:00 08/27/17 16:00 08/27/17 16:00 Intake and Output: 08/27/17 08/28/17 18:59 06:59 Intake Total 1350 Output Total 125 Balance 1225 - Medications Medications: Current Medications Albuterol/Ipratropium (Duoneb 3 Mg/0.5 Mg (3 Ml) Ud) 3 ml INH RQ6 [facility] Last Admin: 08/27/17 19:43 Dose: 3 ml Aspirin (Aspirin Chewable) 81 mg PO DAILY [facility] Last Admin: 08/27/17 11:05 Dose: 81 mg Clopidogrel Bisulfate (Plavix) 75 mg PO DAILY [facility] Stop: 08/28/17 23:59 Last Admin: 08/27/17 11:05 Dose: 75 mg Digoxin (Lanoxin) 0.25 mg PO DAILY@1800 [facility] Last Admin: 08/27/17 18:53 Dose: 0.25 mg Diltiazem HCl (Cardizem) 30 mg PO Q12H [facility] Last Admin: 08/27/17 11:21 Dose: 30 mg Donepezil HCl (Aricept) 10 mg PO HS [facility] Last Admin: 08/27/17 21:35 Dose: 10 mg Enoxaparin Sodium (Lovenox) 70 mg SC Q12 [facility] Last Admin: 08/27/17 21:34 Dose: 70 mg Escitalopram Oxalate (Lexapro) 10 mg PO DAILY [facility] Last Admin: 08/27/17 11:05 Dose: 10 mg Famotidine (Pepcid) 20 mg PO DAILY [facility] Last Admin: 08/27/17 11:05 Dose: 20 mg Furosemide (Lasix) 40 mg IVP Q12H [facility] Last Admin: 08/26/17 13:31 Dose: 40 mg Sodium Chloride (Sodium Chloride 0.9%) 1,000 mls @ 75 mls/hr IV .[id number] [facility] Last Admin: 08/26/17 20:00 Dose: 75 mls/hr Insulin Human Regular (Novolin R) 0 unit SC ACHS [facility] PRN Reason: Protocol Last Admin: 08/27/17 23:05 Dose: Not Given Magnesium Oxide (Mag-Ox) 400 mg PO BID [facility] Last Admin: 08/27/17 18:56 Dose: 400 mg Potassium Chloride (K-Dur 20 Meq Er Tab) 40 meq PO BRK [facility] Last Admin: 08/27/17 08:43 Dose: 40 meq Prednisone (Prednisone Tab) 40 mg PO DAILY [facility] Last Admin: 08/27/17 11:05 Dose: 40 mg Promethazine HCl (Phenergan Syrup) 12.5 mg PO Q6 PRN PRN Reason: Cough and congestion Last Admin: 08/21/17 11:04 Dose: 12.5 mg Saccharomyces Boulardii (Florastor) 250 mg PO BID [facility] Last Admin: 08/27/17 18:56 Dose: 250 mg - Labs Labs: 08/27/17 06:19 08/27/17 17:19 PT 12.2 SECONDS (9.7-12.2) 08/25/17 06:57 INR 1.1 08/25/17 06:57 APTT 33 SECONDS (21-34) 08/18/17 10:39 Assessment and Plan - Assessment and Plan (Free Text) Assessment: Patient seen and evaluated with the biomedical field service engineer Plan of care as documented
[2017-08-27] MEDS: Enoxaparin 80 mg Syringe SC SCH ×2 (11:05→21:34)
[2017-08-27] MEDS: Magnesium Oxide 400 mg Tab UD PO SCH ×2 (11:05→18:56)
[2017-08-27] MEDS: Saccharomyces Boulardi 250 mg Cap PO SCH ×2 (11:05→18:56)
--- NOTE | 2017-08-27 11:37 | CP.PCM.PN ---
<Mumtaz Carmen R - Last Filed: 08/27/17 11:33> Subjective - Date & Time of Evaluation Date of Evaluation: 08/27/17 Time of Evaluation: 09:30 - Subjective Subjective: PGY-[address] Rodriguez. Patient was seen and examined at bedside. She was lying comfortably in the left lateral decubitus position watching television. She reports feeling tired. She denies chest pain, shortness of breath, abdominal pain, diarrhea, fever, chills , nausea, vomiting. Objective - Vital Signs/Intake and Output Vital Signs (last 24 hours): Temp Pulse Resp BP Pulse Ox 97.3 F L 80 20 142/91 H 92 L 08/27/17 04:36 08/27/17 04:36 08/27/17 04:36 08/27/17 04:36 08/26/17 23:30 Intake and Output: 08/27/17 08/27/17 06:59 18:59 Output Total 300 Balance -300 - Medications Medications: Current Medications Albuterol/Ipratropium (Duoneb 3 Mg/0.5 Mg (3 Ml) Ud) 3 ml INH RQ6 [facility] Last Admin: 08/27/17 07:29 Dose: 3 ml Aspirin (Aspirin Chewable) 81 mg PO DAILY [facility] Last Admin: 08/27/17 11:05 Dose: 81 mg Clopidogrel Bisulfate (Plavix) 75 mg PO DAILY [facility] Stop: 08/28/17 23:59 Last Admin: 08/27/17 11:05 Dose: 75 mg Digoxin (Lanoxin) 0.25 mg PO DAILY@1800 [facility] Last Admin: 08/26/17 18:06 Dose: 0.25 mg Diltiazem HCl (Cardizem) 30 mg PO Q12H [facility] Last Admin: 08/27/17 11:21 Dose: 30 mg Donepezil HCl (Aricept) 10 mg PO HS [facility] Last Admin: 08/26/17 21:23 Dose: 10 mg Enoxaparin Sodium (Lovenox) 70 mg SC Q12 [facility] Last Admin: 08/27/17 11:05 Dose: 70 mg Escitalopram Oxalate (Lexapro) 10 mg PO DAILY [facility] Last Admin: 08/27/17 11:05 Dose: 10 mg Famotidine (Pepcid) 20 mg PO DAILY [facility] Last Admin: 08/27/17 11:05 Dose: 20 mg Furosemide (Lasix) 40 mg IVP Q12H [facility] Last Admin: 08/26/17 13:31 Dose: 40 mg Sodium Chloride (Sodium Chloride 0.9%) 1,000 mls @ 75 mls/hr IV .[id number] [facility] Last Admin: 08/26/17 20:00 Dose: 75 mls/hr Insulin Human Regular (Novolin R) 0 unit SC ACHS [facility] PRN Reason: Protocol Last Admin: 08/27/17 08:25 Dose: Not Given Magnesium Oxide (Mag-Ox) 400 mg PO BID [facility] Last Admin: 08/27/17 11:05 Dose: 400 mg Potassium Chloride (K-Dur 20 Meq Er Tab) 40 meq PO BRK [facility] Last Admin: 08/27/17 08:43 Dose: 40 meq Potassium Chloride (K-Dur 20 Meq Er Tab) 20 meq PO ONCE ONE Stop: 08/27/17 12:01 Last Admin: 08/27/17 11:21 Dose: 20 meq Prednisone (Prednisone Tab) 40 mg PO DAILY [facility] Last Admin: 08/27/17 11:05 Dose: 40 mg Promethazine HCl (Phenergan Syrup) 12.5 mg PO Q6 PRN PRN Reason: Cough and congestion Last Admin: 08/21/17 11:04 Dose: 12.5 mg Saccharomyces Boulardii (Florastor) 250 mg PO BID [facility] Last Admin: 08/27/17 11:05 Dose: 250 mg - Labs Labs: 08/27/17 06:19 08/27/17 06:19 PT 12.2 SECONDS (9.7-12.2) 08/25/17 06:57 INR 1.1 08/25/17 06:57 APTT 33 SECONDS (21-34) 08/18/17 10:39 - Additional Findings Additional findings: - Constitutional Appears: Well, No Acute Distress - Head Exam Head Exam: ATRAUMATIC, NORMAL INSPECTION - Eye Exam Eye Exam: EOMI - ENT Exam ENT Exam: Mucous Membranes Moist - Neck Exam Neck Exam: Normal Inspection - Respiratory Exam Respiratory Exam: Decreased Breath Sounds, NORMAL BREATHING PATTERN. absent: Rales, Rhonchi, Wheezes - Cardiovascular Exam Cardiovascular Exam: Tachycardia, Irregular Rhythm, RRR, +S1, +S2. absent: Murmur - GI/Abdominal Exam GI & Abdominal Exam: Soft, Normal Bowel Sounds. absent: Distended, Firm, Guarding, Rigid, Tenderness - Extremities Exam Extremities Exam: Normal Capillary Refill, Pedal Edema Additional comments: 1+ pitting edema up to shins bilaterally right radial dressing was clean/dry/intact - Neurological Exam Neurological Exam: Alert, Awake, Oriented x3 - Psychiatric Exam Psychiatric exam: Normal Affect, Normal Mood - Skin Skin Exam: Dry, Intact, Normal Color, Warm Additional comments: chronic ecchymotic lesions on arms bilaterally Assessment and Plan - Assessment and Plan (Free Text) Assessment: Hyponatremia Nephrology consulted, Dr Mallory Likely hypovolemic hyponatremia / lasix Stopped lasix 40mg IVP Q12 Normal Saline bolus 1L @ 250 cc/hr CHF and Right side pleural effusions Cardiology consulted - Dr. Drake s/p cardiac cath 08/25/17 - Two vessel disease (RCA and LCX) - Patient will need PCI when more stable s/p thoracentesis 08/24/17 - 100 cc slight serosanguinous fluid removed. f/u fluid analysis and cytology CT chest 08/21/17 shows she has a R moderate pleural effusion ECHO 08/19/17, EF 25%. May need further cardiology intervention including cardiac cath, life vest, or AICD. Daily In/Outs Lasix 40mg IVP Q12 NSTEMI/ Elevated Troponin: Cardiology consulted - Dr. Drake Cardiac cath planned for 08/25/17 Cardiac cath planned for 08/18/17 was cancelled due to patient's inability to lay down flat Atrial Fibrillation: Rate controlled Cardiology consulted - Dr. Drake Digoxin 0.25mg PO daily Cardizem 30mg PO Q12H Lovenox 70mg sc Q12 COPD Exacerbation: Possible pulmonary fibrosis, Her shortness of breath probably more from the pleural effusions. NC at 4 L/min continuous BiPAP as needed Prednisone 40mg po daily Duonebs Q6 [facility] Cefepime 1 gram iv Q12H started 08/21/17 Florastor 250mg po bid started 08/19/17 Pneumonia: CXR 08/19/17 suggestive of bilateral alveolar infiltrates Blood culture 08/18/17 negative up to date CT CHEST 08/21/17: small to medium size right-sided effusion and mild right basilar atelectasis. Additional mild atelectatic changes seen in both lung bases. Solumedrol 40mg IVP daily Cefepime 1 gram iv Q12H 08/21/17 Florastor 250mg po bid 08/19/17 Promethazine 12.5 mg po bid for cough Transaminitis LFTs elevated, trending down multifactorial - likely acute insult from ischemia 2/2 hypotension. Additional considerations: congestive hepatopathy 2/2 CHF decompensation, cholestasis 2/2 antibiotics GI consulted- Dr. Maria abdominal ultrasound 08/20/17 - no acute pathology, CBD 4mm negative hepatitis panel, APAP, ASA IgG, IgA, IgM all within normal range PATRICK, Anti-Mitochondrial Ab, Anti-smooth muscle Ab, Liver/Kid Microsomes Ab all negative HTN BP elevated Digoxin 0.25mg PO daily Cardizem 30mg PO Q12H Prophylaxis Lovenox 70mg sc Q12 Pepcid 20mg IVP q12h [facility] Healthy Diet Donepezil 10mg po hs Lexapro 10mg po qd <Huey Rodriguez - Last Filed: 08/27/17 14:00> Objective - Vital Signs/Intake and Output Vital Signs (last 24 hours): Temp Pulse Resp BP Pulse Ox 97.3 F L 80 20 142/91 H 92 L 08/27/17 04:36 08/27/17 04:36 08/27/17 04:36 08/27/17 04:36 08/26/17 23:30 Intake and Output: 08/27/17 08/27/17 06:59 18:59 Output Total 300 Balance -300 - Medications Medications: Current Medications Albuterol/Ipratropium (Duoneb 3 Mg/0.5 Mg (3 Ml) Ud) 3 ml INH RQ6 [facility] Last Admin: 08/27/17 13:27 Dose: Not Given Aspirin (Aspirin Chewable) 81 mg PO DAILY [facility] Last Admin: 08/27/17 11:05 Dose: 81 mg Clopidogrel Bisulfate (Plavix) 75 mg PO DAILY [facility] Stop: 08/28/17 23:59 Last Admin: 08/27/17 11:05 Dose: 75 mg Digoxin (Lanoxin) 0.25 mg PO DAILY@1800 [facility] Last Admin: 08/26/17 18:06 Dose: 0.25 mg Diltiazem HCl (Cardizem) 30 mg PO Q12H [facility] Last Admin: 08/27/17 11:21 Dose: 30 mg Donepezil HCl (Aricept) 10 mg PO HS [facility] Last Admin: 08/26/17 21:23 Dose: 10 mg Enoxaparin Sodium (Lovenox) 70 mg SC Q12 [facility] Last Admin: 08/27/17 11:05 Dose: 70 mg Escitalopram Oxalate (Lexapro) 10 mg PO DAILY [facility] Last Admin: 08/27/17 11:05 Dose: 10 mg Famotidine (Pepcid) 20 mg PO DAILY [facility] Last Admin: 08/27/17 11:05 Dose: 20 mg Furosemide (Lasix) 40 mg IVP Q12H [facility] Last Admin: 08/26/17 13:31 Dose: 40 mg Sodium Chloride (Sodium Chloride 0.9%) 1,000 mls @ 75 mls/hr IV .[id number] [facility] Last Admin: 08/26/17 20:00 Dose: 75 mls/hr Sodium Chloride (Sodium Chloride 0.9%) 250 mls @ 250 mls/hr IV .Q1H [facility] Stop: 08/27/17 14:29 Insulin Human Regular (Novolin R) 0 unit SC ACHS [facility] PRN Reason: Protocol Last Admin: 08/27/17 08:25 Dose: Not Given Magnesium Oxide (Mag-Ox) 400 mg PO BID [facility] Last Admin: 08/27/17 11:05 Dose: 400 mg Potassium Chloride (K-Dur 20 Meq Er Tab) 40 meq PO BRK [facility] Last Admin: 08/27/17 08:43 Dose: 40 meq Prednisone (Prednisone Tab) 40 mg PO DAILY [facility] Last Admin: 08/27/17 11:05 Dose: 40 mg Promethazine HCl (Phenergan Syrup) 12.5 mg PO Q6 PRN PRN Reason: Cough and congestion Last Admin: 08/21/17 11:04 Dose: 12.5 mg Saccharomyces Boulardii (Florastor) 250 mg PO BID [facility] Last Admin: 08/27/17 11:05 Dose: 250 mg - Labs Labs: 08/27/17 06:19 08/27/17 11:44 PT 12.2 SECONDS (9.7-12.2) 08/25/17 06:57 INR 1.1 08/25/17 06:57 APTT 33 SECONDS (21-34) 08/18/17 10:39 Attending/Attestation - Attestation I have personally seen and examined this patient.: Yes I have fully participated in the care of the patient.: Yes I have reviewed all pertinent clinical information, including history, physical exam and plan: Yes Notes (Text): Patient was seen and examined,No complain,She wants to know when she can go home. 1.Hyponatremia Nephrology consult Dr Mallory.As per nephrology she is hypovolemic Lasix held,on normal saline.repeat sodium is 119 we will follow nephrology recommendation and follow sodium closely 2.CHF -acute systolic heart failure and Right pleural effusion s/p cardiac cath 08/25/17 - Two vessel disease (RCA and LCX) - PCI as an out pt s/p thoracentesis ECHO 08/19/17, EF 25%. Lasix held.monitor closely on fluids 3.Aftrial fibrillation-rate controlled.continue cardizen and digoxin On Lovenox.Follwo cardio regarding anticoagulation 4.NSTMI-CAD on asprin and plavix,not on statin due to high LFT 5.COPDcontinue prednisone,duoneb,florastor,oxygen 6.pneumonia on antibiotics 7.Transaminitis-inproving 8.GI and DVT prophylaxis 9.fall -PT evaluation Patient was seen and examined .Discussed with resident.Agree with the documentation of the assessment and plan 08/27/17 13:59
[2017-08-27] MEDS ORDERED: Potassium Chloride 20 mEq ER Tab PO ONE (12:00)
[2017-08-27 12:06] LABS: CHLORIDE 76 mmol/L (98-107)
[2017-08-27 12:07] LABS: POTASSIUM 4.3 mmol/L (3.6-5.2)
[2017-08-27 12:09] LABS: GFR AFRICAN-AMERICAN > 60
[2017-08-27 12:10] LABS: BLOOD UREA NITROGEN 23 mg/dL (7-17); CALCIUM 8.4 mg/dl (8.6-10.4); CARBON DIOXIDE 37 mmol/L (22-30); GLUCOSE,RANDOM 135 mg/dL (65-105)
[2017-08-27 12:20] LABS: SODIUM 119 mmol/L (132-148)
[2017-08-27] MEDS ORDERED: Sodium Chloride 0.9% 250 ML IV ONE (13:30)
--- NOTE | 2017-08-27 14:47 | CP.PCM.PN ---
Subjective - Date & Time of Evaluation Date of Evaluation: 08/27/17 Time of Evaluation: 14:45 - Subjective Subjective: 72 yo F w/ systolic CHF, COPD, CAD, admitted with CHF exacerbation; nephrology following for progressive hyponatremia; Patient reporting 2 episodes of watery diarrhea today; denies nausea/vomiting; still with productive cough but denies worsening shortness of breath; Objective - Vital Signs/Intake and Output Vital Signs (last 24 hours): Temp Pulse Resp BP Pulse Ox 97.3 F L 80 20 142/91 H 92 L 08/27/17 04:36 08/27/17 04:36 08/27/17 04:36 08/27/17 04:36 08/26/17 23:30 Intake and Output: 08/27/17 08/27/17 06:59 18:59 Output Total 300 Balance -300 - Medications Medications: Current Medications Albuterol/Ipratropium (Duoneb 3 Mg/0.5 Mg (3 Ml) Ud) 3 ml INH RQ6 [facility] Last Admin: 08/27/17 13:27 Dose: Not Given Aspirin (Aspirin Chewable) 81 mg PO DAILY [facility] Last Admin: 08/27/17 11:05 Dose: 81 mg Clopidogrel Bisulfate (Plavix) 75 mg PO DAILY [facility] Stop: 08/28/17 23:59 Last Admin: 08/27/17 11:05 Dose: 75 mg Digoxin (Lanoxin) 0.25 mg PO DAILY@1800 [facility] Last Admin: 08/26/17 18:06 Dose: 0.25 mg Diltiazem HCl (Cardizem) 30 mg PO Q12H [facility] Last Admin: 08/27/17 11:21 Dose: 30 mg Donepezil HCl (Aricept) 10 mg PO HS [facility] Last Admin: 08/26/17 21:23 Dose: 10 mg Enoxaparin Sodium (Lovenox) 70 mg SC Q12 [facility] Last Admin: 08/27/17 11:05 Dose: 70 mg Escitalopram Oxalate (Lexapro) 10 mg PO DAILY [facility] Last Admin: 08/27/17 11:05 Dose: 10 mg Famotidine (Pepcid) 20 mg PO DAILY [facility] Last Admin: 08/27/17 11:05 Dose: 20 mg Furosemide (Lasix) 40 mg IVP Q12H [facility] Last Admin: 08/26/17 13:31 Dose: 40 mg Sodium Chloride (Sodium Chloride 0.9%) 1,000 mls @ 75 mls/hr IV .[id number] [facility] Last Admin: 08/26/17 20:00 Dose: 75 mls/hr Insulin Human Regular (Novolin R) 0 unit SC ACHS [facility] PRN Reason: Protocol Last Admin: 08/27/17 08:25 Dose: Not Given Magnesium Oxide (Mag-Ox) 400 mg PO BID [facility] Last Admin: 08/27/17 11:05 Dose: 400 mg Potassium Chloride (K-Dur 20 Meq Er Tab) 40 meq PO BRK [facility] Last Admin: 08/27/17 08:43 Dose: 40 meq Prednisone (Prednisone Tab) 40 mg PO DAILY [facility] Last Admin: 08/27/17 11:05 Dose: 40 mg Promethazine HCl (Phenergan Syrup) 12.5 mg PO Q6 PRN PRN Reason: Cough and congestion Last Admin: 08/21/17 11:04 Dose: 12.5 mg Saccharomyces Boulardii (Florastor) 250 mg PO BID [facility] Last Admin: 08/27/17 11:05 Dose: 250 mg - Labs Labs: 08/27/17 06:19 08/27/17 11:44 PT 12.2 SECONDS (9.7-12.2) 08/25/17 06:57 INR 1.1 08/25/17 06:57 APTT 33 SECONDS (21-34) 08/18/17 10:39 - Constitutional Appears: Non-toxic, No Acute Distress - Head Exam Head Exam: NORMAL INSPECTION - Eye Exam Eye Exam: Normal appearance. absent: Scleral icterus - ENT Exam ENT Exam: Mucous Membranes Moist - Respiratory Exam Respiratory Exam: Rales, Wheezes Additional comments: tachypneic, bilateral rales; moderate insp wheezes present; - Cardiovascular Exam Cardiovascular Exam: REGULAR RHYTHM, +S1, +S2 - GI/Abdominal Exam GI & Abdominal Exam: Soft. absent: Distended, Tenderness - Extremities Exam Additional comments: mild lower leg edema; - Neurological Exam Neurological Exam: Alert, Awake - Psychiatric Exam Psychiatric exam: Normal Affect, Normal Mood. absent: Agitated - Skin Skin Exam: Normal Color, Warm. absent: Cyanosis Assessment and Plan (1) Hyponatremia Assessment & Plan: Progressive and severe, in the setting of intravascular volume depletion, at least as being sensed by kidney (see profoundly low urine Na); question is whether this is due to over-diuresis or due to inadequate forward flow due to severe CHF; has still not received enough fluid to rule out the former (only received 500 cc this morning and last night's IVF were stopped) and has had daily negative fluid balances; will give another 500 cc NS over 2 hrs and re- assess; -repeat Ur Na and osm after 2nd bolus -if still no improvement, will consider dose of tolvaptan Status: Acute (2) CHF exacerbation Assessment & Plan: With severe systolic dysfunction; xray consistent with pulmonary vascular congestion; B-blockers may worsen COPD status but need to be given to optimize cardiac status; would hold off on starting SOO inhibitor/ARB until patient is volume replete (appears to be intravascularly volume depleted on labs); holding diuretics temporarily; Status: Acute (3) Metabolic alkalosis Assessment & Plan: Due to high doses of loop diuretics, currently held; should improve with IVF; once Na corrected, can start aldactone as well; Status: Acute (4) Hypertension Assessment & Plan: BP high/normal but is likely renin dependent and may drop precipitously if started on SOO inhibitor/ARB at this time; recommend starting B-lupe for now; Status: Chronic (5) COPD with exacerbation Status: Acute
[2017-08-27 17:35] LABS: CHLORIDE 77 mmol/L (98-107); POTASSIUM 5.1 mmol/L (3.6-5.2)
[2017-08-27 17:37] LABS: GFR AFRICAN-AMERICAN > 60
[2017-08-27 17:38] LABS: BLOOD UREA NITROGEN 22 mg/dL (7-17); CALCIUM 8.5 mg/dl (8.6-10.4); CARBON DIOXIDE 34 mmol/L (22-30); GLUCOSE,RANDOM 172 mg/dL (65-105)
[2017-08-27 17:45] LABS: SODIUM 119 mmol/L (132-148)
[2017-08-27] MEDS: Digoxin 250 mcg (0.25 mg) Tab PO SCH (18:53)
[2017-08-27] MEDS ORDERED: Tolvaptan 15 MG TAB PO ONE (21:00)
[2017-08-28] MEDS: Albuterol-Ipratrop 3 mg / 0.5 (3 ml) UD INH SCH ×4 (01:12→19:45)
[2017-08-28] MEDS: (Novolin R) Insulin Human Regular 100 units/ml vial SC SCH ×4 (07:49→21:33)
[2017-08-28 07:52] LABS: BASO % 0.1 % (0.0-2.0); EOS % 0.2 % (0.0-4.0); HEMATOCRIT 37.9 % (34.0-47.0); LYMPH % 12.8 % (20.0-40.0); MEAN CELL VOLUME 87.6 fL (81.0-99.0); MEAN CORPUSCULAR HEMOGLOBIN 29.4 pg (27.0-31.0); MEAN CORPUSCULAR HGB CONC 33.5 g/dL (33.0-37.0); MEAN PLATELET VOLUME 8.8 fL (7.2-11.7); MONO # 0.9 K/uL (0.0-0.8); MONO % 11.8 % (0.0-10.0); RED CELL DISTRIBUTION WIDTH 16.4 % (11.5-14.5); WHITE BLOOD COUNT 7.6 K/uL (4.8-10.8)
[2017-08-28 07:54] LABS: CHLORIDE 84 mmol/L (98-107)
[2017-08-28 07:55] LABS: POTASSIUM 4.6 mmol/L (3.6-5.2); SODIUM 123 mmol/L (132-148)
[2017-08-28 07:57] LABS: ALB/GLOB RATIO 1.4 (1.0-2.1); AST/SGOT 37 U/L (14-36); BILIRUBIN,TOTAL 1.3 mg/dL (0.2-1.3); BLOOD UREA NITROGEN 20 mg/dL (7-17); CARBON DIOXIDE 33 mmol/L (22-30); GFR AFRICAN-AMERICAN > 60; TOTAL PROTEIN 5.4 g/dL (6.3-8.3)
[2017-08-28 07:58] LABS: ALKALINE PHOSPHATASE 94 U/L (38-126); ALT/SGPT 108 U/L (9-52); CALCIUM 8.5 mg/dl (8.6-10.4); GLUCOSE,RANDOM 123 mg/dL (65-105)
[2017-08-28 08:08] LABS: CHLORIDE URINE 15 mmol/L (32-290)
[2017-08-28] MEDS: Potassium Chloride 20 mEq ER Tab PO SCH (08:25)
[2017-08-28] MEDS: Magnesium Oxide 400 mg Tab UD PO SCH ×2 (09:30→17:44)
--- NOTE | 2017-08-28 09:32 | RAD ---
HISTORY: worsening CHF? COMPARISON: No prior. FINDINGS: LUNGS: Mild pulmonary vascular congestive changes slightly improved from prior. Suspect the small bilateral effusions. PLEURA: As above. No pneumothorax apparent. CARDIOVASCULAR: Study. Heart remains enlarged unchanged OSSEOUS STRUCTURES: No significant abnormalities. VISUALIZED UPPER ABDOMEN: Normal. OTHER FINDINGS: None. IMPRESSION: Mild pulmonary vascular congestive changes slightly improved from prior. Suspect the small bilateral effusions.
[2017-08-28] MEDS: Saccharomyces Boulardi 250 mg Cap PO SCH ×2 (09:33→17:45)
[2017-08-28] MEDS: Enoxaparin 80 mg Syringe SC SCH (09:34)
--- NOTE | 2017-08-28 13:11 | CP.PCM.PN ---
<Mumtaz Carmen R - Last Filed: 08/28/17 14:27> Subjective - Date & Time of Evaluation Date of Evaluation: 08/28/17 Time of Evaluation: 13:08 - Subjective Subjective: PGY -[address] Rodriguez. Patient was seen and examined this AM at bedside. She was lying in the left lateral decubitus position watching tv. She said she was not having trouble breathing however per nurse, patient became very short of breath walking to the bathroom. She denied chest pain, abdominal pain, aches/pain, bleeding, nausea, vomiting, fever, chills, diarrhea. Objective - Vital Signs/Intake and Output Vital Signs (last 24 hours): Temp Pulse Resp BP Pulse Ox 97.5 F L 95 H 18 174/86 H 95 08/28/17 08:00 08/28/17 08:00 08/28/17 08:00 08/28/17 08:00 08/28/17 08:00 Intake and Output: 08/28/17 08/28/17 06:59 18:59 Intake Total 1350 Output Total 125 Balance 1225 - Medications Medications: Current Medications Albuterol/Ipratropium (Duoneb 3 Mg/0.5 Mg (3 Ml) Ud) 3 ml INH RQ6 [facility] Last Admin: 08/28/17 07:33 Dose: 3 ml Apixaban (Eliquis) 2.5 mg PO BID [facility] Aspirin (Aspirin Chewable) 81 mg PO DAILY [facility] Last Admin: 08/28/17 09:30 Dose: 81 mg Digoxin (Lanoxin) 0.25 mg PO DAILY@1800 [facility] Last Admin: 08/27/17 18:53 Dose: 0.25 mg Diltiazem HCl (Cardizem) 60 mg PO Q8H [facility] Donepezil HCl (Aricept) 10 mg PO HS [facility] Last Admin: 08/27/17 21:35 Dose: 10 mg Enoxaparin Sodium (Lovenox) 70 mg SC Q12 [facility] Last Admin: 08/28/17 09:34 Dose: 70 mg Escitalopram Oxalate (Lexapro) 10 mg PO DAILY [facility] Last Admin: 08/28/17 09:30 Dose: 10 mg Famotidine (Pepcid) 20 mg PO DAILY [facility] Last Admin: 08/28/17 09:32 Dose: 20 mg Furosemide (Lasix) 40 mg IVP Q12H [facility] Last Admin: 08/26/17 13:31 Dose: 40 mg Sodium Chloride (Sodium Chloride 0.9%) 1,000 mls @ 75 mls/hr IV .[id number] [facility] Last Admin: 08/26/17 20:00 Dose: 75 mls/hr Insulin Human Regular (Novolin R) 0 unit SC ACHS [facility] PRN Reason: Protocol Last Admin: 08/28/17 12:25 Dose: Not Given Magnesium Oxide (Mag-Ox) 400 mg PO BID [facility] Last Admin: 08/28/17 09:30 Dose: 400 mg Potassium Chloride (K-Dur 20 Meq Er Tab) 40 meq PO BRK [facility] Last Admin: 08/28/17 08:25 Dose: 40 meq Prednisone (Prednisone Tab) 40 mg PO DAILY [facility] Last Admin: 08/28/17 09:31 Dose: 40 mg Promethazine HCl (Phenergan Syrup) 12.5 mg PO Q6 PRN PRN Reason: Cough and congestion Last Admin: 08/21/17 11:04 Dose: 12.5 mg Saccharomyces Boulardii (Florastor) 250 mg PO BID [facility] Last Admin: 08/28/17 09:33 Dose: 250 mg - Labs Labs: 08/28/17 07:15 08/28/17 07:15 PT 12.2 SECONDS (9.7-12.2) 08/25/17 06:57 INR 1.1 08/25/17 06:57 APTT 33 SECONDS (21-34) 08/18/17 10:39 - Additional Findings Additional findings: - Constitutional Appears: Well, No Acute Distress - Head Exam Head Exam: ATRAUMATIC, NORMAL INSPECTION - Eye Exam Eye Exam: EOMI - ENT Exam ENT Exam: Mucous Membranes Moist - Neck Exam Neck Exam: Normal Inspection - Respiratory Exam Respiratory Exam: Decreased Breath Sounds, (+) bibasalar rales bilaterally, (+) wheezing R>L, NORMAL BREATHING PATTERN - Cardiovascular Exam Cardiovascular Exam: Tachycardia, Irregular Rhythm, RRR, +S1, +S2. absent: Murmur - GI/Abdominal Exam GI & Abdominal Exam: Soft, Normal Bowel Sounds. absent: Distended, Firm, Guarding, Rigid, Tenderness - Extremities Exam Extremities Exam: Normal Capillary Refill, Pedal Edema Additional comments: 1+ pitting edema up to shins bilaterally - Neurological Exam Neurological Exam: Alert, Awake, Oriented x3 - Psychiatric Exam Psychiatric exam: Normal Affect, Normal Mood - Skin Skin Exam: Dry, Intact, Normal Color, Warm Additional comments: chronic ecchymotic lesions on arms bilaterally Assessment and Plan - Assessment and Plan (Free Text) Assessment: Hyponatremia Nephrology consulted, Dr Mallory Likely hypovolemic hyponatremia 2/2 lasix Stopped lasix 40mg IVP Q12 Normal Saline bolus 1L @ 250 cc/hr Tolvaptan 15mg po once 08/27/17 CHF and Right side pleural effusions Cardiology consulted - Dr. Drake s/p cardiac cath 08/25/17 - Two vessel disease (RCA and LCX) - Patient will need PCI when more stable s/p thoracentesis 08/24/17 - 100 cc slight serosanguinous fluid removed. f/u fluid analysis and cytology CT chest 08/21/17 shows she has a R moderate pleural effusion ECHO 08/19/17, EF 25%. May need further cardiology intervention including cardiac cath, life vest, or AICD. Daily In/Outs Holding Lasix 40mg IVP Q12 due to hyponatremia NSTEMI/ Elevated Troponin: Cardiology consulted - Dr. Drake Cardiac cath planned for 08/25/17 Cardiac cath planned for 08/18/17 was cancelled due to patient's inability to lay down flat Atrial Fibrillation: Rate controlled Cardiology consulted - Dr. Drake Digoxin 0.25mg PO daily Cardizem 60mg PO Q8H Eliquis 2.5mg po bid started 08/28/17 Stopped Lovenox 70mg sc Q12 08/28/17 COPD Exacerbation: Possible pulmonary fibrosis, Her shortness of breath probably more from the pleural effusions. NC at 4 L/min continuous BiPAP as needed Prednisone 40mg po daily Duonebs Q6 [facility] Cefepime 1 gram iv Q12H started 08/21/17 Florastor 250mg po bid started 08/19/17 Pneumonia: CXR 08/19/17 suggestive of bilateral alveolar infiltrates Blood culture 08/18/17 negative up to date CT CHEST 08/21/17: small to medium size right-sided effusion and mild right basilar atelectasis. Additional mild atelectatic changes seen in both lung bases. Solumedrol 40mg IVP daily Cefepime 1 gram iv Q12H 08/21/17 Florastor 250mg po bid 08/19/17 Promethazine 12.5 mg po bid for cough Transaminitis LFTs elevated, trending down multifactorial - likely acute insult from ischemia 2/2 hypotension. Additional considerations: congestive hepatopathy 2/2 CHF decompensation, cholestasis 2/2 antibiotics GI consulted- Dr. Maria abdominal ultrasound 08/20/17 - no acute pathology, CBD 4mm negative hepatitis panel, APAP, ASA IgG, IgA, IgM all within normal range PATRICK, Anti-Mitochondrial Ab, Anti-smooth muscle Ab, Liver/Kid Microsomes Ab all negative HTN BP elevated Digoxin 0.25mg PO daily Cardizem 30mg PO Q12H Prophylaxis Lovenox 70mg sc Q12 Pepcid 20mg IVP q12h Heart Healthy Diet Donepezil 10mg po hs Lexapro 10mg po qd DISPOSITION: Patient lives at home however patient will need to go to rehab after discharge. She's had a previous stay at [facility]. <Huey Rodriguez - Last Filed: 08/29/17 09:23> Objective - Vital Signs/Intake and Output Vital Signs (last 24 hours): Temp Pulse Resp BP Pulse Ox 97.3 F L 96 H 20 148/79 97 08/29/17 08:05 08/29/17 08:05 08/29/17 08:05 08/29/17 08:05 08/29/17 08:05 Intake and Output: 08/29/17 08/29/17 06:59 18:59 Intake Total 240 Balance 240 - Medications Medications: Current Medications Albuterol/Ipratropium (Duoneb 3 Mg/0.5 Mg (3 Ml) Ud) 3 ml INH RQ6 [facility] Last Admin: 08/29/17 01:18 Dose: 3 ml Apixaban (Eliquis) 2.5 mg PO BID [facility] Last Admin: 08/28/17 17:45 Dose: 2.5 mg Aspirin (Aspirin Chewable) 81 mg PO DAILY [facility] Last Admin: 08/28/17 09:30 Dose: 81 mg Digoxin (Lanoxin) 0.25 mg PO DAILY@1800 [facility] Last Admin: 08/28/17 17:45 Dose: 0.25 mg Diltiazem HCl (Cardizem) 60 mg PO Q8H [facility] Last Admin: 08/29/17 05:41 Dose: 60 mg Donepezil HCl (Aricept) 10 mg PO HS [facility] Last Admin: 08/28/17 21:33 Dose: 10 mg Escitalopram Oxalate (Lexapro) 10 mg PO DAILY [facility] Last Admin: 08/28/17 09:30 Dose: 10 mg Famotidine (Pepcid) 20 mg PO DAILY [facility] Last Admin: 08/28/17 09:32 Dose: 20 mg Furosemide (Lasix) 40 mg IVP Q12H [facility] Last Admin: 08/26/17 13:31 Dose: 40 mg Insulin Human Regular (Novolin R) 0 unit SC ACHS [facility] PRN Reason: Protocol Last Admin: 08/29/17 08:19 Dose: 2 unit Magnesium Oxide (Mag-Ox) 400 mg PO BID [facility] Last Admin: 08/28/17 17:44 Dose: 400 mg Potassium Chloride (K-Dur 20 Meq Er Tab) 40 meq PO BRK [facility] Last Admin: 08/29/17 08:20 Dose: 40 meq Prednisone (Prednisone Tab) 40 mg PO DAILY [facility] Last Admin: 08/28/17 09:31 Dose: 40 mg Promethazine HCl (Phenergan Syrup) 12.5 mg PO Q6 PRN PRN Reason: Cough and congestion Last Admin: 08/29/17 05:44 Dose: 12.5 mg Saccharomyces Boulardii (Florastor) 250 mg PO BID [facility] Last Admin: 08/28/17 17:45 Dose: 250 mg Tolvaptan (Samsca) 15 mg PO DAILY@1800 [facility] Stop: 08/30/17 18:01 Last Admin: 08/28/17 19:36 Dose: 15 mg - Labs Labs: 08/29/17 07:19 08/29/17 07:19 PT 12.2 SECONDS (9.7-12.2) 08/25/17 06:57 INR 1.1 08/25/17 06:57 APTT 33 SECONDS (21-34) 08/18/17 10:39 Attending/Attestation - Attestation I have personally seen and examined this patient.: Yes I have fully participated in the care of the patient.: Yes I have reviewed all pertinent clinical information, including history, physical exam and plan: Yes Notes (Text): Patient was seen and examined this monring,no complain,Denies SOB,She wants to go home . D/W patient's son Tyrone Pringle at bed side this evening. She has no POA or HCP.No advance directives.Discussed about her heart and lung disease.He wants her to decide about advance directives.patient is undecided.She sgrees to go to rehab d/w staff.She was SOB while ambulating to bathroom 1.Hyponatremia Nephrology consult Dr Mallory.As per nephrology she is hypovolemic Lasix held,on normal saline.repeat sodium is 119 we will follow nephrology recommendation and follow sodium closely 2.CHF -acute systolic heart failure and Right pleural effusion s/p cardiac cath 08/25/17 - Two vessel disease (RCA and LCX) - PCI as an out pt s/p thoracentesis ECHO 08/19/17, EF 25%. Lasix held.monitor closely on fluids 3.Aftrial fibrillation-rate controlled.continue cardizen and digoxin d/w Dr Lu.started on Eliquis.increase the dose of cardizem we will start back on lasix 20mg 4.NSTMI-CAD on asprin and plavix,not on statin due to high LFT 5.COPDcontinue prednisone,duoneb,florastor,oxygen 6.pneumonia on antibiotics 7.Transaminitis-inproving 8.GI and DVT prophylaxis 9.fall -PT evaluation Patient was seen and examined .Discussed with resident.Agree with the documentation of the assessment and plan
--- NOTE | 2017-08-28 13:13 | CP.PCM.PN ---
Subjective - Date & Time of Evaluation Date of Evaluation: 08/28/17 Time of Evaluation: 12:25 - Subjective Subjective: Patient seen and examined. Still short of breath Still complaining of cough Afebrile Objective - Vital Signs/Intake and Output Vital Signs (last 24 hours): Temp Pulse Resp BP Pulse Ox 97.5 F L 95 H 18 174/86 H 95 08/28/17 08:00 08/28/17 08:00 08/28/17 08:00 08/28/17 08:00 08/28/17 08:00 Intake and Output: 08/28/17 08/28/17 06:59 18:59 Intake Total 1350 Output Total 125 Balance 1225 - Medications Medications: Current Medications Albuterol/Ipratropium (Duoneb 3 Mg/0.5 Mg (3 Ml) Ud) 3 ml INH RQ6 [facility] Last Admin: 08/28/17 07:33 Dose: 3 ml Apixaban (Eliquis) 2.5 mg PO BID [facility] Aspirin (Aspirin Chewable) 81 mg PO DAILY [facility] Last Admin: 08/28/17 09:30 Dose: 81 mg Digoxin (Lanoxin) 0.25 mg PO DAILY@1800 [facility] Last Admin: 08/27/17 18:53 Dose: 0.25 mg Diltiazem HCl (Cardizem) 60 mg PO Q8H [facility] Donepezil HCl (Aricept) 10 mg PO HS [facility] Last Admin: 08/27/17 21:35 Dose: 10 mg Enoxaparin Sodium (Lovenox) 70 mg SC Q12 [facility] Last Admin: 08/28/17 09:34 Dose: 70 mg Escitalopram Oxalate (Lexapro) 10 mg PO DAILY [facility] Last Admin: 08/28/17 09:30 Dose: 10 mg Famotidine (Pepcid) 20 mg PO DAILY [facility] Last Admin: 08/28/17 09:32 Dose: 20 mg Furosemide (Lasix) 40 mg IVP Q12H [facility] Last Admin: 08/26/17 13:31 Dose: 40 mg Sodium Chloride (Sodium Chloride 0.9%) 1,000 mls @ 75 mls/hr IV .[id number] [facility] Last Admin: 08/26/17 20:00 Dose: 75 mls/hr Insulin Human Regular (Novolin R) 0 unit SC [facility] PRN Reason: Protocol Last Admin: 08/28/17 12:25 Dose: Not Given Magnesium Oxide (Mag-Ox) 400 mg PO BID [facility] Last Admin: 08/28/17 09:30 Dose: 400 mg Potassium Chloride (K-Dur 20 Meq Er Tab) 40 meq PO BRK [facility] Last Admin: 08/28/17 08:25 Dose: 40 meq Prednisone (Prednisone Tab) 40 mg PO DAILY [facility] Last Admin: 08/28/17 09:31 Dose: 40 mg Promethazine HCl (Phenergan Syrup) 12.5 mg PO Q6 PRN PRN Reason: Cough and congestion Last Admin: 08/21/17 11:04 Dose: 12.5 mg Saccharomyces Boulardii (Florastor) 250 mg PO BID [facility] Last Admin: 08/28/17 09:33 Dose: 250 mg - Labs Labs: 08/28/17 07:15 08/28/17 07:15 PT 12.2 SECONDS (9.7-12.2) 08/25/17 06:57 INR 1.1 08/25/17 06:57 APTT 33 SECONDS (21-34) 08/18/17 10:39 - Head Exam Head Exam: ATRAUMATIC, NORMOCEPHALIC - ENT Exam ENT Exam: Mucous Membranes Moist - Neck Exam Neck Exam: Normal Inspection - Respiratory Exam Respiratory Exam: Decreased Breath Sounds - Cardiovascular Exam Cardiovascular Exam: Irregular Rhythm - GI/Abdominal Exam GI & Abdominal Exam: Soft, Normal Bowel Sounds Assessment and Plan (1) COPD with exacerbation Assessment & Plan: Continue prednisone and nebulizer treatme BiPAP as needed Continue antibiotics Chest x-ray reviewed Status: Acute (2) CHF exacerbation Status: Acute (3) Elevated troponin Status: Acute (4) Rapid atrial fibrillation Status: Acute
[2017-08-28] MEDS: Digoxin 250 mcg (0.25 mg) Tab PO SCH (17:45)
[2017-08-28] MEDS ORDERED: Tolvaptan 15 MG TAB PO SCH (18:00)
[2017-08-28] MEDS ORDERED: Tolvaptan 15 MG TAB PO ONE (21:00)
--- NOTE | 2017-08-28 22:45 | CP.PCM.PN ---
Objective - Vital Signs/Intake and Output Vital Signs (last 24 hours): Temp Pulse Resp BP Pulse Ox 97.3 F L 81 22 169/97 H 95 08/28/17 16:00 08/28/17 16:00 08/28/17 16:00 08/28/17 16:00 08/28/17 16:00 Intake and Output: 08/28/17 08/29/17 18:59 06:59 Intake Total 280 Balance 280 - Medications Medications: Current Medications Albuterol/Ipratropium (Duoneb 3 Mg/0.5 Mg (3 Ml) Ud) 3 ml INH RQ6 [facility] Last Admin: 08/28/17 19:45 Dose: 3 ml Apixaban (Eliquis) 2.5 mg PO BID [facility] Last Admin: 08/28/17 17:45 Dose: 2.5 mg Aspirin (Aspirin Chewable) 81 mg PO DAILY [facility] Last Admin: 08/28/17 09:30 Dose: 81 mg Digoxin (Lanoxin) 0.25 mg PO DAILY@1800 [facility] Last Admin: 08/28/17 17:45 Dose: 0.25 mg Diltiazem HCl (Cardizem) 60 mg PO Q8H [facility] Last Admin: 08/28/17 21:33 Dose: 60 mg Donepezil HCl (Aricept) 10 mg PO HS [facility] Last Admin: 08/28/17 21:33 Dose: 10 mg Escitalopram Oxalate (Lexapro) 10 mg PO DAILY [facility] Last Admin: 08/28/17 09:30 Dose: 10 mg Famotidine (Pepcid) 20 mg PO DAILY [facility] Last Admin: 08/28/17 09:32 Dose: 20 mg Furosemide (Lasix) 40 mg IVP Q12H [facility] Last Admin: 08/26/17 13:31 Dose: 40 mg Insulin Human Regular (Novolin R) 0 unit SC ACHS [facility] PRN Reason: Protocol Last Admin: 08/28/17 21:33 Dose: Not Given Magnesium Oxide (Mag-Ox) 400 mg PO BID [facility] Last Admin: 08/28/17 17:44 Dose: 400 mg Potassium Chloride (K-Dur 20 Meq Er Tab) 40 meq PO BRK [facility] Last Admin: 08/28/17 08:25 Dose: 40 meq Prednisone (Prednisone Tab) 40 mg PO DAILY [facility] Last Admin: 08/28/17 09:31 Dose: 40 mg Promethazine HCl (Phenergan Syrup) 12.5 mg PO Q6 PRN PRN Reason: Cough and congestion Last Admin: 08/21/17 11:04 Dose: 12.5 mg Saccharomyces Boulardii (Florastor) 250 mg PO BID [facility] Last Admin: 08/28/17 17:45 Dose: 250 mg Tolvaptan (Samsca) 15 mg PO DAILY@1800 [facility] Stop: 08/30/17 18:01 Last Admin: 08/28/17 19:36 Dose: 15 mg - Labs Labs: 08/28/17 07:15 08/28/17 07:15 PT 12.2 SECONDS (9.7-12.2) 08/25/17 06:57 INR 1.1 08/25/17 06:57 APTT 33 SECONDS (21-34) 08/18/17 10:39 Assessment and Plan (1) Hyponatremia Status: Acute (2) CHF exacerbation Status: Acute (3) Metabolic alkalosis Status: Acute (4) Hypertension Status: Chronic (5) COPD with exacerbation Status: Acute
[2017-08-29] MEDS: Albuterol-Ipratrop 3 mg / 0.5 (3 ml) UD INH SCH ×4 (01:18→20:06)
[2017-08-29] MEDS: Promethazine 12.5 mg/10 ml Syrup PO PRN (05:44)
[2017-08-29 07:30] LABS: BASO % 0.2 % (0.0-2.0); EOS % 0.2 % (0.0-4.0); HEMATOCRIT 41.7 % (34.0-47.0); LYMPH # 1.9 K/uL (1.0-4.3); LYMPH % 15.5 % (20.0-40.0); MEAN CELL VOLUME 88.7 fL (81.0-99.0); MEAN CORPUSCULAR HEMOGLOBIN 28.3 pg (27.0-31.0); MEAN CORPUSCULAR HGB CONC 31.9 g/dL (33.0-37.0); MEAN PLATELET VOLUME 8.7 fL (7.2-11.7); MONO # 1.1 K/uL (0.0-0.8); MONO % 8.9 % (0.0-10.0); NRBC % 0.1 % (0.0-2.0); RED CELL DISTRIBUTION WIDTH 16.5 % (11.5-14.5)
[2017-08-29 07:34] LABS: WHITE BLOOD COUNT 12.4 K/uL (4.8-10.8)
[2017-08-29 08:13] LABS: CHLORIDE 82 mmol/L (98-107); POTASSIUM 4.9 mmol/L (3.6-5.2); SODIUM 124 mmol/L (132-148)
[2017-08-29 08:15] LABS: ALB/GLOB RATIO 1.4 (1.0-2.1); ALKALINE PHOSPHATASE 106 U/L (38-126); AST/SGOT 34 U/L (14-36); BILIRUBIN,TOTAL 1.3 mg/dL (0.2-1.3); CARBON DIOXIDE 33 mmol/L (22-30); GFR AFRICAN-AMERICAN > 60; TOTAL PROTEIN 5.9 g/dL (6.3-8.3)
[2017-08-29 08:16] LABS: ALT/SGPT 109 U/L (9-52); BLOOD UREA NITROGEN 17 mg/dL (7-17); CALCIUM 8.7 mg/dl (8.6-10.4); GLUCOSE,RANDOM 128 mg/dL (65-105)
[2017-08-29] MEDS: (Novolin R) Insulin Human Regular 100 units/ml vial SC SCH ×4 (08:19→22:50)
[2017-08-29] MEDS: Potassium Chloride 20 mEq ER Tab PO SCH (08:20)
[2017-08-29] MEDS: Saccharomyces Boulardi 250 mg Cap PO SCH ×2 (10:52→18:11)
[2017-08-29] MEDS: Magnesium Oxide 400 mg Tab UD PO SCH ×2 (10:54→18:11)
[2017-08-29] MEDS: Tolvaptan 15 MG TAB PO SCH (10:55)
--- NOTE | 2017-08-29 11:06 | CP.PCM.PN ---
<Mumtaz Carmen R - Last Filed: 08/29/17 11:04> Subjective - Date & Time of Evaluation Date of Evaluation: 08/29/17 Time of Evaluation: 11:05 - Subjective Subjective: PGY-1 medicine note. Patient was seen and examined this AM at bedside. She was lying in the left lateral decubitus position watching tv. She denies shortness of breath however she undersells her discomfort. She is sicker than she lets on. She denied chest pain, abdominal pain, aches/pain, bleeding, nausea, vomiting, fever, chills, diarrhea. Objective - Vital Signs/Intake and Output Vital Signs (last 24 hours): Temp Pulse Resp BP Pulse Ox 97.3 F L 96 H 20 148/79 97 08/29/17 08:05 08/29/17 08:05 08/29/17 08:05 08/29/17 08:05 08/29/17 08:05 Intake and Output: 08/29/17 08/29/17 06:59 18:59 Intake Total 240 Balance 240 - Medications Medications: Current Medications Albuterol/Ipratropium (Duoneb 3 Mg/0.5 Mg (3 Ml) Ud) 3 ml INH RQ6 [facility] Last Admin: 08/29/17 10:40 Dose: Not Given Apixaban (Eliquis) 2.5 mg PO BID [facility] Last Admin: 08/28/17 17:45 Dose: 2.5 mg Aspirin (Aspirin Chewable) 81 mg PO DAILY [facility] Last Admin: 08/29/17 10:52 Dose: 81 mg Digoxin (Lanoxin) 0.25 mg PO DAILY@1800 [facility] Last Admin: 08/28/17 17:45 Dose: 0.25 mg Diltiazem HCl (Cardizem) 60 mg PO Q8H [facility] Last Admin: 08/29/17 05:41 Dose: 60 mg Donepezil HCl (Aricept) 10 mg PO HS [facility] Last Admin: 08/28/17 21:33 Dose: 10 mg Escitalopram Oxalate (Lexapro) 10 mg PO DAILY [facility] Last Admin: 08/29/17 10:55 Dose: 10 mg Famotidine (Pepcid) 20 mg PO DAILY [facility] Last Admin: 08/29/17 10:52 Dose: 20 mg Furosemide (Lasix) 40 mg IVP Q12H [facility] Last Admin: 08/26/17 13:31 Dose: 40 mg Insulin Human Regular (Novolin R) 0 unit SC ACHS [facility] PRN Reason: Protocol Last Admin: 08/29/17 08:19 Dose: 2 unit Magnesium Oxide (Mag-Ox) 400 mg PO BID [facility] Last Admin: 08/29/17 10:54 Dose: 400 mg Potassium Chloride (K-Dur 20 Meq Er Tab) 40 meq PO BRK [facility] Last Admin: 08/29/17 08:20 Dose: 40 meq Prednisone (Prednisone Tab) 40 mg PO DAILY [facility] Last Admin: 08/29/17 10:52 Dose: 40 mg Promethazine HCl (Phenergan Syrup) 12.5 mg PO Q6 PRN PRN Reason: Cough and congestion Last Admin: 08/29/17 05:44 Dose: 12.5 mg Saccharomyces Boulardii (Florastor) 250 mg PO BID [facility] Last Admin: 08/29/17 10:52 Dose: 250 mg Tolvaptan (Samsca) 30 mg PO DAILY [facility] Stop: 09/02/17 10:01 Last Admin: 08/29/17 10:55 Dose: 30 mg - Labs Labs: 08/29/17 07:19 08/29/17 07:19 PT 12.2 SECONDS (9.7-12.2) 08/25/17 06:57 INR 1.1 08/25/17 06:57 APTT 33 SECONDS (21-34) 08/18/17 10:39 - Additional Findings Additional findings: - Constitutional Appears: Well, No Acute Distress - Head Exam Head Exam: ATRAUMATIC, NORMAL INSPECTION - Eye Exam Eye Exam: EOMI - ENT Exam ENT Exam: Mucous Membranes Moist - Neck Exam Neck Exam: Normal Inspection - Respiratory Exam Respiratory Exam: Decreased Breath Sounds, (+) bibasalar rales bilaterally, (+) wheezing R>L, NORMAL BREATHING PATTERN - Cardiovascular Exam Cardiovascular Exam: Tachycardia, Irregular Rhythm, RRR, +S1, +S2. absent: Murmur - GI/Abdominal Exam GI & Abdominal Exam: Soft, Normal Bowel Sounds. absent: Distended, Firm, Guarding, Rigid, Tenderness - Extremities Exam Extremities Exam: Normal Capillary Refill, Pedal Edema Additional comments: 1+ pitting edema up to shins bilaterally - Neurological Exam Neurological Exam: Alert, Awake, Oriented x3 - Psychiatric Exam Psychiatric exam: Normal Affect, Normal Mood - Skin Skin Exam: Dry, Intact, Normal Color, Warm Additional comments: chronic ecchymotic lesions on arms bilaterally Assessment and Plan - Assessment and Plan (Free Text) Assessment: Hyponatremia Nephrology consulted, Dr Mallory Likely hypovolemic hyponatremia 2/2 lasix Stopped lasix 40mg IVP Q12 Normal Saline bolus 1L @ 250 cc/hr Tolvaptan 30mg po qd started 08/29/17, total 5 doses Tolvaptan 15mg po once 08/27/17 CHF and Right side pleural effusions Cardiology consulted - Dr. Drake s/p cardiac cath 08/25/17 - Two vessel disease (RCA and LCX) - Patient will need PCI when more stable s/p thoracentesis 08/24/17 - 100 cc slight serosanguinous fluid removed. f/u fluid analysis and cytology CT chest 08/21/17 shows she has a R moderate pleural effusion ECHO 08/19/17, EF 25%. May need further cardiology intervention including cardiac cath, life vest, or AICD. Daily In/Outs Holding Lasix 40mg IVP Q12 due to hyponatremia NSTEMI/ Elevated Troponin: Cardiology consulted - Dr. Drake Cardiac cath planned for 08/25/17 Cardiac cath planned for 08/18/17 was cancelled due to patient's inability to lay down flat Atrial Fibrillation: Rate controlled Cardiology consulted - Dr. Drake Digoxin 0.25mg PO daily Cardizem 60mg PO Q8H Eliquis 2.5mg po bid started 08/28/17 Stopped Lovenox 70mg sc Q12 08/28/17 COPD Exacerbation: Possible pulmonary fibrosis, Her shortness of breath probably more from the pleural effusions. NC at 4 L/min continuous BiPAP as needed Prednisone 40mg po daily Duonebs Q6 [facility] Cefepime 1 gram iv Q12H started 08/21/17 Florastor 250mg po bid started 08/19/17 Pneumonia: CXR 08/19/17 suggestive of bilateral alveolar infiltrates Blood culture 08/18/17 negative up to date CT CHEST 08/21/17: small to medium size right-sided effusion and mild right basilar atelectasis. Additional mild atelectatic changes seen in both lung bases. Solumedrol 40mg IVP daily Cefepime 1 gram iv Q12H 08/21/17 Florastor 250mg po bid 08/19/17 Promethazine 12.5 mg po bid for cough Transaminitis LFTs elevated, trending down multifactorial - likely acute insult from ischemia 2/2 hypotension. Additional considerations: congestive hepatopathy 2/2 CHF decompensation, cholestasis 2/2 antibiotics GI consulted- Dr. Maria abdominal ultrasound 08/20/17 - no acute pathology, CBD 4mm negative hepatitis panel, APAP, ASA IgG, IgA, IgM all within normal range PATRICK, Anti-Mitochondrial Ab, Anti-smooth muscle Ab, Liver/Kid Microsomes Ab all negative HTN BP elevated Digoxin 0.25mg PO daily Cardizem 30mg PO Q12H Prophylaxis Lovenox 70mg sc Q12 Pepcid 20mg IVP q12h Heart Healthy Diet Donepezil 10mg po hs Lexapro 10mg po qd DISPOSITION: Patient lives at home however patient will need to go to rehab after discharge. She's had a previous stay at [facility]. <Huey Rodriguez - Last Filed: 08/30/17 12:20> Objective - Vital Signs/Intake and Output Vital Signs (last 24 hours): Temp Pulse Resp BP Pulse Ox 97.5 F L 73 18 173/83 H 98 08/30/17 07:50 08/30/17 07:50 08/30/17 07:50 08/30/17 12:13 08/30/17 07:50 Intake and Output: 08/30/17 08/30/17 06:59 18:59 Intake Total 480 Balance 480 - Medications Medications: Current Medications Albuterol/Ipratropium (Duoneb 3 Mg/0.5 Mg (3 Ml) Ud) 3 ml INH RQ6 [facility] Last Admin: 08/30/17 07:24 Dose: Not Given Apixaban (Eliquis) 2.5 mg PO BID [facility] Last Admin: 08/30/17 09:54 Dose: 2.5 mg Aspirin (Aspirin Chewable) 81 mg PO DAILY [facility] Last Admin: 08/30/17 09:54 Dose: 81 mg Digoxin (Lanoxin) 0.25 mg PO DAILY@1800 [facility] Last Admin: 08/29/17 18:11 Dose: 0.25 mg Diltiazem HCl (Cardizem) 60 mg PO Q8H [facility] Donepezil HCl (Aricept) 10 mg PO HS [facility] Last Admin: 08/29/17 22:45 Dose: 10 mg Escitalopram Oxalate (Lexapro) 10 mg PO DAILY [facility] Last Admin: 08/30/17 09:54 Dose: 10 mg Famotidine (Pepcid) 20 mg PO DAILY [facility] Last Admin: 08/30/17 09:54 Dose: 20 mg Furosemide (Lasix) 20 mg PO DAILY [facility] Last Admin: 08/30/17 12:13 Dose: 20 mg Insulin Human Regular (Novolin R) 0 unit SC ACHS [facility] PRN Reason: Protocol Last Admin: 08/30/17 07:59 Dose: Not Given Lisinopril (Zestril) 2.5 mg PO DAILY [facility] Last Admin: 08/30/17 12:13 Dose: 2.5 mg Magnesium Oxide (Mag-Ox) 400 mg PO BID [facility] Last Admin: 08/30/17 09:54 Dose: 400 mg Potassium Chloride (K-Dur 20 Meq Er Tab) 40 meq PO BRK [facility] Last Admin: 08/30/17 09:15 Dose: 40 meq Prednisone (Prednisone Tab) 40 mg PO DAILY [facility] Last Admin: 08/30/17 09:54 Dose: 40 mg Promethazine HCl (Phenergan Syrup) 12.5 mg PO Q6 PRN PRN Reason: Cough and congestion Last Admin: 08/29/17 05:44 Dose: 12.5 mg Saccharomyces Boulardii (Florastor) 250 mg PO BID [facility] Last Admin: 08/30/17 09:54 Dose: 250 mg Tolvaptan (Samsca) 30 mg PO DAILY [facility] Stop: 09/02/17 10:01 Last Admin: 08/30/17 09:54 Dose: 30 mg - Labs Labs: 08/30/17 08:26 08/30/17 08:26 PT 12.2 SECONDS (9.7-12.2) 08/25/17 06:57 INR 1.1 08/25/17 06:57 APTT 33 SECONDS (21-34) 08/18/17 10:39 Attending/Attestation - Attestation I have personally seen and examined this patient.: Yes I have fully participated in the care of the patient.: Yes I have reviewed all pertinent clinical information, including history, physical exam and plan: Yes Notes (Text): The patient was seen and examined this morning,no complain this monring d/w Discussion with pt's son Tyrone Pringle She has no POA or HCP.No advance directives.Discussed about her heart and lung disease.He wants her to decide about advance directives.patient is undecided.She sgrees to go to rehab d/w staff.She was SOB while ambulating to bathroom 1.Hyponatremia followed by Dr Mallory closely on [facility],Keep her in the hospital this weekend,monitor sodium 2.CHF -acute systolic heart failure and Right pleural effusion s/p cardiac cath 08/25/17 - Two vessel disease (RCA and LCX) - PCI as an out pt s/p thoracentesis ECHO 08/19/17, EF 25%. Lasix hold 3.Aftrial fibrillation-rate controlled.continue cardizen and digoxin d/w Dr Lu.started on Eliquis.increase the dose of cardizem we will start back on lasix 20mg may be tomorrow 4.NSTMI-CAD on asprin and plavix,not on statin due to high LFT 5.COPDcontinue prednisone,duoneb,florastor,oxygen 6.pneumonia on antibiotics 7.Transaminitis-inproving 8.GI and DVT prophylaxis 9.fall -PT evaluation Patient was seen and examined . I agree with the documentation of the assessment and plan
--- NOTE | 2017-08-29 11:25 | CP.PCM.PN ---
Subjective - Date & Time of Evaluation Date of Evaluation: 08/29/17 Time of Evaluation: 11:22 - Subjective Subjective: 72 yo F w/ htn, CHF (w/ severe systolic dysfunction), afib and COPD, admitted with CHF exacerbation; Patient reports breathing improved today; tolerating diet; able to lie flat; Objective - Vital Signs/Intake and Output Vital Signs (last 24 hours): Temp Pulse Resp BP Pulse Ox 97.3 F L 96 H 20 148/79 97 08/29/17 08:05 08/29/17 08:05 08/29/17 08:05 08/29/17 08:05 08/29/17 08:05 Intake and Output: 08/29/17 08/29/17 06:59 18:59 Intake Total 240 Balance 240 - Medications Medications: Current Medications Albuterol/Ipratropium (Duoneb 3 Mg/0.5 Mg (3 Ml) Ud) 3 ml INH RQ6 [facility] Last Admin: 08/29/17 10:40 Dose: Not Given Apixaban (Eliquis) 2.5 mg PO BID [facility] Last Admin: 08/28/17 17:45 Dose: 2.5 mg Aspirin (Aspirin Chewable) 81 mg PO DAILY [facility] Last Admin: 08/29/17 10:52 Dose: 81 mg Digoxin (Lanoxin) 0.25 mg PO DAILY@1800 [facility] Last Admin: 08/28/17 17:45 Dose: 0.25 mg Diltiazem HCl (Cardizem) 60 mg PO Q8H [facility] Last Admin: 08/29/17 05:41 Dose: 60 mg Donepezil HCl (Aricept) 10 mg PO HS [facility] Last Admin: 08/28/17 21:33 Dose: 10 mg Escitalopram Oxalate (Lexapro) 10 mg PO DAILY [facility] Last Admin: 08/29/17 10:55 Dose: 10 mg Famotidine (Pepcid) 20 mg PO DAILY [facility] Last Admin: 08/29/17 10:52 Dose: 20 mg Furosemide (Lasix) 40 mg IVP Q12H [facility] Last Admin: 08/26/17 13:31 Dose: 40 mg Insulin Human Regular (Novolin R) 0 unit SC ACHS [facility] PRN Reason: Protocol Last Admin: 08/29/17 08:19 Dose: 2 unit Magnesium Oxide (Mag-Ox) 400 mg PO BID [facility] Last Admin: 08/29/17 10:54 Dose: 400 mg Potassium Chloride (K-Dur 20 Meq Er Tab) 40 meq PO BRK [facility] Last Admin: 08/29/17 08:20 Dose: 40 meq Prednisone (Prednisone Tab) 40 mg PO DAILY [facility] Last Admin: 08/29/17 10:52 Dose: 40 mg Promethazine HCl (Phenergan Syrup) 12.5 mg PO Q6 PRN PRN Reason: Cough and congestion Last Admin: 08/29/17 05:44 Dose: 12.5 mg Saccharomyces Boulardii (Florastor) 250 mg PO BID [facility] Last Admin: 08/29/17 10:52 Dose: 250 mg Tolvaptan (Samsca) 30 mg PO DAILY [facility] Stop: 09/02/17 10:01 Last Admin: 08/29/17 10:55 Dose: 30 mg - Labs Labs: 08/29/17 07:19 08/29/17 07:19 PT 12.2 SECONDS (9.7-12.2) 08/25/17 06:57 INR 1.1 08/25/17 06:57 APTT 33 SECONDS (21-34) 08/18/17 10:39 - Constitutional Appears: Non-toxic, No Acute Distress - Head Exam Head Exam: NORMAL INSPECTION - Eye Exam Eye Exam: Normal appearance. absent: Scleral icterus - ENT Exam ENT Exam: Mucous Membranes Moist - Respiratory Exam Additional comments: diffuse mild exp and insp wheezes; no resp distress; - Cardiovascular Exam Cardiovascular Exam: Irregular Rhythm, +S1, +S2 - GI/Abdominal Exam GI & Abdominal Exam: Distended, Soft. absent: Tenderness - Extremities Exam Additional comments: mild lower leg edema; - Neurological Exam Neurological Exam: Alert, Awake - Psychiatric Exam Psychiatric exam: Normal Affect, Normal Mood. absent: Agitated - Skin Skin Exam: Warm. absent: Cyanosis Assessment and Plan (1) Hyponatremia Assessment & Plan: Marked hyponatremia in the setting of CHF and persistently low urine Na with no improvement with intravascular volume expansion is indicative of inadequate forward flow due to severe CHF; some improvement seen after initiating tolvaptan ; overall, hyponatremia in the setting of CHF is indicative of poor prognosis; -will increase tolvaptan to 30 mg daily -SSRI may be contributing to hyponatremia, consider discontinuing Status: Acute (2) CHF exacerbation Assessment & Plan: With severe systolic dysfunction; not on B-lupe due to COPD exacerbation; symptoms improved since increasing cardizem dose; CXR reportedly showing improving vascular congestion though diuretics on hold; on digoxin as well; can consider starting lisinopril 2.5 mg daily to help optimize cardiac status ( should increase gradually as BP may drop precipitously); can start low dose lasix 20 mg PO bid; Status: Acute (3) Metabolic alkalosis Assessment & Plan: Primary metabolic alkalosis due to intravascular volume contraction from loop diuretics, improved with IVF; also superimposed compensatory alkalosis for hypercapnea; -start aldactone 12.5 mg daily once serum Na reaches 130; Status: Acute (4) Hypertension Assessment & Plan: 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
--- NOTE | 2017-08-29 13:36 | CP.PCM.PN ---
Subjective - Date & Time of Evaluation Date of Evaluation: 08/28/17 Time of Evaluation: 11:10 - Subjective Subjective: Patient seen and evaluated Dtill has dyspnea Denies chest pain and fever Physical Examination - Constitutional Appears: Non-toxic, No Acute Distress - Head Exam Head Exam: ATRAUMATIC, NORMOCEPHALIC - Eye Exam Eye Exam: EOMI - ENT Exam ENT Exam: Mucous Membranes Moist - Respiratory Exam Respiratory Exam: Decreased Breath Sounds (decreased inspiratory effort), Wheezes, NORMAL BREATHING PATTERN. absent: Respiratory Distress - Cardiovascular Exam Cardiovascular Exam: +S1, +S2 - GI/Abdominal Exam GI & Abdominal Exam: Soft, Normal Bowel Sounds. absent: Tenderness - Extremities Exam Additional comments: minimal pitting edema b/l - Neurological Exam Neurological Exam: Alert, Awake - Psychiatric Exam Psychiatric exam: Normal Affect - Skin Skin Exam: Warm Objective - Vital Signs/Intake and Output Vital Signs (last 24 hours): Temp Pulse Resp BP Pulse Ox 97.3 F L 96 H 20 148/79 97 08/29/17 08:05 08/29/17 08:05 08/29/17 08:05 08/29/17 08:05 08/29/17 08:05 Intake and Output: 08/29/17 08/29/17 06:59 18:59 Intake Total 240 Balance 240 - Medications Medications: Current Medications Albuterol/Ipratropium (Duoneb 3 Mg/0.5 Mg (3 Ml) Ud) 3 ml INH RQ6 [facility] Last Admin: 08/29/17 10:40 Dose: Not Given Apixaban (Eliquis) 2.5 mg PO BID [facility] Last Admin: 08/29/17 11:20 Dose: 2.5 mg Aspirin (Aspirin Chewable) 81 mg PO DAILY [facility] Last Admin: 08/29/17 10:52 Dose: 81 mg Digoxin (Lanoxin) 0.25 mg PO DAILY@1800 [facility] Last Admin: 08/28/17 17:45 Dose: 0.25 mg Diltiazem HCl (Cardizem) 60 mg PO Q8H [facility] Last Admin: 08/29/17 05:41 Dose: 60 mg Donepezil HCl (Aricept) 10 mg PO HS [facility] Last Admin: 08/28/17 21:33 Dose: 10 mg Escitalopram Oxalate (Lexapro) 10 mg PO DAILY [facility] Last Admin: 08/29/17 10:55 Dose: 10 mg Famotidine (Pepcid) 20 mg PO DAILY [facility] Last Admin: 08/29/17 10:52 Dose: 20 mg Furosemide (Lasix) 40 mg IVP Q12H [facility] Last Admin: 08/26/17 13:31 Dose: 40 mg Insulin Human Regular (Novolin R) 0 unit SC ACHS [facility] PRN Reason: Protocol Last Admin: 08/29/17 08:19 Dose: 2 unit Magnesium Oxide (Mag-Ox) 400 mg PO BID [facility] Last Admin: 08/29/17 10:54 Dose: 400 mg Potassium Chloride (K-Dur 20 Meq Er Tab) 40 meq PO BRK [facility] Last Admin: 08/29/17 08:20 Dose: 40 meq Prednisone (Prednisone Tab) 40 mg PO DAILY [facility] Last Admin: 08/29/17 10:52 Dose: 40 mg Promethazine HCl (Phenergan Syrup) 12.5 mg PO Q6 PRN PRN Reason: Cough and congestion Last Admin: 08/29/17 05:44 Dose: 12.5 mg Saccharomyces Boulardii (Florastor) 250 mg PO BID [facility] Last Admin: 08/29/17 10:52 Dose: 250 mg Tolvaptan (Samsca) 30 mg PO DAILY [facility] Stop: 09/02/17 10:01 Last Admin: 08/29/17 10:55 Dose: 30 mg - Labs Labs: 08/29/17 07:19 08/29/17 07:19 PT 12.2 SECONDS (9.7-12.2) 08/25/17 06:57 INR 1.1 08/25/17 06:57 APTT 33 SECONDS (21-34) 08/18/17 10:39 Assessment and Plan - Assessment and Plan (Free Text) Assessment: s/p Non STEMI NSTEMI s/p cardiac cath 08/25/17 - Two Non critical Stable CAD (RCA and LCX) -patient can be discharged and follow up as outpatient with Dr. Drake in 1-2 and eval for PCI when more stable ECHO 08/19/17, EF 25% ASA 81 daily Atrial Fibrillation Rate controlled continue medical management Digoxin 0.25mg PO daily Cardizem 30mg PO Q12H Eliquis 2.5 po bid Chronic CHF with exacerbation continue medical management Daily In/Outs Lasix 20 po daily Consider adding SOO I if ok from renal Can't tolerate B blockers. ok to continue Cardizem Electrolyte imbalance hyponatremia elevated CO2 noted VBG 08/26 with pH 7.50 patient may require further pulm optimization
[2017-08-29] MEDS: Digoxin 250 mcg (0.25 mg) Tab PO SCH (18:11)
[2017-08-29 18:13] VITALS: PULSE 82
--- NOTE | 2017-08-29 22:49 | CP.PCM.PN ---
Subjective - Date & Time of Evaluation Date of Evaluation: 08/29/17 Time of Evaluation: 14:20 Objective - Vital Signs/Intake and Output Vital Signs (last 24 hours): Temp Pulse Resp BP Pulse Ox 97.7 F 85 20 160/97 H 96 08/29/17 15:24 08/29/17 16:00 08/29/17 15:24 08/29/17 15:24 08/29/17 15:24 Intake and Output: 08/29/17 08/30/17 18:59 06:59 Intake Total 240 Balance 240 - Medications Medications: Current Medications Albuterol/Ipratropium (Duoneb 3 Mg/0.5 Mg (3 Ml) Ud) 3 ml INH RQ6 [facility] Last Admin: 08/29/17 20:06 Dose: 3 ml Apixaban (Eliquis) 2.5 mg PO BID [facility] Last Admin: 08/29/17 18:12 Dose: 2.5 mg Aspirin (Aspirin Chewable) 81 mg PO DAILY [facility] Last Admin: 08/29/17 10:52 Dose: 81 mg Digoxin (Lanoxin) 0.25 mg PO DAILY@1800 [facility] Last Admin: 08/29/17 18:11 Dose: 0.25 mg Diltiazem HCl (Cardizem) 60 mg PO Q8H [facility] Last Admin: 08/29/17 21:30 Dose: 60 mg Donepezil HCl (Aricept) 10 mg PO HS [facility] Last Admin: 08/29/17 22:45 Dose: 10 mg Escitalopram Oxalate (Lexapro) 10 mg PO DAILY [facility] Last Admin: 08/29/17 10:55 Dose: 10 mg Famotidine (Pepcid) 20 mg PO DAILY [facility] Last Admin: 08/29/17 10:52 Dose: 20 mg Furosemide (Lasix) 40 mg IVP Q12H [facility] Last Admin: 08/26/17 13:31 Dose: 40 mg Insulin Human Regular (Novolin R) 0 unit SC ACHS [facility] PRN Reason: Protocol Last Admin: 08/29/17 17:00 Dose: 2 unit Magnesium Oxide (Mag-Ox) 400 mg PO BID [facility] Last Admin: 08/29/17 18:11 Dose: 400 mg Potassium Chloride (K-Dur 20 Meq Er Tab) 40 meq PO BRK [facility] Last Admin: 08/29/17 08:20 Dose: 40 meq Prednisone (Prednisone Tab) 40 mg PO DAILY [facility] Last Admin: 08/29/17 10:52 Dose: 40 mg Promethazine HCl (Phenergan Syrup) 12.5 mg PO Q6 PRN PRN Reason: Cough and congestion Last Admin: 08/29/17 05:44 Dose: 12.5 mg Saccharomyces Boulardii (Florastor) 250 mg PO BID [facility] Last Admin: 08/29/17 18:11 Dose: 250 mg Tolvaptan (Samsca) 30 mg PO DAILY [facility] Stop: 09/02/17 10:01 Last Admin: 08/29/17 10:55 Dose: 30 mg - Labs Labs: 08/29/17 07:19 08/29/17 07:19 PT 12.2 SECONDS (9.7-12.2) 08/25/17 06:57 INR 1.1 08/25/17 06:57 APTT 33 SECONDS (21-34) 08/18/17 10:39
--- NOTE | 2017-08-30 00:59 | CP.PCM.PN ---
<Mack Galvez - Last Filed: 08/30/17 00:57> Subjective - Date & Time of Evaluation Date of Evaluation: 08/30/17 Time of Evaluation: 00:57 - Subjective Subjective: Medicine Progress Note HPI: Patient seen and examined at bedside. Doing well with no complaints at this time. resting comfortably Objective - Vital Signs/Intake and Output Vital Signs (last 24 hours): Temp Pulse Resp BP Pulse Ox 97.7 F 85 20 160/97 H 96 08/29/17 15:24 08/29/17 16:00 08/29/17 15:24 08/29/17 15:24 08/29/17 15:24 Intake and Output: 08/29/17 08/30/17 18:59 06:59 Intake Total 240 480 Balance 240 480 - Medications Medications: Current Medications Albuterol/Ipratropium (Duoneb 3 Mg/0.5 Mg (3 Ml) Ud) 3 ml INH RQ6 [facility] Last Admin: 08/29/17 20:06 Dose: 3 ml Apixaban (Eliquis) 2.5 mg PO BID [facility] Last Admin: 08/29/17 18:12 Dose: 2.5 mg Aspirin (Aspirin Chewable) 81 mg PO DAILY [facility] Last Admin: 08/29/17 10:52 Dose: 81 mg Digoxin (Lanoxin) 0.25 mg PO DAILY@1800 [facility] Last Admin: 08/29/17 18:11 Dose: 0.25 mg Diltiazem HCl (Cardizem) 60 mg PO Q8H [facility] Last Admin: 08/29/17 21:30 Dose: 60 mg Donepezil HCl (Aricept) 10 mg PO HS [facility] Last Admin: 08/29/17 22:45 Dose: 10 mg Escitalopram Oxalate (Lexapro) 10 mg PO DAILY [facility] Last Admin: 08/29/17 10:55 Dose: 10 mg Famotidine (Pepcid) 20 mg PO DAILY [facility] Last Admin: 08/29/17 10:52 Dose: 20 mg Furosemide (Lasix) 40 mg IVP Q12H [facility] Last Admin: 08/26/17 13:31 Dose: 40 mg Insulin Human Regular (Novolin R) 0 unit SC ACHS [facility] PRN Reason: Protocol Last Admin: 08/29/17 22:50 Dose: Not Given Magnesium Oxide (Mag-Ox) 400 mg PO BID [facility] Last Admin: 08/29/17 18:11 Dose: 400 mg Potassium Chloride (K-Dur 20 Meq Er Tab) 40 meq PO BRK [facility] Last Admin: 08/29/17 08:20 Dose: 40 meq Prednisone (Prednisone Tab) 40 mg PO DAILY [facility] Last Admin: 08/29/17 10:52 Dose: 40 mg Promethazine HCl (Phenergan Syrup) 12.5 mg PO Q6 PRN PRN Reason: Cough and congestion Last Admin: 08/29/17 05:44 Dose: 12.5 mg Saccharomyces Boulardii (Florastor) 250 mg PO BID [facility] Last Admin: 08/29/17 18:11 Dose: 250 mg Tolvaptan (Samsca) 30 mg PO DAILY [facility] Stop: 09/02/17 10:01 Last Admin: 08/29/17 10:55 Dose: 30 mg - Labs Labs: 08/29/17 07:19 08/29/17 07:19 PT 12.2 SECONDS (9.7-12.2) 08/25/17 06:57 INR 1.1 08/25/17 06:57 APTT 33 SECONDS (21-34) 08/18/17 10:39 - Additional Findings Additional findings: - Constitutional Appears: Well, No Acute Distress - Head Exam Head Exam: ATRAUMATIC, NORMAL INSPECTION - Eye Exam Eye Exam: EOMI - ENT Exam ENT Exam: Mucous Membranes Moist - Neck Exam Neck Exam: Normal Inspection - Respiratory Exam Respiratory Exam: Decreased Breath Sounds, (+) bibasalar rales bilaterally, (+) wheezing R>L, NORMAL BREATHING PATTERN - Cardiovascular Exam Cardiovascular Exam: Tachycardia, Irregular Rhythm, RRR, +S1, +S2. absent: Murmur - GI/Abdominal Exam GI & Abdominal Exam: Soft, Normal Bowel Sounds. absent: Distended, Firm, Guarding, Rigid, Tenderness - Extremities Exam Extremities Exam: Normal Capillary Refill, Pedal Edema Additional comments: 1+ pitting edema up to shins bilaterally - Neurological Exam Neurological Exam: Alert, Awake, Oriented x3 - Psychiatric Exam Psychiatric exam: Normal Affect, Normal Mood - Skin Skin Exam: Dry, Intact, Normal Color, Warm Additional comments: chronic ecchymotic lesions on arms bilaterally Assessment and Plan - Assessment and Plan (Free Text) Assessment: Hyponatremia Nephrology consulted, Dr Mallory Likely hypovolemic hyponatremia 2/2 lasix Stopped lasix 40mg IVP Q12 Normal Saline bolus 1L @ 250 cc/hr Tolvaptan 30mg po qd started 08/29/17, total 5 doses Tolvaptan 15mg po once 08/27/17 CHF and Right side pleural effusions Cardiology consulted - Dr. Drake s/p cardiac cath 08/25/17 - Two vessel disease (RCA and LCX) - Patient will need PCI when more stable s/p thoracentesis 08/24/17 - 100 cc slight serosanguinous fluid removed. f/u fluid analysis and cytology CT chest 08/21/17 shows she has a R moderate pleural effusion ECHO 08/19/17, EF 25%. May need further cardiology intervention including cardiac cath, life vest, or AICD. Daily In/Outs Holding Lasix 40mg IVP Q12 due to hyponatremia NSTEMI/ Elevated Troponin: Cardiology consulted - Dr. Drake Cardiac cath planned for 08/25/17 Cardiac cath planned for 08/18/17 was cancelled due to patient's inability to lay down flat Atrial Fibrillation: Rate controlled Cardiology consulted - Dr. Drake Digoxin 0.25mg PO daily Cardizem 60mg PO Q8H Eliquis 2.5mg po bid started 08/28/17 Stopped Lovenox 70mg sc Q12 08/28/17 COPD Exacerbation: Possible pulmonary fibrosis, Her shortness of breath probably more from the pleural effusions. NC at 4 L/min continuous BiPAP as needed Prednisone 40mg po daily Duonebs Q6 [facility] Cefepime 1 gram iv Q12H started 08/21/17 Florastor 250mg po bid started 08/19/17 Pneumonia: CXR 08/19/17 suggestive of bilateral alveolar infiltrates Blood culture 08/18/17 negative up to date CT CHEST 08/21/17: small to medium size right-sided effusion and mild right basilar atelectasis. Additional mild atelectatic changes seen in both lung bases. Solumedrol 40mg IVP daily Cefepime 1 gram iv Q12H 08/21/17 Florastor 250mg po bid 08/19/17 Promethazine 12.5 mg po bid for cough Transaminitis LFTs elevated, trending down multifactorial - likely acute insult from ischemia 2/2 hypotension. Additional considerations: congestive hepatopathy 2/2 CHF decompensation, cholestasis 2/2 antibiotics GI consulted- Dr. Maria abdominal ultrasound 08/20/17 - no acute pathology, CBD 4mm negative hepatitis panel, APAP, ASA IgG, IgA, IgM all within normal range PATRICK, Anti-Mitochondrial Ab, Anti-smooth muscle Ab, Liver/Kid Microsomes Ab all negative HTN BP elevated Digoxin 0.25mg PO daily Cardizem 30mg PO Q12H Prophylaxis Lovenox 70mg sc Q12 Pepcid 20mg IVP q12h Heart Healthy Diet Donepezil 10mg po hs Lexapro 10mg po qd DISPOSITION: Patient lives at home however patient will need to go to rehab after discharge. She's had a previous stay at [place] [facility]. <Huey Rodriguez - Last Filed: 08/30/17 12:22> Objective - Vital Signs/Intake and Output Vital Signs (last 24 hours): Temp Pulse Resp BP Pulse Ox 97.5 F L 73 18 155/75 H 98 08/30/17 07:50 08/30/17 07:50 08/30/17 07:50 08/30/17 07:50 08/30/17 07:50 Intake and Output: 08/30/17 08/30/17 06:59 18:59 Intake Total 480 Balance 480 - Medications Medications: Current Medications Albuterol/Ipratropium (Duoneb 3 Mg/0.5 Mg (3 Ml) Ud) 3 ml INH RQ6 [facility] Last Admin: 08/30/17 07:24 Dose: Not Given Apixaban (Eliquis) 2.5 mg PO BID [facility] Last Admin: 08/30/17 09:54 Dose: 2.5 mg Aspirin (Aspirin Chewable) 81 mg PO DAILY [facility] Last Admin: 08/30/17 09:54 Dose: 81 mg Digoxin (Lanoxin) 0.25 mg PO DAILY@1800 [facility] Last Admin: 08/29/17 18:11 Dose: 0.25 mg Diltiazem HCl (Cardizem) 60 mg PO Q8H [facility] Donepezil HCl (Aricept) 10 mg PO HS [facility] Last Admin: 08/29/17 22:45 Dose: 10 mg Escitalopram Oxalate (Lexapro) 10 mg PO DAILY [facility] Last Admin: 08/30/17 09:54 Dose: 10 mg Famotidine (Pepcid) 20 mg PO DAILY [facility] Last Admin: 08/30/17 09:54 Dose: 20 mg Furosemide (Lasix) 20 mg PO DAILY [facility] Insulin Human Regular (Novolin R) 0 unit SC ACHS [facility] PRN Reason: Protocol Last Admin: 08/30/17 07:59 Dose: Not Given Lisinopril (Zestril) 2.5 mg PO DAILY [facility] Magnesium Oxide (Mag-Ox) 400 mg PO BID [facility] Last Admin: 08/30/17 09:54 Dose: 400 mg Potassium Chloride (K-Dur 20 Meq Er Tab) 40 meq PO BRK [facility] Last Admin: 08/30/17 09:15 Dose: 40 meq Prednisone (Prednisone Tab) 40 mg PO DAILY [facility] Last Admin: 08/30/17 09:54 Dose: 40 mg Promethazine HCl (Phenergan Syrup) 12.5 mg PO Q6 PRN PRN Reason: Cough and congestion Last Admin: 08/29/17 05:44 Dose: 12.5 mg Saccharomyces Boulardii (Florastor) 250 mg PO BID [facility] Last Admin: 08/30/17 09:54 Dose: 250 mg Tolvaptan (Samsca) 30 mg PO DAILY [facility] Stop: 09/02/17 10:01 Last Admin: 08/30/17 09:54 Dose: 30 mg - Labs Labs: 08/30/17 08:26 08/30/17 08:26 PT 12.2 SECONDS (9.7-12.2) 08/25/17 06:57 INR 1.1 08/25/17 06:57 APTT 33 SECONDS (21-34) 08/18/17 10:39 Attending/Attestation - Attestation I have personally seen and examined this patient.: Yes I have fully participated in the care of the patient.: Yes I have reviewed all pertinent clinical information, including history, physical exam and plan: Yes Notes (Text): Patient was seen and examined,no complain,sitting talking on the phone. The patient was seen and examined this morning,no complain this monring d/w Discussion with pt's son Tyrone Pringle She has no POA or HCP.No advance directives.Discussed about her heart and lung disease.He wants her to decide about advance directives.patient is undecided.She sgrees to go to rehab d/w staff.She was SOB while ambulating to bathroom 1.Hyponatremia followed by Dr Mallory closely on [facility],Keep her in the hospital this weekend,monitor sodium 2.CHF -acute systolic heart failure and Right pleural effusion s/p cardiac cath 08/25/17 - Two vessel disease (RCA and LCX) - PCI as an out pt s/p thoracentesis ECHO 08/19/17, EF 25%. Lasix 20mg daily 3.Aftrial fibrillation-rate controlled.continue cardizen and digoxin d/w Dr Lu.started on Eliquis.increase the dose of cardizem on lasix and lisinopril 4.NSTMI-CAD on asprin and plavix,not on statin due to high LFT 5.COPDcontinue prednisone,duoneb,florastor,oxygen 6.pneumonia on antibiotics 7.Transaminitis-inproving 8.GI and DVT prophylaxis 9.fall -PT evaluation I agree with the documentation of the assessment and plan
[2017-08-30] MEDS: Albuterol-Ipratrop 3 mg / 0.5 (3 ml) UD INH SCH ×3 (01:29→13:47)
[2017-08-30] MEDS: (Novolin R) Insulin Human Regular 100 units/ml vial SC SCH ×4 (07:59→23:12)
[2017-08-30 08:40] LABS: BASO % 0.1 % (0.0-2.0); EOS % 0.3 % (0.0-4.0); HEMATOCRIT 36.5 % (34.0-47.0); LYMPH # 1.6 K/uL (1.0-4.3); LYMPH % 18.9 % (20.0-40.0); MEAN CELL VOLUME 87.6 fL (81.0-99.0); MEAN CORPUSCULAR HGB CONC 33.2 g/dL (33.0-37.0); MEAN PLATELET VOLUME 8.5 fL (7.2-11.7); MONO # 0.8 K/uL (0.0-0.8); MONO % 9.6 % (0.0-10.0); RED CELL DISTRIBUTION WIDTH 16.3 % (11.5-14.5); WHITE BLOOD COUNT 8.3 K/uL (4.8-10.8)
[2017-08-30 08:43] LABS: CHLORIDE 86 mmol/L (98-107); POTASSIUM 4.3 mmol/L (3.6-5.2); SODIUM 124 mmol/L (132-148)
[2017-08-30 08:46] LABS: GFR AFRICAN-AMERICAN > 60
[2017-08-30 08:47] LABS: ALB/GLOB RATIO 1.4 (1.0-2.1); ALKALINE PHOSPHATASE 83 U/L (38-126); ALT/SGPT 77 U/L (9-52); AST/SGOT 26 U/L (14-36); BLOOD UREA NITROGEN 19 mg/dL (7-17); CALCIUM 8.4 mg/dl (8.6-10.4); CARBON DIOXIDE 32 mmol/L (22-30); GLUCOSE,RANDOM 96 mg/dL (65-105)
[2017-08-30] MEDS: Potassium Chloride 20 mEq ER Tab PO SCH (09:15)
--- NOTE | 2017-08-30 09:47 | CARDCATH ---
PROCEDURE DATE: 08/25/2017 PROCEDURES: 1. Coronary angiogram. 2. Left ventricular angiography. 3. Radiological supervision and radiological interpretation of the left ventricular angiogram and coronary angiogram. REFERRING PHYSICIAN: 1. Solis Shirley DO 2. Shiv Munoz MD. PERFORMING PHYSICIAN: Mack Drake MD CLINICAL INDICATIONS: 1. Angina. 2. Non-ST elevation myocardial infarction. 3. Hypertension. 4. Hyperlipidemia. 5. Coronary artery disease. 6. Atrial fibrillation. 7. Chronic kidney disease. 8. Chronic obstructive lung disease. PROCEDURE: After informed consent, the patient was prepped and draped in the usual sterile fashion. 2% lidocaine was given in the right wrist for local anesthesia. Using micropuncture technique, 6-Tongan sheath was introduced into right radial artery. A 6-Tongan JR4 diagnostic catheter engaged into the right coronary artery. Contrast injected and right coronary angiogram was performed. 5 Tong[place] catheter engaged into left main coronary artery. Contrast injected and left coronary angiogram was performed. A 6-Tongan JR4 diagnostic catheter inserted into the left ventricle across the aortic valve. Contrast injected and LV angiogram was performed. LV pressures and pressure gradient across the aortic valve was measured. The patient tolerated procedure well. Postprocedure Terumo radial band applied to right wrist with excellent hemostasis. FINDINGS: 1. Left main coronary artery is patent. 2. Proximal LAD, distal LAD, and diagonal branches are patent. Mid LAD has 40% nonobstructive stenosis. 3. Left circumflex coronary artery has a 90% distal stenosis. Obtuse marginal 2 branch has a 70% stenosis. 4. Mid right coronary artery has a 60 to 70% stenosis. Proximal right coronary artery, distal right coronary artery and PDA branches are patent. 5. LV pressures are measured, but however LV angiogram was not done due to chronic kidney disease. IMPRESSION: 1. Stable 2 vessel coronary artery disease. 2. Recommend coronary intervention once the patient is more stable. Mack Drake MD
[2017-08-30] MEDS: Magnesium Oxide 400 mg Tab UD PO SCH ×2 (09:54→18:11)
[2017-08-30] MEDS: Tolvaptan 15 MG TAB PO SCH (09:54)
[2017-08-30] MEDS: Saccharomyces Boulardi 250 mg Cap PO SCH ×2 (09:54→18:11)
--- NOTE | 2017-08-30 14:23 | CP.PCM.PN ---
Objective - Vital Signs/Intake and Output Vital Signs (last 24 hours): Temp Pulse Resp BP Pulse Ox 97.5 F L 73 18 173/83 H 98 08/30/17 07:50 08/30/17 07:50 08/30/17 07:50 08/30/17 12:13 08/30/17 07:50 Intake and Output: 08/30/17 08/30/17 06:59 18:59 Intake Total 480 Balance 480 - Medications Medications: Current Medications Albuterol/Ipratropium (Duoneb 3 Mg/0.5 Mg (3 Ml) Ud) 3 ml INH RQ6 [facility] Last Admin: 08/30/17 13:47 Dose: 3 ml Apixaban (Eliquis) 2.5 mg PO BID [facility] Last Admin: 08/30/17 09:54 Dose: 2.5 mg Aspirin (Aspirin Chewable) 81 mg PO DAILY [facility] Last Admin: 08/30/17 09:54 Dose: 81 mg Digoxin (Lanoxin) 0.25 mg PO DAILY@1800 [facility] Last Admin: 08/29/17 18:11 Dose: 0.25 mg Diltiazem HCl (Cardizem) 60 mg PO Q8H [facility] Last Admin: 08/30/17 12:16 Dose: 60 mg Donepezil HCl (Aricept) 10 mg PO HS [facility] Last Admin: 08/29/17 22:45 Dose: 10 mg Escitalopram Oxalate (Lexapro) 10 mg PO DAILY [facility] Last Admin: 08/30/17 09:54 Dose: 10 mg Famotidine (Pepcid) 20 mg PO DAILY [facility] Last Admin: 08/30/17 09:54 Dose: 20 mg Furosemide (Lasix) 20 mg PO DAILY [facility] Last Admin: 08/30/17 12:13 Dose: 20 mg Insulin Human Regular (Novolin R) 0 unit SC ACHS [facility] PRN Reason: Protocol Last Admin: 08/30/17 12:18 Dose: Not Given Lisinopril (Zestril) 2.5 mg PO DAILY [facility] Last Admin: 08/30/17 12:13 Dose: 2.5 mg Magnesium Oxide (Mag-Ox) 400 mg PO BID [facility] Last Admin: 08/30/17 09:54 Dose: 400 mg Potassium Chloride (K-Dur 20 Meq Er Tab) 40 meq PO BRK [facility] Last Admin: 08/30/17 09:15 Dose: 40 meq Prednisone (Prednisone Tab) 40 mg PO DAILY [facility] Last Admin: 08/30/17 09:54 Dose: 40 mg Promethazine HCl (Phenergan Syrup) 12.5 mg PO Q6 PRN PRN Reason: Cough and congestion Last Admin: 08/29/17 05:44 Dose: 12.5 mg Saccharomyces Boulardii (Florastor) 250 mg PO BID [facility] Last Admin: 08/30/17 09:54 Dose: 250 mg Tolvaptan (Samsca) 30 mg PO DAILY [facility] Stop: 09/02/17 10:01 Last Admin: 08/30/17 09:54 Dose: 30 mg - Labs Labs: 08/30/17 08:26 08/30/17 08:26 PT 12.2 SECONDS (9.7-12.2) 08/25/17 06:57 INR 1.1 08/25/17 06:57 APTT 33 SECONDS (21-34) 08/18/17 10:39 Assessment and Plan (1) COPD with exacerbation Status: Acute (2) CHF exacerbation Status: Acute (3) Elevated troponin Status: Acute (4) Rapid atrial fibrillation Status: Acute
--- NOTE | 2017-08-30 23:38 | CP.PCM.PN ---
Subjective - Date & Time of Evaluation Date of Evaluation: 08/30/17 Time of Evaluation: 17:45 - Subjective Subjective: Patient seen and evaluated Medications adjusted due to bradycardia Patient feels better and wants to go home Objective - Vital Signs/Intake and Output Vital Signs (last 24 hours): Temp Pulse Resp BP Pulse Ox 97.2 F L 73 22 158/70 H 97 08/30/17 15:35 08/30/17 16:00 08/30/17 15:35 08/30/17 15:35 08/30/17 15:35 - Medications Medications: Current Medications Apixaban (Eliquis) 2.5 mg PO BID [facility] Last Admin: 08/30/17 18:11 Dose: 2.5 mg Aspirin (Aspirin Chewable) 81 mg PO DAILY [facility] Last Admin: 08/30/17 09:54 Dose: 81 mg Diltiazem HCl (Cardizem) 30 mg PO TID [facility] Donepezil HCl (Aricept) 10 mg PO HS [facility] Last Admin: 08/30/17 21:19 Dose: 10 mg Escitalopram Oxalate (Lexapro) 10 mg PO DAILY [facility] Last Admin: 08/30/17 09:54 Dose: 10 mg Famotidine (Pepcid) 20 mg PO DAILY [facility] Last Admin: 08/30/17 09:54 Dose: 20 mg Furosemide (Lasix) 20 mg PO DAILY [facility] Last Admin: 08/30/17 12:13 Dose: 20 mg Insulin Human Regular (Novolin R) 0 unit SC ACHS [facility] PRN Reason: Protocol Last Admin: 08/30/17 23:12 Dose: Not Given Lisinopril (Zestril) 5 mg PO DAILY [facility] Magnesium Oxide (Mag-Ox) 400 mg PO BID [facility] Last Admin: 08/30/17 18:11 Dose: 400 mg Potassium Chloride (K-Dur 20 Meq Er Tab) 40 meq PO BRK [facility] Last Admin: 08/30/17 09:15 Dose: 40 meq Prednisone (Prednisone Tab) 40 mg PO DAILY [facility] Last Admin: 08/30/17 09:54 Dose: 40 mg Promethazine HCl (Phenergan Syrup) 12.5 mg PO Q6 PRN PRN Reason: Cough and congestion Last Admin: 08/29/17 05:44 Dose: 12.5 mg Saccharomyces Boulardii (Florastor) 250 mg PO BID [facility] Last Admin: 08/30/17 18:11 Dose: 250 mg Tolvaptan (Samsca) 30 mg PO DAILY [facility] Stop: 09/02/17 10:01 Last Admin: 08/30/17 09:54 Dose: 30 mg - Labs Labs: 08/30/17 08:26 08/30/17 08:26 PT 12.2 SECONDS (9.7-12.2) 08/25/17 06:57 INR 1.1 08/25/17 06:57 APTT 33 SECONDS (21-34) 08/18/17 10:39
[2017-08-31] MEDS: Promethazine 12.5 mg/10 ml Syrup PO PRN (01:34)
[2017-08-31 02:28] VITALS: RESP 20
[2017-08-31 06:54] LABS: BASO % 0.1 % (0.0-2.0); EOS % 0.2 % (0.0-4.0); HEMATOCRIT 40.7 % (34.0-47.0); LYMPH # 2.1 K/uL (1.0-4.3); LYMPH % 22.2 % (20.0-40.0); MEAN CELL VOLUME 88.1 fL (81.0-99.0); MEAN CORPUSCULAR HEMOGLOBIN 28.8 pg (27.0-31.0); MEAN CORPUSCULAR HGB CONC 32.7 g/dL (33.0-37.0); MEAN PLATELET VOLUME 8.5 fL (7.2-11.7); MONO # 0.9 K/uL (0.0-0.8); MONO % 9.8 % (0.0-10.0); NRBC % 0.1 % (0.0-2.0); RED CELL DISTRIBUTION WIDTH 16.6 % (11.5-14.5); WHITE BLOOD COUNT 9.5 K/uL (4.8-10.8)
[2017-08-31] MEDS: (Novolin R) Insulin Human Regular 100 units/ml vial SC SCH ×2 (07:58→12:00)
[2017-08-31] MEDS: Potassium Chloride 20 mEq ER Tab PO SCH (08:06)
[2017-08-31 08:19] LABS: CHLORIDE 88 mmol/L (98-107); POTASSIUM 4.3 mmol/L (3.6-5.2); SODIUM 126 mmol/L (132-148)
[2017-08-31 08:21] LABS: ALB/GLOB RATIO 0.9 (1.0-2.1); AST/SGOT 36 U/L (14-36); BILIRUBIN,TOTAL 0.8 mg/dL (0.2-1.3); BLOOD UREA NITROGEN 20 mg/dL (7-17); CARBON DIOXIDE 30 mmol/L (22-30); GFR AFRICAN-AMERICAN > 60; TOTAL PROTEIN 6.7 g/dL (6.3-8.3)
[2017-08-31 08:22] LABS: ALKALINE PHOSPHATASE 86 U/L (38-126); ALT/SGPT 85 U/L (9-52); CALCIUM 8.9 mg/dl (8.6-10.4); GLUCOSE,RANDOM 84 mg/dL (65-105)
[2017-08-31 08:57] VITALS: PULSE 79; TEMP 97; O2SAT 97
[2017-08-31] MEDS: Saccharomyces Boulardi 250 mg Cap PO SCH (10:31)
[2017-08-31] MEDS: Magnesium Oxide 400 mg Tab UD PO SCH (10:31)
--- NOTE | 2017-08-31 10:33 | CP.PCM.PN ---
Subjective - Date & Time of Evaluation Date of Evaluation: 08/31/17 Time of Evaluation: 08:00 - Subjective Subjective: Pulm progress note for Dr. Carlton: Patient seen and examined at bedside. Doing well with no complaints at this time. resting comfortably. Still on NC. Objective - Vital Signs/Intake and Output Vital Signs (last 24 hours): Temp Pulse Resp BP Pulse Ox 97 F L 79 20 175/87 H 97 08/31/17 08:00 08/31/17 08:00 08/31/17 08:00 08/31/17 08:06 08/31/17 08:00 Intake and Output: 08/31/17 08/31/17 06:59 18:59 Intake Total 240 Balance 240 - Medications Medications: Current Medications Apixaban (Eliquis) 2.5 mg PO BID [facility] Last Admin: 08/30/17 18:11 Dose: 2.5 mg Aspirin (Aspirin Chewable) 81 mg PO DAILY [facility] Last Admin: 08/30/17 09:54 Dose: 81 mg Diltiazem HCl (Cardizem) 30 mg PO TID [facility] Donepezil HCl (Aricept) 10 mg PO HS [facility] Last Admin: 08/30/17 21:19 Dose: 10 mg Escitalopram Oxalate (Lexapro) 10 mg PO DAILY [facility] Last Admin: 08/30/17 09:54 Dose: 10 mg Famotidine (Pepcid) 20 mg PO DAILY [facility] Last Admin: 08/30/17 09:54 Dose: 20 mg Furosemide (Lasix) 20 mg PO DAILY [facility] Last Admin: 08/31/17 09:19 Dose: Not Given Insulin Human Regular (Novolin R) 0 unit SC ACHS [facility] PRN Reason: Protocol Last Admin: 08/31/17 07:58 Dose: Not Given Lisinopril (Zestril) 5 mg PO DAILY [facility] Last Admin: 08/31/17 09:19 Dose: Not Given Magnesium Oxide (Mag-Ox) 400 mg PO BID [facility] Last Admin: 08/30/17 18:11 Dose: 400 mg Potassium Chloride (K-Dur 20 Meq Er Tab) 40 meq PO BRK [facility] Last Admin: 08/31/17 08:06 Dose: 40 meq Prednisone (Prednisone Tab) 20 mg PO DAILY [facility] PRN Reason: Taper Stop: 09/09/17 09:59 Promethazine HCl (Phenergan Syrup) 12.5 mg PO Q6 PRN PRN Reason: Cough and congestion Last Admin: 08/31/17 01:34 Dose: 12.5 mg Saccharomyces Boulardii (Florastor) 250 mg PO BID [facility] Last Admin: 08/30/17 18:11 Dose: 250 mg Tolvaptan (Samsca) 30 mg PO DAILY [facility] Stop: 09/02/17 10:01 Last Admin: 08/30/17 09:54 Dose: 30 mg - Labs Labs: 08/31/17 06:45 08/31/17 06:45 PT 12.2 SECONDS (9.7-12.2) 08/25/17 06:57 INR 1.1 08/25/17 06:57 APTT 33 SECONDS (21-34) 08/18/17 10:39 - Constitutional Appears: Non-toxic, No Acute Distress - Head Exam Head Exam: NORMAL INSPECTION - Respiratory Exam Respiratory Exam: Decreased Breath Sounds, NORMAL BREATHING PATTERN. absent: Accessory Muscle Use, Clear to Ausculation Bilateral, Rales, Rhonchi, Wheezes, Respiratory Distress - Cardiovascular Exam Cardiovascular Exam: Irregular Rhythm, +S1, +S2 - GI/Abdominal Exam GI & Abdominal Exam: Soft, Normal Bowel Sounds. absent: Distended, Guarding, Tenderness - Neurological Exam Neurological Exam: Alert, Awake, Oriented x3 - Psychiatric Exam Psychiatric exam: Normal Affect, Normal Mood - Skin Skin Exam: Dry, Intact, Normal Color, Warm Assessment and Plan (1) COPD with exacerbation Assessment & Plan: Continue prednisone taper (20mg PO x 3 days, 10mg PO x 3 days, 5mg Po x 3 days) and nebulizer treatmenets Antibiotics discontinued On NC Phenergan prn cough Status: Acute (2) Pleural effusion Assessment & Plan: Resolved. Status: Acute (3) Cough Status: Acute (4) CHF exacerbation Status: Acute (5) Elevated troponin Status: Acute (6) Rapid atrial fibrillation Status: Acute
[2017-08-31] MEDS: Tolvaptan 15 MG TAB PO SCH (10:52)
[2017-08-31 13:05] VITALS: BP 145/76
--- NOTE | 2017-08-31 14:40 | CP.PCM.DIS ---
Addendum entered and electronically signed by Mumtaz Carmen 08/31/17 14:52: Attending, Dr Shirley, spoke with patient's pulmonolgist Dr Benson who is now aware of patient's hospital stay and will see the patient as follow-up outpatient. Original Note: <Mumtaz Carmen - Last Filed: 08/31/17 14:24> Provider - Provider Date of Admission: 08/18/17 12:52 Attending physician: Huey Rodriguez MD Primary care physician: Dr. Mosquera Consults: Rv Body Mechanic - Dr Drake Multiple Wire Sawyer - Dr Mallory Digital Production Manager - Dr Brandt TINOCO - Dr Maria Time Spent in preparation of Discharge (in minutes): 60 Hospital Course - Lab Results Lab Results: Micro Results 08/18/17 10:30 Blood Blood Culture - Final NO GROWTH AFTER 5 DAYS 08/18/17 10:30 Blood Gram Stain - Final TEST NOT PERFORMED 08/18/17 11:25 Blood Blood Culture - Final NO GROWTH AFTER 5 DAYS 08/18/17 11:25 Blood Gram Stain - Final TEST NOT PERFORMED 08/20/17 Unknown Nose MRSA Culture - Final MRSA NOT DETECTED 08/18/17 14:57 Naris MRSA Culture (Admit) - Final MRSA NOT DETECTED Most Recent Lab Values WBC 9.5 K/uL (4.8-10.8) 08/31/17 06:45 RBC 4.62 Mil/uL (3.80-5.20) 08/31/17 06:45 Hgb 13.3 g/dL (11.0-16.0) 08/31/17 06:45 Hct 40.7 % (34.0-47.0) 08/31/17 06:45 MCV 88.1 fL (81.0-99.0) 08/31/17 06:45 MCH 28.8 pg (27.0-31.0) 08/31/17 06:45 MCHC 32.7 g/dL (33.0-37.0) L 08/31/17 06:45 RDW 16.6 % (11.5-14.5) H 08/31/17 06:45 Plt Count 288 K/uL (130-400) 08/31/17 06:45 MPV 8.5 fL (7.2-11.7) 08/31/17 06:45 Neut % (Auto) 67.7 % (50.0-75.0) 08/31/17 06:45 Lymph % (Auto) 22.2 % (20.0-40.0) 08/31/17 06:45 York % (Auto) 9.8 % (0.0-10.0) 08/31/17 06:45 Eos % (Auto) 0.2 % (0.0-4.0) 08/31/17 06:45 Baso % (Auto) 0.1 % (0.0-2.0) 08/31/17 06:45 Neut # 6.4 K/uL (1.8-7.0) 08/31/17 06:45 Lymph # 2.1 K/uL (1.0-4.3) 08/31/17 06:45 [place] # 0.9 K/uL (0.0-0.8) H 08/31/17 06:45 Eos # 0.0 K/uL (0.0-0.7) 08/31/17 06:45 Baso # 0.0 K/uL (0.0-0.2) 08/31/17 06:45 Neutrophils % (Manual) 82 % (50-75) H 08/24/17 07:16 Band Neutrophils % 1 % (0-2) 08/22/17 06:44 Lymphocytes % (Manual) 11 % (20-40) L 08/24/17 07:16 Monocytes % (Manual) 7 % (0-10) 08/24/17 07:16 Eosinophils % (Manual) 1 % (0-4) 08/23/17 08:20 Nucleated RBC % 1 % (0-0) H 08/23/17 08:20 Toxic Granulation Present 08/22/17 06:44 Platelet Estimate Normal (NORMAL) 08/24/17 07:16 Large Platelets Present 08/22/17 06:44 RBC Morphology Normal 08/23/17 08:20 Polychromasia Slight 08/24/17 07:16 Hypochromasia (manual) Slight 08/22/17 06:44 Anisocytosis (manual) Slight 08/24/17 07:16 Microcytosis (manual) Slight 08/21/17 17:23 Macrocytosis (manual) Slight 08/22/17 06:44 PT 12.2 SECONDS (9.7-12.2) 08/25/17 06:57 INR 1.1 08/25/17 06:57 APTT 33 SECONDS (21-34) 08/18/17 10:39 Puncture Site Venous 08/26/17 19:48 pCO2 46 mm/Hg (35-45) H 08/20/17 05:16 pO2 69 mm/Hg (30-55) H 08/26/17 19:48 HCO3 29.0 mmol/L (21-28) H 08/20/17 05:16 ABG pH 7.43 (7.35-7.45) 08/20/17 05:16 ABG Total CO2 31.9 mmol/L (22-28) H 08/20/17 05:16 ABG O2 Saturation 98.8 % (95-98) H 08/20/17 05:16 ABG Base Excess 5.3 mmol/L (-2.0-3.0) H 08/20/17 05:16 ABG Hemoglobin 12.5 g/dL (11.7-17.4) 08/20/17 05:16 ABG Carboxyhemoglobin 1.8 % (0.5-1.5) H 08/20/17 05:16 POC ABG HHb (Measured) 1.2 % (0.0-5.0) 08/20/17 05:16 ABG Methemoglobin 1.0 % (0.0-3.0) 08/20/17 05:16 Tigre Test Na 08/26/17 19:48 ABG Potassium 3.3 mmol/L (3.6-5.2) L 08/18/17 11:47 VBG pH 7.50 (7.32-7.43) H 08/26/17 19:48 VBG pCO2 55 mmHg (40-60) 08/26/17 19:48 VBG HCO3 38.0 mmol/L 08/26/17 19:48 VBG Total CO2 21.2 mmol/L (22-28) L 08/19/17 09:07 VBG O2 Sat (Calc) 97.2 % (40-65) H 08/26/17 19:48 VBG Base Excess 16.9 mmol/L (0.0-2.0) H 08/26/17 19:48 VBG Potassium 3.9 mmol/L (3.6-5.2) 08/19/17 09:07 A-a O2 Difference 273.0 mm/Hg 08/20/17 05:16 Respiratory Index 2.8 08/20/17 05:16 Hgb O2 Saturation 96.0 % (95.0-98.0) 08/20/17 05:16 Sodium 133.0 mmol/l (132-148) 08/19/17 09:07 Chloride 96.0 mmol/L (98-107) L 08/19/17 09:07 Glucose 263 mg/dl (65-105) H 08/19/17 09:07 Lactate 5.6 mmol/L (0.7-2.1) H* 08/19/17 09:07 Liter Flow 20.0 08/18/17 11:47 Vent Mode Bipap 08/20/17 05:16 FiO2 60.0 % 08/20/17 05:16 Inspiratory BiPAP 16 08/20/17 05:16 Expiratory BiPAP 8 08/20/17 05:16 Crit Value Called To Dr maggie fuller 08/19/17 09:07 Crit Value Called By Tonja berkowitz senior program planner 08/19/17 09:07 Crit Value Read Back Y 08/19/17 09:07 Blood Gas Notified Time 912 08/19/17 09:07 Sodium 126 mmol/L (132-148) L 08/31/17 06:45 Potassium 4.3 mmol/L (3.6-5.2) 08/31/17 06:45 Chloride 88 mmol/L (98-107) L 08/31/17 06:45 Carbon Dioxide 30 mmol/L (22-30) 08/31/17 06:45 Anion Gap 12 (10-20) 08/31/17 06:45 BUN 20 mg/dL (7-17) H 08/31/17 06:45 Creatinine 0.7 mg/dL (0.7-1.2) 08/31/17 06:45 Est GFR ( Amer) > 60 08/31/17 06:45 Est GFR (Non-Af Amer) > 60 08/31/17 06:45 POC Glucose (mg/dL) 122 mg/dL (65-110) H 08/31/17 11:25 Random Glucose 84 mg/dL (65-105) 08/31/17 06:45 Lactic Acid 1.9 mmol/L (0.7-2.1) 08/20/17 05:36 Calcium 8.9 mg/dl (8.6-10.4) 08/31/17 06:45 Phosphorus 3.2 mg/dL (2.5-4.5) 08/27/17 06:19 Magnesium 1.9 mg/dL (1.6-2.3) 08/27/17 06:19 Iron 39 ug/dL (37-170) 08/21/17 09:25 TIBC 375 ug/dL (250-450) 08/21/17 09:25 % Saturation 10 (20-55) L 08/21/17 09:25 Ferritin 306.0 ng/mL 08/21/17 07:51 Total Bilirubin 0.8 mg/dL (0.2-1.3) 08/31/17 06:45 Direct Bilirubin 0.4 mg/dL (0.0-0.4) 08/21/17 07:51 AST 36 U/L (14-36) D 08/31/17 06:45 ALT 85 U/L (9-52) H 08/31/17 06:45 Alkaline Phosphatase 86 U/L (38-126) 08/31/17 06:45 Total Creatine Kinase 211 U/L (30-135) H 08/19/17 06:14 CK-MB (Mass) 15.1 ng/mL (0.0-3.38) H 08/19/17 06:14 Troponin I 0.4120 ng/mL (0.00-0.120) H* 08/21/17 07:51 Troponin I, Quant 1.1800 ng/mL (0.00-0.120) H* 08/19/17 06:14 NT-Pro-B Natriuret Pep 3370 pg/mL (0-900) H 08/18/17 10:39 Total Protein 6.7 g/dL (6.3-8.3) 08/31/17 06:45 Albumin 3.3 g/dL (3.5-5.0) L 08/31/17 06:45 Globulin 3.5 gm/dL (2.2-3.9) 08/31/17 06:45 Albumin/Globulin Ratio 0.9 (1.0-2.1) L 08/31/17 06:45 Procalcitonin 0.74 NG/ML (0.19-0.49) H 08/19/17 12:46 Free T4 1.39 ng/dL (0.78-2.19) 08/27/17 06:19 TSH 3rd Generation 4.36 mIU/L (0.46-4.68) 08/27/17 06:19 ACTH 40 pg/mL (6-50) 08/27/17 06:19 Arterial Blood Potassium 3.3 mmol/L (3.6-5.2) L 08/18/17 11:47 Venous Blood Potassium 3.9 mmol/L (3.6-5.2) 08/19/17 09:07 Urine Color Yellow (YELLOW) 08/26/17 21:57 Urine Clarity Clear (Clear) 08/26/17 21:57 Urine pH 6.0 (5.0-8.0) 08/26/17 21:57 Ur Specific [place] 1.018 (1.003-1.030) 08/26/17 21:57 Urine Protein 3+ mg/dL (NEGATIVE) H 08/26/17 21:57 Urine Glucose (UA) 1+ mg/dL (Normal) 08/26/17 21:57 Urine Ketones Negative mg/dL (NEGATIVE) 08/26/17 21:57 Urine Blood 1+ (NEGATIVE) H 08/26/17 21:57 Urine Nitrate Negative (NEGATIVE) 08/26/17 21:57 Urine Bilirubin Negative (NEGATIVE) 08/26/17 21:57 Urine Urobilinogen Normal mg/dL (0.2-1.0) 08/26/17 21:57 Ur Leukocyte Esterase Neg [place]/uL (Negative) 08/26/17 21:57 Urine WBC (Auto) 1 /hpf (0-5) 08/26/17 21:57 Urine RBC (Auto) 1 /hpf (0-3) 08/26/17 21:57 Ur Squamous Epith Cells 2 /hpf (0-5) 08/18/17 12:05 Urine Bacteria Rare (<OCC) 08/18/17 12:05 Hyaline Casts 3-5 /lpf (0-2) H 08/18/17 12:05 Urine Osmolality 106 mosm/kg (300-1000) L 08/29/17 14:24 Ur Random Sodium < 5 mmol/L 08/29/17 14:24 Ur Random Potassium 57.9 mmol/L 08/27/17 03:11 Urine Chloride 15 mmol/L (32-290) L 08/26/17 21:57 Digoxin 1.0 ng/mL (0.8-2.0) 08/30/17 17:31 Salicylates < 1.0 mg/dL 1 08/20/17 17:04 Acetaminophen < 10.0 ug/mL (10.0-30.0) L 08/20/17 17:04 IgG 751.7 mg/dL (700.0-1600.0) 08/21/17 09:25 IgA 363.9 mg/dL (70.0-400.0) 08/21/17 09:25 IgM 71.7 mg/dL (40.0-230.0) 08/21/17 09:25 PATRICK 6 Profile Negative (NEGATIVE) 08/21/17 09:25 Anti-Mitochondrial Ab Negative (Negative) 08/21/17 09:25 Anti-Smooth Muscle Ab Negative (Negative) 08/21/17 09:25 Liver/Kid Microsomes Ab <=20.0 U (<=20.0) 08/21/17 09:25 Hepatitis A IgM Ab Negative (NEGATIVE) 08/20/17 17:04 Hep Bs Antigen Negative (NEGATIVE) 08/20/17 17:04 Hep B Core IgM Ab Negative (NEGATIVE) 08/20/17 17:04 Hepatitis C Antibody Negative (NEGATIVE) 08/20/17 17:04 Influenza Typ A,B (EIA) Negative for flu a/b (NEGATIVE) 08/18/17 11:08 - Hospital Course Hospital Course: CC: Dyspnea HPI: ( Limited due to patient's clinical status): Patient is a 72 year old female with past medical history of CHF, HTN, atrial fibrillation, arthritis, COPD, who presents to the ED with complaints of shortness of breath that has worsened since this morning. Patient reports that she is unable to lay flat and sitting up mildly alleviates her symptoms. Patient does report episodes of bilateral leg swelling. Patient denies productive or non-productive cough, fever , chills, nausea, vomiting, dizziness but reports fatigue. Patient was placed on Bipap in the ED but patient refused, therefore, she was placed on Vapotherm with 100% FIO2. Patient was noted to have decreasing oxygen saturation as she was talking, therefore, the encounter was shortened and patient was eventually placed on Bipap. As per chart review: PMD: Dr. Mosquera. PMHx: CHF, HTN, atrial fibrillation, arthritis, COPD. Surgical Hx: Cholecystectomy, foot surgery, left shoulder surgery and surgery for bladder incontinence. Family Hx: [place] passed from [place] 72. Brother passed from [place] 28. Allergies: NKDA. Social Hx: Lives alone. Former smoker for 20 years. Admits to ETOH socially and denies illicit drug use HOSPITAL COURSE: This is a patient who presented with respiratory distress. She had an NSTEMI/Elevated troponins. Rv Body Mechanic, Dr Drake, was consulted. An ECHO was done which showed an EF of 25%. A cardiac cath was planned but was cancelled because the patient couldn't lay flat due to shortness of breath. An another cardiac cath was attempted and done which showed two vessel disease ( RCA and LCX). Patient will need a PCI upon discharge, she is aware. She has atrial fibrillation. She was rate controlled. She was given cardizem and digoxin however the cardizem dose was lowered and the digoxin was discontinued due to a rhythm showing AV delay. Digital Production Manager, Dr Fuller, was consulted as well. A CXR was suggestive of bilateral alveolar infiltrates, likely 2/[address] chest was done which showed right moderate pleural effusion. A throacentesis was done and 100 cc slight serosanguinous fluid removed. To manage her shortness of breath she was given NC at 4 L/min continuous and BiPAP as needed. She was given prednisone, duonebs, and cefepime, florastor and promethazine. She also had hyponatremia. Nephrology, Dr Mallory, was consulted. Him impression was that it was Likely hypovolemic hyponatremia 2/2 lasix. Lasix was stopped and she was bolus'd normal saline. 2 doses of tolvaptan were given and her sodium improved. Her LFTs were elevated. GI, Dr Maria, was consulted. Abdominal ultrasound showed no acute pathology, CBD 4mm. Negative hepatitis panel. The APAP, ASA, IgG , IgA, IgM were all within normal range. PATRICK, Anti-Mitochondrial Ab, Anti- smooth muscle Ab, Liver/Kid Microsomes Ab were all negative. The etiology for elevated LFTs were possibly acute insult from ischemia 2/2 to hypotension. 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 It was advised the patient go to rehab at [facility], however the patient refused. Her son Danie ([phone]) was attempted to be contacted however his voicemail was full. Discharge Exam - Head Exam Head Exam: NORMAL INSPECTION - Additional Findings Additional findings: - Constitutional Appears: Well, No Acute Distress - Head Exam Head Exam: ATRAUMATIC, NORMAL INSPECTION - Eye Exam Eye Exam: EOMI - ENT Exam ENT Exam: Mucous Membranes Moist - Neck Exam Neck Exam: Normal Inspection - Respiratory Exam Respiratory Exam: Decreased Breath Sounds, (+) bibasalar rales bilaterally, (+) wheezing R>L, NORMAL BREATHING PATTERN - Cardiovascular Exam Cardiovascular Exam: Tachycardia, Irregular Rhythm, RRR, +S1, +S2. absent: Murmur - GI/Abdominal Exam GI & Abdominal Exam: Soft, Normal Bowel Sounds. absent: Distended, Firm, Guarding, Rigid, Tenderness - Extremities Exam Extremities Exam: Normal Capillary Refill, Pedal Edema Additional comments: 1+ pitting edema up to shins bilaterally - Neurological Exam Neurological Exam: Alert, Awake, Oriented x3 - Psychiatric Exam Psychiatric exam: Normal Affect, Normal Mood - Skin Skin Exam: Dry, Intact, Normal Color, Warm Additional comments: chronic ecchymotic lesions on arms bilaterally Discharge Plan - Discharge Medications Prescriptions: Apixaban [Eliquis] 2.5 mg PO BID #30 tab Aspirin [Aspirin Chewable] 81 mg PO DAILY #30 chew Atorvastatin [Lipitor] 20 mg PO DAILY 30 Days tab Clopidogrel [Plavix] 75 mg PO DAILY #30 tab diltiaZEM [Cardizem] 30 mg PO TID 30 Days tab Donepezil [Aricept] 10 mg PO DAILY 30 Days tab Escitalopram [Lexapro] 10 mg PO DAILY 30 Days tab Furosemide [Lasix] 20 mg PO BID 30 Days tab Lisinopril [Zestril] 2.5 mg PO DAILY 30 Days tab predniSONE [predniSONE Tab] 10 mg PO DAILY #3 tab Sodium Chloride [Sodium Chloride Tab] 1 gm PO DAILY #4 tab Walker [Rolling Walker] 1 dev XX PRN PRN #1 dev PRN Reason: ambulation - Follow Up Plan Condition: STABLE Disposition: HOME/ ROUTINE Instructions: Heart Failure (DC), Heart Failure (GEN), Pacemaker (DC), Pacemaker (GEN), Pulmonary Edema (DC), Pulmonary Edema (GEN), Ascites (DC), Ascites (GEN), Dyspnea (GEN), Hypertension (DC), Hypertension (GEN) Additional Instructions: Patient is medically stable for discharge. Patient needs a PCI (a cardiac procedure where a stent will be placed in her heart vessel), she will need to make an appointment when unclaimed property manager, Dr Drake, to coordinate this (ph: )). Patient will be sent home with the following medications which she will need to take as prescribed: Apixaban 2.5mg po twice a day Aspirin 81mg po daily Atorvastatin 20mg po daily Clopidogrel 75mg po daily Donepezil 10mg po daily Escitalopram 10mg po daily Furosemide 20mg po twice a day Lisinopril 2.5mg po daily Prednisone 10mg po daily Sodium chloride 1g po daily Rolling Walker She is to continue the following home medications: Breo Ellipta 100-25mcg inh Esomeprazole magnesium 20mg po daily potassium chloride 20meq po daily Patient is to make an appointment with her PMD, Dr Mosquera, and follow-up with him. If symptoms return please return to the ER immediately. Referrals: Mack Drake MD [Staff Provider] - <Solis Shirley - Last Filed: 08/31/17 16:18> Provider - Provider Date of Admission: 08/18/17 12:52 Attending physician: Huey Rodriguez MD Hospital Course - Lab Results Lab Results: Micro Results 08/18/17 10:30 Blood Blood Culture - Final NO GROWTH AFTER 5 DAYS 08/18/17 10:30 Blood Gram Stain - Final TEST NOT PERFORMED 08/18/17 11:25 Blood Blood Culture - Final NO GROWTH AFTER 5 DAYS 08/18/17 11:25 Blood Gram Stain - Final TEST NOT PERFORMED 08/20/17 Unknown Nose MRSA Culture - Final MRSA NOT DETECTED 08/18/17 14:57 Naris MRSA Culture (Admit) - Final MRSA NOT DETECTED Most Recent Lab Values WBC 9.5 K/uL (4.8-10.8) 08/31/17 06:45 RBC 4.62 Mil/uL (3.80-5.20) 08/31/17 06:45 Hgb 13.3 g/dL (11.0-16.0) 08/31/17 06:45 Hct 40.7 % (34.0-47.0) 08/31/17 06:45 MCV 88.1 fL (81.0-99.0) 08/31/17 06:45 MCH 28.8 pg (27.0-31.0) 08/31/17 06:45 MCHC 32.7 g/dL (33.0-37.0) L 08/31/17 06:45 RDW 16.6 % (11.5-14.5) H 08/31/17 06:45 Plt Count 288 K/uL (130-400) 08/31/17 06:45 MPV 8.5 fL (7.2-11.7) 08/31/17 06:45 Neut % (Auto) 67.7 % (50.0-75.0) 08/31/17 06:45 Lymph % (Auto) 22.2 % (20.0-40.0) 08/31/17 06:45 [place] % (Auto) 9.8 % (0.0-10.0) 08/31/17 06:45 Eos % (Auto) 0.2 % (0.0-4.0) 08/31/17 06:45 Baso % (Auto) 0.1 % (0.0-2.0) 08/31/17 06:45 Neut # 6.4 K/uL (1.8-7.0) 08/31/17 06:45 Lymph # 2.1 K/uL (1.0-4.3) 08/31/17 06:45 [place] # 0.9 K/uL (0.0-0.8) H 08/31/17 06:45 Eos # 0.0 K/uL (0.0-0.7) 08/31/17 06:45 Baso # 0.0 K/uL (0.0-0.2) 08/31/17 06:45 Neutrophils % (Manual) 82 % (50-75) H 08/24/17 07:16 Band Neutrophils % 1 % (0-2) 08/22/17 06:44 Lymphocytes % (Manual) 11 % (20-40) L 08/24/17 07:16 Monocytes % (Manual) 7 % (0-10) 08/24/17 07:16 Eosinophils % (Manual) 1 % (0-4) 08/23/17 08:20 Nucleated RBC % 1 % (0-0) H 08/23/17 08:20 Toxic Granulation Present 08/22/17 06:44 Platelet Estimate Normal (NORMAL) 08/24/17 07:16 Large Platelets Present 08/22/17 06:44 RBC Morphology Normal 08/23/17 08:20 Polychromasia Slight 08/24/17 07:16 Hypochromasia (manual) Slight 08/22/17 06:44 Anisocytosis (manual) Slight 08/24/17 07:16 Microcytosis (manual) Slight 08/21/17 17:23 Macrocytosis (manual) Slight 08/22/17 06:44 PT 12.2 SECONDS (9.7-12.2) 08/25/17 06:57 INR 1.1 08/25/17 06:57 APTT 33 SECONDS (21-34) 08/18/17 10:39 Puncture Site Venous 08/26/17 19:48 pCO2 46 mm/Hg (35-45) H 08/20/17 05:16 pO2 69 mm/Hg (30-55) H 08/26/17 19:48 HCO3 29.0 mmol/L (21-28) H 08/20/17 05:16 ABG pH 7.43 (7.35-7.45) 08/20/17 05:16 ABG Total CO2 31.9 mmol/L (22-28) H 08/20/17 05:16 ABG O2 Saturation 98.8 % (95-98) H 08/20/17 05:16 ABG Base Excess 5.3 mmol/L (-2.0-3.0) H 08/20/17 05:16 ABG Hemoglobin 12.5 g/dL (11.7-17.4) 08/20/17 05:16 ABG Carboxyhemoglobin 1.8 % (0.5-1.5) H 08/20/17 05:16 POC ABG HHb (Measured) 1.2 % (0.0-5.0) 08/20/17 05:16 ABG Methemoglobin 1.0 % (0.0-3.0) 08/20/17 05:16 Tigre Test Na 08/26/17 19:48 ABG Potassium 3.3 mmol/L (3.6-5.2) L 08/18/17 11:47 VBG pH 7.50 (7.32-7.43) H 08/26/17 19:48 VBG pCO2 55 mmHg (40-60) 08/26/17 19:48 VBG HCO3 38.0 mmol/L 08/26/17 19:48 VBG Total CO2 21.2 mmol/L (22-28) L 08/19/17 09:07 VBG O2 Sat (Calc) 97.2 % (40-65) H 08/26/17 19:48 VBG Base Excess 16.9 mmol/L (0.0-2.0) H 08/26/17 19:48 VBG Potassium 3.9 mmol/L (3.6-5.2) 08/19/17 09:07 A-a O2 Difference 273.0 mm/Hg 08/20/17 05:16 Respiratory Index 2.8 08/20/17 05:16 Hgb O2 Saturation 96.0 % (95.0-98.0) 08/20/17 05:16 Sodium 133.0 mmol/l (132-148) 08/19/17 09:07 Chloride 96.0 mmol/L (98-107) L 08/19/17 09:07 Glucose 263 mg/dl (65-105) H 08/19/17 09:07 Lactate 5.6 mmol/L (0.7-2.1) H* 08/19/17 09:07 Liter Flow 20.0 08/18/17 11:47 Vent Mode Bipap 08/20/17 05:16 FiO2 60.0 % 08/20/17 05:16 Inspiratory BiPAP 16 08/20/17 05:16 Expiratory BiPAP 8 08/20/17 05:16 Crit Value Called To Dr maggie fuller 08/19/17 09:07 Crit Value Called By Tonja berkowitz senior program planner 08/19/17 09:07 Crit Value Read Back Y 08/19/17 09:07 Blood Gas Notified Time 912 08/19/17 09:07 Sodium 126 mmol/L (132-148) L 08/31/17 06:45 Potassium 4.3 mmol/L (3.6-5.2) 08/31/17 06:45 Chloride 88 mmol/L (98-107) L 08/31/17 06:45 Carbon Dioxide 30 mmol/L (22-30) 08/31/17 06:45 Anion Gap 12 (10-20) 08/31/17 06:45 BUN 20 mg/dL (7-17) H 08/31/17 06:45 Creatinine 0.7 mg/dL (0.7-1.2) 08/31/17 06:45 Est GFR ( Amer) > 60 08/31/17 06:45 Est GFR (Non-Af Amer) > 60 08/31/17 06:45 POC Glucose (mg/dL) 122 mg/dL (65-110) H 08/31/17 11:25 Random Glucose 84 mg/dL (65-105) 08/31/17 06:45 Lactic Acid 1.9 mmol/L (0.7-2.1) 08/20/17 05:36 Calcium 8.9 mg/dl (8.6-10.4) 08/31/17 06:45 Phosphorus 3.2 mg/dL (2.5-4.5) 08/27/17 06:19 Magnesium 1.9 mg/dL (1.6-2.3) 08/27/17 06:19 Iron 39 ug/dL (37-170) 08/21/17 09:25 TIBC 375 ug/dL (250-450) 08/21/17 09:25 % Saturation 10 (20-55) L 08/21/17 09:25 Ferritin 306.0 ng/mL 08/21/17 07:51 Total Bilirubin 0.8 mg/dL (0.2-1.3) 08/31/17 06:45 Direct Bilirubin 0.4 mg/dL (0.0-0.4) 08/21/17 07:51 AST 36 U/L (14-36) D 08/31/17 06:45 ALT 85 U/L (9-52) H 08/31/17 06:45 Alkaline Phosphatase 86 U/L (38-126) 08/31/17 06:45 Total Creatine Kinase 211 U/L (30-135) H 08/19/17 06:14 CK-MB (Mass) 15.1 ng/mL (0.0-3.38) H 08/19/17 06:14 Troponin I 0.4120 ng/mL (0.00-0.120) H* 08/21/17 07:51 Troponin I, Quant 1.1800 ng/mL (0.00-0.120) H* 08/19/17 06:14 NT-Pro-B Natriuret Pep 3370 pg/mL (0-900) H 08/18/17 10:39 Total Protein 6.7 g/dL (6.3-8.3) 08/31/17 06:45 Albumin 3.3 g/dL (3.5-5.0) L 08/31/17 06:45 Globulin 3.5 gm/dL (2.2-3.9) 08/31/17 06:45 Albumin/Globulin Ratio 0.9 (1.0-2.1) L 08/31/17 06:45 Procalcitonin 0.74 NG/ML (0.19-0.49) H 08/19/17 12:46 Free T4 1.39 ng/dL (0.78-2.19) 08/27/17 06:19 TSH 3rd Generation 4.36 mIU/L (0.46-4.68) 08/27/17 06:19 ACTH 40 pg/mL (6-50) 08/27/17 06:19 Arterial Blood Potassium 3.3 mmol/L (3.6-5.2) L 08/18/17 11:47 Venous Blood Potassium 3.9 mmol/L (3.6-5.2) 08/19/17 09:07 Urine Color Yellow (YELLOW) 08/26/17 21:57 Urine Clarity Clear (Clear) 08/26/17 21:57 Urine pH 6.0 (5.0-8.0) 08/26/17 21:57 Ur Specific [place] 1.018 (1.003-1.030) 08/26/17 21:57 Urine Protein 3+ mg/dL (NEGATIVE) H 08/26/17 21:57 Urine Glucose (UA) 1+ mg/dL (Normal) 08/26/17 21:57 Urine Ketones Negative mg/dL (NEGATIVE) 08/26/17 21:57 Urine Blood 1+ (NEGATIVE) H 08/26/17 21:57 Urine Nitrate Negative (NEGATIVE) 08/26/17 21:57 Urine Bilirubin Negative (NEGATIVE) 08/26/17 21:57 Urine Urobilinogen Normal mg/dL (0.2-1.0) 08/26/17 21:57 Ur Leukocyte Esterase Neg [place]/uL (Negative) 08/26/17 21:57 Urine WBC (Auto) 1 /hpf (0-5) 08/26/17 21:57 Urine RBC (Auto) 1 /hpf (0-3) 08/26/17 21:57 Ur Squamous Epith Cells 2 /hpf (0-5) 08/18/17 12:05 Urine Bacteria Rare (<OCC) 08/18/17 12:05 Hyaline Casts 3-5 /lpf (0-2) H 08/18/17 12:05 Urine Osmolality 106 mosm/kg (300-1000) L 08/29/17 14:24 Ur Random Sodium < 5 mmol/L 08/29/17 14:24 Ur Random Potassium 57.9 mmol/L 08/27/17 03:11 Urine Chloride 15 mmol/L (32-290) L 08/26/17 21:57 Digoxin 1.0 ng/mL (0.8-2.0) 08/30/17 17:31 Salicylates < 1.0 mg/dL 1 08/20/17 17:04 Acetaminophen < 10.0 ug/mL (10.0-30.0) L 08/20/17 17:04 IgG 751.7 mg/dL (700.0-1600.0) 08/21/17 09:25 IgA 363.9 mg/dL (70.0-400.0) 08/21/17 09:25 IgM 71.7 mg/dL (40.0-230.0) 08/21/17 09:25 PATRICK 6 Profile Negative (NEGATIVE) 08/21/17 09:25 Anti-Mitochondrial Ab Negative (Negative) 08/21/17 09:25 Anti-Smooth Muscle Ab Negative (Negative) 08/21/17 09:25 Liver/Kid Microsomes Ab <=20.0 U (<=20.0) 08/21/17 09:25 Hepatitis A IgM Ab Negative (NEGATIVE) 08/20/17 17:04 Hep Bs Antigen Negative (NEGATIVE) 08/20/17 17:04 Hep B Core IgM Ab Negative (NEGATIVE) 08/20/17 17:04 Hepatitis C Antibody Negative (NEGATIVE) 08/20/17 17:04 Influenza Typ A,B (EIA) Negative for flu a/b (NEGATIVE) 08/18/17 11:08 Attending/Attestation - Attestation I have personally seen and examined this patient.: Yes I have fully participated in the care of the patient.: Yes I have reviewed all pertinent clinical information, including history, physical exam and plan: Yes Notes (Text): 08/31/17 16:11 Medical attending: Patient was seen and examined by me, agrees the above note by medical supervisor The patient was insistent on leaving today, she is ready getting ready to be addressed and then removed the IV access on her own. She was insisting on going home and not going to subacute rehabilitation On physical exam today we had the patient walk around with us in the hallway, she was able to do so without any assistance on our part. She was insisting on going home she did not despite us using a lead front end developer to explain to her the reasons for this. She explained that she felt strong enough to go directly back to her home. As mentioned above in the resident note the patient has had quite a time here at [facility]. She initially came to the hospital with a very rapid heart rate and shortness of breath. She initially came to the intensive care unit because of a positive troponin. She was given IV Lasix to diurese her. An echo was done while she was in the ICU showing that her ejection fraction was only 25%. He was then decided to try a cardiac cath however the patient was not able to lay flat on the table. We ordered a CT scan it showed that she did have a pleural effusion in the subsequent days she then had a thoracentesis done. Only a very small amount had been removed nevertheless it appeared to helped her since she was then able to get a cardiac cath showing that she has at least two- vessel disease. After this she was transferred out of the ICU. She did have an episode of hyponatremia is evaluated by nephrology as well. For well she has been on told that began sodium has come up to 126. 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 Thank you very much, Solis Shirley
--- NOTE | 2017-08-31 14:59 | PCM.HF ---
Heart Failure Core Measure - Heart Failure Ejection Fraction: Less Than 40 % SOO Inhibitor Prescribed: Yes Beta-Kitty Prescribed: None Contraindication/Reason for not providing: COPD Angiotensin II Receptor Kitty Prescribed: No Contraindication/Reason for not providing: ON SOO AnticoagulationTherapy for Atrial Fibrillation/Atrialflutter: Yes Aldosterone Antagonist Prescribed: No Contraindication/Reason for not providing: NOT RECOMMENDED BY COMPONENTS ENGINEER AT THIS TIME Hydralazine Nitrate Prescribed: No Contraindication/Reason for not providing: NOT RECOMMENDED BY COMPONENTS ENGINEER AT THIS TIME Implantable Cardioverter Defibrillator Therapy: No Contraindication/Reason for not providing: NOT RECOMMENDED BY COMPONENTS ENGINEER AT THIS TIME; WILL NEED PCI Cardiac Resynchronization Therapy Prescribed: No Contraindication/Reason for not providing: NOT RECOMMENDED BY COMPONENTS ENGINEER AT THIS TIME; WILL NEED PCI - Follow up Will be discharged to: Home Follow Up Date (must be within 7 days from discharge): 09/07/17 Follow Up Time: 09:00
--- NOTE | 2017-08-31 21:09 | CP.PCM.PN ---
Subjective - Date & Time of Evaluation Date of Evaluation: 08/31/17 Time of Evaluation: 13:00 - Subjective Subjective: Patient reports breathing improved; wanting to go home; tolerating diet; Objective - Vital Signs/Intake and Output Vital Signs (last 24 hours): Temp Pulse Resp BP Pulse Ox 97 F L 79 20 145/76 97 08/31/17 08:00 08/31/17 08:00 08/31/17 08:00 08/31/17 13:04 08/31/17 08:00 Intake and Output: 08/31/17 09/01/17 18:59 06:59 Intake Total 480 Balance 480 - Labs Labs: 08/31/17 06:45 08/31/17 06:45 PT 12.2 SECONDS (9.7-12.2) 08/25/17 06:57 INR 1.1 08/25/17 06:57 APTT 33 SECONDS (21-34) 08/18/17 10:39 - Constitutional Appears: Non-toxic, No Acute Distress - Head Exam Head Exam: NORMAL INSPECTION - Eye Exam Eye Exam: Normal appearance. absent: Scleral icterus - ENT Exam ENT Exam: Mucous Membranes Moist - Respiratory Exam Respiratory Exam: absent: Respiratory Distress Additional comments: mild rales; - Cardiovascular Exam Cardiovascular Exam: RRR, +S1, +S2 - GI/Abdominal Exam GI & Abdominal Exam: Soft. absent: Distended, Tenderness - Extremities Exam Additional comments: mild to moderate b/l lower leg edema; - Neurological Exam Neurological Exam: Alert, Awake - Psychiatric Exam Psychiatric exam: Normal Affect, Normal Mood - Skin Skin Exam: Warm. absent: Cyanosis Assessment and Plan (1) Hyponatremia Assessment & Plan: Likely secondary to CHF w/ inadequate forward flow as being sensed at level of kidneys (hence low Ur Na and Cl); responding slowly to increased tolvaptan dose ; as patient is wanting to go home, can try lasix 20 mg bid as well as salt tabs ; will need to get prior auth for tolvaptan as outpatient; Status: Acute (2) CHF exacerbation Assessment & Plan: With severe systolic dysfunction; patient overall appears comfortable; need to optimize CHF meds; started on lisinopril, should slowly titrate dose upward; need to start B-blockers at some point (held due to COPD exacerbation); Status: Acute (3) Metabolic alkalosis Assessment & Plan: Primary metabolic alkalosis from loop diuretics as well as compensation for hypercapnea; improved after holding lasix; should start aldactone slowly once serum Na > 130; Status: Acute (4) Hypertension Assessment & Plan: BP improved after increasing lisinopril to 5 mg daily; titrate upward as tolerated; Status: Chronic (5) COPD with exacerbation Status: Acute
== END 2017-08-31 17:00 | disposition home or self-care (01) | DRG 280 ==
LOC: C.ER 10:19 → C.9I 12:52 → C.6T 08-20 22:08
PROVIDERS: ADMIT Internal Medicine; ATTEND Internal Medicine
PROC: 5A09357 Assistance with Respiratory Ventilation, Less than 24 Consecutive Hours, Continuous Positive Airway Pressure (ICD-10-PCS; 2017-08-18)
PROC: 0W993ZX Drainage of Right Pleural Cavity, Percutaneous Approach, Diagnostic (ICD-10-PCS; 2017-08-24)
PROC: BB4BZZZ Ultrasonography of Pleura (ICD-10-PCS; 2017-08-24)
PROC: B2151ZZ Fluoroscopy of Left Heart using Low Osmolar Contrast (ICD-10-PCS; 2017-08-25)
PROC: B2111ZZ Fluoroscopy of Multiple Coronary Arteries using Low Osmolar Contrast (ICD-10-PCS; 2017-08-25)
PROC: 4A023N7 Measurement of Cardiac Sampling and Pressure, Left Heart, Percutaneous Approach (ICD-10-PCS; principal; 2017-08-25 08:00)
DX: I21.4 Non-ST elevation (NSTEMI) myocardial infarction (principal); I50.23 Acute on chronic systolic (congestive) heart failure; J18.9 Pneumonia, unspecified organism; A41.9 Sepsis, unspecified organism; E87.3 Alkalosis; E87.1 Hypo-osmolality and hyponatremia; K76.0 Fatty (change of) liver, not elsewhere classified; I13.0 Hypertensive heart and chronic kidney disease with heart failure and stage 1 through stage 4 chronic kidney disease, or unspecified chronic kidney disease; I27.20 Pulmonary hypertension, unspecified; E83.42 Hypomagnesemia; J44.0 Chronic obstructive pulmonary disease with (acute) lower respiratory infection; J44.1 Chronic obstructive pulmonary disease with (acute) exacerbation; W06.XXXA Fall from bed, initial encounter; I48.91 Unspecified atrial fibrillation; K76.1 Chronic passive congestion of liver; I73.9 Peripheral vascular disease, unspecified; I25.10 Atherosclerotic heart disease of native coronary artery without angina pectoris; N18.9 Chronic kidney disease, unspecified; R09.02 Hypoxemia; T46.0X5A Adverse effect of cardiac-stimulant glycosides and drugs of similar action, initial encounter; T50.1X5A Adverse effect of loop [high-ceiling] diuretics, initial encounter; E87.6 Hypokalemia; E78.5 Hyperlipidemia, unspecified; E86.1 Hypovolemia; Z53.8 Procedure and treatment not carried out for other reasons; Z91.19 Patient's noncompliance with other medical treatment and regimen; Z90.49 Acquired absence of other specified parts of digestive tract; Z87.891 Personal history of nicotine dependence; Z79.82 Long term (current) use of aspirin; Z95.820 Peripheral vascular angioplasty status with implants and grafts